=== PATIENT | female | born 1990 | race Caucasian/White ===

== ENCOUNTER → 2016-06-06 | Outpatient (CLI) | payer BC ==
[~2016-06-06] MED LIST: ACET-1256 PO; ACET-1311 PO; ALUM-30 PO; ATR25 PO; CEPH500C PO; CLON0.5T3 PO; DIPH1TAB PO; DOXY25TA7; ENT3 PO; FLM4 PO; FLUO10CA24 PO; FLUO40CA8 PO; GABA1CAP5 PO; GABA800T PO; HYDR-5688 PO; IMD/2 PO; KLN5 PO; LITH1TAB10 PO; LTHCR300 PO; MAGN400C2 PO; MEDR150I INJ; MOML PO; NICO14DI5 TD; NRN800 PO; PHEN-939 PO; POTA10CA28 PO; PRED20TA PO; PRENTAB26 PO; PRZ/40 PO; QUET1TAB34 PO; SULF500T8 PO; SULF800T23 PO; SUMA50TA15 PO; VENL1CAP92 PO; VENL75CA PO
[2016-06-06 11:09] LABS: HEMATOCRIT 35.4 % (37-47)
[2016-06-06 11:39] LABS: MANUAL MICROSCOPIC REQUIRED? NO; REVIEW REQ? NO; URINE APPEARANCE CLEAR (CLEAR); URINE BILIRUBIN NEG (NEG); URINE COLOR YELLOW; URINE EPITHELIAL CELL AUTO >30 /lpf (0-5); URINE NITRITE NEG (NEG); URINE PH 5.5 (4.5-7.5); UROBILINOGEN NEG (NEG)
[2016-06-06 12:16] LABS: GTGD 50 Grams
== END | disposition home or self-care (01) ==
LOC: C.LAB1850 09:19
PROVIDERS: ATTEND Obstetrics & Gynecology
DX: Z34.83 Encounter for supervision of other normal pregnancy, third trimester (principal)

== ENCOUNTER → 2016-06-09 | Outpatient (CLI) | payer BC | END | disposition home or self-care (01) | LOC: C.LAB1850 07:25 | PROVIDERS: ATTEND Obstetrics & Gynecology | DX: O28.1 Abnormal biochemical finding on antenatal screening of mother (principal) ==

== ENCOUNTER 2016-06-26 21:32 | Emergency (ER) | payer BC ==
[~2016-06-26] VITALS: Ht 154.9 cm; Wt 74.7 kg
[~2016-06-26 21:32] MED LIST changes: -ACET-1311 PO; -ALUM-30 PO; -ATR25 PO; -CEPH500C PO; -CLON0.5T3 PO; -DOXY25TA7; -ENT3 PO; -FLM4 PO; -FLUO10CA24 PO; -HYDR-5688 PO; -IMD/2 PO; -KLN5 PO; -LITH1TAB10 PO; -LTHCR300 PO; -MAGN400C2 PO; -MEDR150I INJ; -MOML PO; -NICO14DI5 TD; -NRN800 PO; -PHEN-939 PO; -POTA10CA28 PO; -PRED20TA PO; -PRZ/40 PO; -QUET1TAB34 PO; -SULF500T8 PO; -SULF800T23 PO; -SUMA50TA15 PO; -VENL1CAP92 PO; -VENL75CA PO
[2016-06-26 21:35] VITALS: TEMP 36.9; Ht 154.9 cm; Wt 74.7 kg
[2016-06-26] MEDS ORDERED: IMD/2 PO (22:04)
[2016-06-26] MEDS ORDERED: ONDANSETRON INJ 2 MG/ML 2 ML VIAL IV STA (22:20)
[2016-06-26] MEDS ORDERED: MoRPHine SULFATE 4 MG/ML 1 ML CARP\\VIAL IV ONE (22:30)
[2016-06-26] MEDS ORDERED: SODIUM CHLORIDE 0.9% 1000ML 1,000 ML IV ONE (22:30)
[2016-06-26 23:57] LABS: BASO % 0.1 %; BASO ABS # 0.01 K/uL (0-0.2); COMPLETE YES; EOS % 0.6 %; HEMATOCRIT 36.6 % (37-47); IG% 0.6 %; LYMPH % 16.5 %; LYMPH ABS # 2.64 K/uL (1.2-3.4); MEAN CELL VOLUME 88.6 fL (80-100); MEAN CORPUSCULAR HEMOGLOBIN 30.8 pg (25-34); MEAN CORPUSCULAR HGB CONC 34.7 g/dl (32-36); MEAN PLATELET VOLUME 9.8 fL (7.4-10.4); MONO % 9.8 %; NEUT % 72.4 %; PLATELET COUNT 268 K/uL (130-400); RED BLOOD COUNT 4.13 M/uL (4.2-5.4); WHITE BLOOD COUNT 16.04 K/uL (4.8-10.8)
[2016-06-27 00:14] LABS: ALT/SGPT 23 U/L (12-78); BLOOD UREA NITROGEN 10 mg/dl (7-18); CALCIUM 8.3 mg/dl (8.5-10.1); CARBON DIOXIDE 23 mmol/L (21-32); CHLORIDE 104 mmol/L (98-107); CREATININE 0.51 mg/dl (0.60-1.20); GLUCOSE 87 mg/dl (70-99); POTASSIUM 3.5 mmol/L (3.5-5.1); SODIUM 139 mmol/L (136-145)
[2016-06-27 00:17] LABS: ALB/GLOB RATIO 0.6 (0.9-2); ALKALINE PHOSPHATASE 98 U/L (45-117); AST/SGOT 13 U/L (15-37)
[2016-06-27 00:21] LABS: URINE APPEARANCE CLEAR (CLEAR); URINE BILIRUBIN NEG (NEG); URINE COLOR YELLOW; URINE EPITHELIAL CELL AUTO >30 /lpf (0-5); URINE NITRITE NEG (NEG); URINE SPECIFIC GRAVITY 1.009 (1.000-1.030); UROBILINOGEN NEG (NEG); ZZUR CULT IF INDIC CLEAN CATCH YES
[2016-06-27 00:29] LABS: MANUAL MICROSCOPIC REQUIRED? NO; REVIEW REQ? NO
[2016-06-27] MEDS ORDERED: ONDANSETRON INJ 2 MG/ML 2 ML VIAL IV STA (00:56)
[2016-06-27] MEDS ORDERED: ONDANSETRON HOME PACK 4MG OD TAB PO ONE (01:00)
[2016-06-27] MEDS ORDERED: MoRPHine SULFATE 4 MG/ML 1 ML CARP\\VIAL IV ONE (01:00)
[2016-06-27] MEDS ORDERED: OXYCODONE IR HOME PACK PO ONE (01:00)
[2016-06-27 02:08] VITALS: BP 101/56; PULSE 85; O2SAT 97
--- NOTE | 2016-06-27 03:15 | EMERGENCY ROOM VISIT NOTE ---
History First contact with patient: 22:08 Chief Complaint: DIARRHEA Stated Complaint: LOOSE STOOLS,FEELS LIKE DIGESTING GLASS,COLITIS Nursing Triage Summary: Patient states "I have colitis. Today, I been having diarrhea and abdominal pain." History of Present Illness The patient is a 25 year old female who presents to the Emergency Room with complaints of right-sided abdominal cramping and diarrhea. The patient states that she has a history of colitis, and this feels like a normal exacerbation for her. The patient is 31 weeks , and although she has had round ligament pain, this does not feel similar to that. The patient took Tylenol today without relief of her discomfort. She had diarrhea that was nonbloody, and decided to take Imodium. The patient contacted her CERTIFIED OPHTHALMIC TECHNOLOGIST, who will see her this week. They recommended that she be seen in the ER if her pain worsens. The patient states that she was not able to sleep well tonight, prompting her to come to the ER. She rates her discomfort a 5/10. Review of Systems More than 10 systems were reviewed and otherwise negative with the exception of history of present illness. Past Medical/Surgical History Medical Problems: (1) Abdominal pain (2) Abdominal pain in (3) Abdominal/ pelvic pain (4) Asthma (5) Back pain (6) Bronchitis (7) Bronchitis (8) Dehydration (9) Flank pain (10) Hemorrhagic ovarian cyst (11) Intermittent abdominal pain (12) ovarian cyst (13) Pelvic pain (14) with 20 completed weeks gestation (15) Ruptured ovarian cyst (16) Supervision of other normal (17) Syncope (18) Threatened miscarriage (19) Threatened miscarriage (20) Urinary retention (21) Urinary tract infection (22) Urinary tract infection (23) Vaginal bleeding before 22 weeks gestation (24) Vasovagal syncope (25) Vomiting Surgical Problems: (1) [place] Teeth Removal Family History Diabetes mellitus FH: cancer Social History Smoking Status: Current Every Day Smoker Alcohol Use: none Drug Use: none Marital Status: single, in relationship Housing Status: lives with family Occupation Status: employed Current/Historical Medications Scheduled Diphenhydramine Hcl (Benadryl Allergy), 50 MG PO HS Fluoxetine (Prozac), 40 MG PO DAILY Gabapentin (Neurontin), 800 MG PO TID Loperamide Hcl (Imodium), 2 MG PO DIRECTED Multivit/Min/Iron/Fol Ac/Pren ( Vitamin), 1 TAB PO DAILY Scheduled PRN Acetaminophen (Tylenol), 1,000 MG PO Q6H PRN for Pain Allergies Coded Allergies: Penicillins (Verified Allergy, Mild, RASH, 06/26/16) Amoxicillin (Verified Allergy, Unknown, rash, 06/26/16) Physical Exam Vital Signs Date Time Temp Pulse Resp B/P Pulse Ox O2 Delivery O2 Flow Rate FiO2 06/27/16 02:08 85 18 101/56 97 Room Air 06/26/16 23:41 88 18 98/66 98 Room Air 06/26/16 21:35 36.9 111 18 109/66 96 Room Air Pain Rating (0-10): 0 Physical Exam VITALS: Vitals are noted on the nurse's note and reviewed by myself. Vital signs stable. GENERAL: Well-developed, well-nourished, white female, who is in no acute distress and resting comfortably. Patient is cooperative with the examination. HEAD: Normocephalic atraumatic. HEART: Regular rate and rhythm without murmurs gallops or rubs. LUNGS: Clear to auscultation bilaterally without wheezes, rales or rhonchi. No retractions or accessory muscle use. ABDOMEN: Positive normal bowel sounds x 4. Soft with mild right upper quadrant tenderness on palpation. Abdomen is consistent with a 31 week . MUSCULOSKELETAL: No muscle atrophy, erythema, or edema noted. Full range of motion without joint tenderness in all extremities. Medical Decision & Procedures ER Provider Diagnostic Interpretation: Preliminary Findings Only See Final Report For Complete Findings US GALLBLADDER: No gallstones. No evidence of GB wall thickening or pericholecystic fluid. No biliary dilatation. Liver, right kidney unremarkable. No free fluid. Laboratory Results 06/26/16 23:18 Red Blood Count 4.13, Mean Corpuscular Volume 88.6, Mean Corpuscular Hemoglobin 30.8, Mean Corpuscular Hemoglobin Concent 34.7, Mean Platelet Volume 9.8, Neutrophils (%) (Auto) 72.4, Lymphocytes (%) (Auto) 16.5, Monocytes (%) (Auto) 9.8, Eosinophils (%) (Auto) 0.6, Basophils (%) (Auto) 0.1, Neutrophils # (Auto) 11.64, Lymphocytes # (Auto) 2.64, Monocytes # (Auto) 1.57, Eosinophils # (Auto) 0.09, Basophils # (Auto) 0.01 06/26/16 23:18 Test 06/26/16 23:18 White Blood Count 16.04 K/uL (4.8-10.8) Red Blood Count 4.13 M/uL (4.2-5.4) Hemoglobin 12.7 g/dL (12.0-16.0) Hematocrit 36.6 % (37-47) Mean Corpuscular Volume 88.6 fL (80-100) Mean Corpuscular Hemoglobin 30.8 pg (25-34) Mean Corpuscular Hemoglobin Concent 34.7 g/dl (32-36) Platelet Count 268 K/uL (130-400) Mean Platelet Volume 9.8 fL (7.4-10.4) Neutrophils (%) (Auto) 72.4 % Lymphocytes (%) (Auto) 16.5 % Monocytes (%) (Auto) 9.8 % Eosinophils (%) (Auto) 0.6 % Basophils (%) (Auto) 0.1 % Neutrophils # (Auto) 11.64 K/uL (1.4-6.5) Lymphocytes # (Auto) 2.64 K/uL (1.2-3.4) Monocytes # (Auto) 1.57 K/uL (0.11-0.59) Eosinophils # (Auto) 0.09 K/uL (0-0.5) Basophils # (Auto) 0.01 K/uL (0-0.2) RDW Standard Deviation 43.7 fL (36.4-46.3) RDW Coefficient of Variation 13.5 % (11.5-14.5) Immature Granulocyte % (Auto) 0.6 % Immature Granulocyte # (Auto) 0.09 K/uL (0.00-0.02) Urine Color YELLOW Urine Appearance CLEAR (CLEAR) Urine pH 7.0 (4.5-7.5) Urine Specific [place] 1.009 (1.000-1.030) Urine Protein NEG (NEG) Urine Glucose (UA) NEG (NEG) Urine Ketones NEG (NEG) Urine Occult Blood NEG (NEG) Urine Nitrite NEG (NEG) Urine Bilirubin NEG (NEG) Urine Urobilinogen NEG (NEG) Urine Leukocyte Esterase SMALL (NEG) Urine WBC (Auto) 1-5 /hpf (0-5) Urine RBC (Auto) 0-4 /hpf (0-4) Urine Hyaline Casts (Auto) 0 /lpf (0-5) Urine Epithelial Cells (Auto) >30 /lpf (0-5) Urine Bacteria (Auto) 1+ (NEG) Anion Gap 12.0 mmol/L (3-11) Est Creatinine Clear Calc Drug Dose 158.5 ml/min Estimated GFR () > 150.0 Estimated GFR (Non- 135.5 BUN/Creatinine Ratio 20.0 (10-20) Calcium Level 8.3 mg/dl (8.5-10.1) Total Bilirubin 0.3 mg/dl (0.2-1) Aspartate Amino Transf (AST/SGOT) 13 U/L (15-37) Alanine Aminotransferase (ALT/SGPT) 23 U/L (12-78) Alkaline Phosphatase 98 U/L (45-117) Total Protein 7.4 gm/dl (6.4-8.2) Albumin 2.9 gm/dl (3.4-5.0) Globulin 4.5 gm/dl (2.5-4.0) Albumin/Globulin Ratio 0.6 (0.9-2) Lipase 223 U/L (73-393) Date/Time Source Procedure Growth Status 06/26/16 23:21 Stool C.difficile Toxin B Gene (PCR) - Final No C. difficile toxin B gene detected Complete Medications Administered Medications (Trade) Dose Ordered Sig/Pro Route Start Time Stop Time Status Last Admin Dose Admin Sodium Chloride (Nss 1000ml) 1,000 ml @ 999 mls/hr Q1H1M ONCE IV 06/26/16 22:30 06/26/16 23:30 DC 06/26/16 23:39 999 MLS/HR Morphine Sulfate (MoRPHine SULFATE INJ) 4 mg NOW ONCE IV 06/26/16 22:30 06/26/16 22:31 DC 06/26/16 23:40 4 MG Ondansetron HCl (Zofran Inj) 4 mg NOW STAT IV 06/26/16 22:20 06/26/16 22:22 DC 06/26/16 23:38 4 MG Morphine Sulfate (MoRPHine SULFATE INJ) 4 mg NOW ONCE IV 06/27/16 01:00 06/27/16 01:01 DC 06/27/16 02:00 4 MG Ondansetron HCl (Zofran Inj) 4 mg NOW STAT IV 06/27/16 00:56 06/27/16 00:58 DC 06/27/16 02:00 4 MG Oxycodone HCl (Roxicodone Immediate Rel 5MG Home Pack) 1 homepack UD ONCE PO 06/27/16 01:00 06/27/16 01:01 DC 06/27/16 02:01 1 HOMEPACK Ondansetron HCl (ZOFRAN ODT 4MG Home Pack) 1 homepack UD ONCE PO 06/27/16 01:00 06/27/16 01:01 DC 06/27/16 02:01 1 HOMEPACK ED Course Physical exam and history were performed. Nursing notes and EMR were reviewed. Patient appears to have right-sided abdominal pain in . The patient does have a history of colitis, and she states this feels like similar events in the past. IV access established and labs were obtained. The patient was hydrated normal saline. I discussed options of pain control, and together we elected to provide a small amount of IV morphine and IV Zofran. She does have reproducible right upper quadrant tenderness, and I did elect to perform an ultrasound. heart tones were normal. Stool culture was obtained and results are pending. The patient was reevaluated multiple times with a course of her stay. She does have a very slightly elevated white blood cell count of 16,000. She does not have a gross anemia or significant electrolyte imbalance. Lipase and transaminases are nondiagnostic. Urinalysis is without evidence of infection. Ultrasound was read by stat rad without evidence of acute cholecystitis or other appreciable findings. After hydration, pain medication, anti-medics the patient felt significantly improved. Repeat abdominal exam showed resolution of her discomfort. I discussed further options of care with the patient. I did offer CT imaging and pelvic exam. Using shared decision making we elected to defer these. Overall the patient does appear stable for discharge home. I suspect that her symptoms likely are the result of a colitis, and should improve with supportive measures. I also discussed the possibility that her symptoms may represent a very early appendicitis or other etiology. The patient has an appointment in a few days with CERTIFIED OPHTHALMIC TECHNOLOGIST, and was asked to keep that appointment. She was thoroughly invited back to the ER with any new, worsening, or concerning symptoms. The patient was pleased with this plan and voiced understanding. She will be given home packs of [place] and Zofran. She was discharged home under the care of a male friend who is acting as the security patrol driver today. The chart was completed utilizing [employer] Speech Voice Recognition Software. Grammatical errors, random word insertions, pronoun errors, and incomplete sentences are an occasional consequence of this system due to software limitations, ambient noise, and hardware issues. Any formal questions or concerns about the content, text, or information contained within the body of this dictation should be directly addressed to the provider for clarification. . Medical Decision Differential diagnosis: Etiologies such as appendicitis, diverticulitis, PUD, biliary pathology, UTI, pancreatitis, obstruction, mesenteric ischemia, aortic pathology, infections, inflammatory bowel disease, renal colic, as well as others were entertained. Impression Primary Impression: Right sided abdominal pain Departure Information Dispostion Home / Self-Care Condition GOOD Forms HOME CARE DOCUMENTATION FORM, IMPORTANT VISIT INFORMATION Patient Instructions My [facility] Additional Instructions You were seen and evaluated today on an emergency basis only. This is not a substitute for, or an effort to provide, complete comprehensive medical care. It is not possible to recognize and treat all injuries or illnesses in a single emergency department visit. For this reason it is recommended that you followup with your CERTIFIED OPHTHALMIC TECHNOLOGIST this week as scheduled for ongoing care and evaluation. Oxycodone (OxyIR) 5mg (homepack): Take ONE pill every SIX hours for breakthrough pain. Avoid alcohol, operating machinery or dangerous equipment, working on ladders or roofs, DRIVING, or situations where being under the influence may be dangerous. It is recommended to use an [id number] stool softener such as Colace, 100mg twice daily while taking this medication to avoid constipation. Zofran 1 tablet every 6 hrs as needed for nausea. You are welcome to return to the emergency department anytime with new, worsening, or concerning symptoms.
--- NOTE | 2016-06-27 06:58 | DIAGNOSTIC IMAGING REPORT ---
[place] ultrasound GALLBLADDER-ABD LIMITED CLINICAL HISTORY: RUQ abd in pain. Nausea. TECHNIQUE: Ultrasound COMPARISON STUDY: None FINDINGS: Normal gallbladder. Color wall to millimeters. Common bile duct 2 mm. Liver is uniform. Right kidney is negative for hydronephrosis. Pancreas is nonvisualized due to overlying bowel content. IMPRESSION: No acute process. Electronically signed by: Gregorio Garcia M.D. 06/27/2016 6:56 AM Dictated Date/Time: 06/27/2016 6:50 AM
[2016-10-22] MEDS ORDERED: ENT3 PO (13:23)
[2016-10-22] MEDS ORDERED: POTA10CA28 PO (13:29)
[2016-10-22] MEDS ORDERED: MAGN400C2 PO (13:29)
[2016-11-25] MEDS ORDERED: FLM4 PO (10:41)
[2016-11-25] MEDS ORDERED: KLN5 PO (10:41)
[2016-11-25] MEDS ORDERED: VENL75CA PO (10:41)
[2016-11-25] MEDS ORDERED: NICO14DI5 TD (10:41)
[2016-11-25] MEDS ORDERED: LTHCR300 PO (10:41)
[2016-11-25] MEDS ORDERED: ATR25 PO (10:41)
[2016-11-25] MEDS ORDERED: PHEN-939 PO (10:41)
[2016-11-25] MEDS ORDERED: SUMA50TA15 PO (11:03)
== END 2016-06-27 02:10 | disposition home or self-care (01) ==
LOC: C.EDB 21:33
DX: R10.9 Unspecified abdominal pain (principal); F17.200 Nicotine dependence, unspecified, uncomplicated

== ENCOUNTER 2016-07-08 16:36 | Outpatient (CLI) | payer BC ==
[~2016-07-08] VITALS: Ht 154.9 cm; Wt 76.5 kg
[~2016-07-08 16:36] MED LIST changes: -GABA1CAP5 PO; +IMD/2 PO
[2016-07-08 16:56] VITALS: Ht 154.9 cm; Wt 76.5 kg
[2016-10-22] MEDS ORDERED: ENT3 PO (13:23)
[2016-10-22] MEDS ORDERED: POTA10CA28 PO (13:29)
[2016-10-22] MEDS ORDERED: MAGN400C2 PO (13:29)
[2016-11-25] MEDS ORDERED: ATR25 PO (10:41)
[2016-11-25] MEDS ORDERED: LTHCR300 PO (10:41)
[2016-11-25] MEDS ORDERED: VENL75CA PO (10:41)
[2016-11-25] MEDS ORDERED: FLM4 PO (10:41)
[2016-11-25] MEDS ORDERED: NICO14DI5 TD (10:41)
[2016-11-25] MEDS ORDERED: PHEN-939 PO (10:41)
[2016-11-25] MEDS ORDERED: KLN5 PO (10:41)
[2016-11-25] MEDS ORDERED: SUMA50TA15 PO (11:03)
== END 2016-07-08 19:15 | disposition home or self-care (01) ==
LOC: C.OPB 16:36 → C.LD 16:36 → C.OPB 19:15
PROVIDERS: ATTEND Obstetrics & Gynecology
DX: O62.9 Abnormality of forces of labor, unspecified (principal); Z3A.32 32 weeks gestation of pregnancy

== ENCOUNTER → 2016-07-10 | Outpatient (CLI) | payer BC ==
[~2016-07-10] MED LIST changes: +ACET-1311 PO; +ALUM-30 PO; +ATR25 PO; +CEPH500C PO; +CLON0.5T3 PO; +DOXY25TA7; +ENT3 PO; +FLM4 PO; +FLUO10CA24 PO; +GABA1CAP5 PO; +HYDR-5688 PO; +KLN5 PO; +LITH1TAB10 PO; +LTHCR300 PO; +MAGN400C2 PO; +MEDR150I INJ; +MOML PO; +NICO14DI5 TD; +NRN800 PO; +PHEN-939 PO; +POTA10CA28 PO; +PRED20TA PO; +PRZ/40 PO; +QUET1TAB34 PO; +SULF500T8 PO; +SULF800T23 PO; +SUMA50TA15 PO; +VENL1CAP92 PO; +VENL75CA PO
== END | disposition home or self-care (01) ==
LOC: C.LAB1850 15:13
PROVIDERS: ATTEND Obstetrics & Gynecology
DX: O09.899 Supervision of other high risk pregnancies, unspecified trimester (principal)

== ENCOUNTER → 2016-07-31 | Outpatient (CLI) | payer BC ==
[~2016-07-31] MED LIST changes: -DIPH1TAB PO; -IMD/2 PO
== END | disposition home or self-care (01) ==
LOC: C.LABSPEC 17:49
PROVIDERS: ATTEND Obstetrics & Gynecology
DX: Z34.83 Encounter for supervision of other normal pregnancy, third trimester (principal)

== ENCOUNTER 2016-08-10 06:29 | Outpatient (CLI) | payer BC ==
[~2016-08-10] VITALS: Ht 154.9 cm; Wt 75.0 kg
[~2016-08-10 06:29] MED LIST changes: -ACET-1311 PO; -ALUM-30 PO; -ATR25 PO; -CEPH500C PO; -CLON0.5T3 PO; -DOXY25TA7; -ENT3 PO; -FLM4 PO; -FLUO10CA24 PO; -GABA1CAP5 PO; -HYDR-5688 PO; -KLN5 PO; -LITH1TAB10 PO; -LTHCR300 PO; -MAGN400C2 PO; -MEDR150I INJ; -MOML PO; -NICO14DI5 TD; -NRN800 PO; -PHEN-939 PO; -POTA10CA28 PO; -PRED20TA PO; -PRZ/40 PO; -QUET1TAB34 PO; -SULF500T8 PO; -SULF800T23 PO; -SUMA50TA15 PO; -VENL1CAP92 PO; -VENL75CA PO
[2016-08-10] MEDS ORDERED: DOXY25TA7 (07:06)
[2016-08-10 07:07] VITALS: Ht 154.9 cm; Wt 75.0 kg
[2016-08-10] MEDS ORDERED: INFLUENZA VIRUS QUAD VACCINE 0.5 ML SYR IM. ONE (07:30)
[2016-08-10] MEDS ORDERED: INFLUENZA ADMINISTRATION CHARGE ONE (07:30)
[2016-08-10 08:08] VITALS: BP 106/67; PULSE 88; TEMP 36.4
[2016-10-22] MEDS ORDERED: ENT3 PO (13:23)
[2016-10-22] MEDS ORDERED: POTA10CA28 PO (13:29)
[2016-10-22] MEDS ORDERED: MAGN400C2 PO (13:29)
[2016-11-25] MEDS ORDERED: NICO14DI5 TD (10:41)
[2016-11-25] MEDS ORDERED: ATR25 PO (10:41)
[2016-11-25] MEDS ORDERED: VENL75CA PO (10:41)
[2016-11-25] MEDS ORDERED: LTHCR300 PO (10:41)
[2016-11-25] MEDS ORDERED: KLN5 PO (10:41)
[2016-11-25] MEDS ORDERED: PHEN-939 PO (10:41)
[2016-11-25] MEDS ORDERED: FLM4 PO (10:41)
[2016-11-25] MEDS ORDERED: SUMA50TA15 PO (11:03)
[2017-03-18] MEDS ORDERED: ASPI-391 PO (20:02)
[2017-03-18] MEDS ORDERED: LITH1TAB10 PO (20:05)
[2017-03-18] MEDS ORDERED: EFF75 PO (20:05)
[2017-03-18] MEDS ORDERED: CYCL10TA6 PO (20:12)
== END 2016-08-10 09:35 | disposition home health service (06) ==
LOC: C.LD 06:29 → C.OPB 06:29
PROVIDERS: ATTEND Obstetrics & Gynecology
DX: O62.9 Abnormality of forces of labor, unspecified (principal); W19.XXXA Unspecified fall, initial encounter; Z3A.37 37 weeks gestation of pregnancy; Y99.0 Civilian activity done for income or pay

== ENCOUNTER 2016-08-11 18:25 | Inpatient (IN) | payer BC ==
[~2016-08-11] VITALS: Ht 154.9 cm; Wt 75.0 kg
[~2016-08-11 18:25] MED LIST changes: +DOXY25TA7
[2016-08-11] MEDS ORDERED: LACTATED RINGER'S 1000ML 1,000 ML IV PRN (18:47)
[2016-08-11] MEDS ORDERED: BUPIVACAINE 0.25% 30 ML VIAL ONE (19:10)
[2016-08-11] MEDS ORDERED: EpHEDrine SULFATE INJ 50 MG/ML AMP ONE (19:10)
[2016-08-11] MEDS ORDERED: FENTANYL 2MCG/ML ROPIV 1.25MG/ML 100ML BAG EPI ONE (19:10)
[2016-08-11] MEDS ORDERED: FENTANYL CITRATE INJ 50 MCG/1 ML 2 ML VIAL ONE (19:10)
[2016-08-11 19:13] VITALS: Ht 154.9 cm; Wt 75.0 kg
[2016-08-11 19:14] LABS: HEMATOCRIT 37.7 % (37-47); MEAN CELL VOLUME 88.5 fL (80-100); MEAN CORPUSCULAR HEMOGLOBIN 31.5 pg (25-34); MEAN CORPUSCULAR HGB CONC 35.5 g/dl (32-36); MEAN PLATELET VOLUME 10.2 fL (7.4-10.4); PLATELET COUNT 287 K/uL (130-400); RED BLOOD COUNT 4.26 M/uL (4.2-5.4); WHITE BLOOD COUNT 16.43 K/uL (4.8-10.8)
[2016-08-11] MEDS: LACTATED RINGER'S 1000ML 1,000 ML IV SCH ×2 (19:33→19:57)
[2016-08-11] MEDS ORDERED: NALOXONE HCL INJ 1 MG in SODIUM CHLORIDE 0.9% 1000ML 1,000 ML IV PRN (19:43)
[2016-08-11] MEDS ORDERED: LACTATED RINGER'S 1000ML 500 ML IV PRN (19:43)
[2016-08-11] MEDS ORDERED: NALBUPHINE HCL INJ 10 MG/ML AMP IV PRN (19:45)
[2016-08-11] MEDS ORDERED: ONDANSETRON INJ 2 MG/ML 2 ML VIAL IV PRN (19:45)
[2016-08-11] MEDS ORDERED: NALOXONE HCL INJ 0.4 MG/1 ML VIAL/CARP IV PRN (19:45)
[2016-08-11] MEDS ORDERED: FENTANYL 2MCG/ML ROPIV 1.25MG/ML 100ML BAG EPI PRN (19:45)
[2016-08-11] MEDS ORDERED: DiphenhydrAMINE HCL 50 MG/ML VIAL IV PRN (19:45)
[2016-08-11] MEDS ORDERED: EpHEDrine SULFATE INJ 50 MG/ML AMP IV PRN (19:45)
[2016-08-11] MEDS ORDERED: OXYTOCIN 30 UNITS/500ML NSS IV ONE (21:12)
[2016-08-11] MEDS ORDERED: BENZOCAINE 20% AER SPR 82.5 GM CAN EXT PRN (21:30)
[2016-08-11] MEDS ORDERED: OXYTOCIN 30 UNITS/500ML NSS IV PRN (21:30)
[2016-08-11] MEDS ORDERED: OXYCODONE/ACETAMINOPHEN 5-325 TAB PO PRN (21:30)
[2016-08-11] MEDS ORDERED: LANOLIN OINT EXT PRN ×2 (21:30)
[2016-08-11] MEDS ORDERED: SUPERCREAM 0.870 % 15GM JAR EXT PRN (21:30)
[2016-08-11] MEDS ORDERED: HYDROCORTISONE ACETATE 25 MG SUPP PR PRN (21:30)
[2016-08-11] MEDS ORDERED: ACETAMINOPHEN 325 MG TAB PO PRN (21:30)
--- NOTE | 2016-08-11 21:59 | DELIVERY SUMMARY ---
DATE OF OPERATION: 08/11/2016 Tatiana presented in labor on the night of 08/11/2016. She is 37 weeks and 5 days, group B strep negative, presented initially at 6 cm and then progressed to 9. After receiving an epidural, AROM was performed for clear fluid. Baby was soon delivered afterwards in occiput anterior position. Mouth and the nares were suctioned after delivery of the head. Loose nuchal cord passed over the head. Baby was delivered by gentle traction. No excess force was used. Live vigorous female . Cord clamped and cut. Cord gases obtained. Cord blood obtained. Placenta removed with gentle traction. Small left labial tear repaired with 3-0 Vicryl. Sponge and instrument counts correct. Estimated blood loss 115 mL. I attest to the content of the Intraoperative Record and any orders documented therein. Any exceptio ns are noted below.
[2016-08-11] MEDS: IBUPROFEN 600 MG TAB PO PRN (22:51)
--- NOTE | 2016-08-11 22:51 | Anesthesia Procedure Note ---
Anesthesia Epidural Removal Nt Date & Time Aug 11, 2016 at 22:51 Vital Signs Pain Intensity: 5.0 Notes Mental Status: alert / awake / arousable, participated in evaluation Nausea / Vomiting: adequately controlled Pain: adequately controlled Airway Patency, RR, SpO2: stable & adequate BP & HR: stable & adequate Hydration State: stable & adequate Neuraxial Anesthesia: was administered Anesthetic Complications: no major complications apparent, pt satisfied with anesthetic care Epidural: removed without complications, with tip intact
[2016-08-12 00:40] VITALS: BP 106/68; PULSE 60; TEMP 36.8
[2016-08-12] MEDS: ACETAMINOPHEN/CODEINE 300/30MG TAB PO PRN ×5 (03:31→19:56)
[2016-08-12 03:35] VITALS: BP 103/66; PULSE 71; TEMP 36.7
[2016-08-12] MEDS: IBUPROFEN 600 MG TAB PO PRN (07:00)
--- NOTE | 2016-08-12 07:17 | Progress Note ---
Subjective Aug 12, 2016. Subjective conversation w/ patient, physical exam, chart review Ambulation: ambulating normally Voiding: no voiding problems Diet Tolerance: Regular Diet Lochia: Moderate Objective Vital Signs Date Time Temp Pulse Resp B/P Pulse Ox O2 Delivery O2 Flow Rate FiO2 08/12/16 03:35 36.7 71 18 103/66 Room Air 08/12/16 00:40 Room Air 08/12/16 00:40 36.8 60 18 106/68 Room Air Physical Exam General Appearance: WELL-APPEARING Abdomen: non tender Fundus: Firm Extremities: no calf tenderness Laboratory Results Last 24 Hours Test 08/11/16 19:00 08/12/16 04:44 White Blood Count 16.43 K/uL Red Blood Count 4.26 M/uL Hemoglobin 13.4 g/dL Hematocrit 37.7 % Mean Corpuscular Volume 88.5 fL Mean Corpuscular Hemoglobin 31.5 pg Mean Corpuscular Hemoglobin Concent 35.5 g/dl RDW Standard Deviation 43.8 fL RDW Coefficient of Variation 13.6 % Platelet Count 287 K/uL Mean Platelet Volume 10.2 fL Assessment and Plan Problem List Medical Problems: (1) Abdominal pain Status: Acute (2) Acute bronchitis Status: Acute (3) Anemia Status: Acute (4) Asthma Status: Chronic (5) Back strain Status: Acute (6) Chronic abdominal pain Status: Acute (7) Constipation Status: Acute (8) Contusion of foot Status: Acute (9) Dentalgia Status: Acute (10) Elevated serum human chorionic gonadotropin (hCG) level Status: Acute (11) Encounter for [place] catheter removal Status: Acute (12) Failure of outpatient treatment Status: Acute (13) Fecal retention Status: Acute (14) Headache Status: Acute (15) Hemoptysis Status: Acute (16) Left flank pain Status: Acute (17) Low back strain Status: Acute (18) Mood disorder Status: Acute (19) Ovarian cyst rupture Status: Acute (20) Precordial chest pain Status: Acute (21) Pyelonephritis Status: Acute (22) Right lower quadrant abdominal pain Status: Acute (23) Right sided abdominal pain Status: Acute (24) Right wrist sprain Status: Acute (25) Vaginal discharge Status: Acute (26) Work related injury Status: Acute Post- Day#: 0 Continue Routine Care: ccc
[2016-08-12 07:45] VITALS: BP 118/79; PULSE 60; TEMP 36.7
[2016-08-12] MEDS: FLUOXETINE HCL 20 MG CAP PO SCH (07:52)
[2016-08-12] MEDS: GABAPENTIN 800 MG TAB PO SCH ×3 (07:52→19:54)
[2016-08-12] MEDS: PRENATAL VITAMIN TAB PO SCH (07:52)
[2016-08-12] MEDS: DOCUSATE SODIUM 100 MG CAP PO SCH ×2 (07:52→19:54)
[2016-08-12 07:55] LABS: HEMATOCRIT 37.4 % (37-47)
[2016-08-12 12:05] VITALS: BP 120/78; PULSE 81; TEMP 36.6
[2016-08-12 15:50] VITALS: BP 114/72; PULSE 67; TEMP 36.7
[2016-08-12] MEDS ORDERED: BISACODYL 5 MG TABEC PO SCH (20:00)
[2016-08-12 20:05] VITALS: BP 108/71; PULSE 61; TEMP 36.5; O2SAT 99
[2016-08-13 00:30] VITALS: BP 121/81; PULSE 61; TEMP 36.4; O2SAT 98
[2016-08-13] MEDS: ACETAMINOPHEN/CODEINE 300/30MG TAB PO PRN ×2 (00:30→04:17)
--- NOTE | 2016-08-13 05:13 | Discharge Instructions ---
Discharge Instructions Date of Service Aug 13, 2016. Admission Reason for Admission: Check Labor Discharge Discharge Diagnosis / Problem: after delivery Discharge Goals Goal(s): Routine recovery after delivery Medications Continue Dispensed Medications: supercream, dermaplast, tucks, lansinoh Activity Recommendations Activity Limitations: as noted below . Instructions / Follow-Up Instructions / Follow-Up ACTIVITY RECOMMENDATIONS: * Gradual return to full activity over the next 2-3 weeks. * No lifting - nothing heavier than baby over the next 2-3 weeks. * Do not engage in vigorous exercise, sexual activity or sports until cleared by your physician. * Do not drive or operate any motorized equipment until cleared by your physician. * You may shower/bathe daily. MEDICATIONS: For discomfort or pain, you may use Acetaminophen (Tylenol), Ibuprofen (Advil), or Naproxen (Aleve) following the package directions. For constipation you may use Colace following the package directions. BREAST CARE: If you are not breast feeding: * Wear a supportive bra 24 hours a day for one to two weeks. * Avoid stimulating your breasts and nipples as much as possible during the first few weeks after delivery. * When taking a shower, have the warm water hit your back, not breasts. * When your breasts feel full, apply ice packs. Usually three to four times a day helps ease the discomfort. * Take a mild pain medication (Tylenol / Motrin) when you are uncomfortable. If breast feeding: * Use breast milk to lubricate nipples. Lansinoh cream may be used for sore nipples. You do not need to remove cream prior to breast feeding. If using a different brand of cream, check the label for directions regarding removal of cream prior to nursing. * Wear a supportive bra. * If having problems with breasts or breast feeding, call a fashion consultant selling or your health care provider. EPISIOTOMY CARE: After delivery, if you have an episiotomy (stitches), the following steps will ease discomfort and aid healing. * For the first 24 hours after delivery, place ice packs next to your episiotomy to help reduce swelling. * After the first 24 hour-period, sitz baths, either portable or in the tub, are suggested. A shower with a shower arm sprayed over the episiotomy may be comforting. * Yu care should be done after each voiding and bowel movement. Squirt warm water from a plastic bottle over the perineum (region of the body between the anus and urinary opening) and pat dry. * Use Dermoplast to ease discomfort. Shake container. [place] directly over the episiotomy. Place a Tucks on a clean sanitary pad next to your episiotomy. SPECIAL CARE INSTRUCTIONS: When you are discharged from the hospital, it is important for you to follow the instructions listed below: * During the first week at home, you should be able to care for yourself and your baby. In addition, the usual light household activities are encouraged. * Limit your activities to the way you feel. Do not try to clean the house or move furniture. Be sensible. * If you actively engage in sports and have done so up until the time of your delivery, you may resume these activities as soon as you feel able. This may take up to one month or even longer. Use good judgment. * Continue to take your vitamins for at least six weeks after the of your baby. * Your diet need not be limited unless you were on a special diet before your delivery. Breast-feeding mothers need around 2500 calories per day and at least 64-80 ounces of fluid per day (8 to 10 glasses). * You should eat foods from the four major food groups. Crash diets or fad diets are to be avoided. Eating lean meats, fresh fruits and vegetables, low-fat dairy products, high fiber foods and a regular exercise program, will help you get back to your pre- weight without putting your health at risk. * Constipation is sometimes a problem after delivery. Take a mild laxative as needed. If breast feeding, Milk of Magnesia is acceptable to use. You may use a suppository or Fleets enema if no episiotomy. * A daily shower or tub bath is suggested. Be sure to thoroughly and gently dry the perineum. * A bloody vaginal discharge will usually continue until around four weeks post . A small amount of bleeding may continue for as long as six weeks. Vaginal discharge changes from the bright red bleeding after delivery to pink then brownish and finally yellowish-pink before becoming white and disappearing. * Bleeding may increase with activity. Your first period may come in 4-8 weeks. If you are breast feeding, your period may be delayed even longer. * [place] (sex) can begin whenever both you and your partner feel comfortable and do not have any form of genital infection. It is recommended that you wait at least six weeks for internal and external healing to occur. If you have questions, please talk to your health care practitioner. A condom should be used to prevent infection and . * Foreplay, gentle intercourse and lubrication is very important the first several times to prevent pain. A water-based lubricant such as K-Y jelly or Astroglide may be used. * If you have RH negative blood and your baby is RH positive, you will receive RHOGAM by injection prior to discharge. The nurse will give you a card to keep with you that has the date and place that you received RHOGAM after delivery. * During your care, you had a Rubella screen done to check for the presence of rubella antibodies in your blood. If your test was negative, you will receive a Rubella vaccine prior to discharge. This vaccine may cause a fever, soreness at the injection site and flu-like symptoms. If these symptoms persist, notify your health care practitioner. is not advised for one month after a Rubella vaccine. * Verbalizes understanding of car seat law as reviewed with patient nursing. * Car Seat hand-out given and reviewed with patient by nursing. * Shaken baby information reviewed with patient by nursing. Call you doctor if: * Heavy bleeding (saturating several pads an hour) or passing clots the size of your fist. * A fever >101 degrees F (38.3 degrees C) on two occasions four hours apart and /or chills. * Unusual pain in the pelvic or vaginal areas. * "Baby Blues" lasting longer than two weeks. If you have any questions or concerns, call your health care practitioner at . FOLLOW UP VISIT: * Please call the office at to schedule a 6 week examination. It is important you keep this appointment. It is important for you to make arrangements for either yearly or twice yearly check-ups thereafter. Current Hospital Diet Patient's current hospital diet: Regular OB Diet Discharge Diet Recommended Diet: Regular Diet Pending Studies Studies pending at discharge: no Medical Emergencies . Who to Call and When: Medical Emergencies: If at any time you feel your situation is an emergency, please call 911 immediately. . Non-Emergent Contact Non-Emergency issues call your: Forming Machine Upkeep Mechanic . . "Provider Documentation" section prepared by Cherelle Bradshaw. VTE Core Measure Inpt VTE Proph given/why not?: Treatment not indicated
[2016-08-13] MEDS ORDERED: BISACODYL 10 MG SUPP PR PRN (07:00)
--- NOTE | 2016-08-13 07:14 | Progress Note ---
Subjective Aug 13, 2016. Subjective conversation w/ patient, physical exam Ambulation: ambulating normally Voiding: no voiding problems Diet Tolerance: Regular Diet Lochia: Small Feeding Type: Bottle Feeding Comment: having back pain. using warm heat and tylenol #3, had epidural. Objective Vital Signs Date Time Temp Pulse Resp B/P Pulse Ox O2 Delivery O2 Flow Rate FiO2 08/13/16 00:30 36.4 61 18 121/81 98 Room Air 08/13/16 00:30 98 Room Air 08/12/16 20:05 36.5 61 20 108/71 99 Room Air 08/12/16 15:50 36.7 67 18 114/72 Room Air 08/12/16 15:50 Room Air 08/12/16 12:05 36.6 81 18 120/78 Room Air 08/12/16 07:45 Room Air 08/12/16 07:45 36.7 60 18 118/79 Room Air Physical Exam General Appearance: WELL-APPEARING, WD/WN, NO APPARENT DISTRESS Respiratory/Chest: lungs clear Cardiovascular: regular rate, rhythm Abdomen: non tender, soft Fundus: Firm, Relation to Umbilicus (2 down) Extremities: non-tender Laboratory Results Last 24 Hours Test 08/12/16 07:45 Hemoglobin 13.1 g/dL Hematocrit 37.4 % Assessment and Plan Problem List Post- Day#: 1 Continue Routine Care: stable, routine care. ready for discharge. instructions reviewed. f/u 6 wks pp check.
[2016-08-13 07:30] VITALS: BP 102/66; PULSE 64; TEMP 36.7
[2016-08-13] MEDS: FLUOXETINE HCL 20 MG CAP PO SCH (08:09)
[2016-08-13] MEDS: DOCUSATE SODIUM 100 MG CAP PO SCH (08:09)
[2016-08-13] MEDS: PRENATAL VITAMIN TAB PO SCH (08:09)
[2016-08-13] MEDS: GABAPENTIN 800 MG TAB PO SCH (08:09)
[2016-08-13] MEDS: IBUPROFEN 600 MG TAB PO PRN (08:11)
[2016-08-13 11:45] VITALS: BP_DIAS 66; PULSE 64; TEMP 36.7
[2016-10-22] MEDS ORDERED: ENT3 PO (13:23)
[2016-10-22] MEDS ORDERED: POTA10CA28 PO (13:29)
[2016-10-22] MEDS ORDERED: MAGN400C2 PO (13:29)
[2016-11-25] MEDS ORDERED: KLN5 PO (10:41)
[2016-11-25] MEDS ORDERED: FLM4 PO (10:41)
[2016-11-25] MEDS ORDERED: NICO14DI5 TD (10:41)
[2016-11-25] MEDS ORDERED: ATR25 PO (10:41)
[2016-11-25] MEDS ORDERED: PHEN-939 PO (10:41)
[2016-11-25] MEDS ORDERED: VENL75CA PO (10:41)
[2016-11-25] MEDS ORDERED: LTHCR300 PO (10:41)
[2016-11-25] MEDS ORDERED: SUMA50TA15 PO (11:03)
[2017-03-18] MEDS ORDERED: ASPI-391 PO (20:02)
[2017-03-18] MEDS ORDERED: EFF75 PO (20:05)
[2017-03-18] MEDS ORDERED: LITH1TAB10 PO (20:05)
[2017-03-18] MEDS ORDERED: CYCL10TA6 PO (20:12)
== END 2016-08-13 11:45 | disposition home or self-care (01) | DRG 775 ==
LOC: C.LD 18:25 → C.OPB 18:25 → C.LD 18:50 → C.OPB 18:50 → C.OBG 08-12 00:43
PROVIDERS: ADMIT Obstetrics & Gynecology; ATTEND Obstetrics & Gynecology
PROC: 10E0XZZ Delivery of Products of Conception, External Approach (ICD-10-PCS; principal; 2016-08-11)
PROC: 0UQMXZZ Repair Vulva, External Approach (ICD-10-PCS; principal; 2016-08-11)
DX: O99.344 Other mental disorders complicating childbirth (principal); Z37.0 Single live birth; O69.81X0 Labor and delivery complicated by cord around neck, without compression, not applicable or unspecified; O70.0 First degree perineal laceration during delivery; Z3A.37 37 weeks gestation of pregnancy; Z79.899 Other long term (current) drug therapy

== ENCOUNTER 2016-10-15 17:07 | Emergency (ER) | payer BC ==
[~2016-10-15] VITALS: Ht 157.5 cm; Wt 66.7 kg
[~2016-10-15 17:07] MED LIST changes: -ACET-1256 PO; -DOXY25TA7
[2016-10-15 17:16] VITALS: Ht 157.5 cm; Wt 66.7 kg
[2016-10-15] MEDS ORDERED: SODIUM CHLORIDE 0.9% 1000ML 1,000 ML IV STA ×2 (17:22)
[2016-10-15] MEDS ORDERED: ONDANSETRON INJ 2 MG/ML 2 ML VIAL IV STA (17:29)
[2016-10-15] MEDS ORDERED: FLUO10CA24 PO (17:33)
[2016-10-15] MEDS ORDERED: PRZ/40 PO (17:33)
[2016-10-15] MEDS ORDERED: SULF500T8 PO (17:33)
[2016-10-15] MEDS ORDERED: NRN800 PO (17:33)
[2016-10-15] MEDS ORDERED: CLON0.5T3 PO (17:33)
[2016-10-15 17:51] LABS: BASO % 0.4 %; BASO ABS # 0.03 K/uL (0-0.2); COMPLETE YES; EOS % 1.4 %; IG% 0.1 %; LYMPH % 38.1 %; LYMPH ABS # 2.68 K/uL (1.2-3.4); MEAN CELL VOLUME 89.9 fL (80-100); MEAN CORPUSCULAR HEMOGLOBIN 30.9 pg (25-34); MEAN CORPUSCULAR HGB CONC 34.4 g/dl (32-36); MEAN PLATELET VOLUME 8.5 fL (7.4-10.4); MONO % 11.2 %; NEUT % 48.8 %; PLATELET COUNT 334 K/uL (130-400); RED BLOOD COUNT 4.34 M/uL (4.2-5.4); WHITE BLOOD COUNT 7.04 K/uL (4.8-10.8)
[2016-10-15 17:54] LABS: URINE APPEARANCE CLEAR (CLEAR); URINE BILIRUBIN NEG (NEG); URINE COLOR YELLOW; URINE NITRITE NEG (NEG); URINE SPECIFIC GRAVITY 1.028 (1.000-1.030); UROBILINOGEN NEG (NEG); ZZUR CULT IF INDIC CLEAN CATCH NO
[2016-10-15 17:55] LABS: MANUAL MICROSCOPIC REQUIRED? NO; PREG INTERNAL NEGATIVE QC NEG CLEAR BACKGROUND; PREG INTERNAL POSITIVE QC POS CONTROL LINE; REVIEW REQ? NO
[2016-10-15] MEDS: HYDROmorphone INJ 0.5 MG/0.5 ML SYR IV PRN ×2 (17:56→19:08)
[2016-10-15 18:09] LABS: ALT/SGPT 20 U/L (12-78); AST/SGOT 9 U/L (15-37); BLOOD UREA NITROGEN 16 mg/dl (7-18); BUN/CREATININE RATIO 18.7 (10-20); CALCIUM 8.3 mg/dl (8.5-10.1); CARBON DIOXIDE 26 mmol/L (21-32); CHLORIDE 110 mmol/L (98-107); CREATININE 0.83 mg/dl (0.60-1.20); GLUCOSE 86 mg/dl (70-99); POTASSIUM 4.1 mmol/L (3.5-5.1); SODIUM 144 mmol/L (136-145)
[2016-10-15 18:12] LABS: ALKALINE PHOSPHATASE 70 U/L (45-117)
--- NOTE | 2016-10-15 18:54 | DIAGNOSTIC IMAGING REPORT ---
CHEST AND ABDOMEN 2 VIEWS HISTORY: bloody diarrhea COMPARISON: Chest 04/01/2016. FINDINGS: The lungs are clear. The cardiomediastinal silhouette is within normal limits. There is no pneumoperitoneum or pneumatosis. The bowel gas pattern is unremarkable. No evidence for bowel obstruction. No pathologic calcifications. Small fluid level seen throughout the colon. IMPRESSION: No acute cardiopulmonary process. No evidence for bowel obstruction. Small fluid levels seen throughout the colon. This is consistent with the patient's history of a diarrheal illness. Electronically signed by: Travis Ferrara M.D. 10/15/2016 6:52 PM Dictated Date/Time: 10/15/2016 6:51 PM
[2016-10-15] MEDS ORDERED: MoRPHine SULFATE 4 MG/ML 1 ML CARP\\VIAL IV STA (19:20)
[2016-10-15] MEDS ORDERED: OXYCODONE IR HOME PACK PO ONE (20:00)
[2016-10-15] MEDS ORDERED: PRED20TA PO (20:11)
[2016-10-15 20:30] VITALS: BP 98/67; PULSE 74; TEMP 36.6; O2SAT 98
--- NOTE | 2016-10-15 21:56 | EMERGENCY ROOM VISIT NOTE ---
History Report prepared by Juliana: Nancy Holt Under the Supervision of: Dr. Thierry Carmichael M.D. First contact with patient: 17:22 Chief Complaint: GI ASSESSMENT Stated Complaint: BELLY PAIN, BLOOD IN STOOL,PASSING CLOTS History of Present Illness The patient is a 25 year old female who presents to the Emergency Room with complaints of constant abdominal cramping beginning today. The patient states that she has a history of Crohn's disease and takes Gabapentin and Sulfamide. She reports that today she has been having blood in her stool. She notes that the stool first had some blood in it and now there are clots passing. She complains of diarrhea and describes her bowels as being a mixture of liquid and solid. The patient rates her pain as a 7/10 in severity and an 8/10 when she is moving her bowels. She describes her abdominal pain as "hot lava" moving through her bowels when she is having a movement. The patient reports that she works in a [employer] and is concerned that her bowels smell like c-diff though no one at work has had it recently. Pt denies headache, fevers, chills, diaphoresis, visual changes, neck pain, chest pain, breathing difficulties, nausea, vomiting, back pain, urinary symptoms, numbness, weakness, lymphadenopathy, rash, or other complaints. She notes that she was on Levofloxacin for pneumonia 3 weeks ago. Source of History: patient Onset: today Position: abdomen Symptom Intensity: 7/10 Quality: cramping, other (hot lava moving) Timing: constant Modifying Factors (Worsening): other (bowel movement) Review of Systems See HPI for pertinent positives and negatives. A total of ten systems were reviewed and were otherwise negative. Past Medical & Surgical Medical Problems: (1) Abdominal pain (2) Abdominal pain in (3) Abdominal/ pelvic pain (4) Asthma (5) Back pain (6) Bronchitis (7) Bronchitis (8) Dehydration (9) Flank pain (10) Hemorrhagic ovarian cyst (11) Intermittent abdominal pain (12) labor (13) ovarian cyst (14) Pelvic pain (15) with 20 completed weeks gestation (16) Ruptured ovarian cyst (17) Supervision of other normal (18) Syncope (19) Threatened miscarriage (20) Threatened miscarriage (21) Urinary retention (22) Urinary tract infection (23) Urinary tract infection (24) Uterine contractions at greater than 20 weeks of gestation (25) Vaginal bleeding before 22 weeks gestation (26) Vasovagal syncope (27) Vomiting Surgical Problems: (1) [place] Teeth Removal Family History Diabetes mellitus FH: cancer Social History Smoking Status: Current Every Day Smoker Alcohol Use: none Drug Use: none Marital Status: single, in relationship Housing Status: lives with family Occupation Status: employed Current/Historical Medications Scheduled Fluoxetine HCl (Fluoxetine HCl), 10 MG PO DAILY Fluoxetine Hcl (Prozac), 40 MG PO DAILY Gabapentin (Gabapentin), 800 MG PO TID Prednisone (Prednisone), 40 MG PO DAILY Sulfasalazine (Azulfidine), 1,000 MG PO TID Scheduled PRN Clonazepam (Klonopin), 0.5 MG PO TID PRN for Anxiety Allergies Coded Allergies: Penicillins (Verified Allergy, Mild, RASH, 08/10/16) Amoxicillin (Verified Allergy, Unknown, rash, 08/10/16) Physical Exam Vital Signs Date Time Temp Pulse Resp B/P (MAP) Pulse Ox O2 Delivery O2 Flow Rate FiO2 10/15/16 20:30 36.6 74 18 98/67 98 10/15/16 20:29 74 18 98/67 98 Room Air 10/15/16 19:10 72 18 96/65 97 Room Air 10/15/16 17:16 36.6 93 18 111/69 97 Room Air Physical Exam GENERAL: Awake, alert, well-appearing, in no distress HENT: Normocephalic, atraumatic. Oropharynx unremarkable. EYES: Normal conjunctiva. Sclera non-icteric. NECK: Supple. No nuchal rigidity. FROM. No JVD. RESPIRATORY: Clear to auscultation. CARDIAC: Regular rate, normal rhythm. Extremities warm and well perfused. Pulses equal. ABDOMEN: Soft, non-distended. Diffuse abdominal tenderness. No rebound or guarding. No masses. RECTAL: Deferred. MUSCULOSKELETAL: Chest examination reveals no tenderness. The back is symmetrical on inspection without obvious abnormality. There is no CVA tenderness to palpation. No joint edema. LOWER EXTREMITIES: Calves are equal size bilaterally and non-tender. No edema. No discoloration. NEURO: Normal sensorium. No sensory or motor deficits noted. SKIN: No rash or jaundice noted. Medical Decision & Procedures ER Provider Diagnostic Interpretation: X-ray: Per my interpretation, radiologist review. CHEST AND ABDOMEN 2 VIEWS FINDINGS: The lungs are clear. The cardiomediastinal silhouette is within normal limits. There is no pneumoperitoneum or pneumatosis. The bowel gas pattern is unremarkable. No evidence for bowel obstruction. No pathologic calcifications. Small fluid level seen throughout the colon. IMPRESSION: No acute cardiopulmonary process. No evidence for bowel obstruction. Small fluid levels seen throughout the colon. This is consistent with the patient's history of a diarrheal illness. Electronically signed by: Travis Ferrara M.D. 10/15/2016 6:52 PM Dictated Date/Time: 10/15/2016 6:51 PM Laboratory Results 10/15/16 17:30 Red Blood Count 4.34, Mean Corpuscular Volume 89.9, Mean Corpuscular Hemoglobin 30.9, Mean Corpuscular Hemoglobin Concent 34.4, Mean Platelet Volume 8.5, Neutrophils (%) (Auto) 48.8, Lymphocytes (%) (Auto) 38.1, Monocytes (%) (Auto) 11.2, Eosinophils (%) (Auto) 1.4, Basophils (%) (Auto) 0.4, Neutrophils # (Auto ) 3.43, Lymphocytes # (Auto) 2.68, Monocytes # (Auto) 0.79, Eosinophils # (Auto ) 0.10, Basophils # (Auto) 0.03 10/15/16 17:30 Test 10/15/16 17:25 10/15/16 17:30 Urine Color YELLOW Urine Appearance CLEAR (CLEAR) Urine pH 5.0 (4.5-7.5) Urine Specific [place] 1.028 (1.000-1.030) Urine Protein NEG (NEG) Urine Glucose (UA) NEG (NEG) Urine Ketones TRACE (NEG) Urine Occult Blood NEG (NEG) Urine Nitrite NEG (NEG) Urine Bilirubin NEG (NEG) Urine Urobilinogen NEG (NEG) Urine Leukocyte Esterase NEG (NEG) Urine Test NEG (NEG) White Blood Count 7.04 K/uL (4.8-10.8) Red Blood Count 4.34 M/uL (4.2-5.4) Hemoglobin 13.4 g/dL (12.0-16.0) Hematocrit 39.0 % (37-47) Mean Corpuscular Volume 89.9 fL (80-100) Mean Corpuscular Hemoglobin 30.9 pg (25-34) Mean Corpuscular Hemoglobin Concent 34.4 g/dl (32-36) Platelet Count 334 K/uL (130-400) Mean Platelet Volume 8.5 fL (7.4-10.4) Neutrophils (%) (Auto) 48.8 % Lymphocytes (%) (Auto) 38.1 % Monocytes (%) (Auto) 11.2 % Eosinophils (%) (Auto) 1.4 % Basophils (%) (Auto) 0.4 % Neutrophils # (Auto) 3.43 K/uL (1.4-6.5) Lymphocytes # (Auto) 2.68 K/uL (1.2-3.4) Monocytes # (Auto) 0.79 K/uL (0.11-0.59) Eosinophils # (Auto) 0.10 K/uL (0-0.5) Basophils # (Auto) 0.03 K/uL (0-0.2) RDW Standard Deviation 44.9 fL (36.4-46.3) RDW Coefficient of Variation 13.5 % (11.5-14.5) Immature Granulocyte % (Auto) 0.1 % Immature Granulocyte # (Auto) 0.01 K/uL (0.00-0.02) Anion Gap 8.0 mmol/L (3-11) Est Creatinine Clear Calc Drug Dose 94.4 ml/min Estimated GFR () 115.2 Estimated GFR (Non- 99.4 BUN/Creatinine Ratio 18.7 (10-20) Calcium Level 8.3 mg/dl (8.5-10.1) Total Bilirubin 0.2 mg/dl (0.2-1) Direct Bilirubin < 0.1 mg/dl (0-0.2) Aspartate Amino Transf (AST/SGOT) 9 U/L (15-37) Alanine Aminotransferase (ALT/SGPT) 20 U/L (12-78) Alkaline Phosphatase 70 U/L (45-117) Total Protein 7.1 gm/dl (6.4-8.2) Albumin 3.6 gm/dl (3.4-5.0) Lipase 250 U/L (73-393) Date/Time Source Procedure Growth Status 10/15/16 17:25 Stool C.difficile Toxin B Gene (PCR) - Final No C. difficile toxin B gene detected Complete Laboratory results reviewed by me Medications Administered Medications (Trade) Dose Ordered Sig/Pro Route Start Time Stop Time Status Last Admin Dose Admin Sodium Chloride 1,000 ml @ 125 mls/hr Q8H STAT IV 10/15/16 17:22 10/15/16 20:51 DC 10/15/16 17:55 125 MLS/HR Sodium Chloride 1,000 ml @ 999 mls/hr Q1H1M STAT IV 10/15/16 17:22 10/15/16 18:22 DC 10/15/16 17:55 999 MLS/HR Ondansetron HCl (Zofran Inj) 4 mg NOW STAT IV 10/15/16 17:29 10/15/16 17:30 DC 10/15/16 17:56 4 MG Hydromorphone HCl (Dilaudid Inj) 0.5 mg Q20M PRN IV 10/15/16 17:30 10/15/16 20:51 DC 10/15/16 19:08 0.5 MG Morphine Sulfate (MoRPHine SULFATE INJ) 4 mg NOW STAT IV 10/15/16 19:20 10/15/16 19:21 DC 10/15/16 19:28 4 MG Oxycodone HCl (Roxicodone Immediate Rel 5MG Home Pack) 1 homepack UD ONCE PO 10/15/16 20:00 10/15/16 20:01 DC 10/15/16 20:18 1 HOMEPACK Prednisone (PredniSONE TAB) 40 mg NOW STAT PO 10/15/16 19:57 10/15/16 19:58 DC 10/15/16 20:18 40 MG ED Course 172: The patient was evaluated in room A10. A complete history and physical exam was performed. 172: Sodium Chloride 1000 ml @ 999 mls/hr IV, Sodium Chloride 1000 ml @ 125 mls /hr IV. 1728: Zofran Inj 4mg IV, Dilaudid Inj 0.5mg PRN IV pain. 1915: I reevaluated the patient and she is still having some pain. 0: Morphine Sulfate 4mg IV. 1953: I spoke to Dr. Jules. He recommends putting the patient on 40 of prednisone a day for 1 week and to follow up with Dr. Horn to continue treatment. 1919: Morphine Sulfate 4mg IV. 1956: Prednisone 40mg PO. 2000: Oxycodone HCl 1 homepack PO. 2006: I reevaluated and updated the patient. She is okay with the plan. 2011: I reevaluated the patient. Discussed results and discharge instructions: She verbalized understanding and agreement. The patient is ready for discharge. Medical Decision Medication Reconciliation: I attest that I have personally reviewed the patient' s current medication list Blood pressure screening: Patient was found to have normal blood pressure on screening and does not require follow-up. Triage Nursing notes reviewed. The patient's presentation and history were concerning for abdominal pain and Crohn's disease. Etiologies such as C. difficile colitis, inflammatory bowel disease, renal colic , PUD, biliary pathology, pancreatitis, mesenteric ischemia, aortic pathology, infections, genitourinary, UTI, perforated viscus, appendicitis, diverticulitis , obstruction, as well as others were entertained. The patient was evaluated. She was hydrated. She was given Zofran and Dilaudid. She noted that she tied pain and stated morphine worked better for her. She was given 4 mg of morphine. She was doing better with this. The patient had an unremarkable obstruction series. Given her exam and history I do not want to expose her to additional radiation from CT imaging. The patient had an unremarkable CBC, chemistry panel, LFTs and lipase. Urinalysis negative. The patient had Hemoccult negative stool as well as negative C. difficile testing. I did discuss the case with Dr. Jules of gastroenterology. He did recommend starting the patient on prednisone and have her follow-up with Dr. horn tomorrow. I did discuss this with the patient. She will call the office tomorrow for follow-up. If She worsens in any way she will come back. By the evaluation outlined above other emergent etiologies such as those listed in the differential, as well as others, were deemed relatively unlikely. The patient was educated about the findings as listed above. All questions were answered and the patient was pleased with the treatment. Return instructions were outlined and the patient was discharged in stable condition. The patient was referred to gastroenterology for follow-up for a recheck of the current condition. [place] Drug Monitoring Program Search Results: patient reviewed within database Drug Monitoring Findings: Prescriptions noted from primary office. Consults Time Called: 1949 Consulting Physician: Dr. Jules Returned Call: [address] Jules. He recommends putting the patient on 40 of prednisone a day for 1 week and to follow up with Dr. Horn to continue treatment. Impression Primary Impression: Generalized abdominal pain Additional Impressions: Diarrhea Crohns disease Scribe Attestation The scribe's documentation has been prepared under my direction and personally reviewed by me in its entirety. I confirm that the note above accurately reflects all work, treatment, procedures, and medical decision making performed by me. Departure Information Dispostion Home / Self-Care Prescriptions Prednisone (Prednisone) 20 Mg Tab 40 MG PO DAILY for 7 Days, #14 TAB Prov: Thierry Carmichael MD 10/15/16 Referrals Navdeep Olson M.D. (PCP) Forms HOME CARE DOCUMENTATION FORM, IMPORTANT VISIT INFORMATION Patient Instructions My [facility] Additional Instructions DO NOT drive, drink alcohol, operate machinery, or perform dangerous activities today. You were given medications in the ER that can affect your ability to safely function or operate a vehicle. Oxycodone (OxyIR) 5mg: Take 1-2 pills every four hours for breakthrough pain. Avoid alcohol, operating machinery or dangerous equipment, working on ladders or roofs, DRIVING, or situations where being under the influence may be dangerous. It is recommended to use an [id number] stool softener such as Colace, 100mg twice daily while taking this medication to avoid constipation. Ibuprofen(Motrin, Advil) may be used for fever or pain. Use 600mg every six hours as needed. Take with food. Avoid using more than 2400mg in a 24 hour period. Do not use 2400mg per day for more than three consecutive days without physician direction. Prolonged inappropriate use can lead to stomach upset or ulcers. (AND/OR) Acetaminophen(Tylenol) may be used for fever or pain. Use 1000mg every six hours as needed. Avoid using more than 4000mg in a 24 hour period. Prednisone 40 mg: Once daily, additional prednisone will need to be dictated by Dr. Horn Rest and drink plenty of fluids as tolerated. Slow sips of water or sports drinks are recommended instead of large amounts all at once. Continue current medications. Once your stomach is settled start with a clear liquid diet (jello, soup broth, etc.) and then advance as tolerated. You should avoid full, heavy meals for about 24 hrs from the time your symptoms resolved. Return to the ER immediately for worsening or persistent abdominal pain, vomiting, fevers, chest pains, difficulty breathing, worsening of your condition , or as needed. Follow up with Dr. horn's office tomorrow for a recheck of your current condition. Problem Qualifiers
[2016-10-22] MEDS ORDERED: ENT3 PO (13:23)
[2016-10-22] MEDS ORDERED: POTA10CA28 PO (13:29)
[2016-10-22] MEDS ORDERED: MAGN400C2 PO (13:29)
[2016-11-25] MEDS ORDERED: VENL75CA PO (10:41)
[2016-11-25] MEDS ORDERED: KLN5 PO (10:41)
[2016-11-25] MEDS ORDERED: PHEN-939 PO (10:41)
[2016-11-25] MEDS ORDERED: LTHCR300 PO (10:41)
[2016-11-25] MEDS ORDERED: ATR25 PO (10:41)
[2016-11-25] MEDS ORDERED: NICO14DI5 TD (10:41)
[2016-11-25] MEDS ORDERED: FLM4 PO (10:41)
[2016-11-25] MEDS ORDERED: SUMA50TA15 PO (11:03)
[2017-03-18] MEDS ORDERED: ASPI-391 PO (20:02)
[2017-03-18] MEDS ORDERED: LITH1TAB10 PO (20:05)
[2017-03-18] MEDS ORDERED: EFF75 PO (20:05)
[2017-03-18] MEDS ORDERED: CYCL10TA6 PO (20:12)
== END 2016-10-15 20:31 | disposition home or self-care (01) ==
LOC: C.EDB 17:09 → C.EDA 20:31
DX: R10.84 Generalized abdominal pain (principal); R19.7 Diarrhea, unspecified; K50.90 Crohn's disease, unspecified, without complications; J45.909 Unspecified asthma, uncomplicated; Z83.3 Family history of diabetes mellitus; F17.200 Nicotine dependence, unspecified, uncomplicated

== ENCOUNTER 2016-10-17 19:59 | Inpatient (IN) | payer BC ==
[~2016-10-17] VITALS: Ht 157.5 cm; Wt 69.7 kg
[~2016-10-17 19:59] MED LIST changes: +CLON0.5T3 PO; +FLUO10CA24 PO; -FLUO40CA8 PO; -GABA800T PO; +NRN800 PO; +PRED20TA PO; -PRENTAB26 PO; +PRZ/40 PO; +SULF500T8 PO
[2016-10-17] MEDS ORDERED: HYDROmorphone INJ 1 MG/ML SYR IV STA (20:41)
[2016-10-17] MEDS ORDERED: ONDANSETRON INJ 2 MG/ML 2 ML VIAL IV STA (20:41)
[2016-10-17] MEDS ORDERED: SODIUM CHLORIDE 0.9% 1000ML 1,000 ML IV STA (20:41)
[2016-10-17] MEDS ORDERED: ACET-1256 PO (20:49)
[2016-10-17 20:52] LABS: BASO % 0.1 %; BASO ABS # 0.01 K/uL (0-0.2); COMPLETE YES; EOS % 1.7 %; HEMATOCRIT 38.8 % (37-47); IG% 0.1 %; LYMPH % 35.3 %; LYMPH ABS # 2.88 K/uL (1.2-3.4); MEAN CELL VOLUME 90.4 fL (80-100); MEAN CORPUSCULAR HEMOGLOBIN 30.3 pg (25-34); MEAN CORPUSCULAR HGB CONC 33.5 g/dl (32-36); MONO % 9.9 %; NEUT % 52.9 %; PLATELET COUNT 349 K/uL (130-400); RED BLOOD COUNT 4.29 M/uL (4.2-5.4); WHITE BLOOD COUNT 8.16 K/uL (4.8-10.8)
[2016-10-17] MEDS ORDERED: MoRPHine SULFATE 10 MG/ML CARP/VIAL IV STA ×3 (20:54→23:38)
[2016-10-17 21:06] LABS: URINE APPEARANCE CLEAR (CLEAR); URINE BILIRUBIN NEG (NEG); URINE COLOR YELLOW; URINE EPITHELIAL CELL AUTO >30 /lpf (0-5); URINE NITRITE NEG (NEG); URINE SPECIFIC GRAVITY 1.012 (1.000-1.030); UROBILINOGEN NEG (NEG); ZZUR CULT IF INDIC CLEAN CATCH YES
[2016-10-17 21:07] LABS: MANUAL MICROSCOPIC REQUIRED? NO; REVIEW REQ? NO
[2016-10-17 21:14] LABS: ALKALINE PHOSPHATASE 65 U/L (45-117); ALT/SGPT 24 U/L (12-78); AST/SGOT 12 U/L (15-37); BLOOD UREA NITROGEN 7 mg/dl (7-18); BUN/CREATININE RATIO 9.2 (10-20); C-REACTIVE PROTEIN < 0.29 mg/dl (0-0.29); CARBON DIOXIDE 27 mmol/L (21-32); CHLORIDE 109 mmol/L (98-107); CREATININE 0.77 mg/dl (0.60-1.20); GLUCOSE 79 mg/dl (70-99); POTASSIUM 4.1 mmol/L (3.5-5.1); SODIUM 143 mmol/L (136-145)
--- NOTE | 2016-10-17 21:50 | EMERGENCY ROOM VISIT NOTE ---
History Report prepared by Juliana: Zarina Richards Under the Supervision of: Dr. Eduardo Erwin M.D. First contact with patient: 20:31 Chief Complaint: ABDOMINAL PAIN Stated Complaint: SEVERE AB PAIN,CHRONS DISEASE History of Present Illness The patient is a 25 year old female who presents to the Emergency Room with complaints of constant abdominal pain due to Crohn's disease beginning 3 days ago. The patient was seen in the Emergency Department 2 days ago for the abdominal pain and was put on Prednisone. The pain continued to worsen and she became bloated. Three days ago she was having bloody diarrhea, which is now relieved. The patient also complains of back pain. She denies vomiting and having a fever. Source of History: patient Onset: 3 days ago Position: abdomen Timing: constant Associated Symptoms: + back pain, No fevers, No vomiting Review of Systems See HPI for pertinent positives & negatives. A total of 10 systems reviewed and were otherwise negative. Past Medical & Surgical Medical Problems: (1) Abdominal pain (2) Abdominal pain in (3) Abdominal/ pelvic pain (4) Asthma (5) Back pain (6) Bronchitis (7) Bronchitis (8) Dehydration (9) Flank pain (10) Hemorrhagic ovarian cyst (11) Intermittent abdominal pain (12) labor (13) ovarian cyst (14) Pelvic pain (15) with 20 completed weeks gestation (16) Ruptured ovarian cyst (17) Supervision of other normal (18) Syncope (19) Threatened miscarriage (20) Threatened miscarriage (21) Ulcerative colitis (22) Urinary retention (23) Urinary tract infection (24) Urinary tract infection (25) Uterine contractions at greater than 20 weeks of gestation (26) Vaginal bleeding before 22 weeks gestation (27) Vasovagal syncope (28) Vomiting Surgical Problems: (1) [place] Teeth Removal Family History Diabetes mellitus FH: cancer Social History Smoking Status: Current Every Day Smoker Alcohol Use: none Drug Use: none Marital Status: single, in relationship Housing Status: lives with family Occupation Status: employed Current/Historical Medications Scheduled Fluoxetine HCl (Fluoxetine HCl), 10 MG PO DAILY Fluoxetine Hcl (Prozac), 40 MG PO DAILY Gabapentin (Gabapentin), 800 MG PO TID Prednisone (Prednisone), 40 MG PO DAILY Sulfasalazine (Azulfidine), 1,000 MG PO TID Scheduled PRN Acetaminophen (Tylenol), 1 TAB PO Q8 PRN for Pain Clonazepam (Klonopin), 0.5 MG PO TID PRN for Anxiety Allergies Coded Allergies: Penicillins (Verified Allergy, Mild, RASH, 10/17/16) Amoxicillin (Verified Allergy, Unknown, rash, 10/17/16) Physical Exam Vital Signs Date Time Temp Pulse Resp B/P (MAP) Pulse Ox O2 Delivery O2 Flow Rate FiO2 10/17/16 23:39 38.0 10/17/16 23:19 84 16 109/68 96 Room Air 10/17/16 22:07 82 20 103/57 97 Room Air 10/17/16 21:13 84 10/17/16 20:16 36.6 102 16 111/69 98 Room Air Physical Exam GENERAL: Patient is in moderate distress, uncomfortable in appearance, and mildly dehydrated appearing. HEENT: No acute trauma, normocephalic atraumatic, dry mucous membranes, no nasal congestion, no scleral icterus. NECK: No stridor, no adenopathy, no meningismus, trachea is midline. LUNGS: No dyspnea. Clear to auscultation and equal bilaterally. No wheeze, no rhonchi. HEART: Regular rate and rhythm. No murmurs, rubs, gallops appreciated. ABDOMEN: Vain diffuse tenderness to palpation. BACK: No midline tenderness, no CVA tenderness EXTREMITIES: Normal motion all extremities, no cyanosis, no edema. NEUROLOGIC: Alert and oriented, no acute motor or sensory deficits, no focal weakness, cranial nerves grossly intact. SKIN: No rash, no jaundice, no diaphoresis. Medical Decision & Procedures ER Provider Diagnostic Interpretation: CT results as stated below per [facility]. CT ABDOMEN AND PELVIS Air-fluid levels are seen within the small and large bowel with superimposed mild bowel wall thickening; no obstruction. Contributing gastroenteritis is of consideration. Normal appearing appendix. Contracted gallbladder. Possible dominant follicle left ovary. Comparison study dated 12/18/2015. Laboratory Results 10/17/16 20:30 Red Blood Count 4.29, Mean Corpuscular Volume 90.4, Mean Corpuscular Hemoglobin 30.3, Mean Corpuscular Hemoglobin Concent 33.5, Mean Platelet Volume 9.0, Neutrophils (%) (Auto) 52.9, Lymphocytes (%) (Auto) 35.3, Monocytes (%) (Auto) 9.9, Eosinophils (%) (Auto) 1.7, Basophils (%) (Auto) 0.1, Neutrophils # (Auto) 4.31, Lymphocytes # (Auto) 2.88, Monocytes # (Auto) 0.81, Eosinophils # (Auto) 0.14, Basophils # (Auto) 0.01 10/17/16 20:30 Test 10/17/16 20:30 White Blood Count 8.16 K/uL (4.8-10.8) Red Blood Count 4.29 M/uL (4.2-5.4) Hemoglobin 13.0 g/dL (12.0-16.0) Hematocrit 38.8 % (37-47) Mean Corpuscular Volume 90.4 fL (80-100) Mean Corpuscular Hemoglobin 30.3 pg (25-34) Mean Corpuscular Hemoglobin Concent 33.5 g/dl (32-36) Platelet Count 349 K/uL (130-400) Mean Platelet Volume 9.0 fL (7.4-10.4) Neutrophils (%) (Auto) 52.9 % Lymphocytes (%) (Auto) 35.3 % Monocytes (%) (Auto) 9.9 % Eosinophils (%) (Auto) 1.7 % Basophils (%) (Auto) 0.1 % Neutrophils # (Auto) 4.31 K/uL (1.4-6.5) Lymphocytes # (Auto) 2.88 K/uL (1.2-3.4) Monocytes # (Auto) 0.81 K/uL (0.11-0.59) Eosinophils # (Auto) 0.14 K/uL (0-0.5) Basophils # (Auto) 0.01 K/uL (0-0.2) RDW Standard Deviation 45.2 fL (36.4-46.3) RDW Coefficient of Variation 13.7 % (11.5-14.5) Immature Granulocyte % (Auto) 0.1 % Immature Granulocyte # (Auto) 0.01 K/uL (0.00-0.02) Erythrocyte Sedimentation Rate 6 mm/hr (0-21) Urine Color YELLOW Urine Appearance CLEAR (CLEAR) Urine pH 8.0 (4.5-7.5) Urine Specific [place] 1.012 (1.000-1.030) Urine Protein NEG (NEG) Urine Glucose (UA) NEG (NEG) Urine Ketones NEG (NEG) Urine Occult Blood NEG (NEG) Urine Nitrite NEG (NEG) Urine Bilirubin NEG (NEG) Urine Urobilinogen NEG (NEG) Urine Leukocyte Esterase MODERATE (NEG) Urine WBC (Auto) 1-5 /hpf (0-5) Urine RBC (Auto) 0-4 /hpf (0-4) Urine Hyaline Casts (Auto) 0 /lpf (0-5) Urine Epithelial Cells (Auto) >30 /lpf (0-5) Urine Bacteria (Auto) 1+ (NEG) Urine Test NEG (NEG) Anion Gap 7.0 mmol/L (3-11) Est Creatinine Clear Calc Drug Dose 104.0 ml/min Estimated GFR () 126.1 Estimated GFR (Non- 108.8 BUN/Creatinine Ratio 9.2 (10-20) Calcium Level 8.8 mg/dl (8.5-10.1) Total Bilirubin 0.2 mg/dl (0.2-1) Direct Bilirubin < 0.1 mg/dl (0-0.2) Aspartate Amino Transf (AST/SGOT) 12 U/L (15-37) Alanine Aminotransferase (ALT/SGPT) 24 U/L (12-78) Alkaline Phosphatase 65 U/L (45-117) C-Reactive Protein < 0.29 mg/dl (0-0.29) Total Protein 7.5 gm/dl (6.4-8.2) Albumin 3.8 gm/dl (3.4-5.0) Lipase 263 U/L (73-393) Laboratory results as reviewed by me. Medications Administered Medications (Trade) Dose Ordered Sig/Pro Route Start Time Stop Time Status Last Admin Dose Admin Sodium Chloride 1,000 ml @ 999 mls/hr Q1H1M STAT IV 10/17/16 20:41 10/17/16 21:41 DC 10/17/16 20:41 999 MLS/HR Ondansetron HCl (Zofran Inj) 4 mg NOW STAT IV 10/17/16 20:41 10/17/16 20:42 DC 10/17/16 20:49 4 MG Morphine Sulfate (MoRPHine SULFATE INJ) 6 mg NOW STAT IV 10/17/16 20:54 10/17/16 20:55 DC 10/17/16 21:05 6 MG Morphine Sulfate (MoRPHine SULFATE INJ) 6 mg NOW STAT IV 10/17/16 22:12 10/17/16 22:13 DC 10/17/16 22:35 6 MG Morphine Sulfate (MoRPHine SULFATE INJ) 6 mg NOW STAT IV 10/17/16 23:38 10/17/16 23:39 DC 10/17/16 23:52 6 MG Hydromorphone HCl (Dilaudid Inj) 1 mg NOW STAT IV 10/18/16 00:53 10/18/16 00:54 DC 10/18/16 00:59 1 MG ED Course 2036: The patient was evaluated in room B10. A complete history and physical exam was performed. 2040: Ordered Zofran Inj 4 mg IV, Sodium Chloride 1,000 ml @ 999 mls/hr IV, Dilaudid Inj 1 mg IV. 2053: Ordered Morphine Sulfate Inj 6 mg IV. 0: I checked on the patient and she is having increasing pain. 2212: Ordered Morphine Sulfate 6 mg IV. 2227: The patient reports that her pain has increased. I discussed the pros and cons of a CT scan. She agrees to having a CT of her pelvis done. 2330: Upon reevaluation, the patient is still in distress. Discussed results and treatment plan with the patient. She verbalized understanding and agreement with the treatment plan. The patient will be evaluated for further management. 2338: Ordered Morphine Sulfate 6 mg IV. 0053: Ordered Dilaudid Inj 1 mg IV. Medical Decision Differential: Appendicitis, Diverticulitis, PUD/Gastritis, Biliary Pathology, UTI, Pyelonephritis, Renal Colic, Bowel Obstruction, Aortic Pathology, Acute Coronary Syndrome, amongst other pathologies entertained. 25 yr old female with long history of crohn's usually managed well as outpatient. 3 days ago with bloody diarrhea and abdominal discomfort for which she was seen in ED, started on prednisone and discharged feeling well with planned outpatient management scheduled. Patient with resolution of blood in stool, though increasing abdominal pains, bloating and discomfort. Exam without peritonitis. Pain persistent despite IV narcotics thus felt CT abdo pel necessary to rule out surgical emergency. Diffuse fluid noted in bowel without obstruction nor need for acute surgical intervention. Still requiring IV narcotics. With findings will need to come in for further evaluation and treatment. Consults Time Called: 2209 Consulting Physician: Dr. Johnson - [facility] Returned Call: Discussed the patient's case. The patient will be evaluated for further treatment and disposition. Impression Primary Impression: Exacerbation of Crohn's disease Additional Impressions: Enteritis Intractable abdominal pain Scribe Attestation The scribe's documentation has been prepared under my direction and personally reviewed by me in its entirety. I confirm that the note above accurately reflects all work, treatment, procedures, and medical decision making performed by me. Departure Information Dispostion Being Evaluated By Hospitalist Referrals Navdeep Olson M.D. (PCP) Patient Instructions My [facility] Problem Qualifiers Primary Impression: Exacerbation of Crohn's disease Digestive disease complication type: with rectal bleeding Qualified Codes: K50.911 - Crohn's disease, unspecified, with rectal bleeding
[2016-10-17 22:06] LABS: CALCIUM 8.8 mg/dl (8.5-10.1)
[2016-10-17] MEDS ORDERED: OPTIRAY 320 IV PRN (22:30)
[2016-10-18] MEDS ORDERED: HYDROmorphone INJ 1 MG/ML SYR IV STA (00:53)
[2016-10-18] MEDS ORDERED: MAGNESIUM HYDROXIDE SUSP 30 ML UDC PO PRN (01:00)
[2016-10-18] MEDS ORDERED: OXYMETAZOLINE HCL 0.05% NA SPR 15 ML BTL ONE (01:00)
[2016-10-18] MEDS ORDERED: ALUMINUM/MAGNESIUM/SIMETH (MAALOX MAX) 30 ML UDC PO PRN (01:00)
--- NOTE | 2016-10-18 01:05 | History and Physical ---
History & Physical Date & Time of Service: Oct 18, 2016 at 00:56 Chief Complaint: Severe Ab Pain,Chrons Disease Primary Care Physician: Navdeep Olson M.D. History of Present Illness Source: patient, clinic records, hospital records This is a 25 year old female with a PMH of ulcerative colitis, depression/ anxiety, chronic migraine, presents to the ER due to intractable abdominal pain. She presented to the ER on October 15 with similar symptoms, including bloody diarrhea and abdominal pain; at that time, she was given prednisone, pain medications and was sent home. She states that the bleeding has subsided some, but the pain has persisted. She follows with [facility] - last colonoscopy was over a year ago; she is overdue for her colonoscopy as per patient. She has been taking sulfasalazine TID, as well as gabapentin for pain. She was recently started on Klonopin and her dose of Prozac has increased from 40mg to 50mg daily. She states she had a recent bout of pneumonia and was treated with antibiotics for it. Currently, she her abdominal pain persists, she also feels fevers. Past Medical/Surgical History Medical Problems: (1) Abdominal pain Status: Resolved (2) Abdominal pain in Status: Resolved (3) Abdominal/ pelvic pain Status: Resolved (4) Asthma Status: Chronic (5) Back pain Status: Resolved (6) Bronchitis Status: Resolved (7) Bronchitis Status: Resolved (8) Dehydration Status: Resolved (9) Flank pain Status: Resolved (10) Hemorrhagic ovarian cyst Status: Resolved (11) Intermittent abdominal pain Status: Resolved (12) ovarian cyst Status: Resolved (13) Pelvic pain Status: Resolved (14) Ruptured ovarian cyst Status: Resolved (15) Supervision of other normal Status: Resolved (16) Syncope Status: Resolved (17) Threatened miscarriage Status: Resolved (18) Threatened miscarriage Status: Resolved (19) Urinary retention Status: Resolved (20) Urinary tract infection Status: Resolved (21) Urinary tract infection Status: Resolved (22) Vasovagal syncope Status: Resolved (23) Vomiting Status: Resolved Surgical Problems: (1) [place] Teeth Removal Status: Resolved Family History Diabetes mellitus FH: cancer Social History Smoking Status: Current Every Day Smoker Drug Use: none Marital Status: single, in relationship Housing status: lives with family Occupational Status: employed Multi-Drug Resistant Organisms History of MDRO: No Allergies Coded Allergies: Penicillins (Verified Allergy, Mild, RASH, 10/17/16) Amoxicillin (Verified Allergy, Unknown, rash, 10/17/16) Home Medications Scheduled Fluoxetine HCl (Fluoxetine HCl), 10 MG PO DAILY Fluoxetine Hcl (Prozac), 40 MG PO DAILY Gabapentin (Gabapentin), 800 MG PO TID Prednisone (Prednisone), 40 MG PO DAILY Sulfasalazine (Azulfidine), 1,000 MG PO TID Scheduled PRN Acetaminophen (Tylenol), 1 TAB PO Q8 PRN for Pain Clonazepam (Klonopin), 0.5 MG PO TID PRN for Anxiety Review of Systems Constitutional: + fever, + sweats, + weakness, No chills, No weight loss Respiratory: No cough, No sputum, No shortness of breath, No dyspnea on exertion Cardiovascular: No chest pain, No orthopnea, No edema, No palpitations Abdomen: + pain, + diarrhea, + GI bleeding (subsiding), No nausea, No vomiting , No constipation Genitourinary - Female: No dysuria, No urinary frequency, No urinary urgency, No urinary incontinence, No urinary retention, No hematuria Neurologic: No weakness, No numbness/tingling Psychiatric: + depression symptoms (controlled with medications), + anxiety Endocrine: No fatigue Hematologic / Lymphatic: + abnormal bleeding/bruising Integumentary: No rash, No itch Allergic / Immunologic: No environmental allergies, No seasonal allergies Physical Exam Vital Signs Date Time Temp Pulse Resp B/P (MAP) Pulse Ox O2 Delivery O2 Flow Rate FiO2 10/17/16 23:39 38.0 10/17/16 23:19 84 16 109/68 96 Room Air 10/17/16 22:07 82 20 103/57 97 Room Air 10/17/16 21:13 84 10/17/16 20:16 36.6 102 16 111/69 98 Room Air General Appearance: + mild distress (secondary to pain) Head: normocephalic, atraumatic Respiratory/Chest: lungs clear, normal breath sounds, no respiratory distress, no accessory muscle use Cardiovascular: regular rate, rhythm, no edema, no murmur Abdomen/GI: normal bowel sounds, soft, + tenderness (diffusely) Back: no muscle spasm Extremities/Musculoskelatal: normal capillary refill, no pedal edema Neurologic/Psych: no motor/sensory deficits, alert, normal mood/affect Skin: normal color Lymphatic: no adenopathy Diagnostics Laboratory Results Results Past 24 Hours Test 10/17/16 20:30 Range/Units White Blood Count 8.16 4.8-10.8 K/uL Red Blood Count 4.29 4.2-5.4 M/uL Hemoglobin 13.0 12.0-16.0 g/dL Hematocrit 38.8 37-47 % Mean Corpuscular Volume 90.4 80-100 fL Mean Corpuscular Hemoglobin 30.3 25-34 pg Mean Corpuscular Hemoglobin Concent 33.5 32-36 g/dl Platelet Count 349 130-400 K/uL Mean Platelet Volume 9.0 7.4-10.4 fL Neutrophils (%) (Auto) 52.9 % Lymphocytes (%) (Auto) 35.3 % Monocytes (%) (Auto) 9.9 % Eosinophils (%) (Auto) 1.7 % Basophils (%) (Auto) 0.1 % Neutrophils # (Auto) 4.31 1.4-6.5 K/uL Lymphocytes # (Auto) 2.88 1.2-3.4 K/uL Monocytes # (Auto) 0.81 0.11-0.59 K/uL Eosinophils # (Auto) 0.14 0-0.5 K/uL Basophils # (Auto) 0.01 0-0.2 K/uL RDW Standard Deviation 45.2 36.4-46.3 fL RDW Coefficient of Variation 13.7 11.5-14.5 % Immature Granulocyte % (Auto) 0.1 % Immature Granulocyte # (Auto) 0.01 0.00-0.02 K/uL Erythrocyte Sedimentation Rate 6 0-21 mm/hr Urine Color YELLOW Urine Appearance CLEAR CLEAR Urine pH 8.0 4.5-7.5 Urine Specific [place] 1.012 1.000-1.030 Urine Protein NEG NEG Urine Glucose (UA) NEG NEG Urine Ketones NEG NEG Urine Occult Blood NEG NEG Urine Nitrite NEG NEG Urine Bilirubin NEG NEG Urine Urobilinogen NEG NEG Urine Leukocyte Esterase MODERATE NEG Urine WBC (Auto) 1-5 0-5 /hpf Urine RBC (Auto) 0-4 0-4 /hpf Urine Hyaline Casts (Auto) 0 0-5 /lpf Urine Epithelial Cells (Auto) >30 0-5 /lpf Urine Bacteria (Auto) 1+ NEG Urine Test NEG NEG Sodium Level 143 136-145 mmol/L Potassium Level 4.1 3.5-5.1 mmol/L Chloride Level 109 98-107 mmol/L Carbon Dioxide Level 27 21-32 mmol/L Anion Gap 7.0 3-11 mmol/L Blood Urea Nitrogen 7 7-18 mg/dl Creatinine 0.77 0.60-1.20 mg/dl Est Creatinine Clear Calc Drug Dose 104.0 ml/min Estimated GFR () 126.1 Estimated GFR (Non- 108.8 BUN/Creatinine Ratio 9.2 10-20 Random Glucose 79 70-99 mg/dl Calcium Level 8.8 8.5-10.1 mg/dl Total Bilirubin 0.2 0.2-1 mg/dl Direct Bilirubin < 0.1 0-0.2 mg/dl Aspartate Amino Transf (AST/SGOT) 12 15-37 U/L Alanine Aminotransferase (ALT/SGPT) 24 12-78 U/L Alkaline Phosphatase 65 45-117 U/L C-Reactive Protein < 0.29 0-0.29 mg/dl Total Protein 7.5 6.4-8.2 gm/dl Albumin 3.8 3.4-5.0 gm/dl Lipase 263 73-393 U/L Microbiology Results 10/17/16 Urine Culture, Received Pending Diagnostic Radiology CT ABDOMEN AND PELVIS Air-fluid levels are seen within the small and large bowel with superimposed mild bowel wall thickening; no obstruction. Contributing gastroenteritis is of consideration. Normal appearing appendix. Contracted gallbladder. Possible dominant follicle left ovary. Comparison study dated 12/18/2015. Impression Assessment and Plan This is a 25 year old female with a PMH of ulcerative colitis, depression/ anxiety, chronic migraine, presents to the ER due to intractable abdominal pain Ulcerative Colitis Flare patient seems to be having a UC flare she has had bloody diarrhea, abdominal pain, began on October 15, she was seen in the ER and sent home Comes back on October 17 due to worsening abdominal pain CT performed, possible inflammation noted will increase prednisone to 60mg daily, continue Sulfasalazine TID refusing suppositories Dilaudid PRN for pain NPO + IVFs for now GI consulted for further input Depression/Anxiety continue current medications; Klonopin, Prozac 50mg daily DVT ppx SCDs FULL CODE VTE Prophylaxis VTE Risk Assessment Done? Y/N: Yes Risk Level: Moderate Given or contraindicated: Treatment not indicated
[2016-10-18 01:27] VITALS: BP 104/63; PULSE 68; TEMP 36.8; O2SAT 97; Ht 157.5 cm; Wt 69.7 kg
[2016-10-18] MEDS ORDERED: POLYETHYLENE (MIRALAX) 17 GM PACK PO PRN (02:00)
[2016-10-18] MEDS: SODIUM CHLORIDE 0.9% 1000ML 1,000 ML IV SCH ×3 (02:21→21:31)
[2016-10-18] MEDS: HYDROmorphone INJ 2 MG/ML SYR/VIAL IV PRN ×6 (03:57→22:18)
--- NOTE | 2016-10-18 06:52 | DIAGNOSTIC IMAGING REPORT ---
ABDOMEN AND PELVIS CT WITH IV CONTRAST CT DOSE: 339.23 mGy.cm HISTORY: Pain. Nausea. persistent abdominal pain, bloody stools TECHNIQUE: Multiaxial CT images of the abdomen and pelvis were performed following the use of intravenous contrast. COMPARISON STUDY: 12/18/2015 FINDINGS: Lung bases are clear. Liver spleen and pancreas are unremarkable. Slight wall thickening of multiple loops of small bowel. No evidence for an obstructive pattern. Appendix is normal. The colonic bowel pattern is nonobstructive. Uterus is anteflexed. Several small left and to lesser extent right ovarian cyst measuring up to 1.5 cm. No significant free fluid within the pelvic cul-de-sac. IMPRESSION: 1. Mild nonspecific enteritis.. 2. Several ovarian follicular cysts bilaterally. 3. Otherwise negative study Electronically signed by: Gregorio Garcia M.D. 10/18/2016 6:50 AM Dictated Date/Time: 10/18/2016 6:49 AM
[2016-10-18 07:33] VITALS: BP 108/57; PULSE 75; TEMP 36.6; O2SAT 93
[2016-10-18] MEDS: FLUOXETINE HCL 10 MG CAP PO SCH (08:48)
[2016-10-18] MEDS: GABAPENTIN 800 MG TAB PO SCH ×3 (08:48→20:41)
[2016-10-18] MEDS: SULFASALAZINE 500 MG TAB PO SCH ×2 (08:48→13:15)
[2016-10-18] MEDS: FLUOXETINE HCL 20 MG CAP PO SCH (08:48)
--- NOTE | 2016-10-18 10:20 | Gastrointestinal Consultation ---
Gastrointestinal Consultation Date of Consultation: Oct 18, 2016 Attending Physician: Dr. Johnson Consulting Physician: Dr. Sesay/JAGDEEP Veras Reason for Consultation: Abdominal pain History of Present Illness Patient is a 25 year old female with a history of lymphocytic colitis diagnosed initially in 2012. She has been following our office since that time. The patient states she has recently transferred her PCP from Dr. Clements (last OV in 02/26) to Dr. Olson of [facility]. She states that she informed him of her history of lymphocytic colitis but states "he kept calling it Crohn's disease". Subsequently, she reports that he prescribed her Sulfasalazine and she has been taking this medication for months. Her last visit with our office was in July of 2015 after an ER visit while traveling. She was reporting symptoms of abdominal pain and rectal bleeding with associated fevers, chills, palpitations and dizziness. She was advised to return to the ER at that time. She was found to be constipated at that time, but otherwise no acute findings were noted. Dr. Sesay did attempt a colonoscopy one week after that visit but the procedure was aborted due to large amount of well formed stool within the colon. He did recommend a repeat colonoscopy which was scheduled but she reports cancelling due to inadequate bowel prep once again. "I didn't go because I didn't want to waste his time". Since then, she has continued with intermittent abdominal pain and constipation although she did present the ER recently and was admitted with symptoms of severe abdominal pain and bloody diarrhea. Stool culture and C Diff were negative three days ago. She does have a pending order for repeat C Diff at this time. During this admission, she has undergone a CT abdomen and pelvis with IV enhancement only which demonstrated several thickened small bowel loops concerning for a possible nonspecific enteritis. Laboratory studies on admission were as follows: white blood cell count of 8.13, hemoglobin 13.0, hematocrit 38.8 and ESR 6. In regard to symptoms as present, she reports severe lower abdominal pain rated 8/10 that does not radiate. There is associated bloating. No bowel movements since admission. Denies any nausea or vomiting. No fever or chills. She has just been made NPO and started on Prednisone 60 mg daily. Past Medical/Surgical History Medical Problems: (1) Abdominal pain Status: Acute (2) Acute bronchitis Status: Acute (3) Anemia Status: Acute (4) Asthma Status: Chronic (5) Back strain Status: Acute (6) Chronic abdominal pain Status: Acute (7) Constipation Status: Acute (8) Contusion of foot Status: Acute (9) Crohns disease Status: Acute (10) Dentalgia Status: Acute (11) Elevated serum human chorionic gonadotropin (hCG) level Status: Acute (12) Encounter for Elliott catheter removal Status: Acute (13) Enteritis Status: Acute (14) Exacerbation of Crohn's disease Status: Acute (15) Failure of outpatient treatment Status: Acute (16) Fecal retention Status: Acute (17) Headache Status: Acute (18) Hemoptysis Status: Acute (19) Intractable abdominal pain Status: Acute (20) Left flank pain Status: Acute (21) Low back strain Status: Acute (22) Mood disorder Status: Acute (23) Ovarian cyst rupture Status: Acute (24) Precordial chest pain Status: Acute (25) Pyelonephritis Status: Acute (26) Right lower quadrant abdominal pain Status: Acute (27) Right sided abdominal pain Status: Acute (28) Right wrist sprain Status: Acute (29) Vaginal discharge Status: Acute (30) Work related injury Status: Acute Past Medical History: 1. ADHD 2. Allergic rhinitis 3. Anxiety 4. Constipation 5. Chronic abdominal pain 6. Migraine 7. Sciatica Past Surgical History: 1. Complete colonoscopy 2. Oral tooth extraction Family History Diabetes mellitus FH: cancer Maternal grandmother with Crohn's disease. Negative for GI malignancy Social History Smoking Status: Current Every Day Smoker Alcohol Use: none Drug Use: none Marital Status: single, in relationship Housing Status: lives with family Occupation Status: employed Allergies Coded Allergies: Penicillins (Verified Allergy, Mild, RASH, 10/17/16) Amoxicillin (Verified Allergy, Unknown, rash, 10/17/16) Current Medications Home Meds and Scripts Medications Dose Route/Sig Max Daily Dose Days Date Category Dose Instructions Tylenol (Acetaminophen) 500 Mg Tab 1 Tab PO Q8 PRN 3 10/17/16 Reported Prednisone 20 Mg Tab 40 Mg PO DAILY 7 10/15/16 Rx Azulfidine (Sulfasalazine) 500 Mg Tab 1,000 Mg PO TID 10/15/16 Reported Klonopin (Clonazepam) 0.5 Mg Tab 0.5 Mg PO TID PRN 10/15/16 Reported Prozac (Fluoxetine Hcl) 40 Mg Cap 40 Mg PO DAILY 10/15/16 Reported TAKE ONE 40 MG CAPSULE ALONG WITH ONE 40 MG CAPSULE TO EQUAL 10 MG DAILY DOSE Fluoxetine HCl 10 Mg Cap 10 Mg PO DAILY 10/15/16 Reported TAKE ONE 10 MG CAPSULE ALONG WITH ONE 40 MG CAPSULE TO EQUAL 50 MG DAILY DOSE Gabapentin 800 Mg Tab 800 Mg PO TID 10/15/16 Reported Review of Systems See HPI for pertinent positives & negatives. A total of 10 systems reviewed and were otherwise negative. Physical Exam Date Time Temp Pulse Resp B/P (MAP) Pulse Ox O2 Delivery O2 Flow Rate FiO2 10/18/16 07:45 Room Air 10/18/16 07:33 36.6 75 16 108/57 (74) 93 Room Air 10/18/16 01:27 97 Room Air 10/18/16 01:27 36.8 68 16 104/63 (77) 97 Room Air 10/18/16 01:27 36.8 68 16 104/63 97 Room Air 10/18/16 01:23 63 10/17/16 23:39 38.0 10/17/16 23:19 84 16 109/68 96 Room Air 10/17/16 22:07 82 20 103/57 97 Room Air 10/17/16 21:13 84 10/17/16 20:16 36.6 102 16 111/69 98 Room Air General Appearance: no apparent distress Eyes: EOMI ENT: hearing grossly normal Neck: supple Respiratory/Chest: lungs clear, normal breath sounds, no respiratory distress Cardiovascular: regular rate, rhythm, no gallop, no murmur Abdomen: normal bowel sounds, soft, + distended Extremities: no pedal edema Neurologic/Psych: normal mood/affect, oriented x 3, + pertinent finding (drowsy ) Skin: warm/dry Laboratory Results Last 24 Hours Test 10/17/16 20:30 White Blood Count 8.16 K/uL Red Blood Count 4.29 M/uL Hemoglobin 13.0 g/dL Hematocrit 38.8 % Mean Corpuscular Volume 90.4 fL Mean Corpuscular Hemoglobin 30.3 pg Mean Corpuscular Hemoglobin Concent 33.5 g/dl Platelet Count 349 K/uL Mean Platelet Volume 9.0 fL Neutrophils (%) (Auto) 52.9 % Lymphocytes (%) (Auto) 35.3 % Monocytes (%) (Auto) 9.9 % Eosinophils (%) (Auto) 1.7 % Basophils (%) (Auto) 0.1 % Neutrophils # (Auto) 4.31 K/uL Lymphocytes # (Auto) 2.88 K/uL Monocytes # (Auto) 0.81 K/uL Eosinophils # (Auto) 0.14 K/uL Basophils # (Auto) 0.01 K/uL RDW Standard Deviation 45.2 fL RDW Coefficient of Variation 13.7 % Immature Granulocyte % (Auto) 0.1 % Immature Granulocyte # (Auto) 0.01 K/uL Erythrocyte Sedimentation Rate 6 mm/hr Urine Color YELLOW Urine Appearance CLEAR Urine pH 8.0 Urine Specific [place] 1.012 Urine Protein NEG Urine Glucose (UA) NEG Urine Ketones NEG Urine Occult Blood NEG Urine Nitrite NEG Urine Bilirubin NEG Urine Urobilinogen NEG Urine Leukocyte Esterase MODERATE Urine WBC (Auto) 1-5 /hpf Urine RBC (Auto) 0-4 /hpf Urine Hyaline Casts (Auto) 0 /lpf Urine Epithelial Cells (Auto) >30 /lpf Urine Bacteria (Auto) 1+ Urine Test NEG Sodium Level 143 mmol/L Potassium Level 4.1 mmol/L Chloride Level 109 mmol/L Carbon Dioxide Level 27 mmol/L Anion Gap 7.0 mmol/L Blood Urea Nitrogen 7 mg/dl Creatinine 0.77 mg/dl Est Creatinine Clear Calc Drug Dose 104.0 ml/min Estimated GFR () 126.1 Estimated GFR (Non- 108.8 BUN/Creatinine Ratio 9.2 Random Glucose 79 mg/dl Calcium Level 8.8 mg/dl Total Bilirubin 0.2 mg/dl Direct Bilirubin < 0.1 mg/dl Aspartate Amino Transf (AST/SGOT) 12 U/L Alanine Aminotransferase (ALT/SGPT) 24 U/L Alkaline Phosphatase 65 U/L C-Reactive Protein < 0.29 mg/dl Total Protein 7.5 gm/dl Albumin 3.8 gm/dl Lipase 263 U/L Impression Patient is a 25 year old female with a history of lymphocytic colitis without any established diagnosis of inflammatory bowel disease diagnosed with nonspecific enteritis with abdominal pain and bloating. Plan 1. Recommend clear diet with advancement to low lactose diet as tolerated. 2. Would not recommend the use of Prednisone in this setting. With her history, Entocort 9 mg daily would be an appropriate treatment option for a total of 8 weeks. 3. Agree with repeat C Diff, although low suspicion as negative several days ago. 4. Patient is due for a repeat colonoscopy. This can be performed on a nonurgent basis as an outpatient. 5. Recommend avoidance of NSAIDs. 6. As she does not have an established diagnosis of inflammatory bowel disease, there is no role for continued use of Sulfasalazine therapy. Thank you for allowing us to participate in the care of this pleasant patient. If you have any questions or concerns, please do not hesitate to contact us. Agree with JAGDEEP Veras as above Gen: Sedated Abd: Soft, tender throughout, ND, +BS Recommend obtaining records from PCP as I have performed prior colonoscopy exams , and have not seen any evidence of IBD which would warrant therapy with Sulfasalazine or Prednisone therapy. Outpatient colonoscopy for further evaluation Recommend repeat CT scan of the Abd/pelvis with PO and IV contrast as prior study without contrast is not optimal
[2016-10-18] MEDS: ACETAMINOPHEN 325 MG TAB PO PRN (11:34)
[2016-10-18] MEDS ORDERED: BUDESONIDE EC 3 MG CAP PO ONE (13:30)
[2016-10-18 15:17] VITALS: BP 100/63; PULSE 65; TEMP 36.4; O2SAT 94
[2016-10-18 15:25] VITALS: O2SAT 94
--- NOTE | 2016-10-18 17:05 | Progress Note ---
Internal Med Progress Note Date of Service: Oct 18, 2016. Provider Documentation: SUBJECTIVE: still has significant abdominal pain all over no diarrhea no more blood in stools afebrile likes to eat resting comfortably OBJECTIVE: Vital Signs-as noted below Exam: General-alert and awake. Not in distress ENT-Normal hearing Neck-no neck masses, supple Lungs-cta b/l no wheezing or crackles Heart-s1 and s2 heard regular , no murmurs Abdomen-soft bowel sounds present mild diffuse tender no distension Extremities- no edema present no erythema Neuro-alert and awake moves extremities Lab data as noted below. ASSESSMENT & PLAN: This is a 25 year old female with a PMH of ulcerative colitis, depression/ anxiety, chronic migraine, presents to the ER due to intractable abdominal pain Ulcerative Colitis Flare? No formal diagnosis of UC as per patient she has Lymphocytic colitis CT scan shows non specific enteritis seen by GI and recommends Entocort 9mg daily and colonoscopy as out patient still has abdominal pain started on clears will monitor. Depression/Anxiety continue current medications; Klonopin, Prozac 50mg daily DVT ppx SCDs FULL CODE DISPOSITION to be determined Vital Signs: Date Time Temp Pulse Resp B/P (MAP) Pulse Ox O2 Delivery O2 Flow Rate FiO2 10/18/16 15:25 94 Room Air 10/18/16 15:17 36.4 65 16 100/63 (75) 94 Room Air 10/18/16 07:45 Room Air 10/18/16 07:33 36.6 75 16 108/57 (74) 93 Room Air 10/18/16 01:27 97 Room Air 10/18/16 01:27 36.8 68 16 104/63 (77) 97 Room Air 10/18/16 01:27 36.8 68 16 104/63 97 Room Air 10/18/16 01:23 63 10/17/16 23:39 38.0 10/17/16 23:19 84 16 109/68 96 Room Air 10/17/16 22:07 82 20 103/57 97 Room Air 10/17/16 21:13 84 10/17/16 20:16 36.6 102 16 111/69 98 Room Air Lab Results: Results Past 24 Hours Test 10/17/16 20:30 Range/Units White Blood Count 8.16 4.8-10.8 K/uL Red Blood Count 4.29 4.2-5.4 M/uL Hemoglobin 13.0 12.0-16.0 g/dL Hematocrit 38.8 37-47 % Mean Corpuscular Volume 90.4 80-100 fL Mean Corpuscular Hemoglobin 30.3 25-34 pg Mean Corpuscular Hemoglobin Concent 33.5 32-36 g/dl Platelet Count 349 130-400 K/uL Mean Platelet Volume 9.0 7.4-10.4 fL Neutrophils (%) (Auto) 52.9 % Lymphocytes (%) (Auto) 35.3 % Monocytes (%) (Auto) 9.9 % Eosinophils (%) (Auto) 1.7 % Basophils (%) (Auto) 0.1 % Neutrophils # (Auto) 4.31 1.4-6.5 K/uL Lymphocytes # (Auto) 2.88 1.2-3.4 K/uL Monocytes # (Auto) 0.81 0.11-0.59 K/uL Eosinophils # (Auto) 0.14 0-0.5 K/uL Basophils # (Auto) 0.01 0-0.2 K/uL RDW Standard Deviation 45.2 36.4-46.3 fL RDW Coefficient of Variation 13.7 11.5-14.5 % Immature Granulocyte % (Auto) 0.1 % Immature Granulocyte # (Auto) 0.01 0.00-0.02 K/uL Erythrocyte Sedimentation Rate 6 0-21 mm/hr Urine Color YELLOW Urine Appearance CLEAR CLEAR Urine pH 8.0 4.5-7.5 Urine Specific [place] 1.012 1.000-1.030 Urine Protein NEG NEG Urine Glucose (UA) NEG NEG Urine Ketones NEG NEG Urine Occult Blood NEG NEG Urine Nitrite NEG NEG Urine Bilirubin NEG NEG Urine Urobilinogen NEG NEG Urine Leukocyte Esterase MODERATE NEG Urine WBC (Auto) 1-5 0-5 /hpf Urine RBC (Auto) 0-4 0-4 /hpf Urine Hyaline Casts (Auto) 0 0-5 /lpf Urine Epithelial Cells (Auto) >30 0-5 /lpf Urine Bacteria (Auto) 1+ NEG Urine Test NEG NEG Sodium Level 143 136-145 mmol/L Potassium Level 4.1 3.5-5.1 mmol/L Chloride Level 109 98-107 mmol/L Carbon Dioxide Level 27 21-32 mmol/L Anion Gap 7.0 3-11 mmol/L Blood Urea Nitrogen 7 7-18 mg/dl Creatinine 0.77 0.60-1.20 mg/dl Est Creatinine Clear Calc Drug Dose 104.0 ml/min Estimated GFR () 126.1 Estimated GFR (Non- 108.8 BUN/Creatinine Ratio 9.2 10-20 Random Glucose 79 70-99 mg/dl Calcium Level 8.8 8.5-10.1 mg/dl Total Bilirubin 0.2 0.2-1 mg/dl Direct Bilirubin < 0.1 0-0.2 mg/dl Aspartate Amino Transf (AST/SGOT) 12 15-37 U/L Alanine Aminotransferase (ALT/SGPT) 24 12-78 U/L Alkaline Phosphatase 65 45-117 U/L C-Reactive Protein < 0.29 0-0.29 mg/dl Total Protein 7.5 6.4-8.2 gm/dl Albumin 3.8 3.4-5.0 gm/dl Lipase 263 73-393 U/L Microbiology Results 10/17/16 Urine Culture - Preliminary, Resulted PIN-POINT GROWTH PRESENT, REINCUBATING.
[2016-10-18] MEDS: ONDANSETRON INJ 2 MG/ML 2 ML VIAL IV PRN (21:24)
[2016-10-18 22:42] VITALS: BP 114/75; PULSE 71; TEMP 36.4; O2SAT 93
[2016-10-18] MEDS: CLONAZEPAM 0.5 MG TAB PO PRN (22:58)
[2016-10-19] MEDS: ACETAMINOPHEN 325 MG TAB PO PRN ×3 (00:31→22:43)
[2016-10-19] MEDS: HYDROmorphone INJ 2 MG/ML SYR/VIAL IV PRN ×7 (01:26→23:30)
[2016-10-19 06:09] LABS: HEMATOCRIT 35.6 % (37-47); MEAN CELL VOLUME 93.7 fL (80-100); MEAN CORPUSCULAR HEMOGLOBIN 30.8 pg (25-34); MEAN CORPUSCULAR HGB CONC 32.9 g/dl (32-36); MEAN PLATELET VOLUME 8.8 fL (7.4-10.4); PLATELET COUNT 291 K/uL (130-400)
[2016-10-19 06:49] LABS: BLOOD UREA NITROGEN 7 mg/dl (7-18); BUN/CREATININE RATIO 14.6 (10-20); CALCIUM 7.8 mg/dl (8.5-10.1); CARBON DIOXIDE 25 mmol/L (21-32); CHLORIDE 109 mmol/L (98-107); CREATININE 0.49 mg/dl (0.60-1.20); GLUCOSE 103 mg/dl (70-99); SODIUM 142 mmol/L (136-145)
[2016-10-19] MEDS: SODIUM CHLORIDE 0.9% 1000ML 1,000 ML IV SCH ×2 (07:34→17:22)
[2016-10-19 07:55] VITALS: BP 106/68; PULSE 71; TEMP 36.6; O2SAT 95
[2016-10-19] MEDS: BUDESONIDE EC 3 MG CAP PO SCH (09:02)
[2016-10-19] MEDS: FLUOXETINE HCL 20 MG CAP PO SCH (09:02)
[2016-10-19] MEDS: FLUOXETINE HCL 10 MG CAP PO SCH (09:02)
[2016-10-19] MEDS: GABAPENTIN 800 MG TAB PO SCH ×3 (09:02→21:25)
--- NOTE | 2016-10-19 10:17 | Gastroenterology Progress Note ---
Progress Note Date of Service: Oct 19, 2016 Subjective Pt evaluation today including: conversation w/ patient, physical exam, chart review, lab review, review of inpatient medication list Patient reports no improvement in her symptoms of severe lower abdominal pain. She is currently rating her pain 7/10 in intensity despite recent use of IV Dilaudid. She states she did have a small loose stool this morning and this was sent for C Diff analysis which is pending. Tolerating clear liquid diet without nausea or vomiting but reports persistent and bothersome bloating. She has been transitioned to Entocort and Sulfasalazine discontinued at our suggestion. Review of Systems Constitutional: No problem reported Respiratory: No problem reported Cardiac: No problem reported Abdomen: + see HPI Medications Current Inpatient Medications Medications (Trade) Dose Ordered Sig/Pro Route Start Time Stop Time Status Last Admin Dose Admin Ioversol (Optiray 320) 111 ml UD PRN IV 10/17/16 22:30 10/21/16 22:29 Acetaminophen (Tylenol Tab) 650 mg Q4H PRN PO 10/18/16 01:00 11/17/16 00:59 10/19/16 05:01 650 MG Al Hydrox/Mg Hydrox/Simethicone (Maalox Max Susp) 15 ml Q4H PRN PO 10/18/16 01:00 11/17/16 00:59 Magnesium Hydroxide (Milk Of Magnesia Susp) 30 ml Q6H PRN PO 10/18/16 01:00 11/17/16 00:59 Polyethylene (Miralax Powder Packet) 17 gm DAILY PRN PO 10/18/16 02:00 11/17/16 01:59 Ondansetron HCl (Zofran Inj) 4 mg Q6H PRN IV 10/18/16 01:00 11/17/16 00:59 10/18/16 21:24 4 MG Clonazepam (Klonopin Tab) 0.5 mg TID PRN PO 10/18/16 01:00 11/17/16 00:59 10/18/16 22:58 0.5 MG Fluoxetine HCl (Prozac Cap) 10 mg DAILY PO 10/18/16 09:00 11/17/16 08:59 10/19/16 09:02 10 MG Fluoxetine HCl (Prozac Cap) 40 mg DAILY PO 10/18/16 09:00 11/17/16 08:59 10/19/16 09:02 40 MG Gabapentin (Neurontin Tab) 800 mg TID PO 10/18/16 09:00 11/17/16 08:59 10/19/16 09:02 800 MG Hydromorphone HCl (Dilaudid Inj) 2 mg Q3HWA PRN IV 10/18/16 01:00 11/01/16 00:59 10/19/16 07:40 2 MG Sodium Chloride 1,000 ml @ 100 mls/hr Q10H IV 10/18/16 02:00 11/17/16 01:59 10/19/16 07:34 100 MLS/HR Budesonide (Entocort EC Cap) 9 mg QAM PO 10/19/16 09:00 11/18/16 08:59 10/19/16 09:02 9 MG Objective Vital Signs Date Time Temp Pulse Resp B/P (MAP) Pulse Ox O2 Delivery O2 Flow Rate FiO2 10/19/16 07:55 36.6 71 16 106/68 (81) 95 Room Air 10/19/16 00:00 Room Air 10/18/16 22:42 36.4 71 16 114/75 (88) 93 Room Air 10/18/16 15:25 94 Room Air 10/18/16 15:17 36.4 65 16 100/63 (75) 94 Room Air Physical Exam General Appearance: no apparent distress Eyes: EOMI Respiratory/Chest: lungs clear, normal breath sounds, no respiratory distress Cardiovascular: regular rate, rhythm, no gallop, no murmur Abdomen: normal bowel sounds, soft, + tenderness (diffusely) Neurologic/Psych: normal mood/affect, + pertinent finding (drowsy) Skin: warm/dry Laboratory Results Last 24 Hours Test 10/19/16 05:19 White Blood Count 16.10 K/uL Red Blood Count 3.80 M/uL Hemoglobin 11.7 g/dL Hematocrit 35.6 % Mean Corpuscular Volume 93.7 fL Mean Corpuscular Hemoglobin 30.8 pg Mean Corpuscular Hemoglobin Concent 32.9 g/dl RDW Standard Deviation 48.1 fL RDW Coefficient of Variation 13.9 % Platelet Count 291 K/uL Mean Platelet Volume 8.8 fL Sodium Level 142 mmol/L Potassium Level 4.0 mmol/L Chloride Level 109 mmol/L Carbon Dioxide Level 25 mmol/L Anion Gap 8.0 mmol/L Blood Urea Nitrogen 7 mg/dl Creatinine 0.49 mg/dl Est Creatinine Clear Calc Drug Dose 163.3 ml/min Estimated GFR () > 150.0 Estimated GFR (Non- 137.3 BUN/Creatinine Ratio 14.6 Random Glucose 103 mg/dl Calcium Level 7.8 mg/dl Assessment and Plan Patient is a 25 year old female with a history of lymphocytic colitis without any established diagnosis of inflammatory bowel disease diagnosed with nonspecific enteritis with persistent abdominal pain and bloating. 1. CT a/p with IV and oral enhancement today. 2. Continue clear liquid diet. 3. Continue Entocort 9 mg daily for now. 4. Reinforced the importance of tobacco cessation in regard to ongoing GI complaints. 5. Pending results of imaging, will determine if she will be prepped this evening for a colonoscopy tomorrow. 6. Recommend limiting narcotic analgesic use as she has been noted to have chronic constipation and incomplete colonoscopy in July of 2015 due to poor prep. Agree with JAGDEEP Veras as above Abd: Soft, Tender throughout Reviewed prior colonoscopy and path reports with patient. No evidence of Crohn' s disease on prior testing. Colonoscopy in AM following bowel prep tonight
[2016-10-19] MEDS ORDERED: OPTIRAY 320 IV PRN (10:30)
--- NOTE | 2016-10-19 13:44 | DIAGNOSTIC IMAGING REPORT ---
CT SCAN OF THE ABDOMEN AND PELVIS WITH IV CONTRAST CLINICAL HISTORY: Generalized abdominal pain. COMPARISON STUDY: Abdominal CT dated 10/17/2016. TECHNIQUE: Following the IV administration of 100 cc of Optiray 320, CT scan of the abdomen and pelvis is performed from the lung bases to the proximal femora. Images are reviewed in the axial, sagittal, and coronal planes. IV contrast was administered without complication. Automated dose control exposure was utilized. CT DOSE: 739.20 mGycm FINDINGS: Lung bases: The heart is normal in size and without pericardial effusion. The lung bases are clear. Liver: The contrast-enhanced liver is normal in size, contour, and attenuation. There is no intrahepatic biliary ductal dilatation. The hepatic veins and portal veins are patent. Gallbladder: Contracted. Spleen: Normal in size and attenuation. Pancreas: Unremarkable. Adrenal glands: Unremarkable. Kidneys: The contrast enhanced kidneys are normal in size and without hydronephrosis. The kidneys enhance symmetrically. Abdominal vasculature: The abdominal aorta is normal in course and caliber. Bowel: The small bowel and colon are normal in course and caliber. There is moderate colonic fecal retention. Mild fecalization is seen in the distal ileum. No thick walled or hyperemic bowel loops are identified. The appendix is well-visualized and normal. Peritoneum: There is no intraperitoneal free air or abdominal ascites. There is a fat-containing umbilical hernia. Lymphadenopathy: None. Pelvic viscera: The bladder is decompressed around a Elliott catheter. Small foci of intraluminal gas are likely related to instrumentation. The uterus and adnexa are normal as visualized. There are bilateral ovarian follicles. A small volume of free fluid is present in the cul-de-sac. Skeletal structures: No lytic or blastic lesions are seen. IMPRESSION: 1. There are no acute infectious or inflammatory findings in the abdomen or pelvis. 2. Moderate constipation. No bowel obstruction is identified. 3. There is fecalization of the distal ileum, likely related to constipation/stasis. No abnormally thick walled or hyperemic bowel loops are seen. 4. There is a small volume of free fluid in the cul-de-sac, likely within physiologic limits. 5. The bladder is decompressed around a Elliott catheter and not well evaluated. Electronically signed by: Viral Bee M.D. 10/19/2016 1:43 PM Dictated Date/Time: 10/19/2016 1:37 PM
[2016-10-19] MEDS: ONDANSETRON INJ 2 MG/ML 2 ML VIAL IV PRN ×2 (14:12→22:41)
[2016-10-19 15:32] VITALS: BP 104/58; PULSE 82; TEMP 37; O2SAT 90
--- NOTE | 2016-10-19 19:01 | Progress Note ---
Internal Med Progress Note Date of Service: Oct 19, 2016. Provider Documentation: SUBJECTIVE: still has significant abdominal pain constipated tolerating clears ambulating fine afebrile OBJECTIVE: Vital Signs-as noted below Exam: General-alert and awake. Not in distress ENT-Normal hearing Neck-no neck masses, supple Lungs-cta b/l no wheezing or crackles Heart-s1 and s2 heard regular , no murmurs Abdomen-soft bowel sounds present mild diffuse tender no distension Extremities- no edema present no erythema Neuro-alert and awake moves extremities Lab data as noted below. ASSESSMENT & PLAN: This is a 25 year old female with a PMH of ulcerative colitis, depression/ anxiety, chronic migraine, presents to the ER due to intractable abdominal pain Ulcerative Colitis Flare? No formal diagnosis of UC as per patient she has Lymphocytic colitis CT scan shows non specific enteritis seen by GI and recommends Entocort 9mg daily and colonoscopy as out patient still has abdominal pain started on clears ct scan with oral contrast shows significant constipation started on mirlax GI planning for colonoscopy Depression/Anxiety continue current medications; Klonopin, Prozac 50mg daily DVT ppx SCDs FULL CODE DISPOSITION to be determined Vital Signs: Date Time Temp Pulse Resp B/P (MAP) Pulse Ox O2 Delivery O2 Flow Rate FiO2 10/19/16 15:32 37.0 82 16 104/58 (73) 90 Room Air 10/19/16 15:15 Room Air 10/19/16 07:55 36.6 71 16 106/68 (81) 95 Room Air 10/19/16 07:40 Room Air 10/19/16 00:00 Room Air 10/18/16 22:42 36.4 71 16 114/75 (88) 93 Room Air Lab Results: Results Past 24 Hours Test 10/19/16 05:19 Range/Units White Blood Count 16.10 4.8-10.8 K/uL Red Blood Count 3.80 4.2-5.4 M/uL Hemoglobin 11.7 12.0-16.0 g/dL Hematocrit 35.6 37-47 % Mean Corpuscular Volume 93.7 80-100 fL Mean Corpuscular Hemoglobin 30.8 25-34 pg Mean Corpuscular Hemoglobin Concent 32.9 32-36 g/dl RDW Standard Deviation 48.1 36.4-46.3 fL RDW Coefficient of Variation 13.9 11.5-14.5 % Platelet Count 291 130-400 K/uL Mean Platelet Volume 8.8 7.4-10.4 fL Sodium Level 142 136-145 mmol/L Potassium Level 4.0 3.5-5.1 mmol/L Chloride Level 109 98-107 mmol/L Carbon Dioxide Level 25 21-32 mmol/L Anion Gap 8.0 3-11 mmol/L Blood Urea Nitrogen 7 7-18 mg/dl Creatinine 0.49 0.60-1.20 mg/dl Est Creatinine Clear Calc Drug Dose 163.3 ml/min Estimated GFR () > 150.0 Estimated GFR (Non- 137.3 BUN/Creatinine Ratio 14.6 10-20 Random Glucose 103 70-99 mg/dl Calcium Level 7.8 8.5-10.1 mg/dl Microbiology Results 10/19/16 C.difficile Toxin B Gene (PCR) - Final, Complete No C. difficile toxin B gene detected
[2016-10-19] MEDS: LAVAGE SOLUTION 4000ML PO SCH (19:26)
[2016-10-19] MEDS: POLYETHYLENE (MIRALAX) 17 GM PACK PO SCH (21:00)
[2016-10-19 22:19] VITALS: BP 104/58; PULSE 82; TEMP 37; O2SAT 90
[2016-10-19 22:55] VITALS: BP 119/78; PULSE 80; TEMP 36.5; O2SAT 93
[2016-10-19] MEDS: CLONAZEPAM 0.5 MG TAB PO PRN (23:30)
[2016-10-20] MEDS: SODIUM CHLORIDE 0.9% 1000ML 1,000 ML IV SCH ×3 (03:44→23:50)
[2016-10-20] MEDS: HYDROmorphone INJ 2 MG/ML SYR/VIAL IV PRN ×2 (05:11→08:43)
[2016-10-20 07:46] VITALS: BP 107/70; PULSE 82; TEMP 36.8; O2SAT 95
[2016-10-20] MEDS: POLYETHYLENE (MIRALAX) 17 GM PACK PO SCH ×3 (08:43→20:46)
[2016-10-20] MEDS: FLUOXETINE HCL 10 MG CAP PO SCH ×2 (08:43→13:23)
[2016-10-20] MEDS: GABAPENTIN 800 MG TAB PO SCH ×4 (08:43→20:46)
[2016-10-20] MEDS: FLUOXETINE HCL 20 MG CAP PO SCH ×2 (08:43→13:23)
[2016-10-20] MEDS: BUDESONIDE EC 3 MG CAP PO SCH ×2 (08:43→13:23)
--- NOTE | 2016-10-20 11:33 | Gastroenterology Progress Note ---
Progress Note Date of Service: Oct 20, 2016 Subjective Pt evaluation today including: conversation w/ patient, physical exam Patient presents to endoscopy pre-procedure for colonoscopy today. Complains of headache. No abdominal pain. States she took bowel prep with good results. Medications Current Inpatient Medications Medications (Trade) Dose Ordered Sig/Pro Route Start Time Stop Time Status Last Admin Dose Admin Ioversol (Optiray 320) 111 ml UD PRN IV 10/17/16 22:30 10/21/16 22:29 Acetaminophen (Tylenol Tab) 650 mg Q4H PRN PO 10/18/16 01:00 11/17/16 00:59 10/19/16 22:43 650 MG Al Hydrox/Mg Hydrox/Simethicone (Maalox Max Susp) 15 ml Q4H PRN PO 10/18/16 01:00 11/17/16 00:59 Magnesium Hydroxide (Milk Of Magnesia Susp) 30 ml Q6H PRN PO 10/18/16 01:00 11/17/16 00:59 Polyethylene (Miralax Powder Packet) 17 gm DAILY PRN PO 10/18/16 02:00 11/17/16 01:59 10/19/16 17:19 17 GM Ondansetron HCl (Zofran Inj) 4 mg Q6H PRN IV 10/18/16 01:00 11/17/16 00:59 10/19/16 22:41 4 MG Clonazepam (Klonopin Tab) 0.5 mg TID PRN PO 10/18/16 01:00 11/17/16 00:59 10/19/16 23:30 0.5 MG Fluoxetine HCl (Prozac Cap) 10 mg DAILY PO 10/18/16 09:00 11/17/16 08:59 10/19/16 09:02 10 MG Fluoxetine HCl (Prozac Cap) 40 mg DAILY PO 10/18/16 09:00 11/17/16 08:59 10/19/16 09:02 40 MG Gabapentin (Neurontin Tab) 800 mg TID PO 10/18/16 09:00 11/17/16 08:59 10/19/16 21:25 800 MG Hydromorphone HCl (Dilaudid Inj) 2 mg Q3HWA PRN IV 10/18/16 01:00 11/01/16 00:59 10/20/16 08:43 2 MG Sodium Chloride 1,000 ml @ 100 mls/hr Q10H IV 10/18/16 02:00 11/17/16 01:59 10/20/16 03:44 100 MLS/HR Budesonide (Entocort EC Cap) 9 mg QAM PO 10/19/16 09:00 11/18/16 08:59 10/19/16 09:02 9 MG Ioversol (Optiray 320) 100 ml UD PRN IV 10/19/16 10:30 10/23/16 10:29 Polyethylene (Miralax Powder Packet) 17 gm TID PO 10/19/16 21:00 11/18/16 20:59 Polyethylene Glycol/ Electrolytes (Golytely Soln) 16 dose 1900 PO 10/19/16 19:00 10/20/16 23:59 10/19/16 19:26 16 DOSE Objective Vital Signs Date Time Temp Pulse Resp B/P (MAP) Pulse Ox O2 Delivery O2 Flow Rate FiO2 10/20/16 11:19 37.1 71 18 111/64 (80) 97 Room Air 10/20/16 08:00 Room Air 10/20/16 07:46 36.8 82 16 107/70 (82) 95 Room Air 10/20/16 00:00 Room Air 10/19/16 22:55 36.5 80 14 119/78 (92) 93 Room Air 10/19/16 22:19 37.0 82 16 104/58 90 Room Air 10/19/16 15:32 37.0 82 16 104/58 (73) 90 Room Air 10/19/16 15:15 Room Air Physical Exam General Appearance: no apparent distress Abdomen: non tender, soft Assessment and Plan Patient is a 25 year old female with a history of lymphocytic colitis without any established diagnosis of inflammatory bowel disease diagnosed with nonspecific enteritis with persistent abdominal pain and bloating. Plan: Proceed with colonoscopy
[2016-10-20] MEDS ORDERED: PROPOFOL IV EMULSION 10 MG/ML 20 ML VIAL IV ONE ×2 (11:39→11:48)
[2016-10-20] MEDS ORDERED: LIDOCAINE HCL 2% 2 ML VIAL (20MG/ML) ONE (11:39)
--- NOTE | 2016-10-20 12:01 | GI REPORT ---
Procedure Date: 10/20/2016 11:30 AM Procedure: Colonoscopy Indications: Generalized abdominal pain, Abnormal CT of the GI tract Medicines: Monitored Anesthesia Care Complications: No immediate complications. Estimated Blood Loss: Estimated blood loss: none. Procedure: Pre-Anesthesia Assessment: - Prior to the procedure, a History and Physical was performed, and patient medications and allergies were reviewed. The patient's tolerance of previous anesthesia was also reviewed. The risks and benefits of the procedure and the sedation options and risks were discussed with the patient. All questions were answered, and informed consent was obtained. Prior Anticoagulants: The patient has taken no previous anticoagulant or antiplatelet agents. ASA Grade Assessment: II - A patient with mild systemic disease. After reviewing the risks and benefits, the patient was deemed in satisfactory condition to undergo the procedure. After I obtained informed consent, the scope was passed under direct vision. Throughout the procedure, the patient's blood pressure, pulse, and oxygen saturations were monitored continuously. The scope was introduced through the anus and advanced to the terminal ileum. The colonoscopy was performed without difficulty. The patient tolerated the procedure well. The quality of the bowel preparation was fair. The terminal ileum, ileocecal valve, appendiceal orifice, and rectum were photographed. Findings: Non-bleeding internal hemorrhoids were found during retroflexion. The hemorrhoids were small. Several random biopsies were obtained with cold forceps for histology in the entire colon. Impression: - Non-bleeding internal hemorrhoids. - Several random biopsies were obtained in the entire colon. Recommendation: - Resume previous diet. - Continue present medications. - Repeat colonoscopy for surveillance based on pathology results. - Return to primary care physician as previously scheduled. Jorge Sesay DO 10/20/2016 12:00:30 PM This report has been signed electronically. Note Initiated On: 10/20/2016 11:30 AM I attest to the content of the Intraoperative Record and orders documented therein, exceptions below
--- NOTE | 2016-10-20 13:09 | Anesthesiology Progress Note ---
Anesthesia Post Op Note Date & Time Oct 20, 2016 at 13:08 Vital Signs Pain Intensity: 8.0 Vital Signs Past 12 Hours Date Time Temp Pulse Resp B/P (MAP) Pulse Ox O2 Delivery O2 Flow Rate FiO2 10/20/16 12:23 94 16 135/91 (106) 98 Room Air 10/20/16 12:08 99 16 137/89 (105) 96 Room Air 10/20/16 11:53 91 10 133/87 (102) 98 Room Air 10/20/16 11:19 37.1 71 18 111/64 (80) 97 Room Air 10/20/16 08:00 Room Air 10/20/16 07:46 36.8 82 16 107/70 (82) 95 Room Air Notes Mental Status: alert / awake / arousable, participated in evaluation Pt Amnestic to Procedure: Yes Nausea / Vomiting: adequately controlled Pain: adequately controlled Airway Patency, RR, SpO2: stable & adequate BP & HR: stable & adequate Hydration State: stable & adequate Anesthetic Complications: no major complications apparent I noticed patient seemed very somnolent upon arrival to endo preop holding and this is likely 2/2 a dose of dilaudid she received prior to coming down. I felt it was best after this procedure to have her on continuous pulse oximetry while on the floor. Her nurse was informed and agreed.
[2016-10-20] MEDS: ACETAMINOPHEN 325 MG TAB PO PRN (13:24)
[2016-10-20 15:22] VITALS: BP 95/61; PULSE 83; TEMP 37; O2SAT 94
[2016-10-20 16:00] VITALS: O2SAT 95
--- NOTE | 2016-10-20 18:08 | Progress Note ---
Internal Med Progress Note Date of Service: Oct 20, 2016. Provider Documentation: SUBJECTIVE: s/p colonoscopy today GI recommends no narcotics afebrile says has abdominal pain advancing diet OBJECTIVE: Vital Signs-as noted below Exam: General-alert and awake. Not in distress ENT-Normal hearing Neck-no neck masses, supple Lungs-cta b/l no wheezing or crackles Heart-s1 and s2 heard regular , no murmurs Abdomen-soft bowel sounds present mild diffuse tender no distension Extremities- no edema present no erythema Neuro-alert and awake moves extremities Lab data as noted below. ASSESSMENT & PLAN: This is a 25 year old female with a PMH of ulcerative colitis, depression/ anxiety, chronic migraine, presents to the ER due to intractable abdominal pain Ulcerative Colitis Flare? No formal diagnosis of UC as per patient she has Lymphocytic colitis CT scan shows non specific enteritis seen by GI and recommends Entocort 9mg daily tolerating clears ct scan with oral contrast shows significant constipation started on mirlax s/p colonoscopy and biopsies advancing diet No narcotics Depression/Anxiety continue current medications; Klonopin, Prozac 50mg daily DVT ppx SCDs FULL CODE DISPOSITION possible d/c in am Vital Signs: Date Time Temp Pulse Resp B/P (MAP) Pulse Ox O2 Delivery O2 Flow Rate FiO2 10/20/16 16:00 95 Room Air 10/20/16 15:22 37.0 83 18 95/61 (72) 94 Room Air 10/20/16 12:23 94 16 135/91 (106) 98 Room Air 10/20/16 12:08 99 16 137/89 (105) 96 Room Air 10/20/16 11:53 91 10 133/87 (102) 98 Room Air 10/20/16 11:19 37.1 71 18 111/64 (80) 97 Room Air 10/20/16 08:00 Room Air 10/20/16 07:46 36.8 82 16 107/70 (82) 95 Room Air 10/20/16 00:00 Room Air 10/19/16 22:55 36.5 80 14 119/78 (92) 93 Room Air 10/19/16 22:19 37.0 82 16 104/58 90 Room Air
[2016-10-20] MEDS: LAVAGE SOLUTION 4000ML PO SCH (18:43)
[2016-10-20 23:22] VITALS: BP 100/66; PULSE 66; TEMP 37.1; O2SAT 99
[2016-10-21 03:23] VITALS: BP 107/68; PULSE 59; TEMP 37.1; O2SAT 94
[2016-10-21 07:42] VITALS: BP 122/73; PULSE 59; TEMP 36.7; O2SAT 90
[2016-10-21 08:37] VITALS: BP 124/81; PULSE 53; TEMP 36.7; O2SAT 92
[2016-10-21] MEDS ORDERED: RANITIDINE HCL 50 MG/100 ML D5W IV STA (08:53)
[2016-10-21 08:59] VITALS: PULSE 82; O2SAT 98
[2016-10-21] MEDS ORDERED: DiphenhydrAMINE INJ 25 MG in SYRINGE 0 ML IV ONE (09:00)
[2016-10-21] MEDS ORDERED: METHYLPREDNISOLONE IV 60 MG in SYRINGE 0 ML IV ONE (09:00)
[2016-10-21] MEDS: POLYETHYLENE (MIRALAX) 17 GM PACK PO SCH ×3 (09:00→20:52)
[2016-10-21] MEDS ORDERED: DiphenhydrAMINE HCL 50 MG/ML VIAL IV STA (09:05)
[2016-10-21] MEDS ORDERED: RANITIDINE IV 50 MG in DEXTROSE 5% 100ML 100 ML IV STA (09:06)
[2016-10-21] MEDS ORDERED: OPTIRAY 320 IV PRN (09:15)
[2016-10-21] MEDS ORDERED: NURSING VERBAL MED ORDER ONE (09:30)
[2016-10-21] MEDS: FLUOXETINE HCL 20 MG CAP PO SCH (10:03)
[2016-10-21] MEDS: FLUOXETINE HCL 10 MG CAP PO SCH (10:04)
[2016-10-21] MEDS: BUDESONIDE EC 3 MG CAP PO SCH (10:05)
[2016-10-21] MEDS: GABAPENTIN 800 MG TAB PO SCH ×3 (10:07→20:51)
[2016-10-21] MEDS: CLONAZEPAM 0.5 MG TAB PO PRN ×2 (10:10→21:00)
--- NOTE | 2016-10-21 10:12 | DIAGNOSTIC IMAGING REPORT ---
CT OF THE NECK WITH CONTRAST CT DOSE: 267.74 mGycm CLINICAL HISTORY: Angioedema? Thoat closing. TECHNIQUE: Axial images of the neck were obtained following intravenous injection of 100 cc Optiray 320 IV. Sagittal and coronal reconstructions were viewed. COMPARISON STUDY: CT of the cervical spine and MRI the cervical spine August 02, 2008. FINDINGS: There is no fluid collection within the neck. No soft tissue gas is present. Major vasculature of the neck is patent. Visualized portions of the lung apices demonstrate bilateral pleural effusions and interlobular septal thickening consistent with pulmonary edema. There is diffuse edema which suggests anasarca. There is infiltration of the parapharyngeal soft tissues. The epiglottis is normal. Airway is patent. Tonsils are mildly enlarged. There is no peritonsillar abscess. The parotid, submandibular and thyroid glands are within normal limits by CT. IMPRESSION: 1. Mild parapharyngeal infiltration and tonsillar enlargement. Airway patent. This infiltration is nonspecific but favors anasarca/volume overload. Angioedema could appear. No abscess. 2. Findings suggestive of volume overload/generalized anasarca with partially visualized bilateral pleural effusions and pulmonary edema within visualized portions of the chest. Electronically signed by: Luigi Lopez M.D. 10/21/2016 10:10 AM Dictated Date/Time: 10/21/2016 10:02 AM
[2016-10-21] MEDS ORDERED: FUROSEMIDE INJ 40 MG in SYRINGE 0 ML IV ONE (11:00)
[2016-10-21 11:27] LABS: BASO % 0.1 %; BASO ABS # 0.01 K/uL (0-0.2); COMPLETE YES; EOS % 0.3 %; HEMATOCRIT 36.2 % (37-47); IG% 0.3 %; LYMPH % 11.9 %; LYMPH ABS # 1.35 K/uL (1.2-3.4); MEAN CELL VOLUME 90.5 fL (80-100); MEAN CORPUSCULAR HEMOGLOBIN 30.8 pg (25-34); MEAN PLATELET VOLUME 8.7 fL (7.4-10.4); MONO % 5.1 %; NEUT % 82.3 %; PLATELET COUNT 259 K/uL (130-400); WHITE BLOOD COUNT 11.36 K/uL (4.8-10.8)
--- NOTE | 2016-10-21 11:58 | ENT CONSULTATION ---
DATE OF CONSULTATION: 10/21/2016 DATE OF CONSULTATION: 10/21/2016. DIAGNOSIS: Pharyngitis due to the procedure yesterday, probable airway intervention of some type. HISTORY OF PRESENT ILLNESS: This 25-year-old lady with ulcerative colitis underwent colonoscopy yesterday. She has developed a sore throat since then. PAST MEDICAL HISTORY: Positive for ulcerative colitis. Otherwise, please see her chart. PHYSICAL EXAMINATION: GENERAL: WN, WD female who is in no acute distress. HEAD: Normocephalic. EYES: Normal. EARS: Tympanic membranes intact. NOSE: Nasal passages patent with somewhat swollen turbinates. THROAT: Oropharynx shows 2+ tonsillar hypertrophy which are pink with no evidence of exudate. The uvula is in the midline. It is somewhat elongated but with no evidence of edema. NECK: Supple with no adenopathy. IMPRESSION: Pharyngeal irritation due to procedure yesterday. RECOMMENDATIONS: Start saline gargles.
[2016-10-21 12:01] LABS: CALCIUM 7.6 mg/dl (8.5-10.1); CREATININE 0.67 mg/dl (0.60-1.20); MAGNESIUM 1.7 mg/dl (1.8-2.4); POTASSIUM 3.6 mmol/L (3.5-5.1)
[2016-10-21] MEDS: ACETAMINOPHEN 325 MG TAB PO PRN ×2 (13:57→23:36)
[2016-10-21 15:25] VITALS: BP 124/83; PULSE 62; TEMP 36.9; O2SAT 99
[2016-10-21] MEDS ORDERED: ACETAMINOPHEN IV 650 MG in EMPTY BAG 0 ML IV PRN (16:45)
[2016-10-21] MEDS ORDERED: FUROSEMIDE INJ 20 MG in SYRINGE 0 ML IV ONE (18:45)
--- NOTE | 2016-10-21 18:48 | Progress Note ---
Internal Med Progress Note Date of Service: Oct 21, 2016. Provider Documentation: SUBJECTIVE: complains of throat closing oxygen stats are fine swallowing ok hemodynamics stable no tongue swelling or uvula swelling on inspection OBJECTIVE: Vital Signs-as noted below Exam: General-alert and awake. Not in distress HEENT-Normal hearing no tounge or lips swelling Neck-no neck masses, supple Lungs-cta b/l no wheezing or crackles Heart-s1 and s2 heard regular , no murmurs Abdomen-soft bowel sounds present mild diffuse tender no distension Extremities- extremity edema present no erythema Neuro-alert and awake moves extremities Lab data as noted below. ASSESSMENT & PLAN: This is a 25 year old female with a PMH of ulcerative colitis, depression/ anxiety, chronic migraine, presents to the ER due to intractable abdominal pain Ulcerative Colitis Flare? No formal diagnosis of UC as per patient she has Lymphocytic colitis CT scan shows non specific enteritis seen by GI and recommends Entocort 9mg daily tolerating clears ct scan with oral contrast shows significant constipation started on mirlax s/p colonoscopy and biopsies advanced diet and tolerating fine No narcotics iv tylenol prn Throat closing edema received empiric Benadryl, steroid and zantac ct soft neck-pharyngeal and tonsillar infiltrates-favors anasarca seen by ENT and thinks mostly irritation from LMA. hemodynamics stable will monitor Depression/Anxiety continue current medications; Klonopin, Prozac 50mg daily DVT ppx SCDs FULL CODE DISPOSITION possible d/c in am if stable Vital Signs: Date Time Temp Pulse Resp B/P (MAP) Pulse Ox O2 Delivery O2 Flow Rate FiO2 10/21/16 15:25 36.9 62 18 124/83 (97) 99 Room Air 10/21/16 08:59 82 16 98 Nasal Cannula 2.0 10/21/16 08:37 36.7 53 17 124/81 (95) 92 Room Air 10/21/16 07:45 Room Air 10/21/16 07:42 36.7 59 19 122/73 (89) 90 Room Air 10/21/16 03:23 37.1 59 22 107/68 (81) 94 Room Air 10/20/16 23:55 Room Air 10/20/16 23:22 37.1 66 16 100/66 (77) 99 Room Air Lab Results: Results Past 24 Hours Test 6/10/17 11:15 Range/Units White Blood Count 11.36 4.8-10.8 K/uL Red Blood Count 4.00 4.2-5.4 M/uL Hemoglobin 12.3 12.0-16.0 g/dL Hematocrit 36.2 37-47 % Mean Corpuscular Volume 90.5 80-100 fL Mean Corpuscular Hemoglobin 30.8 25-34 pg Mean Corpuscular Hemoglobin Concent 34.0 32-36 g/dl Platelet Count 259 130-400 K/uL Mean Platelet Volume 8.7 7.4-10.4 fL Neutrophils (%) (Auto) 82.3 % Lymphocytes (%) (Auto) 11.9 % Monocytes (%) (Auto) 5.1 % Eosinophils (%) (Auto) 0.3 % Basophils (%) (Auto) 0.1 % Neutrophils # (Auto) 9.36 1.4-6.5 K/uL Lymphocytes # (Auto) 1.35 1.2-3.4 K/uL Monocytes # (Auto) 0.58 0.11-0.59 K/uL Eosinophils # (Auto) 0.03 0-0.5 K/uL Basophils # (Auto) 0.01 0-0.2 K/uL RDW Standard Deviation 45.1 36.4-46.3 fL RDW Coefficient of Variation 13.7 11.5-14.5 % Immature Granulocyte % (Auto) 0.3 % Immature Granulocyte # (Auto) 0.03 0.00-0.02 K/uL Sodium Level 143 136-145 mmol/L Potassium Level 3.6 3.5-5.1 mmol/L Chloride Level 110 98-107 mmol/L Carbon Dioxide Level 30 21-32 mmol/L Anion Gap 3.0 3-11 mmol/L Blood Urea Nitrogen 9 7-18 mg/dl Creatinine 0.67 0.60-1.20 mg/dl Est Creatinine Clear Calc Drug Dose 119.4 ml/min Estimated GFR () 143.6 Estimated GFR (Non- 123.9 BUN/Creatinine Ratio 14.0 10-20 Random Glucose 92 70-99 mg/dl Calcium Level 7.6 8.5-10.1 mg/dl Magnesium Level 1.7 1.8-2.4 mg/dl Total Bilirubin 0.2 0.2-1 mg/dl Aspartate Amino Transf (AST/SGOT) 6 15-37 U/L Alanine Aminotransferase (ALT/SGPT) 15 12-78 U/L Alkaline Phosphatase 50 45-117 U/L Total Protein 5.3 6.4-8.2 gm/dl Albumin 2.6 3.4-5.0 gm/dl Globulin 2.7 2.5-4.0 gm/dl Albumin/Globulin Ratio 1.0 0.9-2
[2016-10-21 23:01] VITALS: BP 134/78; PULSE 46; TEMP 36.7; O2SAT 94
[2016-10-22 01:50] VITALS: PULSE 56; O2SAT 91
[2016-10-22 05:56] VITALS: PULSE 58; O2SAT 93
[2016-10-22 07:31] VITALS: BP 116/68; PULSE 47; TEMP 37; O2SAT 94
[2016-10-22] MEDS: GABAPENTIN 800 MG TAB PO SCH ×2 (08:48→13:51)
[2016-10-22] MEDS: BUDESONIDE EC 3 MG CAP PO SCH (08:49)
[2016-10-22] MEDS: FLUOXETINE HCL 10 MG CAP PO SCH (08:50)
[2016-10-22] MEDS: POLYETHYLENE (MIRALAX) 17 GM PACK PO SCH ×2 (08:51→13:50)
[2016-10-22] MEDS: FLUOXETINE HCL 20 MG CAP PO SCH (08:51)
[2016-10-22 11:34] LABS: BUN/CREATININE RATIO 14.6 (10-20); CREATININE 0.74 mg/dl (0.60-1.20); MAGNESIUM 1.6 mg/dl (1.8-2.4); POTASSIUM 2.6 mmol/L (3.5-5.1)
[2016-10-22 11:44] LABS: CALCIUM 8.3 mg/dl (8.5-10.1)
[2016-10-22] MEDS ORDERED: MAGNESIUM OXIDE 400 MG TAB PO SCH (12:00)
[2016-10-22] MEDS: POTASSIUM CHLR 10 MEQ / WTR 10 MEQ in PREMIXED WATER 100 ML IV SCH ×4 (12:00→15:46)
[2016-10-22] MEDS ORDERED: POTASSIUM CHLORIDE 20 MEQ TABCR PO ONE (12:15)
[2016-10-22] MEDS: CLONAZEPAM 0.5 MG TAB PO PRN (12:18)
[2016-10-22] MEDS ORDERED: ENT3 PO (13:23)
--- NOTE | 2016-10-22 13:28 | Discharge Instructions ---
Discharge Instructions Date of Service Oct 22, 2016. Admission Reason for Admission: Ulcerative Colitis Discharge Discharge Diagnosis / Problem: colitis Discharge Goals Goal(s): Decrease discomfort, Improve function Activity Recommendations Activity Limitations: resume your previous activity . Instructions / Follow-Up Instructions / Follow-Up FOLLOWUP WITH FAMILY DOCTOR Navdeep Kwok ON October AT 10:40AM. FOLLOWUP WITH GI IN 1-2 WEEKS Current Hospital Diet Patient's current hospital diet: Low Fiber Diet Discharge Diet Recommended Diet: Regular Diet Procedures Procedures Performed: COLONOSCOPY Pending Studies Studies pending at discharge: yes List of pending studies: COLON BIPOSY RESULTS Work Instructions Return To Work: 1 day Additional Instructions: no restrictions Medical Emergencies . Who to Call and When: Medical Emergencies: If at any time you feel your situation is an emergency, please call 911 immediately. . Non-Emergent Contact Non-Emergency issues call your: Primary Care Provider . . "Provider Documentation" section prepared by Young Tan. . VTE Core Measure Inpt VTE Proph given/why not?: Treatment not indicated
[2016-10-22] MEDS ORDERED: POTA10CA28 PO (13:29)
[2016-10-22] MEDS ORDERED: MAGN400C2 PO (13:29)
--- NOTE | 2016-10-22 14:40 | ECHOCARDIOGRAM REPORT ---
*NOTICE TO RECEIVING [employer] This information is strictly Confidential and protected under [place] law. [place] law prohibits you from making any further disclosure of this information unless further disclosure is expressly permitted by the written consent of the person to whom it pertains or is authorized by law. A general authorization for the release of medical or other information is not sufficient for this purpose. Hospital accepts no responsibility if the information is made available to any other person, INCLUDING THE PATIENT. Interpretation Summary * Name: SHERRY SONG Study Date: 10/21/2016 02:47 PM BP: 124/81 mmHg * Patient Location: .[facility]\S\W358\S\1 HR: 82 * : 1990 (M/d/yyyy) Gender: Female Height: 62 in * Age: 25 yrs Ethnicity: [place] Weight: 153 lb * Ordering Physician: Young Tan * Referring Physician: Self, Referred * Performed By: Keli Fowler RDCS * * Reason For Study: Volume overload * BSA: 1.7 m2 * The study was technically adequate. * There is no comparison study available. * -- Conclusions -- * Left ventricular systolic function is normal. * Ejection Fraction = 60-65%. * Pulse wave TDI of the anterior and posterior mitral annulas demonstrates normal LV relaxation * The left ventricular wall motion is normal. * No significant valvular disease. Procedure Details * A complete two-dimensional transthoracic echocardiogram was performed (2D, M-mode, Doppler and color flow Doppler). Left Ventricle * The left ventricle is normal in size. * There is normal left ventricular wall thickness. * Left ventricular systolic function is normal. * Ejection Fraction = 60-65%. * The left ventricular wall motion is normal. Right Ventricle * The right ventricle is normal size. * The right ventricular systolic function is normal as assessed by tricuspid annular plane systolic excursion (TAPSE) (normal >1.5 cm). Atria * The left atrial size is normal. * Right atrial size is normal. * There is no evidence of atrial septal defect, but resolution does not allow assessment for a patent foramen ovale. Mitral Valve * The mitral valve is normal. * There is no mitral valve stenosis. * Significant mitral regurgitation is absent. Tricuspid Valve * The tricuspid valve is normal. * There is no tricuspid stenosis. * There is trace tricuspid regurgitation. * Doppler findings do not suggest pulmonary hypertension. Aortic Valve * The aortic valve is trileaflet. * Aortic stenosis is absent. * There is no significant aortic regurgitation. Pulmonic Valve * The pulmonary valve is not well seen, but the Doppler examination is normal without significant regurgitation or stenosis. * Mild pulmonic valvular regurgitation. Great Vessels * The aortic root and proximal ascending aorta are normal sized. Pericardium/Pleural * There is no pericardial effusion. Great Vessels * Normal inferior vena cava diameter and respiratory variation suggests normal central venous pressure. Left Ventricular Diastolic Function * Pulse wave TDI of the anterior and posterior mitral annulas demonstrates normal LV relaxation MMode 2D Measurements and Calculations IVSd 0.85 cm LVIDd 5.1 cm LVIDs 3.3 cm LVPWd 0.84 cm IVS/LVPW 1.0 FS 35.5 % EDV(Teich) 125.3 ml ESV(Teich) 44.3 ml EF(Teich) 64.7 % EDV(cubed) 134.7 ml ESV(cubed) 36.1 ml EF(cubed) 73.2 % LV mass(C)d 152.8 grams LV mass(C)dI 89.5 grams/m\S\2 CO(Teich) 4.4 l/min CI(Teich) 2.6 l/min/m\S\2 SV(Teich) 81.0 ml SI(Teich) 47.5 ml/m\S\2 CO(cubed) 5.3 l/min CI(cubed) 3.1 l/min/m\S\2 SV(cubed) 98.6 ml SI(cubed) 57.8 ml/m\S\2 Ao root diam 2.9 cm Ao root area 6.4 cm\S\2 ACS 1.9 cm LA dimension 3.1 cm asc Aorta Diam 3.1 cm LA/Ao 1.1 LVOT diam 2.1 cm LVOT area 3.4 cm\S\2 LVAd ap4 30.2 cm\S\2 LVLd ap4 7.2 cm EDV(MOD-sp4) 104.0 ml LVAs ap4 17.2 cm\S\2 LVLs ap4 6.1 cm ESV(MOD-sp4) 41.6 ml EF(MOD-sp4) 60.0 % LVAd ap2 25.8 cm\S\2 LVLd ap2 7.1 cm EDV(MOD-sp2) 80.3 ml LVAs ap2 12.4 cm\S\2 LVLs ap2 5.0 cm ESV(MOD-sp2) 27.4 ml EF(MOD-sp2) 65.9 % CO(MOD-sp4) 3.4 l/min CI(MOD-sp4) 2.0 l/min/m\S\2 SV(MOD-sp4) 62.4 ml SI(MOD-sp4) 36.6 ml/m\S\2 CO(MOD-sp2) 2.9 l/min CI(MOD-sp2) 1.7 l/min/m\S\2 SV(MOD-sp2) 52.9 ml SI(MOD-sp2) 31.0 ml/m\S\2 Doppler Measurements and Calculations MV E max rohini 87.3 cm/sec MV A max rohini 50.9 cm/sec MV E/A 1.7 MV dec time 0.23 sec Ao V2 max 154.2 cm/sec Ao max PG 9.5 mmHg Ao max PG (full) 4.9 mmHg JOAQUIN(V,A) 2.4 cm\S\2 JOAQUIN(V,D) 2.4 cm\S\2 LV V1 max PG 4.6 mmHg LV V1 max 107.7 cm/sec PA V2 max 83.6 cm/sec PA max PG 2.8 mmHg PA acc slope 413.3 cm/sec\S\2 PA acc time 0.15 sec PI max rohini 173.7 cm/sec PI max PG 12.1 mmHg PI dec slope 154.2 cm/sec\S\2 PI P1/2t 330.0 msec TR max rohini 233.7 cm/sec PA pr(Accel) 12.5 mmHg
[2016-10-22 15:03] VITALS: BP 122/79; PULSE 76; TEMP 36.9; O2SAT 98
--- NOTE | 2016-10-22 15:49 | Progress Note ---
Internal Med Progress Note Date of Service: Oct 22, 2016. Provider Documentation: SUBJECTIVE: resting comfortably afebrile eating fine still has abdominal pain says having diarrhea no blood in stools Wants to go home OBJECTIVE: Vital Signs-as noted below Exam: General-alert and awake. Not in distress HEENT-Normal hearing no lips swelling Neck-no neck masses, supple Lungs-cta b/l no wheezing or crackles Heart-s1 and s2 heard regular , no murmurs Abdomen-soft bowel sounds present mild diffuse tender no distension Extremities- no edema present no erythema Neuro-alert and awake moves extremities Lab data as noted below. ASSESSMENT & PLAN: This is a 25 year old female with a PMH of ulcerative colitis, depression/ anxiety, chronic migraine, presents to the ER due to intractable abdominal pain Ulcerative Colitis Flare? No formal diagnosis of UC as per patient she has Lymphocytic colitis CT scan shows non specific enteritis seen by GI and recommends Entocort 9mg daily tolerating clears ct scan with oral contrast shows significant constipation started on mirlax s/p colonoscopy and biopsies advanced diet and tolerating fine No narcotics iv Tylenol prn f/u with GI and pcp Throat closing edema received empiric Benadryl, steroid and zantac ct soft neck-pharyngeal and tonsillar infiltrates-favors anasarca. received iv Lasix seen by ENT and thinks mostly irritation from LMA. hemodynamics stable will monitor stable. Hypokalemia and hypomagnesia mostly form Lasix replaced f/u with pcp. Depression/Anxiety continue current medications; Klonopin, Prozac 50mg daily discharged home Vital Signs: Date Time Temp Pulse Resp B/P (MAP) Pulse Ox O2 Delivery O2 Flow Rate FiO2 10/22/16 15:03 36.9 76 18 122/79 (93) 98 Room Air 10/22/16 07:31 37.0 47 18 116/68 (84) 94 Room Air 10/22/16 07:30 Room Air 10/22/16 05:56 58 93 Room Air 10/22/16 01:50 56 91 Room Air 10/21/16 23:30 Room Air 10/21/16 23:01 36.7 46 18 134/78 (96) 94 Room Air Lab Results: Results Past 24 Hours Test 10/22/16 10:50 Range/Units Sodium Level 144 136-145 mmol/L Potassium Level 2.6 3.5-5.1 mmol/L Chloride Level 104 98-107 mmol/L Carbon Dioxide Level 30 21-32 mmol/L Anion Gap 10.0 3-11 mmol/L Blood Urea Nitrogen 11 7-18 mg/dl Creatinine 0.74 0.60-1.20 mg/dl Est Creatinine Clear Calc Drug Dose 108.1 ml/min Estimated GFR () 132.4 Estimated GFR (Non- 114.2 BUN/Creatinine Ratio 14.6 10-20 Random Glucose 92 70-99 mg/dl Calcium Level 8.3 8.5-10.1 mg/dl Magnesium Level 1.6 1.8-2.4 mg/dl
[2016-10-22 16:51] VITALS: BP 122/79; PULSE 76; TEMP 36.9; O2SAT 98
[2016-10-22] MEDS ORDERED: GABAPENTIN 800 MG TAB PO SCH (17:30)
[2016-10-22] MEDS ORDERED: POTASSIUM CHLORIDE 10 MEQ TABCR PO SCH (17:30)
[2016-10-22] MEDS ORDERED: BUDESONIDE EC 3 MG CAP PO SCH (17:30)
--- NOTE | 2016-10-22 19:10 | Discharge Summary ---
Discharge Summary Date of Service Oct 22, 2016. Discharge Summary Admission Date: Oct 18, 2016 at 00:55 Discharge Date: Oct 22, 2016 Discharge Disposition: Home Principal Diagnosis: ABDOMINAL PAIN COLITIS HYPOKALEMIA Secondary Diagnoses/Problems: (1) Abdominal pain Status: Resolved (2) Abdominal pain in Status: Resolved (3) Abdominal/ pelvic pain Status: Resolved (4) Asthma Status: Chronic (5) Back pain Status: Resolved (6) Bronchitis Status: Resolved (7) Bronchitis Status: Resolved (8) Dehydration Status: Resolved (9) Flank pain Status: Resolved (10) Hemorrhagic ovarian cyst Status: Resolved (11) Intermittent abdominal pain Status: Resolved (12) ovarian cyst Status: Resolved (13) Pelvic pain Status: Resolved (14) Ruptured ovarian cyst Status: Resolved (15) Supervision of other normal Status: Resolved (16) Syncope Status: Resolved (17) Threatened miscarriage Status: Resolved (18) Threatened miscarriage Status: Resolved (19) Urinary retention Status: Resolved (20) Urinary tract infection Status: Resolved (21) Urinary tract infection Status: Resolved (22) Vasovagal syncope Status: Resolved (23) Vomiting Status: Resolved Procedures: CT ABD/PELVIS: 1. Mild nonspecific enteritis.. 2. Several ovarian follicular cysts bilaterally. 3. Otherwise negative study . CT ABD/PELVIS 10/19/16: 1. There are no acute infectious or inflammatory findings in the abdomen or pelvis. 2. Moderate constipation. No bowel obstruction is identified. 3. There is fecalization of the distal ileum, likely related to constipation/stasis. No abnormally thick walled or hyperemic bowel loops are seen. 4. There is a small volume of free fluid in the cul-de-sac, likely within physiologic limits. 5. The bladder is decompressed around a Elliott catheter and not well evaluated. SOFT TISSUE NECK: 1. Mild parapharyngeal infiltration and tonsillar enlargement. Airway patent. This infiltration is nonspecific but favors anasarca/volume overload. Angioedema could appear. No abscess. 2. Findings suggestive of volume overload/generalized anasarca with partially visualized bilateral pleural effusions and pulmonary edema within visualized portions of the chest. ECHO: Left ventricular systolic function is normal. * Ejection Fraction = 60-65%. * Pulse wave TDI of the anterior and posterior mitral annulas demonstrates normal LV relaxation * The left ventricular wall motion is normal. * No significant valvular disease. S/P COLONOSCOPY Consultations: GI ENT Medication Reconciliation New Medications: Magnesium Oxide (Magnesium Oxide) 400 Mg Cap 1 CAP PO DAILY for 7 Days, #7 CAP Potassium Chloride (Micro-K Ext Rel) 10 Meq Capcr 10 MEQ PO DAILY for 3 Days, #3 CAP Budesonide (Budesonide) 3 Mg Cap 9 MG PO QAM for 30 Days, #90 CAP 1 Refill Continued Medications: Acetaminophen (Tylenol) 500 Mg Tab 1 TAB PO Q8 PRN for Pain for 3 Days, #10 TAB Clonazepam (Klonopin) 0.5 Mg Tab 0.5 MG PO TID PRN for Anxiety Fluoxetine HCl (Fluoxetine HCl) 10 Mg Cap 10 MG PO DAILY TAKE ONE 10 MG CAPSULE ALONG WITH ONE 40 MG CAPSULE TO EQUAL 50 MG DAILY DOSE Fluoxetine Hcl (Prozac) 40 Mg Cap 40 MG PO DAILY TAKE ONE 40 MG CAPSULE ALONG WITH ONE 40 MG CAPSULE TO EQUAL 10 MG DAILY DOSE Gabapentin (Gabapentin) 800 Mg Tab 800 MG PO TID Discontinued Medications: Prednisone (Prednisone) 20 Mg Tab 40 MG PO DAILY for 7 Days, #14 TAB Sulfasalazine (Azulfidine) 500 Mg Tab 1000 MG PO TID Admission Information HPI (per Admitting provider): This is a 25 year old female with a PMH of ulcerative colitis, depression/ anxiety, chronic migraine, presents to the ER due to intractable abdominal pain. She presented to the ER on October 15 with similar symptoms, including bloody diarrhea and abdominal pain; at that time, she was given prednisone, pain medications and was sent home. She states that the bleeding has subsided some, but the pain has persisted. She follows with Dr. Sesay, [facility] - last colonoscopy was over a year ago; she is overdue for her colonoscopy as per patient. She has been taking sulfasalazine TID, as well as gabapentin for pain. She was recently started on Klonopin and her dose of Prozac has increased from 40mg to 50mg daily. She states she had a recent bout of pneumonia and was treated with antibiotics for it. Currently, she her abdominal pain persists, she also feels fevers. Physical Exam (per Admitting): General Appearance: + mild distress (secondary to pain) Head: normocephalic, atraumatic Respiratory/Chest: lungs clear, normal breath sounds, no respiratory distress, no accessory muscle use Cardiovascular: regular rate, rhythm, no edema, no murmur Abdomen/GI: normal bowel sounds, soft, + tenderness (diffusely) Back: no muscle spasm Extremities/Musculoskelatal: normal capillary refill, no pedal edema Neurologic/Psych: no motor/sensory deficits, alert, normal mood/affect Skin: normal color Lymphatic: no adenopathy Hospital Course This is a 25 year old female with a PMH of ulcerative colitis, depression/ anxiety, chronic migraine, presents to the ER due to intractable abdominal pain Ulcerative Colitis Flare? No formal diagnosis of UC as per patient she has Lymphocytic colitis CT scan shows non specific enteritis seen by GI and recommends Entocort 9mg daily tolerating clears ct scan with oral contrast shows significant constipation started on mirlax s/p colonoscopy and biopsies advanced diet and tolerating fine No narcotics iv Tylenol prn f/u with GI and pcp Throat closing edema received empiric Benadryl, steroid and zantac ct soft neck-pharyngeal and tonsillar infiltrates-favors anasarca. received iv Lasix seen by ENT and thinks mostly irritation from LMA. hemodynamics stable will monitor stable. Hypokalemia and hypomagnesia mostly form Lasix replaced f/u with pcp. Depression/Anxiety continue current medications; Klonopin, Prozac 50mg daily discharged home Total time spent on discharge = 35MINUTES This includes examination of the patient, discharge planning, medication reconciliation, and communication with other providers. Discharge Instructions Please take this sheet to every appointment for the next month Discharge Instructions Date of Service Oct 22, 2016. Admission Reason for Admission: Ulcerative Colitis Discharge Discharge Diagnosis / Problem: colitis Discharge Goals Goal(s): Decrease discomfort, Improve function Activity Recommendations Activity Limitations: resume your previous activity . Instructions / Follow-Up Instructions / Follow-Up FOLLOWUP WITH FAMILY DOCTOR Navdeep Kowk ON October AT 10:40AM. FOLLOWUP WITH GI IN 1-2 WEEKS Current Hospital Diet Patient's current hospital diet: Low Fiber Diet Discharge Diet Recommended Diet: Regular Diet Procedures Procedures Performed: COLONOSCOPY Pending Studies Studies pending at discharge: yes List of pending studies: COLON BIPOSY RESULTS Work Instructions Return To Work: 1 day Additional Instructions: no restrictions Medical Emergencies . Who to Call and When: Medical Emergencies: If at any time you feel your situation is an emergency, please call 911 immediately. . Non-Emergent Contact Non-Emergency issues call your: Primary Care Provider . . "Provider Documentation" section prepared by Young Tan. . VTE Core Measure Inpt VTE Proph given/why not?: Treatment not indicated
[2016-10-23] MEDS ORDERED: POTASSIUM CHLORIDE 10 MEQ TABCR PO SCH (09:00)
[2016-11-25] MEDS ORDERED: LTHCR300 PO (10:41)
[2016-11-25] MEDS ORDERED: PHEN-939 PO (10:41)
[2016-11-25] MEDS ORDERED: KLN5 PO (10:41)
[2016-11-25] MEDS ORDERED: NICO14DI5 TD (10:41)
[2016-11-25] MEDS ORDERED: VENL75CA PO (10:41)
[2016-11-25] MEDS ORDERED: ATR25 PO (10:41)
[2016-11-25] MEDS ORDERED: FLM4 PO (10:41)
[2016-11-25] MEDS ORDERED: SUMA50TA15 PO (11:03)
[2017-03-18] MEDS ORDERED: ASPI-391 PO (20:02)
[2017-03-18] MEDS ORDERED: LITH1TAB10 PO (20:05)
[2017-03-18] MEDS ORDERED: EFF75 PO (20:05)
[2017-03-18] MEDS ORDERED: CYCL10TA6 PO (20:12)
== END 2016-10-22 18:30 | disposition home or self-care (01) | DRG 392 ==
LOC: C.EDB 20:01 → C.MSW 10-18 00:55 → ENRESERV 10-18 01:03
PROVIDERS: ADMIT Family Medicine; ATTEND Internal Medicine
PROC: 0DBE8ZX Excision of Large Intestine, Via Natural or Artificial Opening Endoscopic, Diagnostic (ICD-10-PCS; principal; 2016-10-20 11:09)
DX: K52.832 Lymphocytic colitis (principal); K64.8 Other hemorrhoids; J39.2 Other diseases of pharynx; E87.6 Hypokalemia; E83.42 Hypomagnesemia; F32.9 Major depressive disorder, single episode, unspecified; F41.9 Anxiety disorder, unspecified; Z79.52 Long term (current) use of systemic steroids; Z79.899 Other long term (current) drug therapy; F17.200 Nicotine dependence, unspecified, uncomplicated

== ENCOUNTER 2016-10-31 23:13 | Emergency (ER) | payer BC, OTHER ==
[~2016-10-31] VITALS: Ht 157.5 cm; Wt 65.7 kg
[~2016-10-31 23:13] MED LIST changes: +ACET-1256 PO; +ENT3 PO; +MAGN400C2 PO; -PRED20TA PO; -SULF500T8 PO
[2016-10-31 23:21] VITALS: TEMP 36.9; Ht 157.5 cm; Wt 65.7 kg
[2016-10-31] MEDS ORDERED: MEDR150I INJ (23:44)
[2016-10-31] MEDS ORDERED: HYDR-5688 PO (23:58)
[2016-11-01] MEDS ORDERED: NORCO 5/325MG HOME PACK PO ONE
--- NOTE | 2016-11-01 | EMERGENCY ROOM VISIT NOTE ---
History First contact with patient: 23:29 Chief Complaint: SHOULDER PAIN Stated Complaint: LEFT SHOULDER PAIN- History of Present Illness The patient is a 25 year old female who presents to the Emergency Room via private vehicle with complaints of "left shoulder pain and asked Workmen's Compensation". The patient states that earlier today around 7:30 PM, while employed at 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 She states that she was pulled by the left arm into a wheelchair. She states that the arm was pulled out a diagonal direction and inferiorly. She notes immediate pain when this happened. She points to her left shoulder is location of pain that she rates as a 6/10. She is taking Toradol which she is prescribed with no relief. She denies any chance of . She denies any new onset numbness or tingling. Review of Systems A complete 6-point Review of Systems was discussed with the patient, with pertinent positives and negatives listed in the History of Present Illness. All remaining Review of Systems questions can be considered negative unless otherwise specified. Past Medical/Surgical History Medical Problems: (1) Abdominal pain (2) Abdominal pain in (3) Abdominal/ pelvic pain (4) Asthma (5) Back pain (6) Bronchitis (7) Bronchitis (8) Dehydration (9) Flank pain (10) Hemorrhagic ovarian cyst (11) Intermittent abdominal pain (12) labor (13) ovarian cyst (14) Pelvic pain (15) with 20 completed weeks gestation (16) Ruptured ovarian cyst (17) Supervision of other normal (18) Syncope (19) Threatened miscarriage (20) Threatened miscarriage (21) Ulcerative colitis (22) Urinary retention (23) Urinary tract infection (24) Urinary tract infection (25) Uterine contractions at greater than 20 weeks of gestation (26) Vaginal bleeding before 22 weeks gestation (27) Vasovagal syncope (28) Vomiting Surgical Problems: (1) [place] Teeth Removal Family History Diabetes mellitus FH: cancer Social History Smoking Status: Current Every Day Smoker Alcohol Use: none Drug Use: none Marital Status: in relationship Housing Status: lives with family Occupation Status: employed Current/Historical Medications Scheduled Budesonide (Budesonide), 9 MG PO QAM Fluoxetine HCl (Fluoxetine HCl), 10 MG PO DAILY Fluoxetine Hcl (Prozac), 40 MG PO DAILY Gabapentin (Gabapentin), 800 MG PO TID Medroxyprogesterone Acetate (C (Depo-Provera Contraceptiv), 1 DOSE INJ EVERY 3 MONTHS Scheduled PRN Clonazepam (Klonopin), 0.5 MG PO TID PRN for Anxiety Hydrocodone/Acetaminophen 5MG/325MG ([place] 5MG/325MG), 1-2 TABLET PO Q6 PRN for Pain Allergies Coded Allergies: Penicillins (Verified Allergy, Mild, RASH, 10/31/16) Amoxicillin (Verified Allergy, Unknown, rash, 10/31/16) Physical Exam Vital Signs Date Time Temp Pulse Resp B/P (MAP) Pulse Ox O2 Delivery O2 Flow Rate FiO2 11/01/16 00:24 73 18 128/89 100 10/31/16 23:21 36.9 73 18 141/96 99 Room Air Physical Exam VITAL SIGNS - Vital signs and nursing notes were reviewed. Patient is afebrile , hypertensive at 141/96, non-tachycardic and saturating well on room air 99%. GENERAL -25-year-old female appearing her stated age who is in no acute distress. Communicates well with provider and answers questions appropriately. SKIN - Without rashes. Skin overlying left shoulder is unremarkable. EXTREMITIES - No clubbing or peripheral cyanosis. No pretibial edema present. Minimal tenderness to palpation overlying the left shoulder. There is no clavicular or posterior scapular tenderness. There is increased tenderness with abduction of the left arm as well as forward flexion. +5/5 strength noted in UE/LE bilaterally. She is neurovascularly intact in left upper extremity. Medical Decision & Procedures ER Provider Diagnostic Interpretation: Left shoulder radiographs: These are read by myself on my attending with no acute fracture or dislocation. Normal radiographs. Medical Decision Patient was seen and evaluated as above. After obtaining a thorough history and physical examination no chance of was confirmed, radiographs were obtained of the left shoulder. Results as read by myself as above. These were also read by my attending. Patient was informed that the radiologist would provide official reads in the morning. I suspect the patient is likely experiencing a rotator cuff injury. She'll be provided with an arm sling, as well as a short-term prescription for pain medication. She is to follow-up with orthopedics of which number was provided as well as her Workmen's Compensation individual. She is to return with worsening. She was educated upon management today's findings, educated upon worrisome symptoms which to return, had questions answered prior to discharge, and was discharged home in good condition. In the evaluation and treatment of this patient, the following differential diagnoses were considered: Shoulder Contusion, Shoulder Fracture, Shoulder Dislocation, Thoracic Outlet Syndrome, Adhesive Capsulitis, Rotator Cuff Tear, Proximal Clavicle Head Fracture, Apical Pneumonia, Pneumothorax, Hemothorax, or TB. [place] Drug Monitoring Program Search Results: patient reviewed within database, no issues identified Impression Primary Impression: Left shoulder pain Departure Information Dispostion Home / Self-Care Condition GOOD Prescriptions Hydrocodone/Acetaminophen 5MG/325MG ([place] 5MG/325MG) Tab 1-2 TABLET PO Q6 Y for Pain, #15 TAB For Initial Treatment Prov: Aj Colmenares PA-C 10/31/16 Referrals No Doctor, Assigned (PCP) Jesse Reaves D.O. Patient Instructions My [facility] Additional Instructions You have been treated in the Emergency Department for Shoulder Pain. . You have been prescribed NORCO to be used for pain control. This is a narcotic medication. You cannot drive or consume alcohol while on this medicine. This medicine should only be used for pain that cannot be controlled with over-the- counter pain medicines. PLEASE DO NOT TAKE WITH TYLENOL!! For pain control, you can use the following [id number] medicines - Regular strength (325mg/tab) Tylenol (acetaminophen) 2 tabs every 4-6 hours as needed. Do not exceed 12 tablets in a 24 hour period. Avoid taking more than 3 grams (3000 mg) of Tylenol per day. This includes any other sources of acetaminophen you may take on a regular basis. PLEASE DO NOT TAKE WITH NORCO!!! - Regular strength (200 mg/tab) Advil (ibuprofen) 1-2 tabs every 4-6 hours as needed. Do not exceed a dose of 3200 mg per day. If this is a recent injury (<24 hrs), ice can be applied to the area of pain for the first 3 days to help decrease pain and inflammation. You have been provided the number for an Orthopaedic Surgeon. You should call this number as soon as possible to establish a follow-up visit from today's Emergency Department visit. Keep the shoulder brace/sling in place until evaluated by Orthopedics. Continue to perform range of motion exercises several times per day to help prevent the development of a "frozen shoulder". Because this is a work-related injury please follow up with your approved Workmen's Compensation individual. Return to the Emergency Department if your current symptoms worsen despite treatment course outlined above, or if you develop any of the following symptoms : intractable pain despite aforementioned treatment course or new onset of numbness or tingling of the arm. Please return to the emergency department with any new/concerning symptoms.
[2016-11-01 00:24] VITALS: BP 128/89; PULSE 73; O2SAT 100
--- NOTE | 2016-11-01 06:47 | DIAGNOSTIC IMAGING REPORT ---
LEFT SHOULDER MIN 2 VIEWS ROUTINE CLINICAL HISTORY: L shoulder pain s/p pulling mechanism COMPARISON: None. DISCUSSION: The bones and joint spaces appear intact. There is no evidence of fracture, dislocation or bony disease. There is no evidence for soft tissue swelling. IMPRESSION: Negative study. Electronically signed by: Gregorio Garcia M.D. 11/01/2016 6:46 AM Dictated Date/Time: 11/01/2016 6:45 AM
[2016-11-25] MEDS ORDERED: KLN5 PO (10:41)
[2016-11-25] MEDS ORDERED: ATR25 PO (10:41)
[2016-11-25] MEDS ORDERED: PHEN-939 PO (10:41)
[2016-11-25] MEDS ORDERED: VENL75CA PO (10:41)
[2016-11-25] MEDS ORDERED: LTHCR300 PO (10:41)
[2016-11-25] MEDS ORDERED: NICO14DI5 TD (10:41)
[2016-11-25] MEDS ORDERED: FLM4 PO (10:41)
[2016-11-25] MEDS ORDERED: SUMA50TA15 PO (11:03)
[2017-03-18] MEDS ORDERED: ASPI-391 PO (20:02)
[2017-03-18] MEDS ORDERED: LITH1TAB10 PO (20:05)
[2017-03-18] MEDS ORDERED: EFF75 PO (20:05)
[2017-03-18] MEDS ORDERED: CYCL10TA6 PO (20:12)
== END 2016-11-01 00:22 | disposition home or self-care (01) ==
LOC: C.EDB 23:14 → C.EDC 11-01 00:22
DX: M25.512 Pain in left shoulder (principal); X50.9XXA Other and unspecified overexertion or strenuous movements or postures, initial encounter; Y99.0 Civilian activity done for income or pay; J45.909 Unspecified asthma, uncomplicated; F17.200 Nicotine dependence, unspecified, uncomplicated; Z83.3 Family history of diabetes mellitus

== ENCOUNTER 2016-11-22 13:52 | Inpatient (IN) | payer BC, OTHER ==
[~2016-11-22] VITALS: Ht 156.2 cm; Wt 64.9 kg
[~2016-11-22 13:52] MED LIST changes: -ACET-1256 PO; +HYDR-5688 PO; -MAGN400C2 PO; +MEDR150I INJ
[2016-11-22 14:47] LABS: PREG INTERNAL NEGATIVE QC NEG CLEAR BACKGROUND; PREG INTERNAL POSITIVE QC POS CONTROL LINE
--- NOTE | 2016-11-22 14:56 | DIAGNOSTIC IMAGING REPORT ---
RIGHT HAND MIN 3 VIEWS ROUTINE CLINICAL HISTORY: RIGHT, EVAL PAIN, PUNCHED SOMETHING Right trauma. Pain. COMPARISON: None. DISCUSSION: The bones and joint spaces appear intact. There is no evidence of fracture, dislocation or bony disease. There is no evidence for soft tissue swelling. IMPRESSION: Negative study. Electronically signed by: Gregorio Garcia M.D. 11/22/2016 2:55 PM Dictated Date/Time: 11/22/2016 2:54 PM
[2016-11-22 15:03] LABS: URINE APPEARANCE CLEAR (CLEAR); URINE BILIRUBIN NEG (NEG); URINE COLOR ORANGE; URINE NITRITE POS (NEG); URINE SPECIFIC GRAVITY 1.023 (1.000-1.030); UROBILINOGEN NEG (NEG)
[2016-11-22 15:07] LABS: MANUAL MICROSCOPIC REQUIRED? NO; REVIEW REQ? NO
[2016-11-22] MEDS ORDERED: PHEN-939 PO (15:45)
[2016-11-22] MEDS ORDERED: SULF800T23 PO (15:45)
[2016-11-22] MEDS ORDERED: MOML PO (15:46)
[2016-11-22] MEDS ORDERED: GABA800T PO (15:46)
[2016-11-22] MEDS ORDERED: ALUM-30 PO (15:46)
[2016-11-22] MEDS ORDERED: GABA1CAP5 PO (15:46)
[2016-11-22] MEDS ORDERED: ACET-1311 PO (15:46)
[2016-11-22] MEDS ORDERED: VENL1CAP92 PO (15:46)
[2016-11-22] MEDS ORDERED: CLON0.5T3 PO ×2 (15:46)
[2016-11-22] MEDS ORDERED: QUET1TAB34 PO (15:46)
--- NOTE | 2016-11-22 15:46 | EMERGENCY ROOM VISIT NOTE ---
ED Visit Note First contact with patient: 14:08 CHIEF COMPLAINT: Unable to urinate over 24 hours HISTORY OF PRESENT ILLNESS: Patient is a 25-year-old white female who is brought to the emergency department from the [facility], and accompanied by mental health lead technician from the [facility] for evaluation of urinary retention. Patient presented to the [facility] around 2:00 in the morning (12 hours ago) from home for voluntary admission for depression and anxiety. At that time she reported that she had not urinated since yesterday morning. The patient complains of lower abdominal pain and pressure. She has a history of urinary retention which occurred several years ago. She reports that she is 3 months presently. She is not breast-feeding. She denied any urinary symptoms prior to the onset of the urinary retention. Per her records from the [facility], she was given Pyridium and Bactrim at 0900 this morning. Patient has a history of Crohn's disease. She does report that there were some medication changes made at the [facility], but this occurred after her symptoms had started. She also complains of right hand pain and bruising after she punched something in anger yesterday. She denies any vaginal discharge or concerns regarding any sexually transmitted infections. She does not menstruate , she had a Depo-Provera injection 2 weeks ago. REVIEW OF SYSTEMS: Review of systems as per HPI. All other systems reviewed were negative. 10 systems reviewed. PMH: Electronic medical records are reviewed and summarized as above/below. See Problem List. SOCIAL HISTORY: Patient lives at home with her fianc and 2 children. Positive tobacco use, social EtOH. PHYSICAL EXAM: Vital Signs: Reviewed Nurse's notes. CONSTITUTIONAL: Patient is an uncomfortable appearing 25-year-old white female who is awake and alert and in no acute distress. HEART: Regular rate and rhythm. LUNGS: Clear to auscultation. ABDOMEN: Bowel sounds are present. Abdomen is soft, mildly tender to palpation and distended in the lower abdomen. SKIN: Normal. MUSCULOSKELETAL: Examination of the right hand show superficial bruising across the MCP and the PIP joints. The hand is tender to palpation, range of motion is full. There are some superficial scratches noted, no open lacerations. No obvious deformity. EMERGENCY DEPARTMENT COURSE: Bladder scan was performed and demonstrated greater than 999 mL of urine in the bladder. Elliott catheter was inserted successfully, with good relief of the patient's symptoms. Urine was sent to the lab for urinalysis. Right hand x-rays were obtained and negative for acute fracture or bony abnormality. Urinalysis was positive for nitrates only, there were no other indicators for infection, and test was negative. Patient was made aware of the results of her workup. She requested something for "stomach pain and hand pain." She reports chronic abdominal pain secondary to her Crohn's disease which is treated with the gabapentin, which was reportedly decreased. As she is presently inpatient at a psychiatric facility, I did not feel comfortable prescribing any narcotics, particularly given the that her abdominal pain is chronic in nature, and hand x-rays did not show any evidence for fracture. She was encouraged to use acetaminophen and ice for her hand. As there is no sign of UTI, it was felt that antibiotics were not indicated. She can continue Pyridium for bladder spasms. Catheter will need to remain in place for several days, she establish with [facility], and was advised that she would need to follow up with urology for the catheter removal. Differential diagnoses entertained included UTI, cystitis, pyelonephritis, neurogenic bladder, medication side effect, urinary retention, among others. Medication reconciliation: I attest that I have personally reviewed the patient' s current medication list. The patient was prepared for discharge and instructions were provided. It was then brought to my attention that the [facility] was unable to take the patient back with the Elliott catheter in place. Emergency Department Psychiatric Dermatology Specialist Janis Ortiz became involved, and spoke with multiple staff members from the [facility]. Please refer to her documentation for further information. In short, the reported that they could not take the patient back with a Elliott catheter in place, and were not comfortable discharging her as she had not been cleared from a psychiatric standpoint. The patient was provided a meal tray pending disposition. She was ordered her evening dose of Klonopin 0.25 mg and gabapentin 400 mg. Transfer to the inpatient mental health unit on , psychiatrist to psychiatrist was arranged. Laboratory studies for medical clearance were drawn here in the emergency department. The patient remained hemodynamically stable while awaiting medical clearance. She was evaluated by staff from [facility], and accepted once medically cleared. Problem List Medical Problems: (1) Abdominal pain Status: Resolved (2) Abdominal pain in Status: Resolved (3) Abdominal/ pelvic pain Status: Resolved (4) Asthma Status: Chronic (5) Back pain Status: Resolved (6) Bronchitis Status: Resolved (7) Bronchitis Status: Resolved (8) Crohns disease Status: Chronic (9) Dehydration Status: Resolved (10) Diarrhea Status: Chronic (11) Flank pain Status: Resolved (12) Generalized abdominal pain Status: Resolved (13) Hemorrhagic ovarian cyst Status: Resolved (14) Intermittent abdominal pain Status: Resolved (15) labor Status: Resolved (16) Left sided abdominal pain Status: Resolved (17) ovarian cyst Status: Resolved (18) Pelvic pain Status: Resolved (19) with 20 completed weeks gestation Status: Resolved (20) Ruptured ovarian cyst Status: Resolved (21) Supervision of other normal Status: Resolved (22) Syncope Status: Resolved (23) Threatened miscarriage Status: Resolved (24) Threatened miscarriage Status: Resolved (25) Ulcerative colitis Status: Resolved (26) Urinary retention Status: Resolved (27) Urinary tract infection Status: Resolved (28) Urinary tract infection Status: Resolved (29) Uterine contractions at greater than 20 weeks of gestation Status: Resolved (30) Vaginal bleeding before 22 weeks gestation Status: Resolved (31) Vasovagal syncope Status: Resolved (32) Vomiting Status: Resolved Surgical Problems: (1) Norman Teeth Removal Status: Resolved Current/Historical Medications Scheduled Clonazepam (Klonopin), 0.25 MG PO BID Clonazepam (Klonopin), 0.25 MG PO HS Gabapentin (Neurontin), 400 MG PO BID AT 0900 & 1400 Gabapentin (Neurontin), 800 MG PO HS Medroxyprogesterone Acetate (C (Depo-Provera Contraceptiv), 1 DOSE INJ EVERY 3 MONTHS Phenazopyridine Hcl (Pyridium), 100 MG PO TID Quetiapine Fumarate (Seroquel), 100 MG PO HS Sulfa/Trimethoprim (Bactrim Ds 800MG/160MG), 1 TAB PO BID Venlafaxine Hcl (Effexor Xr), 37.5 MG PO QAM Scheduled PRN Acetaminophen (Tylenol), 650 MG PO Q4H PRN for Pain or Fever Alum & Mag Hydrox-Simethicone (Mylanta), 30 ML PO QID PRN for Indigestion Magnesium Hydroxide (Milk Of Magnesia), 30 ML PO DAILY PRN for Constipation Allergies Coded Allergies: Penicillins (Verified Allergy, Mild, RASH, 11/22/16) Amoxicillin (Verified Allergy, Unknown, rash, 11/22/16) Vital Signs Date Time Temp Pulse Resp B/P (MAP) Pulse Ox O2 Delivery O2 Flow Rate FiO2 11/22/16 21:47 62 18 105/72 98 11/22/16 17:57 70 16 Room Air 11/22/16 15:55 69 16 104/62 98 Room Air 11/22/16 13:56 36.9 97 16 112/81 96 Room Air Laboratory Results 11/22/16 21:29 11/22/16 21:29 Test 11/22/16 14:25 11/22/16 21:10 11/22/16 21:29 Urine Color ORANGE Urine Appearance CLEAR (CLEAR) Urine pH 5.0 (4.5-7.5) Urine Specific [place] 1.023 (1.000-1.030) Urine Protein NEG (NEG) Urine Glucose (UA) NEG (NEG) Urine Ketones NEG (NEG) Urine Occult Blood NEG (NEG) Urine Nitrite POS (NEG) Urine Bilirubin NEG (NEG) Urine Urobilinogen NEG (NEG) Urine Leukocyte Esterase NEG (NEG) Urine WBC (Auto) 0 /hpf (0-5) Urine RBC (Auto) 0-4 /hpf (0-4) Urine Hyaline Casts (Auto) 1-5 /lpf (0-5) Urine Epithelial Cells (Auto) 5-10 /lpf (0-5) Urine Bacteria (Auto) NEG (NEG) Urine Test NEG (NEG) Urine Opiates Screen POS (NEG) Urine Methadone, Qualitative NEG (NEG) Urine Barbiturates NEG (NEG) Urine Phencyclidine (PCP) Level NEG (NEG) Ur Amphetamine/Methamphetamine NEG (NEG) MDMA (Ecstasy) Screen NEG (NEG) Urine Benzodiazepines Screen POS (NEG) Urine Cocaine Metabolite NEG (NEG) Urine Marijuana (THC) NEG (NEG) Red Blood Count 4.26 M/uL (4.2-5.4) Mean Corpuscular Volume 91.3 fL (80-100) Mean Corpuscular Hemoglobin 31.5 pg (25-34) Mean Corpuscular Hemoglobin Concent 34.4 g/dl (32-36) RDW Standard Deviation 42.3 fL (36.4-46.3) RDW Coefficient of Variation 12.6 % (11.5-14.5) Mean Platelet Volume 8.9 fL (7.4-10.4) Anion Gap 8.0 mmol/L (3-11) Est Creatinine Clear Calc Drug Dose 78.8 ml/min Estimated GFR () 95.4 Estimated GFR (Non- 82.3 BUN/Creatinine Ratio 15.8 (10-20) Calcium Level 8.9 mg/dl (8.5-10.1) Total Bilirubin 0.1 mg/dl (0.2-1) Aspartate Amino Transf (AST/SGOT) 10 U/L (15-37) Alanine Aminotransferase (ALT/SGPT) 21 U/L (12-78) Alkaline Phosphatase 53 U/L (45-117) Total Protein 7.0 gm/dl (6.4-8.2) Albumin 3.6 gm/dl (3.4-5.0) Globulin 3.4 gm/dl (2.5-4.0) Albumin/Globulin Ratio 1.1 (0.9-2) Thyroid Stimulating Hormone (TSH) 0.204 uIu/ml (0.300-4.500) Ethyl Alcohol mg/dL < 3.0 mg/dl (0-3) Medications Administered Medications (Trade) Dose Ordered Sig/Pro Route Start Time Stop Time Status Last Admin Dose Admin Clonazepam (Klonopin Tab) 0.25 mg NOW STAT PO 11/22/16 20:36 11/22/16 20:38 DC 11/22/16 20:46 0.25 MG Gabapentin (Neurontin Cap) 400 mg NOW ONCE PO 11/22/16 20:45 11/22/16 20:46 DC 11/22/16 20:55 400 MG Departure Information Impression Primary Impression: Urinary retention Additional Impression: Contusion of right hand Referrals [facility] (PCP) Patient Instructions [facility] Additional Instructions Call [facility] urology to schedule a follow-up appointment to have the catheter removed per their recommendations. May continue Pyridium. Ice to the hand as needed for pain and swelling. Rest and elevate your injury. Acetaminophen(Tylenol) may be used for pain. Use 1000mg every six hours as needed. Avoid using more than 3000mg in a 24 hour period. Continue current medications. Diet as tolerated. Return to the emergency department for fever, worsening abdominal pain, vomiting , malfunctioning catheter, or worsening symptoms. Follow-up with your primary care provider upon discharge from the [facility] for recheck. Problem Qualifiers Additional Impression: Contusion of right hand Encounter type: initial encounter Qualified Codes: S60.221A - Contusion of right hand, initial encounter
--- NOTE | 2016-11-22 19:56 | Psych Management Progress Note ---
Psychiatry Miscellaneous Date of Service: Nov 22, 2016. case reviewed with Dr. Hale at request of Chante Rnee RN for possible transfer from [facility] to [facility] as patient now has samson which excludes care on their unit. Dr. Hale assessed patient today and she expressed SI with plan ( couldn't relate plan) and reported some auditory schmitt telling her to harm self and go to hell. Acute stressor is apparently patient belief that boyfriend ( father of 3 month old) may be cheating on her. 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 ?increase use of Klonopin 0.25 mg day before hospitalization. She was unsure if labs had been obtained at [facility]. UA and urine preg performed here. Updated liaison that standard admission labs for medical clearance must be reviewed, if not completed must be drawn in ED before patient signs 201 and I accept transfer. [facility] should then be notified of acceptance so transfer is complete. Chante Rene RN updated. JAGDEEP Villatoro (primary road production general manager provider) made aware of pending transfer.
--- NOTE | 2016-11-22 19:58 | EMERGENCY ROOM VISIT NOTE ---
ED Visit Note First contact with patient: 14:08 Patient was seen by our PA/BALLOON PILOT. I was involved in the patient's care and did evaluate the patient myself. I was involved in the care throughout the ER stay. The patient presents with urinary retention. A Elliott catheter was placed and the urine drained. The patient was feeling improved. Urinalysis does not show infection. testing was negative. The patient was a resident at the [facility]. They were not comfortable with her being sent back to their facility with a catheter in the bladder. The patient is apparently to be discharged from their facility and then brought into our hospital's psychiatric floor. The appropriate laboratory tests have been ordered. The patient will be admitted voluntarily.
[2016-11-22] MEDS ORDERED: CLONAZEPAM 0.5 MG TAB PO STA (20:36)
[2016-11-22] MEDS ORDERED: GABAPENTIN 400 MG CAP PO ONE (20:45)
[2016-11-22 21:45] LABS: HEMATOCRIT 38.9 % (37-47); MEAN CELL VOLUME 91.3 fL (80-100); MEAN CORPUSCULAR HEMOGLOBIN 31.5 pg (25-34); MEAN CORPUSCULAR HGB CONC 34.4 g/dl (32-36); MEAN PLATELET VOLUME 8.9 fL (7.4-10.4); PLATELET COUNT 260 K/uL (130-400); RED BLOOD COUNT 4.26 M/uL (4.2-5.4); WHITE BLOOD COUNT 7.26 K/uL (4.8-10.8)
[2016-11-22 21:47] VITALS: O2SAT 98
[2016-11-22] MEDS ORDERED: MAGNESIUM HYDROXIDE SUSP 30 ML UDC PO PRN (22:00)
[2016-11-22 22:02] LABS: BUN/CREATININE RATIO 15.8 (10-20); CALCIUM 8.9 mg/dl (8.5-10.1); CREATININE 0.97 mg/dl (0.60-1.20); POTASSIUM 3.7 mmol/L (3.5-5.1)
[2016-11-22 22:05] LABS: BENZODIAZEPINE, URINE POS (NEG); COCAINE,URINE NEG (NEG); PHENCYCLIDINE, URINE NEG (NEG)
--- NOTE | 2016-11-22 22:11 | Psych Management Progress Note ---
Psychiatry Miscellaneous Date of Service: Nov 22, 2016. reviewing meds as nearing hs dosing. Ran patient through PDMP database. Last rx of Klonopin #30 of [address] Olson ([facility]), patient stated 0.25 mg TID. Will order BID Klonopin 0.25 mg prn until evaluated. Note that patient filled rx for hydrocodone 5/acetaminophen 325 # 15 on 11[facility] [facility] Previous rxs by Dr[facility] Sood and also [facility] over past year. Will hold Seroquel given urinary retention. Low dose Effexor XR ordered for am to avoid discontinuation syndrome. Neurontin continued. Available labs reviewed.
[2016-11-22 22:13] LABS: ALB/GLOB RATIO 1.1 (0.9-2); THYROID STIMULATING HORMONE 0.204 uIu/ml (0.300-4.500)
[2016-11-22] MEDS ORDERED: NURSING VERBAL MED ORDER ONE (22:30)
[2016-11-22] MEDS ORDERED: BISMUTH SUBSALICYLATE PER ML OMNICELL CHARGE PO PRN (23:00)
[2016-11-22] MEDS ORDERED: ALUMINUM/MAGNESIUM SUSP 30 ML UDC PO PRN (23:00)
[2016-11-22] MEDS ORDERED: SODIUM CHLORIDE 0.65% NA SOLN 45 ML (OCEAN) PRN (23:00)
[2016-11-22 23:56] VITALS: BP 105/72; PULSE 86; TEMP 36.9; Ht 156.2 cm; Wt 64.9 kg
[2016-11-23] MEDS: hydrOXYzine HCL 25 MG TAB PO PRN ×3 (00:24→23:58)
[2016-11-23] MEDS: CLONAZEPAM 0.5 MG TAB PO PRN ×3 (00:25→21:15)
[2016-11-23] MEDS: GABAPENTIN 800 MG TAB PO SCH ×2 (00:25→21:14)
[2016-11-23 06:39] VITALS: BP_SYST 103; BP_SYST 96; BP_DIAS 61; BP_DIAS 65; PULSE 84; PULSE 99; TEMP 36.8
[2016-11-23] MEDS ORDERED: NICOTINE 14 MG/24 HR TDSY TD ONE (10:39)
[2016-11-23] MEDS: ACETAMINOPHEN 325 MG TAB PO PRN ×2 (11:22→23:45)
[2016-11-23] MEDS: VENLAFAXINE HCL XR 37.5 MG CAPXR PO SCH (11:23)
[2016-11-23] MEDS: PHENAZOPYRIDINE HCL 100 MG TAB PO SCH ×3 (11:23→21:14)
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
[2016-11-23] MEDS: GABAPENTIN 400 MG CAP PO SCH ×2 (11:27→14:18)
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
[2016-11-23] MEDS ORDERED: TAMSULOSIN HCL 0.4 MG CAP PO ONE (13:15)
[2016-11-23] MEDS ORDERED: LITHIUM CARBONATE SR 300 MG TAB (LITHOBID) PO ONE (16:00)
[2016-11-23] MEDS: LITHIUM CARBONATE SR 300 MG TAB (LITHOBID) PO SCH ×3 (16:06→20:24)
--- NOTE | 2016-11-23 16:46 | Urology Consultation ---
History General Date of Service: Nov 23, 2016. Primary Care Physician: [facility] History of Present Illness 25 y/o female with previous episode of retention on celexa was at the [facility] last pm and was unable to void .She went to the ER and had greater than a liter . She was admitted because the [facility] cannot accept her with an indwelling samson. She wants the catheter out and knows how to do CIC she says . She does have a history of utis but no current symptoms . She was started on serequil . Laboratory Labs were reviewed and are within normal limits unless listed below. Labs are available in the chart and at [facility] Problem List Medical Problems: (1) Abdominal pain Status: Acute (2) Acute bronchitis Status: Acute (3) Anemia Status: Acute (4) Asthma Status: Chronic (5) Back strain Status: Acute (6) Chronic abdominal pain Status: Acute (7) Constipation Status: Acute (8) Contusion of foot Status: Acute (9) Contusion of right hand Status: Acute (10) Crohns disease Status: Chronic (11) Dentalgia Status: Acute (12) Diarrhea Status: Chronic (13) Elevated serum human chorionic gonadotropin (hCG) level Status: Acute (14) Encounter for Samson catheter removal Status: Acute (15) Enteritis Status: Acute (16) Exacerbation of Crohn's disease Status: Acute (17) Failure of outpatient treatment Status: Acute (18) Fecal retention Status: Acute (19) Headache Status: Acute (20) Hemoptysis Status: Acute (21) Intractable abdominal pain Status: Acute (22) Left flank pain Status: Acute (23) Left shoulder pain Status: Acute (24) Low back strain Status: Acute (25) Mood disorder Status: Acute (26) Ovarian cyst rupture Status: Acute (27) Precordial chest pain Status: Acute (28) Pyelonephritis Status: Acute (29) Right lower quadrant abdominal pain Status: Acute (30) Right sided abdominal pain Status: Acute (31) Right wrist sprain Status: Acute (32) Urinary retention Status: Acute (33) Vaginal discharge Status: Acute (34) Work related injury Status: Acute Family History Diabetes mellitus FH: cancer Social History Hx Tobacco Use In Past Year?: Yes Marital status: in relationship Housing status: lives with family Occupation status: employed History of MDRO No Allergies Coded Allergies: Penicillins (Verified Allergy, Mild, RASH, 11/22/16) Amoxicillin (Verified Allergy, Unknown, rash, 11/22/16) Medications Home Medications: Home Meds and Scripts Medications Dose Route/Sig Max Daily Dose Days Date Category Dose Instructions Mylanta (Alum & Mag Hydrox-Simethicone) 1 Alicia Alicia 30 Ml PO QID PRN 11/22/16 Reported Milk Of Magnesia (Magnesium Hydroxide) 30 Ml Susp 30 Ml PO DAILY PRN 11/22/16 Reported Tylenol (Acetaminophen) 325 Mg Tab 650 Mg PO Q4H PRN 11/22/16 Reported Seroquel (Quetiapine Fumarate) 100 Mg Tab 100 Mg PO HS 11/22/16 Reported Effexor Xr (Venlafaxine Hcl) 37.5 Mg Cap 37.5 Mg PO QAM 30 11/22/16 Reported Neurontin (Gabapentin) 800 Mg Tab 800 Mg PO HS 11/22/16 Reported Neurontin (Gabapentin) 400 Mg Cap 400 Mg PO BID AT 0900 & 1400 11/22/16 Reported Klonopin (Clonazepam) 0.5 Mg Tab 0.25 Mg PO HS 11/22/16 Reported START 11/24/16 FOR 2 DAYS. Klonopin (Clonazepam) 0.5 Mg Tab 0.25 Mg PO BID 11/22/16 Reported STARTED 11/22/16 FOR 2 DAYS. Bactrim Ds 800MG/160MG (Trimethoprim/Sulfamethoxazole) Tab 1 Tab PO BID 11/22/16 Reported STARTED 11/22/16 FOR 7 DAYS. Pyridium (Phenazopyridine Hcl) 100 Mg Tab 100 Mg PO TID 11/22/16 Reported STARTED 11/22/16 FOR 2 DAYS. Depo-Provera Contraceptiv (Medroxyprogesterone Acetate (C) 150 Mg/Ml Inj 1 Dose INJ EVERY 3 MONTHS 10/31/16 Reported Inpatient Medications: Current Inpatient Medications Medications (Trade) Dose Ordered Sig/Pro Route Start Time Stop Time Status Last Admin Dose Admin Acetaminophen (Tylenol Tab) 650 mg Q4H PRN PO 11/22/16 22:00 12/22/16 21:59 11/23/16 11:22 650 MG Clonazepam (Klonopin Tab) 0.25 mg BID PRN PO 11/22/16 22:00 12/22/16 21:59 11/23/16 11:21 0.25 MG Gabapentin (Neurontin Cap) 400 mg [id number] PO 11/23/16 07:00 12/23/16 06:59 11/23/16 14:18 400 MG Gabapentin (Neurontin Tab) 800 mg HS PO 11/23/16 21:00 12/23/16 20:59 11/23/16 00:25 800 MG Magnesium Hydroxide (Milk Of Magnesia Susp) 30 ml DAILY PRN PO 11/22/16 22:00 12/22/16 21:59 Phenazopyridine HCl (Pyridium Tab) 100 mg TID PO 11/23/16 09:00 12/23/16 08:59 11/23/16 14:18 100 MG Venlafaxine HCl (effeXOR EXTENDED REL CAP) 37.5 mg QAM PO 11/23/16 09:00 12/23/16 08:59 11/23/16 11:23 37.5 MG Al Hydroxide/Mg Hydroxide (Maalox Susp) 30 ml Q4H PRN PO 11/22/16 23:00 12/22/16 22:59 Bismuth Subsalicylate (Kaopectate Liqd) 15 ml DAILY PRN PO 11/22/16 23:00 12/22/16 22:59 Sodium Chloride ([place] Nasal [place]) PRN PRN NA 11/22/16 23:00 12/22/16 22:59 Hydroxyzine HCl (Vistaril Tab) 50 mg HSZ PRN PO 11/22/16 23:00 12/22/16 22:59 11/23/16 00:24 50 MG Hydroxyzine HCl (Vistaril Tab) 25 mg Q4H PRN PO 11/22/16 23:00 12/22/16 22:59 11/23/16 14:26 25 MG Nicotine (Nicoderm Cq 14MG Patch) 1 patch QAM TD 11/24/16 09:00 12/24/16 08:59 Miscellaneous (Remove Nicoderm Patch) 1 ea HS N/A 11/23/16 22:00 12/23/16 21:59 [place] Carbonate (Lithobid Tab) 600 mg TODAY@1600,1800,2000 PO 11/23/16 16:00 11/23/16 20:01 11/23/16 16:06 600 MG Tamsulosin HCl (Flomax Cap) 0.4 mg QAM PO 11/24/16 09:00 12/24/16 08:59 Review of Systems Review of Systems Constitutional: No fever Eyes: No blurred vision Neurological: + see HPI Gastrointestinal: No abdominal pain Cardiovascular: No chest pain Respiratory: No shortness of breath Skin: No rash Musculoskeletal: No joint pain Blood / Lymphatic: No bleed easily Ears / Nose / Throat: No hearing loss Female : + urinary retention Physical Exam Vital Signs: Vital Signs Past 12 Hours Date Time Temp Pulse Resp B/P (MAP) Pulse Ox O2 Delivery O2 Flow Rate FiO2 11/23/16 06:39 36.8 84 20 103/65 99 96/61 Physical Exam: General Appearance: no apparent distress ENT: normal ENT inspection Neck: supple Respiratory/Chest: no respiratory distress Cardiovascular: no edema Extremities: no pedal edema Neurologic/Psychiatric: oriented x 3 Skin: warm/dry Assessment & Plan Assessment & Plan remove catheter make sure pt able to self cath check pvr after she voids and cath intermitently for residual greater than 300 cc start flomax 0.4 mg po qhs check urine c/s and treat if infected with 7 days of antibiotic follow up with urology if difficulties persist
[2016-11-23] MEDS: OXYCODONE/ACETAMINOPHEN 5-325 TAB PO PRN (18:06)
[2016-11-24] MEDS: GABAPENTIN 400 MG CAP PO SCH ×2 (06:35→14:09)
[2016-11-24] MEDS: ACETAMINOPHEN 325 MG TAB PO PRN ×2 (06:36→16:39)
[2016-11-24 06:47] VITALS: BP_SYST 103; BP_SYST 97; BP_DIAS 64; BP_DIAS 68; PULSE 86; PULSE 88; TEMP 37
[2016-11-24] MEDS: PHENAZOPYRIDINE HCL 100 MG TAB PO SCH ×3 (08:25→21:10)
[2016-11-24] MEDS: TAMSULOSIN HCL 0.4 MG CAP PO SCH (08:25)
[2016-11-24] MEDS: VENLAFAXINE HCL XR 37.5 MG CAPXR PO SCH (08:25)
[2016-11-24] MEDS: NICOTINE 14 MG/24 HR TDSY TD SCH (08:26)
[2016-11-24] MEDS: OXYCODONE/ACETAMINOPHEN 5-325 TAB PO PRN (08:27)
[2016-11-24 08:34] LABS: CHOLESTEROL/HDL RATIO 3.6
--- NOTE | 2016-11-24 09:20 | Gastrointestinal Consultation ---
Gastrointestinal Consultation Date of Consultation: Nov 24, 2016 Attending Physician: Dr. Germain Consulting Physician: Zuly Joyce PA-C Reason for Consultation: Abdominal pain History of Present Illness Patient is a 25 year old female who is presently hospitalized in the behavioral health unit after being transferred to the [facility]. She is struggling with depression. GI has been consulted for abdominal pain with concern for Crohn's Disease. Unfortunately, the label of Crohn's Disease has been attached to this patient's chart, however she does not have Crohn's Disease. The patient has a history of lymphocytic colitis. She also has a history of chronic constipation that has caused proctitis in the past. She reports that this episode of abdominal pain began when her dosage of Gabapentin was decreased from 800 mg to 400 mg daily. She reports that her abdominal pain is generalized pain described as aching. She reports having some loose stools today, but feels bloated and full. She does not completely adhere to a lactose-free diet for her lymphocytic colitis. She denies NSAID use. She has been receiving Percocet for her pain. CBC & BMP are unremarkable from a GI perspective. She offers no further complaints. Reports a family history of unspecified GI issues. A Colonoscopy was performed in October 2016 that was unremarkable with the exception of hemorrhoids. Past Medical/Surgical History Medical Problems: (1) Abdominal pain Status: Acute (2) Acute bronchitis Status: Acute (3) Anemia Status: Acute (4) Asthma Status: Chronic (5) Back strain Status: Acute (6) Chronic abdominal pain Status: Acute (7) Constipation Status: Acute (8) Contusion of foot Status: Acute (9) Contusion of right hand Status: Acute (10) Crohns disease Status: Chronic (11) Dentalgia Status: Acute (12) Diarrhea Status: Chronic (13) Elevated serum human chorionic gonadotropin (hCG) level Status: Acute (14) Encounter for Elliott catheter removal Status: Acute (15) Enteritis Status: Acute (16) Exacerbation of Crohn's disease Status: Acute (17) Failure of outpatient treatment Status: Acute (18) Fecal retention Status: Acute (19) Headache Status: Acute (20) Hemoptysis Status: Acute (21) Intractable abdominal pain Status: Acute (22) Left flank pain Status: Acute (23) Left shoulder pain Status: Acute (24) Low back strain Status: Acute (25) Mood disorder Status: Acute (26) Ovarian cyst rupture Status: Acute (27) Precordial chest pain Status: Acute (28) Pyelonephritis Status: Acute (29) Right lower quadrant abdominal pain Status: Acute (30) Right sided abdominal pain Status: Acute (31) Right wrist sprain Status: Acute (32) Urinary retention Status: Acute (33) Vaginal discharge Status: Acute (34) Work related injury Status: Acute Past Medical History: Bipolar disorder, Lymphocytic colitis Past Surgical History: Colonoscopy Family History Diabetes mellitus FH: cancer Social History Smoking Status: Current Every Day Smoker Alcohol Use: none Drug Use: none Marital Status: in relationship Housing Status: lives with family Occupation Status: employed Allergies Coded Allergies: Penicillins (Verified Allergy, Mild, RASH, 11/22/16) Amoxicillin (Verified Allergy, Unknown, rash, 11/22/16) Current Medications Home Meds and Scripts Medications Dose Route/Sig Max Daily Dose Days Date Category Dose Instructions Mylanta (Alum & Mag Hydrox-Simethicone) 1 Alicia Alicia 30 Ml PO QID PRN 11/22/16 Reported Milk Of Magnesia (Magnesium Hydroxide) 30 Ml Susp 30 Ml PO DAILY PRN 11/22/16 Reported Tylenol (Acetaminophen) 325 Mg Tab 650 Mg PO Q4H PRN 11/22/16 Reported Seroquel (Quetiapine Fumarate) 100 Mg Tab 100 Mg PO HS 11/22/16 Reported Effexor Xr (Venlafaxine Hcl) 37.5 Mg Cap 37.5 Mg PO QAM 30 11/22/16 Reported Neurontin (Gabapentin) 800 Mg Tab 800 Mg PO HS 11/22/16 Reported Neurontin (Gabapentin) 400 Mg Cap 400 Mg PO BID AT 0900 & 1400 11/22/16 Reported Klonopin (Clonazepam) 0.5 Mg Tab 0.25 Mg PO HS 11/22/16 Reported START 11/24/16 FOR 2 DAYS. Klonopin (Clonazepam) 0.5 Mg Tab 0.25 Mg PO BID 11/22/16 Reported STARTED 11/22/16 FOR 2 DAYS. Bactrim Ds 800MG/160MG (Trimethoprim/Sulfamethoxazole) Tab 1 Tab PO BID 11/22/16 Reported STARTED 11/22/16 FOR 7 DAYS. Pyridium (Phenazopyridine Hcl) 100 Mg Tab 100 Mg PO TID 11/22/16 Reported STARTED 7/12/17 FOR 2 DAYS. Depo-Provera Contraceptiv (Medroxyprogesterone Acetate (C) 150 Mg/Ml Inj 1 Dose INJ EVERY 3 MONTHS 10/31/16 Reported Review of Systems Constitutional: No fever, No chills Eyes: No problem reported Respiratory: No cough, No shortness of breath Abdomen: + pain, + diarrhea, + constipation, No nausea, No vomiting, No GI bleeding Musculoskeletal: No problem reported Psych: + depression symptoms Skin: No problem reported Physical Exam Date Time Temp Pulse Resp B/P (MAP) Pulse Ox O2 Delivery O2 Flow Rate FiO2 11/24/16 06:47 37.0 86 20 97/64 88 103/68 General Appearance: WD/WN, no apparent distress Eyes: normal inspection, PERRL Respiratory/Chest: lungs clear, normal breath sounds Cardiovascular: regular rate, rhythm Abdomen: + abnormal bowel sounds (hypoactive bowel sounsd), + tenderness ( generalized) Extremities: non-tender Neurologic/Psych: alert, oriented x 3 Skin: normal color Laboratory Results Last 24 Hours Test 11/24/16 07:55 Fasting Glucose 87 mg/dl Triglycerides Level 72 mg/dl Cholesterol Level 135 mg/dl HDL Cholesterol 38 mg/dl LDL Cholesterol, Calculated 83 mg/dl VLDL Cholesterol, Calculated 14 mg/dl Cholesterol/HDL Ratio 3.6 Free Triiodothyronine 2.57 pg/ml Black Level 1.0 mMOL/L Impression Patient is a 25 year old female with history of chronic abdominal pain, lymphocytic colitis, & chronic constipation. She does NOT have a documented history of Crohn's Disease or any findings of Crohn's on her colonoscopies, most recent of which was performed in October 2016. Plan 1) Abdominal xray to assess abdominal pain & fecal load. Pending results, would make recommendations for a bowel regimen. If constipation continues to be the issue, would recommend consideration of avoiding opioid medications. 2) Suspect a component of abdominal pain may be related to the recent decrease in Gabapentin as patient reports her symptoms began shortly after the dosage was decreased. Would recommend consideration of a pain management consult as patient has had a thorough GI work-up. 3) Recommend lactose-free diet and avoidance of NSAIDs given history of lymphocytic colitis. Would avoid Imodium if imaging reflects persistent chronic constipation. Thank you for allowing us to participate in the care of this patient. If you should have any further questions do not hesitate to contact us. Agree with ARIS Moran as above Abd: Soft, tender, ND, +BS Continue current therapy Asked her to followup in our office as scheduled when she is discharged. Agree to avoid NSAID's and Lactose containing products May use Imodium OTC up to 8 tablets per day as needed.
[2016-11-24] MEDS: CLONAZEPAM 0.5 MG TAB PO PRN ×2 (11:15→21:11)
--- NOTE | 2016-11-24 11:52 | Progress Note ---
Subjective Date of Service: Nov 24, 2016. Subjective Pt evaluation today including: conversation w/ patient, chart review, lab review, conversation w/ knowledge management consultant pt able to void no dysuria no need for self cath Problem List Medical Problems: (1) Abdominal pain Status: Acute (2) Acute bronchitis Status: Acute (3) Anemia Status: Acute (4) Asthma Status: Chronic (5) Back strain Status: Acute (6) Chronic abdominal pain Status: Acute (7) Constipation Status: Acute (8) Contusion of foot Status: Acute (9) Contusion of right hand Status: Acute (10) Crohns disease Status: Chronic (11) Dentalgia Status: Acute (12) Diarrhea Status: Chronic (13) Elevated serum human chorionic gonadotropin (hCG) level Status: Acute (14) Encounter for Elliott catheter removal Status: Acute (15) Enteritis Status: Acute (16) Exacerbation of Crohn's disease Status: Acute (17) Failure of outpatient treatment Status: Acute (18) Fecal retention Status: Acute (19) Headache Status: Acute (20) Hemoptysis Status: Acute (21) Intractable abdominal pain Status: Acute (22) Left flank pain Status: Acute (23) Left shoulder pain Status: Acute (24) Low back strain Status: Acute (25) Mood disorder Status: Acute (26) Ovarian cyst rupture Status: Acute (27) Precordial chest pain Status: Acute (28) Pyelonephritis Status: Acute (29) Right lower quadrant abdominal pain Status: Acute (30) Right sided abdominal pain Status: Acute (31) Right wrist sprain Status: Acute (32) Urinary retention Status: Acute (33) Vaginal discharge Status: Acute (34) Work related injury Status: Acute Objective Vital Signs Date Time Temp Pulse Resp B/P (MAP) Pulse Ox O2 Delivery O2 Flow Rate FiO2 11/24/16 06:47 37.0 86 20 97/64 88 103/68 Laboratory Results Last 24 Hours Test 11/24/16 07:55 Fasting Glucose 87 mg/dl Triglycerides Level 72 mg/dl Cholesterol Level 135 mg/dl HDL Cholesterol 38 mg/dl LDL Cholesterol, Calculated 83 mg/dl VLDL Cholesterol, Calculated 14 mg/dl Cholesterol/HDL Ratio 3.6 Free Triiodothyronine 2.57 pg/ml [place] Level 1.0 mMOL/L Assessment and Plan check urine c/s check bladder span pt knows how to self cath and will call if she needs f/u if this continues
--- NOTE | 2016-11-24 12:12 | DIAGNOSTIC IMAGING REPORT ---
ABDOMEN 2VIEW W/PA CHEST RTN CLINICAL HISTORY: 25 years-old Female presenting with Abdominal pain, constipation. TECHNIQUE: PA view of the chest and supine and upright views of the abdomen were obtained. COMPARISON: CT of the abdomen and pelvis from 10/19/2016. FINDINGS: Cardiomediastinal silhouette normal. Prominence of the main pulmonary artery is suggested. Lungs and pleural spaces clear. Normal bowel gas pattern. No evidence of free intraperitoneal gas, pneumatosis, or portal venous gas. Osseous structures normal. IMPRESSION: 1. No acute cardiopulmonary disease. No radiographic evidence of acute intra-abdominal pathology. Electronically signed by: Navdeep Meza M.D. 11/24/2016 12:11 PM Dictated Date/Time: 11/24/2016 12:09 PM
--- NOTE | 2016-11-24 13:23 | Psychiatric Progress Notes ---
Progress Note Date of Service Nov 24, 2016. Interval History 25-year-old woman who was admitted to our unit from the ER after presenting from the [facility] with urinary retention. She admits that she has been depressed long-term, continued on Prozac during her most recent and her depression has worsened since delivery 3 months ago. She also endorses mood lability including periods of elevated mood, high risk behaviors, little sleep. She is willing for a trial on a mood stabilizer and after reviewing available medications, wishes to try lithium which we will load this evening, 600 mg of Lithobid at 4, 6 and 8 PM tonight. Risks, benefits and alternatives have been reviewed and accepted. We will order urology consult as recommended by the ER provider for urinary retention and instructions how to manage her Elliott moving forward. She has been on Neurontin 800 mg 3 times a day as an outpatient, supposedly for the chronic abdominal pain related to her Crohn's. Certainly there are number of side effects to gabapentin including nausea, vomiting, diarrhea, headache, dyspepsia, and depression that overlap with her current symptom profile. Unfortunately, she is to the idea of staying on her Neurontin. It was reduced by 800 mg daily at the [facility] and we will attempt to keep it at this reduced dosage. She was started on Effexor XR 37.5 mg at the [facility] and taken off of Prozac although with her reports of mood instability we will likely avoid adding an antidepressant at this time in favor of stabilizing on lithium. Once her lithium is therapeutic, consideration could be given to starting an antidepressant if needed for her symptoms of depression and OCD traits. We will recommend a family meeting with her boyfriend and parents if needed. We will order fasting labs lithium level tomorrow a.m. Her TSH was low and at the same time, we will run a free T3. She has never previously had an abnormal thyroid test. She would like to keep her hospitalization a short as possible, wanting to get back to her children. At this time however, she requires inpatient mental health treatment until we have been able to gather enough information to ensure that safety of she and those about her. Chief Complaint "I'm just really tired. ". Subjective Patient was seen & assessed interval progress reviewed with Treatment Team. The patient tolerated loading of lithium last night. Elliott has been removed and she is voiding on her own. She says that her mood is better, and looking forward to going home. She had a meeting with her boyfriend this AM, which she felt went well. They talked about his infidelity, and she has forgiven him and encouraged him to forgive himself. She denies any further SI. She continues to report abd pain. She saw GI this AM who are recommending a pain management consult to eval abd pain. She does not have Crohn's but lymphocytic colitis. She is again requesting to have gabapentin increased, but reviewed side effects to the medication (tired, N/V, irritability, diarrhea/constipation, dyspepsia, depression) that are overlapping with her current presentation, and reason not to return to previous dosing. She is accepting of the explanation. She would like to work toward discharge as early as tomorrow, taking Sunday off, and returning to work on Sunday. Review of Systems Constitutional: + fatigue ENT: No hearing loss, No unusual epistaxis, No nasal symptoms, No sore throat, No tinnitus, No dental problems, No trouble swallowing, No problem reported Respiratory: No cough, No sputum, No wheezing, No shortness of breath, No dyspnea on exertion, No dyspnea at rest, No hemoptysis, No problem reported Cardiovascular: No chest pain, No orthopnea, No PND, No edema, No claudication , No palpitations, No problem reported Abdomen: + problem reported (abd pain) Musculoskeletal: No joint pain, No muscle pain, No swelling, No calf pain, No problem reported Neurologic: No memory loss, No paralysis, No weakness, No numbness/tingling, No vertigo, No balance problems, No problem reported Psychiatric: + depression symptoms (improving) Integumentary: No rash, No itch, No new/changing skin lesions, No color change , No bleeding, No problem reported Sleep Information Total Hours of Sleep: 5.50 Meal Information Percent of Breakfast Consumed: 100 Percent of Lunch Consumed: 100 Percent of Dinner Consumed: 50 Mental Status Exam During interview pt is: alert and oriented, cooperative Appearance: appropriately dressed, appropriately groomed Eye contact is: good Motor behavior is: no abnormal motor movements Speech: normal in rate, rhythm & volume Affect: blunted Mood is: anxious Thought process: goal directed Thought content: reality based without delusions Suicidal thought are: denied Homicidal thoughts are: denied Hallucinations: denies auditory, denies visual, other (hypnagogic experiences of voices) Cognition: memory grossly intact, attention grossly intact, language grossly intact Intelligence estimated to be: average Insight: poor Judgement: poor Impression The patient is tired which may be a function of flomax, low BP and lithium loading. Will start maintenance dose of lithobid 600 mg. HS tonight and will need a level in 5 days. Will continue Flomax and monitor BP another day, and obtain PVR as asked by . Will DC percocet, and make a PCP appt for referral to pain management for abd pain. No constipation noted on plain film. If progress continues, may consider discharge as soon as tomorrow. Reviewed labs with patient as well: FLP, FBS, free T3 WNL. Plan (1) Bipolar disorder current episode depressed 11/23/ -Will load with Lithobid 600 mg tonight at 4, 6 and 8 PM with lithium level in the a.m. - Will need psychiatric aftercare -Every 15 minute checks for safety -Encourage participation in group and individual counseling -Family meeting with cici -Get supplemental information from mother who the patient reports some and can't help -Obtain additional records from [facility], specifically the psychiatric intake -Will continue Neurontin 400 mg twice a day and 800 mg at at bedtime but consider tapering this if indicated due to side effects that coincide with some of her Crohn's symptoms -Will hold on reordering an antidepressant until lithium is therapeutic 11/24 - Start lithobid 600 mg. HS with level in 5 days (2) ocd traits 11/23 -The patient presents with symptoms of need for extreme order, ordering her close, and checking behaviors with respect to cords. -Consider SSRI therapy after mood stabilizer therapeutic (3) Tobacco abuse 11/23 -Recommend patient cut down or quit -Counseled about the detrimental effects of smoking to her health -Will provide nicotine patch 14 mg daily for smoking cessation (4) Migraine (5) Urinary retention 11/23 -Elliott catheter placed in the ER -Will consult [facility] urology for recommendations -Avoid medications with anticholinergic side effects (6) Lymphocytic colitis -Patient may continue to take Klonopin 0.5 mg twice a day when necessary for lymphocytic colitis -Encourage good dietary choices and exercise Discharge / Aftercare Planning Primary Care Physician: Name: madeline Therapist: Name: Megan @ [facility], will have first appt 11/30@8:30 Visit Code E&M Code: 04594 Inventory Assets Strengths: Love of her children, good support from parents, is employed Needs: To abstain from all abusable substances Risk Factors Assessment : Yes /single/: No Higher / Fall in social status: No Health problems: Yes Mental Health Diagnoses: Yes Substance use disorders: No Previous attempt: Yes Previous psychiatric stay: Yes Hopelessness: No Smoker: Yes Protective Factors Assessment Episcopal beliefs: Yes : No Responsible for young children: Yes Employed: Yes Stable relationships: No Supportive family: Yes Data Vital Signs Last 24 Hrs: Date Time Temp Pulse Resp B/P (MAP) Pulse Ox O2 Delivery O2 Flow Rate FiO2 11/24/16 06:47 37.0 86 20 97/64 88 103/68 Meds Administered Last 24 Hrs: Meds Administered (Past 24Hrs) Medications (Trade) Dose Ordered Sig/Pro Route Start Time Stop Time Status Last Admin Dose Admin Clonazepam (Klonopin Tab) 0.25 mg NOW STAT PO 11/22/16 20:36 11/22/16 20:38 DC 11/22/16 20:46 0.25 MG Gabapentin (Neurontin Cap) 400 mg NOW ONCE PO 11/22/16 20:45 11/22/16 20:46 DC 11/22/16 20:55 400 MG Acetaminophen (Tylenol Tab) 650 mg Q4H PRN PO 11/22/16 22:00 12/22/16 21:59 11/24/16 06:36 650 MG Clonazepam (Klonopin Tab) 0.25 mg BID PRN PO 11/22/16 22:00 12/22/16 21:59 11/24/16 11:15 0.25 MG Gabapentin (Neurontin Cap) 400 mg [id number] PO 11/23/16 07:00 12/23/16 06:59 11/24/16 06:35 400 MG Gabapentin (Neurontin Tab) 800 mg HS PO 11/23/16 21:00 12/23/16 20:59 11/23/16 21:14 800 MG Phenazopyridine HCl (Pyridium Tab) 100 mg TID PO 11/23/16 09:00 12/23/16 08:59 11/24/16 08:25 100 MG Venlafaxine HCl (effeXOR EXTENDED REL CAP) 37.5 mg QAM PO 11/23/16 09:00 12/23/16 08:59 11/24/16 08:25 37.5 MG Hydroxyzine HCl (Vistaril Tab) 50 mg HSZ PRN PO 11/22/16 23:00 12/22/16 22:59 11/23/16 23:58 50 MG Hydroxyzine HCl (Vistaril Tab) 25 mg Q4H PRN PO 11/22/16 23:00 12/22/16 22:59 11/23/16 14:26 25 MG Nicotine (Nicoderm Cq 14MG Patch) 1 patch QAM TD 11/24/16 09:00 12/24/16 08:59 11/24/16 08:26 1 PATCH Nicotine (Nicoderm Cq 14MG Patch) 1 patch 1039 ONCE TD 11/23/16 10:39 11/23/16 10:56 DC 11/23/16 10:39 1 PATCH [place] Carbonate (Lithobid Tab) 600 mg TODAY@1600,1800,2000 PO 11/23/16 16:00 11/23/16 20:01 DC 11/23/16 20:24 600 MG Tamsulosin HCl (Flomax Cap) 0.4 mg QAM PO 11/24/16 09:00 12/24/16 08:59 11/24/16 08:25 0.4 MG Tamsulosin HCl (Flomax Cap) 0.4 mg NOW ONCE PO 11/23/16 13:15 11/23/16 13:16 DC 11/23/16 14:18 0.4 MG Oxycodone/ Acetaminophen (Percocet 5-325mg Tab) 1 tab TID PRN PO 11/23/16 18:00 12/07/16 17:59 11/24/16 08:27 1 TAB Lab Results Last 24 Hrs: Last 24 Hours Test 11/24/16 07:55 Fasting Glucose 87 mg/dl Triglycerides Level 72 mg/dl Cholesterol Level 135 mg/dl HDL Cholesterol 38 mg/dl LDL Cholesterol, Calculated 83 mg/dl VLDL Cholesterol, Calculated 14 mg/dl Cholesterol/HDL Ratio 3.6 Free Triiodothyronine 2.57 pg/ml [place] Level 1.0 mMOL/L Problem Qualifiers (1) Bipolar disorder current episode depressed: Current episode severity: moderate Qualified Codes: F31.32 - Bipolar disorder , current episode depressed, moderate
[2016-11-24] MEDS: hydrOXYzine HCL 25 MG TAB PO PRN ×2 (14:09→21:59)
[2016-11-24] MEDS: GABAPENTIN 800 MG TAB PO SCH (21:10)
[2016-11-24] MEDS ORDERED: LITHIUM CARBONATE SR 300 MG TAB (LITHOBID) PO SCH (22:00)
[2016-11-24] MEDS ORDERED: NURSING VERBAL MED ORDER ONE (23:00)
[2016-11-24] MEDS ORDERED: SUMATRIPTAN SUCCINATE 6 MG/0.5 ML VIAL SQ STA (23:07)
[2016-11-25 06:49] VITALS: BP_SYST 90; BP_SYST 93; BP_DIAS 60; BP_DIAS 64; PULSE 82; TEMP 36.9
[2016-11-25] MEDS: GABAPENTIN 400 MG CAP PO SCH ×2 (07:10→13:28)
[2016-11-25] MEDS: VENLAFAXINE HCL XR 37.5 MG CAPXR PO SCH (08:56)
[2016-11-25] MEDS: PHENAZOPYRIDINE HCL 100 MG TAB PO SCH ×2 (08:56→13:29)
[2016-11-25] MEDS: TAMSULOSIN HCL 0.4 MG CAP PO SCH (08:56)
[2016-11-25] MEDS: NICOTINE 14 MG/24 HR TDSY TD SCH (08:56)
[2016-11-25] MEDS: ACETAMINOPHEN 325 MG TAB PO PRN (09:02)
[2016-11-25] MEDS ORDERED: SUMATRIPTAN SUCCINATE 6 MG/0.5 ML VIAL SQ ONE (09:15)
[2016-11-25] MEDS: CLONAZEPAM 0.5 MG TAB PO PRN (10:36)
[2016-11-25] MEDS ORDERED: ATR25 PO (10:41)
[2016-11-25] MEDS ORDERED: LTHCR300 PO (10:41)
[2016-11-25] MEDS ORDERED: FLM4 PO (10:41)
[2016-11-25] MEDS ORDERED: PHEN-939 PO (10:41)
[2016-11-25] MEDS ORDERED: NICO14DI5 TD (10:41)
[2016-11-25] MEDS ORDERED: VENL75CA PO (10:41)
[2016-11-25] MEDS ORDERED: KLN5 PO (10:41)
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
[2016-11-25] MEDS ORDERED: SUMA50TA15 PO (11:03)
[2016-11-25] MEDS: hydrOXYzine HCL 25 MG TAB PO PRN (12:50)
[2016-11-25] MEDS ORDERED: CLON0.5T3 PO (13:53)
--- NOTE | 2016-11-25 13:56 | Psych Management Progress Note ---
Psychiatry Miscellaneous Date of Service: Nov 25, 2016. patient was asking for Klonopin rx as part of the discharge process. Staff were able to confirm with Nimisha that her personal supply had been there. I was willing to prep 10 tabs but staff were able to confirm that she has 5 pills left and can pick them up at [facility] today.
[2016-11-25 20:18] LABS: COD UR NEGATIVE NG/ML (CUTOFF=50); HYDROCOD UR NEGATIVE NG/ML (CUTOFF=50); HYDROMOR UR 64 NG/ML (CUTOFF=50); HYDROXYETHYLFLURAZEPAM CONF NEGATIVE NG/ML (CUTOFF=50); HYDROXYMIDAZOLAM NEGATIVE NG/ML (CUTOFF=50); HYDROXYTRIAZOLAM CONF NEGATIVE NG/ML (CUTOFF=50); MORPHINE UR 8930 NG/ML (CUTOFF=50); NORHYDROCODONE CONF UR NEGATIVE NG/ML (CUTOFF=50); OXYMORPH UR 77 NG/ML (CUTOFF=50); TEMAZEPAM CONF NEGATIVE NG/ML (CUTOFF=50)
== END 2016-11-25 14:00 | disposition home or self-care (01) | DRG 885 ==
LOC: C.EDB 13:54 → C.MHU 22:38
PROVIDERS: ADMIT Psychiatry & Neurology Child & Adolescent Psychiatry; ATTEND Psychiatry & Neurology Child & Adolescent Psychiatry
DX: F31.32 Bipolar disorder, current episode depressed, moderate (principal); G43.909 Migraine, unspecified, not intractable, without status migrainosus; R33.9 Retention of urine, unspecified; K52.832 Lymphocytic colitis; S60.221A Contusion of right hand, initial encounter; W22.09XA Striking against other stationary object, initial encounter; Z79.899 Other long term (current) drug therapy; Z81.8 Family history of other mental and behavioral disorders; F17.210 Nicotine dependence, cigarettes, uncomplicated

== ENCOUNTER 2017-01-12 20:45 | Emergency (ER) | payer BC ==
[~2017-01-12] VITALS: Ht 154.9 cm; Wt 67.9 kg
[~2017-01-12 20:45] MED LIST changes: +ACET-1311 PO; +ATR25 PO; -CLON0.5T3 PO; -ENT3 PO; +FLM4 PO; -FLUO10CA24 PO; +GABA1CAP5 PO; +GABA800T PO; -HYDR-5688 PO; +KLN5 PO; +LTHCR300 PO; +NICO14DI5 TD; -NRN800 PO; +PHEN-939 PO; -PRZ/40 PO; +SUMA50TA15 PO; +VENL75CA PO
[2017-01-12 20:53] VITALS: TEMP 36.8; Ht 154.9 cm; Wt 67.9 kg
--- NOTE | 2017-01-12 21:16 | EMERGENCY ROOM VISIT NOTE ---
History Report prepared by Juliana: Zarina Richards Under the Supervision of: Dr. Bubba Cabello M.D. (Bubba Cabello M.D.) First contact with patient: 20:56 (Bubba Cabello M.D.) Chief Complaint: INFECTION Stated Complaint: PAINFUL SPREADING OF INFECTION L ANKLE FOOT, ABX N History of Present Illness The patient is a 26 year old female who presents to the Emergency Room with complaints of a worsening left ankle infection beginning 1 week ago. The patient states that she was at the beach and had a cut on her ankle before she went to the beach. She reports that she started Bactrim and that the infection has spread and has been painful. She also reports that her ankle is more swollen in the morning and that she is now limping. She states that several days ago her foot was weeping yellow discharge and that she went through 4 pairs of socks. The patient denies fever, nausea, and dizziness. Source of History: patient Onset: 1 week ago Position: ankle (left) Quality: other (infection) Timing: worsening Associated Symptoms: No fevers, No nausea (Bubba Cabello M.D.) Review of Systems All systems have been listed, reviewed, and are negative other than those previously mentioned. Please see Additional Medical History Sheet. 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 (22) ovarian cyst (23) Ovarian cyst (24) Pelvic pain (25) with 20 completed weeks gestation (26) Ruptured ovarian cyst (27) Supervision of other normal (28) Syncope (29) Threatened miscarriage (30) Threatened miscarriage (31) Tobacco abuse (32) Ulcerative colitis (33) Urinary tract infection (34) Urinary tract infection (35) Uterine contractions at greater than 20 weeks of gestation (36) Vaginal bleeding before 22 weeks gestation (37) Vasovagal syncope (38) Vomiting Surgical Problems: (1) [place] Teeth Removal (Sherley Bronson M.D.) Family History Diabetes mellitus FH: cancer (Bubba Cabello M.D.) Diabetes mellitus FH: cancer (Sherley Bronson M.D.) Social History Smoking Status: Current Every Day Smoker Alcohol Use: none Drug Use: none Marital Status: in relationship Housing Status: lives with family Occupation Status: employed (Bubba Cabello M.D.) Current/Historical Medications Scheduled Cephalexin Monohydrate (Keflex), 500 MG PO TID Gabapentin (Neurontin), 800 MG PO TID [place] Carbonate Ext Rel (Lithobid Ext Rel), 300 MG PO HS Medroxyprogesterone Acetate (C (Depo-Provera Contraceptiv), 1 DOSE INJ EVERY 3 MONTHS Sulfa/Trimethoprim (Bactrim Ds 800MG/160MG), 1 TAB PO BID Venlafaxine Hcl (Effexor Xr), 1 CAP PO DAILY Scheduled PRN Acetaminophen (Tylenol), 650 MG PO Q4H PRN for Pain or Fever Clonazepam (Klonopin), 0.5 MG PO TID PRN for Anxiety Hydroxyzine HCl (Hydroxyzine HCl), 25 MG PO Q4H PRN for Anxiety Sumatriptan Succinate (Imitrex), 1 TAB PO UD PRN for Migraine Allergies Coded Allergies: Penicillins (Verified Allergy, Mild, RASH, 01/12/17) Amoxicillin (Verified Allergy, Unknown, rash, 01/12/17) Physical Exam Vital Signs Date Time Temp Pulse Resp B/P (MAP) Pulse Ox O2 Delivery O2 Flow Rate FiO2 01/12/17 20:53 36.8 114 18 114/80 98 Room Air (Sherley Bronson M.D.) Physical Exam GENERAL: Patient awake, alert, oriented x 3. Patient does not appear septic. Patient follows commands. Patient does not appear toxic. Patient is adequately hydrated and well-nourished. SKIN: No erythema, pallor, cyanosis or rash HEENT: Normal head, pupils equal, reactive to light and accommodation. Ears normal. Oral cavity and posterior pharynx appear normal. Neck: Without adenopathy, no neck vein distention. EXTREMITIES: 1 central indurated lesion with linear rash on medial left ankle above malleolus. Minimal surrounding erythema, tender. Motor and sensory function intact. No signs of trauma. No pedal or pretibial edema. No calf or thigh tenderness. NEUROLOGIC: Cranial nerves II-XII within normal limits. No gross motor sensory function deficits. (Bubba Cabello M.D.) Medical Decision & Procedures ED Course 2199: Ordered Keflex Cap 500 mg PO. 2209: Upon reevaluation, the patient appeared to have improvement of her symptoms. I discussed today's findings with her. She verbalized agreement of the treatment plan. She was discharged home. (Bubba Cabello M.D.) Medical Decision Nurses notes reviewed. Medical history sheet reviewed. Differential diagnosis includes but is not limited to: contact dermatitis, cellulitis, spider bite, and foreign body. The patient most likely came in contact with something in the ocean resulting in this unusual rash. The patient may also have a surrounding cellulitis. Therefore she was placed on an additional antibiotic. The patient should follow-up with dermatology if the rash does not resolve in the next 7-10 days. (Bubba Cabello M.D.) Medication Reconcilliation Current Medication List: was personally reviewed by me (Bubba Cabello M.D.) Blood Pressure Screening Patient's blood pressure: Normal blood pressure (Bubba Cabello M.D.) Impression Primary Impression: OTH CONTACT WITH OTH NONVENOMOUS MARINE ANIMALS, INIT ENCNTR Scribe Attestation The scribe's documentation has been prepared under my direction and personally reviewed by me in its entirety. I confirm that the note above accurately reflects all work, treatment, procedures, and medical decision making performed by me. (Bubba Cabello M.D.) Departure Information Dispostion Home / Self-Care Prescriptions Cephalexin Monohydrate (Keflex) 500 Mg Cap 500 MG PO TID, #29 CAP Prov: Sherley Bronson M.D. 01/12/17 [facility] Inst[facility] My [facility] Additional Instructions Continue to take Bactrim as directed; finish the entire course of your Bactrim. During your visit, you were prescribe Keflex; take one pill three times daily for 10 days; you were given one pill while in the ED. Finish the entire course of the keflex. We expect the skin infection will improve in one week. If your symptoms are worse in one week, we recommend contacting a international coordinator for further evaluation. You were also given a pain reliever, tramadol, for the pain. Take one pill every 4 hours as needed for pain. Resident Tracking Resident Involvement: Resident Care Provided Care Provided: Adult ED (Sherley Bronson M.D.)
[2017-01-12] MEDS ORDERED: CLON0.5T3 PO (21:38)
[2017-01-12] MEDS ORDERED: SULF800T23 PO (21:39)
[2017-01-12] MEDS ORDERED: LITH1TAB10 PO (21:39)
[2017-01-12] MEDS ORDERED: CEPH500C PO (21:57)
[2017-01-12] MEDS ORDERED: CEPHALEXIN MONOHYDRATE 250 MG CAP PO ONE (22:00)
[2017-01-12 22:08] VITALS: BP 118/72; PULSE 84; O2SAT 97
== END 2017-01-12 22:10 | disposition home or self-care (01) ==
LOC: C.EDB 20:46 → C.EDC 22:10
DX: L08.9 Local infection of the skin and subcutaneous tissue, unspecified (principal); W56.89XA Other contact with other nonvenomous marine animals, initial encounter; J45.909 Unspecified asthma, uncomplicated; K50.90 Crohn's disease, unspecified, without complications; F31.9 Bipolar disorder, unspecified; F17.200 Nicotine dependence, unspecified, uncomplicated; Z87.440 Personal history of urinary (tract) infections; Z87.59 Personal history of other complications of pregnancy, childbirth and the puerperium; Z98.818 Other dental procedure status; Z83.3 Family history of diabetes mellitus; Z79.899 Other long term (current) drug therapy

== ENCOUNTER 2017-01-27 16:40 | Emergency (ER) | payer BC ==
[~2017-01-27] VITALS: Ht 154.9 cm; Wt 69.9 kg
[~2017-01-27 16:40] MED LIST changes: +CEPH500C PO; +CLON0.5T3 PO; -FLM4 PO; -GABA1CAP5 PO; -KLN5 PO; +LITH1TAB10 PO; -LTHCR300 PO; -NICO14DI5 TD; -PHEN-939 PO; +SULF800T23 PO
[2017-01-27 16:43] VITALS: Ht 154.9 cm; Wt 69.9 kg
[2017-01-27] MEDS ORDERED: SODIUM CHLORIDE 0.9% 1000ML 1,000 ML IV STA ×2 (16:56)
[2017-01-27] MEDS ORDERED: KETOROLAC TROMETHAMINE 30 MG/ML VIAL IV STA (16:56)
[2017-01-27] MEDS ORDERED: DICYCLOMINE HCL 10 MG/ML 2 ML AMP IM ONE (17:00)
[2017-01-27] MEDS ORDERED: LTHCR300 PO (17:13)
[2017-01-27] MEDS ORDERED: PRZ/40 PO (17:13)
[2017-01-27] MEDS ORDERED: OPTIRAY 320 IV PRN (17:15)
[2017-01-27 17:36] LABS: BASO % 0.3 %; BASO ABS # 0.04 K/uL (0-0.2); COMPLETE YES; EOS % 1.4 %; HEMATOCRIT 42.4 % (37-47); IG% 0.5 %; LYMPH % 21.7 %; LYMPH ABS # 2.93 K/uL (1.2-3.4); MEAN CELL VOLUME 93.4 fL (80-100); MEAN CORPUSCULAR HEMOGLOBIN 31.7 pg (25-34); MEAN PLATELET VOLUME 9.1 fL (7.4-10.4); MONO % 6.8 %; NEUT % 69.3 %; PLATELET COUNT 348 K/uL (130-400); RED BLOOD COUNT 4.54 M/uL (4.2-5.4); WHITE BLOOD COUNT 13.48 K/uL (4.8-10.8)
[2017-01-27 17:39] LABS: URINE APPEARANCE CLEAR (CLEAR); URINE BILIRUBIN NEG (NEG); URINE COLOR YELLOW; URINE EPITHELIAL CELL AUTO >30 /lpf (0-5); URINE NITRITE NEG (NEG); URINE PH 7.5 (4.5-7.5); URINE SPECIFIC GRAVITY 1.016 (1.000-1.030); UROBILINOGEN NEG (NEG)
[2017-01-27 17:43] LABS: MANUAL MICROSCOPIC REQUIRED? NO; REVIEW REQ? YES
[2017-01-27 17:51] LABS: ZZUR CULT IF INDIC CLEAN CATCH YES
[2017-01-27 18:01] LABS: ALKALINE PHOSPHATASE 82 U/L (45-117); ALT/SGPT 23 U/L (12-78); AST/SGOT 19 U/L (15-37); BLOOD UREA NITROGEN 14 mg/dl (7-18); BUN/CREATININE RATIO 18.2 (10-20); CALCIUM 9.2 mg/dl (8.5-10.1); CARBON DIOXIDE 26 mmol/L (21-32); CHLORIDE 107 mmol/L (98-107); CREATININE 0.74 mg/dl (0.60-1.20); GLUCOSE 101 mg/dl (70-99); POTASSIUM 3.5 mmol/L (3.5-5.1); SODIUM 140 mmol/L (136-145)
[2017-01-27 18:04] LABS: PREG INTERNAL NEGATIVE QC NEG CLEAR BACKGROUND; PREG INTERNAL POSITIVE QC POS CONTROL LINE
[2017-01-27] MEDS ORDERED: MoRPHine SULFATE 4 MG/ML 1 ML CARP\\VIAL IV STA ×2 (18:05→20:10)
[2017-01-27 18:34] VITALS: TEMP 36.9
--- NOTE | 2017-01-27 19:22 | DIAGNOSTIC IMAGING REPORT ---
CT ABD/PELVIS IV CONTRAST ONLY CLINICAL HISTORY: Left-sided abdominal pain. Bloating. History of colitis. COMPARISON STUDY: October 19, 2016 TECHNIQUE: Following the IV administration of 94 mL of Optiray-320, CT scan of the abdomen and pelvis was performed from the lung bases to the proximal femurs. Images are reviewed in the axial, sagittal, and coronal planes. IV contrast was administered without complication. A dose lowering technique was utilized adhering to the principles of ALARA. CT DOSE: 335.06 mGy.cm FINDINGS: Lower chest: The heart is normal in size and configuration, without pericardial effusion. The lung bases and pleural spaces are clear. Liver: The contrast-enhanced liver is normal in size, contour, and attenuation. There is no intrahepatic biliary ductal dilatation. The hepatic veins and portal veins are patent. Gallbladder: Contracted Spleen: Normal in size and attenuation. Pancreas: Unremarkable. Adrenal glands: Unremarkable. Kidneys: There is symmetric renal cortical enhancement. The kidneys are normal in size without hydronephrosis. Bowel: There are no transition zones indicate bowel obstruction. There is no evidence of acute appendicitis. There is no evidence of acute diverticulitis. Bowel evaluation is somewhat limited given the lack of orally administered contrast. Peritoneum: No free air is visualized. There is trace free pelvic fluid, likely physiologic. Vasculature: The abdominal aorta is normal in course and caliber. Adenopathy: None. Pelvic viscera: There is a droplet of air within the bladder, possibly iatrogenic. Skeletal structures: No destructive osseous lesions are seen. IMPRESSION: 1. No evidence of bowel obstruction. No evidence of free air 2. Normal appendix 3. No evidence of acute diverticulitis 4. Droplet of intravesical air, possibly iatrogenic Electronically signed by: Tunde Smith M.D. 01/27/2017 7:21 PM Dictated Date/Time: 01/27/2017 7:16 PM
[2017-01-27] MEDS ORDERED: MoRPHine SULFATE 2 MG/ML CARP ONE (20:46)
[2017-01-27] MEDS ORDERED: ONDANSETRON HOME PACK 4MG OD TAB PO ONE (21:15)
[2017-01-27] MEDS ORDERED: BENTYL HOME PACK 10 MG VIAL PO ONE (21:15)
[2017-01-27 21:20] VITALS: BP 125/75; PULSE 75; O2SAT 99
--- NOTE | 2017-01-28 00:23 | EMERGENCY ROOM VISIT NOTE ---
History Report prepared by Juliana: Yasmine Cordova Under the Supervision of: Dr. Thierry Carmichael M.D. First contact with patient: 16:47 Chief Complaint: ABDOMINAL PAIN Stated Complaint: SEVERE ABD PAIN,SEVERE BLOATING History of Present Illness The patient is a 26 year old female who presents to the Emergency Room with complaints of worsening abdominal pain starting yesterday. The pain started in her lower abdomen and is now radiating up the left side of her abdomen. She states the pain is severe. She has taken Tylenol and antacids to no significant relief. She also reports bloating of her abdomen. She has never had this bloating before. She has had diarrhea for the past 3 years. She has followed with GI. She denies any history of abdominal surgeries. She had her 2nd Depo Provera shot 2 days ago. Her last menstrual cycle was a few months ago. Pt denies LOC, headache, fevers, chills, diaphoresis, visual changes, neck pain, chest pain, breathing difficulties, nausea, vomiting, back pain, melena, hematochezia, urinary symptoms, numbness, weakness, lymphadenopathy, rash, or other complaints. Source of History: patient Onset: yesterday Position: abdomen (left) Symptom Intensity: severe Quality: other (pain) Timing: worsening Associated Symptoms: + diarrhea Note: Pt reports abdominal bloating. Review of Systems See HPI for pertinent positives and negatives. A total of ten systems were reviewed and were otherwise negative. 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 (22) ovarian cyst (23) Ovarian cyst (24) Pelvic pain (25) with 20 completed weeks gestation (26) Ruptured ovarian cyst (27) Supervision of other normal (28) Syncope (29) Threatened miscarriage (30) Threatened miscarriage (31) Tobacco abuse (32) Ulcerative colitis (33) Urinary tract infection (34) Urinary tract infection (35) Uterine contractions at greater than 20 weeks of gestation (36) Vaginal bleeding before 22 weeks gestation (37) Vasovagal syncope (38) Vomiting Surgical Problems: (1) [place] Teeth Removal Family History Diabetes mellitus FH: cancer Social History Smoking Status: Current Every Day Smoker Alcohol Use: none Drug Use: none Marital Status: in relationship Housing Status: lives with family Occupation Status: employed Current/Historical Medications Scheduled Gabapentin (Neurontin), 800 MG PO TID [place] Carbonate ([place] Carbonate ER), 600 MG PO DAILY Medroxyprogesterone Acetate (C (Depo-Provera Contraceptiv), 1 DOSE INJ EVERY 3 MONTHS Venlafaxine Hcl (Effexor Xr), 1 CAP PO DAILY Scheduled PRN Acetaminophen (Tylenol), 650 MG PO Q4H PRN for Pain or Fever Clonazepam (Klonopin), 0.5 MG PO TID PRN for Anxiety Hydroxyzine HCl (Hydroxyzine HCl), 25 MG PO Q4H PRN for Anxiety Sumatriptan Succinate (Imitrex), 1 TAB PO UD PRN for Migraine Allergies Coded Allergies: Penicillins (Verified Allergy, Mild, RASH, 01/27/17) Amoxicillin (Verified Allergy, Unknown, rash, 01/27/17) Physical Exam Vital Signs Date Time Temp Pulse Resp B/P (MAP) Pulse Ox O2 Delivery O2 Flow Rate FiO2 01/27/17 21:20 75 20 125/75 99 Room Air 01/27/17 21:20 75 20 125/75 99 01/27/17 19:22 88 20 129/68 97 Room Air 01/27/17 18:34 36.9 88 16 127/68 99 Room Air 01/27/17 16:43 36.9 102 16 115/78 99 Room Air Physical Exam GENERAL: Awake, alert, well-appearing, in no distress HENT: Normocephalic, atraumatic. Oropharynx unremarkable. EYES: Normal conjunctiva. Sclera non-icteric. NECK: Supple. No nuchal rigidity. FROM. No JVD. RESPIRATORY: Clear to auscultation. CARDIAC: Regular rate, normal rhythm. Extremities warm and well perfused. Pulses equal. ABDOMEN: Soft, mild abdominal distension. Lower and LUQ tenderness to palpation. No rebound or guarding. No masses. RECTAL: Deferred. MUSCULOSKELETAL: Chest examination reveals no tenderness. The back is symmetrical on inspection without obvious abnormality. There is no CVA tenderness to palpation. No joint edema. LOWER EXTREMITIES: Calves are equal size bilaterally and non-tender. No edema. No discoloration. NEURO: Normal sensorium. No sensory or motor deficits noted. SKIN: No rash or jaundice noted. Medical Decision & Procedures ER Provider Diagnostic Interpretation: Radiology results as stated below per my review and radiologist interpretation: CT ABD/PELVIS IV CONTRAST ONLY CLINICAL HISTORY: Left-sided abdominal pain. Bloating. History of colitis. COMPARISON STUDY: October 19, 2016 TECHNIQUE: Following the IV administration of 94 mL of Optiray-320, CT scan of the abdomen and pelvis was performed from the lung bases to the proximal femurs. Images are reviewed in the axial, sagittal, and coronal planes. IV contrast was administered without complication. A dose lowering technique was utilized adhering to the principles of ALARA. CT DOSE: 335.06 mGy.cm FINDINGS: Lower chest: The heart is normal in size and configuration, without pericardial effusion. The lung bases and pleural spaces are clear. Liver: The contrast-enhanced liver is normal in size, contour, and attenuation. There is no intrahepatic biliary ductal dilatation. The hepatic veins and portal veins are patent. Gallbladder: Contracted Spleen: Normal in size and attenuation. Pancreas: Unremarkable. Adrenal glands: Unremarkable. Kidneys: There is symmetric renal cortical enhancement. The kidneys are normal in size without hydronephrosis. Bowel: There are no transition zones indicate bowel obstruction. There is no evidence of acute appendicitis. There is no evidence of acute diverticulitis. Bowel evaluation is somewhat limited given the lack of orally administered contrast. Peritoneum: No free air is visualized. There is trace free pelvic fluid, likely physiologic. Vasculature: The abdominal aorta is normal in course and caliber. Adenopathy: None. Pelvic viscera: There is a droplet of air within the bladder, possibly iatrogenic. Skeletal structures: No destructive osseous lesions are seen. IMPRESSION: 1. No evidence of bowel obstruction. No evidence of free air 2. Normal appendix 3. No evidence of acute diverticulitis 4. Droplet of intravesical air, possibly iatrogenic Electronically signed by: Tunde Smith M.D. 01/27/2017 7:21 PM Dictated Date/Time: 01/27/2017 7:16 PM Laboratory Results 01/27/17 17:20 Red Blood Count 4.54, Mean Corpuscular Volume 93.4, Mean Corpuscular Hemoglobin 31.7, Mean Corpuscular Hemoglobin Concent 34.0, Mean Platelet Volume 9.1, Neutrophils (%) (Auto) 69.3, Lymphocytes (%) (Auto) 21.7, Monocytes (%) (Auto) 6.8, Eosinophils (%) (Auto) 1.4, Basophils (%) (Auto) 0.3, Neutrophils # (Auto) 9.33, Lymphocytes # (Auto) 2.93, Monocytes # (Auto) 0.92, Eosinophils # (Auto) 0.19, Basophils # (Auto) 0.04 01/27/17 17:20 Test 01/27/17 17:15 01/27/17 17:20 Urine Color YELLOW Urine Appearance CLEAR (CLEAR) Urine pH 7.5 (4.5-7.5) Urine Specific [place] 1.016 (1.000-1.030) Urine Protein NEG (NEG) Urine Glucose (UA) NEG (NEG) Urine Ketones NEG (NEG) Urine Occult Blood NEG (NEG) Urine Nitrite NEG (NEG) Urine Bilirubin NEG (NEG) Urine Urobilinogen NEG (NEG) Urine Leukocyte Esterase MODERATE (NEG) Urine WBC (Auto) 5-10 /hpf (0-5) Urine RBC (Auto) 0-4 /hpf (0-4) Urine Hyaline Casts (Auto) 0 /lpf (0-5) Urine Epithelial Cells (Auto) >30 /lpf (0-5) Urine Bacteria (Auto) 1+ (NEG) White Blood Count 13.48 K/uL (4.8-10.8) Red Blood Count 4.54 M/uL (4.2-5.4) Hemoglobin 14.4 g/dL (12.0-16.0) Hematocrit 42.4 % (37-47) Mean Corpuscular Volume 93.4 fL (80-100) Mean Corpuscular Hemoglobin 31.7 pg (25-34) Mean Corpuscular Hemoglobin Concent 34.0 g/dl (32-36) Platelet Count 348 K/uL (130-400) Mean Platelet Volume 9.1 fL (7.4-10.4) Neutrophils (%) (Auto) 69.3 % Lymphocytes (%) (Auto) 21.7 % Monocytes (%) (Auto) 6.8 % Eosinophils (%) (Auto) 1.4 % Basophils (%) (Auto) 0.3 % Neutrophils # (Auto) 9.33 K/uL (1.4-6.5) Lymphocytes # (Auto) 2.93 K/uL (1.2-3.4) Monocytes # (Auto) 0.92 K/uL (0.11-0.59) Eosinophils # (Auto) 0.19 K/uL (0-0.5) Basophils # (Auto) 0.04 K/uL (0-0.2) RDW Standard Deviation 45.4 fL (36.4-46.3) RDW Coefficient of Variation 13.2 % (11.5-14.5) Immature Granulocyte % (Auto) 0.5 % Immature Granulocyte # (Auto) 0.07 K/uL (0.00-0.02) Anion Gap 7.0 mmol/L (3-11) Est Creatinine Clear Calc Drug Dose 104.8 ml/min Estimated GFR () 131.4 Estimated GFR (Non- 113.4 BUN/Creatinine Ratio 18.2 (10-20) Calcium Level 9.2 mg/dl (8.5-10.1) Total Bilirubin 0.2 mg/dl (0.2-1) Direct Bilirubin < 0.1 mg/dl (0-0.2) Aspartate Amino Transf (AST/SGOT) 19 U/L (15-37) Alanine Aminotransferase (ALT/SGPT) 23 U/L (12-78) Alkaline Phosphatase 82 U/L (45-117) Total Protein 8.0 gm/dl (6.4-8.2) Albumin 4.2 gm/dl (3.4-5.0) Lipase 266 U/L (73-393) Human Chorionic Gonadotropin, Qual NEG (NEG) [place] Level 0.5 mMOL/L (0.6-1.2) Date/Time Source Procedure Growth Status 01/27/17 19:30 Stool C.difficile Toxin B Gene (PCR) - Final No C. difficile toxin B gene detected Complete Laboratory results reviewed by me Medications Administered Medications (Trade) Dose Ordered Sig/Pro Route Start Time Stop Time Status Last Admin Dose Admin Sodium Chloride 1,000 ml @ 125 mls/hr Q8H STAT IV 01/27/17 16:56 01/27/17 21:53 DC 01/27/17 17:43 125 MLS/HR Sodium Chloride 1,000 ml @ 999 mls/hr Q1H1M STAT IV 01/27/17 16:56 01/27/17 17:56 DC 01/27/17 17:43 999 MLS/HR Ketorolac Tromethamine (Toradol Inj) 10 mg NOW STAT IV 01/27/17 16:56 01/27/17 17:01 DC 01/27/17 17:44 10 MG Dicyclomine HCl (Bentyl Inj) 20 mg NOW ONCE IM 01/27/17 17:00 01/27/17 17:01 DC 01/27/17 17:44 20 MG Morphine Sulfate (MoRPHine SULFATE INJ) 4 mg NOW STAT IV 01/27/17 18:05 01/27/17 18:06 DC 01/27/17 18:25 4 MG Morphine Sulfate (MoRPHine SULFATE INJ) 2 mg STK-MED ONCE .ROUTE 01/27/17 20:46 01/27/17 20:47 DC 01/27/17 20:49 2 MG Dicyclomine HCl (Dicyclomine HCl 10MG Home Pack) 1 ea UD ONCE PO 01/27/17 21:15 01/27/17 21:16 DC 01/27/17 21:16 1 EA Ondansetron HCl (ZOFRAN ODT 4MG Home Pack) 1 homepack UD ONCE PO 01/27/17 21:15 01/27/17 21:16 DC 01/27/17 21:15 1 HOMEPACK ED Course 1655: The patient was evaluated in room B3B. A complete history and physical exam was performed. 1656: Toradol Inj 10 mg IV, NSS 1000 ml @ 999 mls/hr IV, NSS 1000 ml @ 125 mls/ hr IV. 0: Bentyl Inj 20 mg IM. 1804: Morphine Sulfate 4 mg IV. 1907: I reevaluated the patient. She is feeling better. 1948: I reevaluated the patient. I updated her on the results. 2045: Morphine Sulfate 2 mg IV. 2106: I reevaluated the patient. I discussed results and discharge instructions : she verbalized understanding and agreement. The patient is ready for discharge. 2114: Ondansetron HCl 1 homepack PO, Dicyclomine HCl 1 homepack PO. Medical Decision Triage Nursing notes reviewed. The patient's presentation and history were concerning for abdominal pain. Etiologies such as appendicitis, diverticulitis, obstruction, inflammatory bowel disease, renal colic, PUD, biliary pathology, pancreatitis, mesenteric ischemia, aortic pathology, infections, genitourinary, UTI, perforated viscus, as well as others were entertained. The patient was evaluated. She noted generalized abdominal pain. She has recently been on antibiotics. She notes chronic diarrhea. Testing was ordered. She was hydrated. She denied any nausea or vomiting. She was given Bentyl and IV Toradol. Blood work revealed a mild leukocytosis. Chemistry panel was unremarkable. The patient still had pain and was given a small dose of IV morphine. CT imaging was performed. No acute process was noted on CAT scan. C. difficile testing was negative. The patient has no urinary symptoms. There was some air in her bladder but she notes no complaints consistent with UTI. A culture was sent. Stool cultures are pending. She has a long history of abdominal issues including diarrhea. the exact etiology of her symptom has not known at this time. The patient is doing very well. I discussed conservative management with her and she was in agreement. A home pack for Zofran and Bentyl was given. By the evaluation outlined above other emergent etiologies such as those listed in the differential, as well as others, were deemed relatively unlikely. The patient was educated about the findings as listed above. All questions were answered and the patient was pleased with the treatment. Return instructions were outlined and the patient was discharged in stable condition. The patient was referred to her PCP For follow-up for a recheck of the current condition. Medication Reconcilliation Current Medication List: was personally reviewed by me Blood Pressure Screening Patient's blood pressure: Elevated blood pressure Blood pressure disposition: Elevated BP felt to be situational Impression Primary Impression: Generalized abdominal pain Additional Impression: Diarrhea Scribe Attestation The scribe's documentation has been prepared under my direction and personally reviewed by me in its entirety. I confirm that the note above accurately reflects all work, treatment, procedures, and medical decision making performed by me. Departure Information Dispostion Home / Self-Care Referrals Navdeep Olson M.D. (PCP) Forms HOME CARE DOCUMENTATION FORM, IMPORTANT VISIT INFORMATION Patient Instructions My [facility] Additional Instructions ABDOMINAL PAIN INSTRUCTIONS: DO NOT drive, drink alcohol, operate machinery, or perform dangerous activities today. You were given medications in the ER that can affect your ability to safely function or operate a vehicle. Bentyl(dicyclomine) 20 mg: Take 20 mg 4 times daily as needed for abdominal pain. Discontinue this medication if you develop any rash, itching, increased abdominal pain, heartburn, increased nausea, constipation, or as needed. Ibuprofen(Motrin, Advil) may be used for fever or pain. Use 600mg every six hours as needed. Take with food. Avoid using more than 2400mg in a 24 hour period. Do not use 2400mg per day for more than three consecutive days without physician direction. Prolonged inappropriate use can lead to stomach upset or ulcers. (AND/OR) Acetaminophen(Tylenol) may be used for fever or pain. Use 1000mg every six hours as needed. Avoid using more than 4000mg in a 24 hour period. Rest and drink plenty of fluids as tolerated. Slow sips of water or sports drinks are recommended instead of large amounts all at once. Continue current medications. Stool culture and urine culture pending. You will be notified if there are any abnormalities. Once your stomach is settled start with a clear liquid diet (jello, soup broth, etc.) and then advance as tolerated. You should avoid full, heavy meals for about 24 hrs from the time your symptoms resolved. Return to the ER immediately for worsening or persistent abdominal pain, vomiting, fevers, chest pains, difficulty breathing, black or bloody stools, worsening of your condition, or as needed. Follow up with your primary physician in 2-3 days for a recheck of your current condition. Problem Qualifiers
== END 2017-01-27 21:23 | disposition home or self-care (01) ==
LOC: C.EDB 16:41
DX: R10.84 Generalized abdominal pain (principal); R19.7 Diarrhea, unspecified; Z79.899 Other long term (current) drug therapy; J45.909 Unspecified asthma, uncomplicated; F31.9 Bipolar disorder, unspecified; K50.90 Crohn's disease, unspecified, without complications; Z87.440 Personal history of urinary (tract) infections; F17.210 Nicotine dependence, cigarettes, uncomplicated; Z83.3 Family history of diabetes mellitus; Z80.9 Family history of malignant neoplasm, unspecified

== ENCOUNTER 2017-02-28 13:50 | Emergency (ER) | payer BC ==
[~2017-02-28] VITALS: Ht 157.5 cm; Wt 67.8 kg
[~2017-02-28 13:50] MED LIST changes: -CEPH500C PO; -LITH1TAB10 PO; +LTHCR300 PO; -SULF800T23 PO
[2017-02-28 13:52] VITALS: Ht 157.5 cm; Wt 67.8 kg
[2017-02-28] MEDS ORDERED: SODIUM CHLORIDE 0.9% 1000ML 1,000 ML IV STA (14:09)
[2017-02-28] MEDS ORDERED: ONDANSETRON INJ 2 MG/ML 2 ML VIAL IV STA ×2 (14:09→15:18)
[2017-02-28] MEDS ORDERED: KETOROLAC TROMETHAMINE 30 MG/ML VIAL IV STA (14:09)
[2017-02-28] MEDS ORDERED: ACETAMINOPHEN 500 MG TAB PO STA (14:09)
[2017-02-28] MEDS ORDERED: COUGH DROP (SUGAR FREE) LOZ 24 LOZ/1 BOX PO STA (14:09)
--- NOTE | 2017-02-28 14:32 | DIAGNOSTIC IMAGING REPORT ---
CHEST ONE VIEW PORTABLE CLINICAL HISTORY: Atypical chest pain COMPARISON STUDY: 11/24/2016 FINDINGS: The cardiac and mediastinal contours are normal. There is no evidence of focal pulmonary consolidation. There is no evidence of failure. No pleural effusions are visualized.[ IMPRESSION: No active disease in the chest. Electronically signed by: Tunde Smith M.D. 02/28/2017 2:31 PM Dictated Date/Time: 02/28/2017 2:30 PM
--- NOTE | 2017-02-28 14:38 | EMERGENCY ROOM VISIT NOTE ---
History Report prepared by Juliana: Tashi Roberson Under the Supervision of: Dr. Abrahan Lorenzo M.D. First contact with patient: 13:56 Chief Complaint: SHORTNESS OF BREATH Stated Complaint: FATIGUE NECK PAIN SOB History of Present Illness The patient is a 26 year old white female who presents to the ED with a cc of intermittent chest pain beginning this week. Positive resolved sore throat, SOB , fever of 99.7 degrees, resolved headache. Negative ear pain, leg swelling. Has taken Tylenol and Robitussin for symptoms, but nothing has improved her symptoms. Pain worsened with coughing and deep breathing. No known sick contacts. No personal history of blood clots. History of chronic abdominal pain and has had multiple colonoscopies. Smokes cigarettes. Source of History: patient Onset: This week Position: chest Timing: intermittent Modifying Factors (Worsening): breathing (deep), other (cough) Modifying Factors (Relieving): other (none) Associated Symptoms: + fevers (99.7 degrees), + headache (resolved), + sorethroat (resolved), + SOB Note: Negative: Ear pain, leg swelling. Review of Systems See HPI for pertinent positives and negatives. A total of ten systems were reviewed and were otherwise negative. 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 (22) ovarian cyst (23) Ovarian cyst (24) Pelvic pain (25) with 20 completed weeks gestation (26) Ruptured ovarian cyst (27) Supervision of other normal (28) Syncope (29) Threatened miscarriage (30) Threatened miscarriage (31) Tobacco abuse (32) Ulcerative colitis (33) Urinary tract infection (34) Urinary tract infection (35) Uterine contractions at greater than 20 weeks of gestation (36) Vaginal bleeding before 22 weeks gestation (37) Vasovagal syncope (38) Vomiting Surgical Problems: (1) [place] Teeth Removal Family History Diabetes mellitus FH: cancer Social History Smoking Status: Current Every Day Smoker Alcohol Use: none Drug Use: none Marital Status: in relationship Housing Status: lives with family Occupation Status: employed Current/Historical Medications Scheduled Benzonatate (Tessalon Perles), 100 MG PO TID Gabapentin (Neurontin), 800 MG PO TID Medroxyprogesterone Acetate (C (Depo-Provera Contraceptiv), 1 DOSE INJ EVERY 3 MONTHS Scheduled PRN Acetaminophen (Tylenol), 650 MG PO Q4H PRN for Pain or Fever Sumatriptan Succinate (Imitrex), 1 TAB PO UD PRN for Migraine Allergies Coded Allergies: Penicillins (Verified Allergy, Mild, RASH, 02/28/17) Amoxicillin (Verified Allergy, Unknown, rash, 02/28/17) Physical Exam Vital Signs Date Time Temp Pulse Resp B/P (MAP) Pulse Ox O2 Delivery O2 Flow Rate FiO2 02/28/17 16:20 36.9 72 14 102/49 98 Room Air 02/28/17 15:07 87 02/28/17 14:51 88 14 123/77 99 Room Air 02/28/17 14:44 100 Room Air 02/28/17 14:06 Room Air 02/28/17 13:52 37.1 109 18 122/81 98 Room Air Physical Exam GENERAL: Awake, alert, well-appearing, NAD HENT: Normocephalic, atraumatic. EYES: Normal conjunctiva. Sclera non-icteric. NECK: Supple. No nuchal rigidity. FROM. RESPIRATORY: CTAB, no rhonchi, wheezing, crackles CARDIAC: RRR, no MRG ABDOMEN: Soft, NTND, BS+ MSK: No chest wall TTP. No LE edema, warmth, or redness. NEURO: CN 2-12 intact, 5/5 upper and lower extremity strength, no dysmetria, no drift, good finger to nose, no sensory deficits. SKIN: No rash or jaundice noted. Medical Decision & Procedures ER Provider Diagnostic Interpretation: X-ray: Per my interpretation, radiologist review. CHEST ONE VIEW PORTABLE FINDINGS: The cardiac and mediastinal contours are normal. There is no evidence of focal pulmonary consolidation. There is no evidence of failure. No pleural effusions are visualized.[ IMPRESSION: No active disease in the chest. Electronically signed by: Tunde mSith M.D. 02/28/2017 2:31 PM Laboratory Results 02/28/17 14:30 Red Blood Count 5.18, Mean Corpuscular Volume 91.1, Mean Corpuscular Hemoglobin 32.2, Mean Corpuscular Hemoglobin Concent 35.4, Neutrophils (%) (Auto) 72.4, Lymphocytes (%) (Auto) 19.3, Monocytes (%) (Auto) 7.3, Eosinophils (%) (Auto) 0.3, Basophils (%) (Auto) 0.3, Neutrophils # (Auto) 8.40, Lymphocytes # (Auto) 2.24, Monocytes # (Auto) 0.85, Eosinophils # (Auto) 0.04, Basophils # (Auto) 0.03 02/28/17 14:30 Test 02/28/17 14:30 White Blood Count 11.61 K/uL (4.8-10.8) Red Blood Count 5.18 M/uL (4.2-5.4) Hemoglobin 16.7 g/dL (12.0-16.0) Hematocrit 47.2 % (37-47) Mean Corpuscular Volume 91.1 fL (80-100) Mean Corpuscular Hemoglobin 32.2 pg (25-34) Mean Corpuscular Hemoglobin Concent 35.4 g/dl (32-36) Platelet Count 340 K/uL (130-400) Neutrophils (%) (Auto) 72.4 % Lymphocytes (%) (Auto) 19.3 % Monocytes (%) (Auto) 7.3 % Eosinophils (%) (Auto) 0.3 % Basophils (%) (Auto) 0.3 % Neutrophils # (Auto) 8.40 K/uL (1.4-6.5) Lymphocytes # (Auto) 2.24 K/uL (1.2-3.4) Monocytes # (Auto) 0.85 K/uL (0.11-0.59) Eosinophils # (Auto) 0.04 K/uL (0-0.5) Basophils # (Auto) 0.03 K/uL (0-0.2) Immature Granulocyte % (Auto) 0.4 % Immature Granulocyte # (Auto) 0.05 K/uL (0.00-0.02) Prothrombin Time 10.7 SECONDS (9.0-12.0) Prothromb Time International Ratio 1.0 (0.9-1.1) Activated Partial Thromboplast Time 27.9 SECONDS (21.0-31.0) Partial Thromboplastin Ratio 1.1 Anion Gap 7.0 mmol/L (3-11) Est Creatinine Clear Calc Drug Dose 101.7 ml/min Estimated GFR () 125.3 Estimated GFR (Non- 108.1 BUN/Creatinine Ratio 15.4 (10-20) Calcium Level 9.1 mg/dl (8.5-10.1) Laboratory results reviewed by me Medications Administered Medications (Trade) Dose Ordered Sig/Pro Route Start Time Stop Time Status Last Admin Dose Admin Ondansetron HCl (Zofran Inj) 4 mg NOW STAT IV 02/28/17 14:09 02/28/17 14:12 DC 02/28/17 14:55 4 MG Sodium Chloride 1,000 ml @ 999 mls/hr Q1H1M STAT IV 02/28/17 14:09 02/28/17 15:09 DC 02/28/17 14:09 999 MLS/HR Acetaminophen (Tylenol Tab) 1,000 mg NOW STAT PO 02/28/17 14:09 02/28/17 14:12 DC 02/28/17 14:56 1,000 MG Ketorolac Tromethamine (Toradol Inj) 30 mg NOW STAT IV 02/28/17 14:09 02/28/17 14:13 DC 02/28/17 14:55 30 MG Menthol (Nice Socrates) 1 socrates NOW STAT PO 02/28/17 14:09 02/28/17 14:13 DC 02/28/17 14:55 1 SOCRATES Tramadol HCl (Ultram Tab) 50 mg NOW STAT PO 02/28/17 15:18 02/28/17 15:20 DC 02/28/17 15:34 50 MG Benzonatate (Tessalon Perles Cap) 100 mg NOW ONCE PO 02/28/17 15:30 02/28/17 15:31 DC 02/28/17 15:34 100 MG ECG Indication: chest pain Rate (beats per minute): 95 Rhythm: normal sinus Findings: T-wave inversion (single in lead 3. ), no ectopy, other (Normal intervals. Normal axis. No other STS changes. ) ED Course 1400: The patient was evaluated in room B10. A complete history and physical exam was performed. 1409: Ordered Nice Socrates 1 socrates PO, Toradol Inj 30 mg IV, Tylenol Tab 1000 mg PO, Sodium Chloride 1000 ml @ 999 mls/hr IV, Zofran Inj 4 mg IV. 1518: Ordered Ultram Tab 50 mg PO, Zofran Inj 4 mg IV. 1530: Ordered Tessalon Perles Cap 100 mg PO. 1710: I reevaluated the patient. Discussed results and discharge instructions: she verbalized understanding and agreement. The patient is ready for discharge. Medical Decision The patient is a 26 year old white female who presents to the ED with a cc of intermittent chest pain beginning this week. Differential diagnosis: Etiologies such as infections, reactive airway disease, pneumonia, pneumothorax , COPD, CHF, cardiac ischemia, pulmonary embolism, musculoskeletal, gastrointestinal, as well as others were entertained. Patient was seen and evaluated the bedside. Patient states that she has had some complain of some chest pain with coughing. Patient states she has had a low-grade temperature less than 100F. Patient states she's had some intermittent headache and neck pain however this has resolved. Patient denies any sinus pressure or congestion or rhinorrhea. On exam patient was initially mildly tachycardic. Patient is not hypoxic or tachypneic. No recent car or plane travel. No lower extremity swelling. No calf pain. Mild tachycardia likely related to infectious type symptoms and dehydration as opposed to PE. Patient also denies any hemoptysis. Patient is a positive smoker although she has not smoked in the last 7 days. Patient was given counseling on smoking cessation. Wells score of 1, low risk, less likely PE. Had blood work, ECG, CXR , and supportive care completed. Patient did complain of MCKEON, none here. No fever , no neck stiffness, no signs of nuchal rigidity and no neuro deficits. WBC 11. CXR clear. Patient EKG non-ischemic. Patient feeling only slightly improved. Given tessalon perrles and tramadol. Upon reassessment, improved. Tachycardia resolved. Patient not hypoxic, tachypnic, nor tachycardic. Patient given f/u, d/ c and return precautions as well as smoking cessation materials and was safely d /c'ed to home. Medication Reconcilliation Current Medication List: was personally reviewed by me Blood Pressure Screening Patient's blood pressure: Normal blood pressure Blood pressure disposition: Did not require urgent referral Impression Primary Impression: Chest pain Additional Impressions: Cough Encounter for smoking cessation counseling Scribe Attestation The scribe's documentation has been prepared under my direction and personally reviewed by me in its entirety. I confirm that the note above accurately reflects all work, treatment, procedures, and medical decision making performed by me. Departure Information Dispostion Home / Self-Care Prescriptions Benzonatate (TESSALON PERLES) 100 Mg Cap 100 MG PO TID for 7 Days, #21 CAP Prov: Abrahan Lorenzo M.D. 02/28/17 Referrals Navdeep Olson M.D. (PCP) Patient Instructions Chest Pain - [facility], Coughing Techniques, [facility], Techniques Cough Airway Clear Additional Instructions Please return to the emergency department if you have worsening or recurrent symptoms not amenable to at-home treatment. Please call for a follow-up appointment with her primary care physician. Please take your medications as prescribed. If you have other concerns and/or complaints please feel free to also call your primary care physician's office or return the ED for further evaluation, management, and treatment. You may take 600 mg Ibuprofen every 6 hours as needed for pain with food for no more than 2 consecutive days. You may take tylenol 1000mg every 6 hours as needed for pain. You may take motrin and tylenol separately or at the same time. Try tessalon perrles and/or cepacol for cough/throat discomfort. You may also try mucinex and deep breathing techniques. You have been examined and treated today on an emergency basis only. This is not a substitute for, or an effort to provide, complete comprehensive medical care. It is impossible to recognize and treat all injuries or illnesses in a single emergency department visit. It is therefore important that you follow up closely with [facility]. Call as soon as possible for an appointment. Thank you for your time and consideration. I look forward to speaking with you again soon. Please don't hesitate to call us if you have any questions. Problem Qualifiers Primary Impression: Chest pain Chest pain type: unspecified Qualified Codes: R07.9 - Chest pain, unspecified
[2017-02-28 14:44] VITALS: O2SAT 100
[2017-02-28 14:55] LABS: PARTIAL THROMBOPLASTIN RATIO 1.1; PROTHROMBIN TIME (PATIENT) 10.7 SECONDS (9.0-12.0)
[2017-02-28 15:01] LABS: BASO % 0.3 %; BASO ABS # 0.03 K/uL (0-0.2); COMPLETE YES; EOS % 0.3 %; HEMATOCRIT 47.2 % (37-47); IG% 0.4 %; LYMPH % 19.3 %; LYMPH ABS # 2.24 K/uL (1.2-3.4); MEAN CELL VOLUME 91.1 fL (80-100); MEAN CORPUSCULAR HEMOGLOBIN 32.2 pg (25-34); MEAN CORPUSCULAR HGB CONC 35.4 g/dl (32-36); MONO % 7.3 %; NEUT % 72.4 %; PLATELET COUNT 340 K/uL (130-400); RED BLOOD COUNT 5.18 M/uL (4.2-5.4); WHITE BLOOD COUNT 11.61 K/uL (4.8-10.8)
[2017-02-28 15:07] LABS: BUN/CREATININE RATIO 15.4 (10-20); CALCIUM 9.1 mg/dl (8.5-10.1); CREATININE 0.77 mg/dl (0.60-1.20); POTASSIUM 3.7 mmol/L (3.5-5.1)
[2017-02-28] MEDS ORDERED: TRAMADOL HCL 50 MG TAB PO STA (15:18)
[2017-02-28] MEDS ORDERED: BENZONATATE 100MG CAP PO ONE (15:30)
[2017-02-28 16:20] VITALS: TEMP 36.9
[2017-02-28] MEDS ORDERED: BENZ100C18 PO (17:12)
[2017-02-28 17:18] VITALS: BP 106/76; PULSE 92; O2SAT 100
== END 2017-02-28 17:20 | disposition home or self-care (01) ==
LOC: C.EDB 13:52
DX: R07.9 Chest pain, unspecified (principal); R05 Cough; Z71.6 Tobacco abuse counseling; J45.909 Unspecified asthma, uncomplicated; F31.9 Bipolar disorder, unspecified; N83.209 Unspecified ovarian cyst, unspecified side; F17.200 Nicotine dependence, unspecified, uncomplicated; Z87.440 Personal history of urinary (tract) infections; Z87.19 Personal history of other diseases of the digestive system; Z79.899 Other long term (current) drug therapy; Z88.0 Allergy status to penicillin; Z88.1 Allergy status to other antibiotic agents; Z83.3 Family history of diabetes mellitus; Z80.9 Family history of malignant neoplasm, unspecified

== ENCOUNTER 2017-04-24 16:37 | Emergency (ER) | payer BC ==
[~2017-04-24] VITALS: Ht 157.5 cm; Wt 68.1 kg
[~2017-04-24 16:37] MED LIST changes: -ATR25 PO; -CLON0.5T3 PO; +EFF75 PO; +LITH1TAB10 PO; -LTHCR300 PO; -VENL75CA PO
[2017-04-24 16:51] VITALS: TEMP 37; Ht 157.5 cm; Wt 68.1 kg
[2017-04-24] MEDS ORDERED: ALBUT/IPRATROP 3MG/0.5MG NEB 3 ML VIAL INH STA (17:21)
[2017-04-24 17:34] LABS: BASO % 0.5 %; BASO ABS # 0.04 K/uL (0-0.2); COMPLETE YES; EOS % 0.5 %; HEMATOCRIT 42.6 % (37-47); IG% 0.3 %; LYMPH ABS # 2.59 K/uL (1.2-3.4); MEAN CELL VOLUME 90.1 fL (80-100); MEAN CORPUSCULAR HEMOGLOBIN 31.9 pg (25-34); MEAN CORPUSCULAR HGB CONC 35.4 g/dl (32-36); MEAN PLATELET VOLUME 9.3 fL (7.4-10.4); MONO % 8.9 %; NEUT % 56.8 %; PLATELET COUNT 299 K/uL (130-400); RED BLOOD COUNT 4.73 M/uL (4.2-5.4); WHITE BLOOD COUNT 7.84 K/uL (4.8-10.8)
[2017-04-24 17:55] LABS: BLOOD UREA NITROGEN 15 mg/dl (7-18); BUN/CREATININE RATIO 16.4 (10-20); CALCIUM 9.3 mg/dl (8.5-10.1); CARBON DIOXIDE 24 mmol/L (21-32); CHLORIDE 106 mmol/L (98-107); CREATININE 0.91 mg/dl (0.60-1.20); GLUCOSE 77 mg/dl (70-99); POTASSIUM 3.6 mmol/L (3.5-5.1); SODIUM 137 mmol/L (136-145)
[2017-04-24] MEDS ORDERED: EFFSR75 PO (17:55)
[2017-04-24] MEDS ORDERED: IMT50 PO (17:55)
[2017-04-24] MEDS ORDERED: ATR25 PO (17:55)
[2017-04-24] MEDS ORDERED: MEDR1INJ5 IM (17:55)
[2017-04-24] MEDS ORDERED: NRN800 PO (17:55)
[2017-04-24] MEDS ORDERED: ACET500T58 PO (17:55)
[2017-04-24 18:14] LABS: PREG INTERNAL NEGATIVE QC NEG CLEAR BACKGROUND; PREG INTERNAL POSITIVE QC POS CONTROL LINE
--- NOTE | 2017-04-24 18:20 | DIAGNOSTIC IMAGING REPORT ---
CHEST 2 VIEWS ROUTINE CLINICAL HISTORY: Cough. Fever. COMPARISON STUDY: Chest radiograph February 28, 2017. FINDINGS: Bilateral nipple piercings are incidentally noted. There is no pneumothorax or pleural effusion. No consolidation is identified. Cardiomediastinal silhouette is normal. Pulmonary vascularity is normal. IMPRESSION: No acute cardiopulmonary findings. Electronically signed by: Luigi Loepz M.D. 04/24/2017 6:19 PM Dictated Date/Time: 04/24/2017 6:18 PM
[2017-04-24] MEDS ORDERED: HYDROCODONE/HOMATROPINE SYRUP 5MG/1.5MG 5ML UDP PO STA (18:37)
[2017-04-24] MEDS ORDERED: SODIUM CHLORIDE 0.9% 1000ML 1,000 ML IV STA (18:37)
[2017-04-24] MEDS ORDERED: AZITHROMYCIN 250 MG TAB PO ONE (19:45)
[2017-04-24] MEDS ORDERED: AZIT250T PO (19:54)
[2017-04-24] MEDS ORDERED: HYDR5SYP11 PO (19:58)
--- NOTE | 2017-04-24 19:59 | EMERGENCY ROOM VISIT NOTE ---
History First contact with patient: 16:53 Chief Complaint: COUGH Stated Complaint: COUGH, FEVER, CHEST PAIN Nursing Triage Summary: pt reports cough and cold sx X 2.5 weeks increased mucus production dark green in color X 3 days History of Present Illness The patient is a 26 year old female who presents to the Emergency Room with complaints of cough and chest tightness. The patient reports she has had cold symptoms for the past 2 weeks. She states that her symptoms have been worsening over the past 2-3 days. She has had a cough which has been productive of dark green mucus. She states that she has some pain in her chest when she coughs and some pain with inspiration. She denies any fevers. She has been taking several xkqd-gka-iakqnfo medications without relief. She is a smoker. She does not take control pills. She denies recent travel. She denies leg pain or swelling. Review of Systems A complete 10 point review of systems was reviewed with the patient with pertinent positives and negatives as per history of present illness. All else were negative. Past Medical/Surgical History Medical Problems: (1) Abdominal pain (2) Abdominal pain in (3) Abdominal/ pelvic pain (4) Asthma (5) Back pain (6) Bipolar disorder current episode depressed (7) Bronchitis (8) Bronchitis (9) Crohns disease (10) Crohns disease (11) Dehydration (12) Diarrhea (13) Flank pain (14) Generalized abdominal pain (15) Hemorrhagic ovarian cyst (16) Intermittent abdominal pain (17) labor (18) Left sided abdominal pain (19) Lymphocytic colitis (20) Migraine (21) ocd traits (22) ovarian cyst (23) Ovarian cyst (24) Pelvic pain (25) with 20 completed weeks gestation (26) Ruptured ovarian cyst (27) Supervision of other normal (28) Syncope (29) Threatened miscarriage (30) Threatened miscarriage (31) Tobacco abuse (32) Ulcerative colitis (33) Urinary tract infection (34) Urinary tract infection (35) Uterine contractions at greater than 20 weeks of gestation (36) Vaginal bleeding before 22 weeks gestation (37) Vasovagal syncope (38) Vomiting Surgical Problems: (1) [place] Teeth Removal Family History Diabetes mellitus FH: cancer Social History Smoking Status: Current Every Day Smoker Alcohol Use: none Drug Use: none Marital Status: in relationship Housing Status: lives with family Occupation Status: employed Current/Historical Medications Scheduled Azithromycin (Zithromax), 250 MG PO DAILY Gabapentin (Gabapentin), 800 MG PO TID Hydroxyzine HCl (Hydroxyzine HCl), 25 MG PO HS Medroxyprogesterone Acetate (C (Medroxyprogesterone Aceta), 150 MG IM [id number] Venlafaxine Hcl (Effexor Extended Rel), 75 MG PO DAILY Scheduled PRN Acetaminophen (Acetaminophen), 1,000 MG PO Q6H PRN for Pain Ltxtksy-Jmhlwrzrgavti-Ymkizfdv (Excedrin Extra Strength), 2 TABS PO UD PRN for Pain Hydrocodone W/ Homatropine (Hycodan 5/1.5MG 5 Ml), 5-10 ML PO Q4H PRN for Cough Sumatriptan Succinate (Sumatriptan Succinate), 50 MG PO Q2H PRN for Migraine Physical Exam Vital Signs Date Time Temp Pulse Resp B/P (MAP) Pulse Ox O2 Delivery O2 Flow Rate FiO2 04/24/17 20:25 108 18 107/62 100 Room Air 04/24/17 19:35 92 18 100 Room Air 04/24/17 18:53 133 18 114/63 100 04/24/17 18:00 125 20 96 04/24/17 16:51 37.0 120 20 138/71 100 Room Air Physical Exam VITALS: Vitals are noted on the nurse's note and reviewed by myself. Vital signs stable. GENERAL: This is a 26-year-old female, in no acute distress, nondiaphoretic, well-developed well-nourished. SKIN: The skin was without rashes. EARS: External auditory canals clear, tympanic membranes pearly neri without erythema or effusion bilaterally. EYES: Pupils equal round and reactive to light and accommodation. NOSE: Patent, turbinates without inflammation or discharge. MOUTH: Mucous membranes moist. Tonsils are not enlarged. Pharynx without erythema or exudate. NECK: Supple without nuchal rigidity. No lymphadenopathy. HEART: Regular rate and rhythm without murmurs gallops or rubs. LUNGS: Clear to auscultation bilaterally without wheezes, rales or rhonchi. NEURO: Patient was alert and oriented to person place and time. Medical Decision & Procedures ER Provider Diagnostic Interpretation: CHEST 2 VIEWS ROUTINE CLINICAL HISTORY: Cough. Fever. COMPARISON STUDY: Chest radiograph February 28, 2017. FINDINGS: Bilateral nipple piercings are incidentally noted. There is no pneumothorax or pleural effusion. No consolidation is identified. Cardiomediastinal silhouette is normal. Pulmonary vascularity is normal. IMPRESSION: No acute cardiopulmonary findings. Laboratory Results 04/24/17 17:14 Red Blood Count 4.73, Mean Corpuscular Volume 90.1, Mean Corpuscular Hemoglobin 31.9, Mean Corpuscular Hemoglobin Concent 35.4, Mean Platelet Volume 9.3, Neutrophils (%) (Auto) 56.8, Lymphocytes (%) (Auto) 33.0, Monocytes (%) (Auto) 8.9, Eosinophils (%) (Auto) 0.5, Basophils (%) (Auto) 0.5, Neutrophils # (Auto) 4.45, Lymphocytes # (Auto) 2.59, Monocytes # (Auto) 0.70, Eosinophils # (Auto) 0.04, Basophils # (Auto) 0.04 04/24/17 17:14 Test 04/24/17 17:14 White Blood Count 7.84 K/uL (4.8-10.8) Red Blood Count 4.73 M/uL (4.2-5.4) Hemoglobin 15.1 g/dL (12.0-16.0) Hematocrit 42.6 % (37-47) Mean Corpuscular Volume 90.1 fL (80-100) Mean Corpuscular Hemoglobin 31.9 pg (25-34) Mean Corpuscular Hemoglobin Concent 35.4 g/dl (32-36) Platelet Count 299 K/uL (130-400) Mean Platelet Volume 9.3 fL (7.4-10.4) Neutrophils (%) (Auto) 56.8 % Lymphocytes (%) (Auto) 33.0 % Monocytes (%) (Auto) 8.9 % Eosinophils (%) (Auto) 0.5 % Basophils (%) (Auto) 0.5 % Neutrophils # (Auto) 4.45 K/uL (1.4-6.5) Lymphocytes # (Auto) 2.59 K/uL (1.2-3.4) Monocytes # (Auto) 0.70 K/uL (0.11-0.59) Eosinophils # (Auto) 0.04 K/uL (0-0.5) Basophils # (Auto) 0.04 K/uL (0-0.2) RDW Standard Deviation 39.8 fL (36.4-46.3) RDW Coefficient of Variation 12.2 % (11.5-14.5) Immature Granulocyte % (Auto) 0.3 % Immature Granulocyte # (Auto) 0.02 K/uL (0.00-0.02) Anion Gap 8.0 mmol/L (3-11) Est Creatinine Clear Calc Drug Dose 86.2 ml/min Estimated GFR () 102.3 Estimated GFR (Non- 88.3 BUN/Creatinine Ratio 16.4 (10-20) Calcium Level 9.3 mg/dl (8.5-10.1) Troponin I < 0.015 ng/ml (0-0.045) Thyroid Stimulating Hormone (TSH) 1.370 uIu/ml (0.300-4.500) Human Chorionic Gonadotropin, Qual NEG (NEG) Medications Administered Medications (Trade) Dose Ordered Sig/Pro Route Start Time Stop Time Status Last Admin Dose Admin Albuterol/ Ipratropium (Duoneb) 3 ml NOW STAT INH 04/24/17 17:21 04/24/17 17:22 DC 04/24/17 17:38 3 ML Hydrocodone Bit/ Homatropine Methylb (Hycodan Syrup) 10 ml NOW STAT PO 04/24/17 18:37 04/24/17 18:38 DC 04/24/17 19:02 10 ML Sodium Chloride 1,000 ml @ 999 mls/hr Q1H1M STAT IV 04/24/17 18:37 04/24/17 19:37 DC 04/24/17 18:49 999 MLS/HR Azithromycin (Zithromax Tab) 500 mg NOW ONCE PO 04/24/17 19:45 04/24/17 19:46 DC 04/24/17 19:59 500 MG ECG Rate (beats per minute): 116 Rhythm: sinus tachycardia Findings: no acute ischemic change, no ectopy Change: no significant change ED Course The patient was evaluated as above. Labs were drawn and IV access was obtained. Patient was medicated with a DuoNeb treatment. Patient was reevaluated and is complaining of cough. She requested something for the cough. She was given Hycodan cough syrup. Discharge instructions were reviewed with the patient. The patient verbalized understanding of my assessment and treatment plan and was discharged home in good condition. Medical Decision Differential diagnosis includes pneumonia, upper respiratory infection, pulmonary embolism, among others. The patient is a 26-year-old female who presents today complaining of cough, shortness of breath and chest tightness. Labs revealed no leukocytosis, anemia , or concerning electrolyte abnormalities. EKG was interpreted by myself and shows a sinus tachycardia. D-dimer was not found to be elevated. Patient is relatively low risk and I do not feel further workup for PE is warranted. Chest x-ray negative. Patient was given a DuoNeb treatment and Hycodan cough syrup. Patient has had worsening symptoms and I do feel she may have some component of a bacterial sinusitis at this point. She will be placed on Zithromax. Conservative measures were discussed. She was instructed to follow up with her PCP. Based on the patient's presentation and work up, I feel the patient is stable for outpatient treatment. The patient was educated to return to the emergency department for any worsening of their current condition or new/concerning symptoms. She will follow up with PCP. [place] [facility] Monitoring Program Search Results: patient reviewed within database, no issues identified Medication Reconcilliation Current Medication List: was personally reviewed by me Blood Pressure Screening Patient's blood pressure: Normal blood pressure Impression Primary Impression: Upper respiratory infection Departure Information Dispostion Home / Self-Care Condition GOOD Prescriptions Hydrocodone W/ Homatropine (HYCODAN 5/1.5MG 5 ML) 1 Syp Syp 5-10 ML PO Q4H Y for Cough, #60 ML Prov: Nika Alamo .YANA 04/24/17 Azithromycin (Zithromax) 250 Mg Tab 250 MG PO DAILY for 4 Days, #4 TAB Prov: Nika Alamo PA-C 04/24/17 Referrals Navdeep Olson M.D. (PCP) Patient Instructions [facility] Additional Instructions Antibiotics as prescribed. For pain control, you can use the following xiue-bfb-yhfplle medicines (if >12 yo): - Regular strength (325mg/tab) Tylenol (acetaminophen) 2 tabs every 4-6 hours as needed. Do not exceed 12 tablets in a 24 hour period. Avoid taking more than 4 grams (4000 mg) of Tylenol per day. This includes any other sources of acetaminophen you may take on a regular basis. - Regular strength (200 mg/tab) Advil (ibuprofen) 1-2 tabs every 4-6 hours as needed. Do not exceed a dose of 3200 mg per day. Use the cough syrup as needed for severe cough. Keep in mind that this is a narcotic medication and will make you drowsy. It is illegal to drive while taking this medication. You should not drink alcohol or operate heavy machinery while taking this medication. Follow-up with your primary care provider this week for a recheck. Return to the emergency Department for worsening or new/concerning symptoms. Problem Qualifiers Primary Impression: Upper respiratory infection URI type: unspecified URI Qualified Codes: J06.9 - Acute upper respiratory infection, unspecified
[2017-04-24] MEDS ORDERED: ASPI-391 PO (20:02)
[2017-04-24 20:25] VITALS: BP 107/62; PULSE 108; O2SAT 100
== END 2017-04-24 20:27 | disposition home or self-care (01) ==
LOC: C.EDB 16:38 → C.EDD 20:27
DX: J06.9 Acute upper respiratory infection, unspecified (principal); J45.909 Unspecified asthma, uncomplicated; K50.90 Crohn's disease, unspecified, without complications; F17.200 Nicotine dependence, unspecified, uncomplicated; Z87.440 Personal history of urinary (tract) infections; Z87.59 Personal history of other complications of pregnancy, childbirth and the puerperium; Z98.818 Other dental procedure status; Z83.3 Family history of diabetes mellitus; Z79.899 Other long term (current) drug therapy

== ENCOUNTER 2017-05-04 16:54 | Emergency (ER) | payer BC ==
[~2017-05-04] VITALS: Ht 157.5 cm; Wt 71.6 kg
[~2017-05-04 16:54] MED LIST changes: -ACET-1311 PO; -EFF75 PO; -GABA800T PO; +HYDR5SYP11 PO; -LITH1TAB10 PO; -MEDR150I INJ; +MEDR1INJ5 IM; -SUMA50TA15 PO
[2017-05-04 17:04] VITALS: Ht 157.5 cm; Wt 71.6 kg
[2017-05-04] MEDS ORDERED: ONDANSETRON INJ 2 MG/ML 2 ML VIAL IV STA ×2 (17:22→19:12)
[2017-05-04] MEDS ORDERED: SODIUM CHLORIDE 0.9% 1000ML 1,000 ML IV STA (17:22)
[2017-05-04] MEDS ORDERED: LTHCR300 PO (17:23)
--- NOTE | 2017-05-04 17:37 | EMERGENCY ROOM VISIT NOTE ---
History Report prepared by Juliana: Keyshawn Kauffman Under the Supervision of: Dr. Norman Franco D.O. First contact with patient: 17:11 Chief Complaint: ABDOMINAL PAIN Stated Complaint: LOWER ABD PAIN, GOING UP SIDE History of Present Illness The patient is a 26 year old female who presents to the Emergency Room with complaints of worsening right sided abdominal pain starting around 0800. She currently rates her discomfort as a 7/10 in severity. The patient states that the pain is similar to the last time that she had an ovarian cyst. She states that she is nauseous, though she denies any vomiting. She additionally denies any back pain or urinary symptoms. The patient also has a history of lymphocytic colitis and chronic migraines. She has had a colonoscopy and wisdom teeth extraction. The patient states that she smokes cigarettes, and she just got off of Depo-Provera. Source of History: patient Onset: this morning arond 0800 Position: abdomen Symptom Intensity: 7/10 Timing: worsening Associated Symptoms: + nausea, No vomiting, No back pain, No urinary symptoms Review of Systems See HPI for pertinent positives & negatives. A total of 10 systems reviewed and were otherwise negative. 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 (22) ovarian cyst (23) Ovarian cyst (24) Pelvic pain (25) with 20 completed weeks gestation (26) Ruptured ovarian cyst (27) Supervision of other normal (28) Syncope (29) Threatened miscarriage (30) Threatened miscarriage (31) Tobacco abuse (32) Ulcerative colitis (33) Urinary tract infection (34) Urinary tract infection (35) Uterine contractions at greater than 20 weeks of gestation (36) Vaginal bleeding before 22 weeks gestation (37) Vasovagal syncope (38) Vomiting Surgical Problems: (1) [place] Teeth Removal Family History Diabetes mellitus FH: cancer Social History Smoking Status: Current Every Day Smoker Alcohol Use: none Drug Use: none Marital Status: in relationship Housing Status: lives with family Occupation Status: employed Current/Historical Medications Scheduled Ripcafr-Xiirhzwoagmvx-Ydhtbvsx (Excedrin Extra Strength), 2 TABS PO UD Gabapentin (Gabapentin), 800 MG PO TID Hydroxyzine HCl (Hydroxyzine HCl), 25 MG PO HS [place] Carbonate ([place] Carbonate ER), 300 MG PO HS Venlafaxine Hcl (Effexor Extended Rel), 75 MG PO DAILY Scheduled PRN Acetaminophen (Acetaminophen), 1,000 MG PO Q6H PRN for Pain Sumatriptan Succinate (Sumatriptan Succinate), 50 MG PO UD PRN for Migraine Allergies Coded Allergies: Penicillins (Verified Allergy, Mild, RASH, 03/18/17) Amoxicillin (Verified Allergy, Unknown, rash, 03/18/17) Physical Exam Vital Signs Date Time Temp Pulse Resp B/P (MAP) Pulse Ox O2 Delivery O2 Flow Rate FiO2 05/04/17 20:26 81 16 109/71 100 05/04/17 18:37 36.7 93 18 113/67 100 Room Air 05/04/17 18:16 87 05/04/17 17:04 37.1 96 20 132/83 100 Room Air Physical Exam GENERAL: Patient is awake, alert, mildly anxious, and uncomfortable appearing EYES: The conjunctivae are clear. The pupils are round and reactive. EARS, NOSE, MOUTH AND THROAT: The nose is without any evidence of any deformity. Mucous membranes are moist tongue is midline NECK: The neck is nontender and supple. RESPIRATORY: Normal respiratory effort is noted there is no evidence of wheezing rhonchi or rales CARDIOVASCULAR: Regular rate and rhythm noted there no murmurs rubs or gallops normal S1 normal S2 GASTROINTESTINAL: The abdomen is soft with significant right lower quadrant tenderness to palpation. No guarding or rigidity appreciated. BACK: No midline tenderness or or step-off noted range of motion in flexion extension as well as rotation no signs of muscle spasm noted MUSCULOSKELETAL/EXTREMITIES: There is no evidence of gross deformity full range of motion is noted in the hips and shoulders SKIN: There is no obvious evidence of any rash. There are no petechiae, pallor or cyanosis noted. NEUROLOGIC: Patient is awake alert and oriented x3 Medical Decision & Procedures ER Provider Diagnostic Interpretation: Radiology results as stated below per my review and radiologist interpretation: CT ABD/PELVIS IV AND ORAL CONT CLINICAL HISTORY: Right lower quadrant abdominal pain COMPARISON STUDY: 01/27/2017 TECHNIQUE: Following the IV administration of 115 mL of Optiray-320, CT scan of the abdomen and pelvis was performed from the lung bases to the proximal femurs. Images are reviewed in the axial, sagittal, and coronal planes. IV contrast was administered without complication. A dose lowering technique was utilized adhering to the principles of ALARA. CT DOSE: 362.43 mGy.cm FINDINGS: Lower chest: There are minimal dependent atelectatic changes Liver: The contrast-enhanced liver is normal in size, contour, and attenuation. There is no intrahepatic biliary ductal dilatation. The hepatic veins and portal veins are patent. Gallbladder: Unremarkable. Spleen: Normal in size and attenuation. Pancreas: Unremarkable. Adrenal glands: Unremarkable. Kidneys: There is symmetric renal cortical enhancement. The kidneys are normal in size without hydronephrosis. Bowel: There are no transition zones indicate bowel obstruction. The appendix appears normal. There is no acute diverticulitis. Peritoneum: There is no intraperitoneal free air or abdominal ascites. Vasculature: The abdominal aorta is normal in course and caliber. Adenopathy: None. Pelvic viscera: The bladder, and pelvic viscera are unremarkable. Skeletal structures: No destructive osseous lesions are seen. IMPRESSION: 1. No acute intra-abdominal or pelvic findings 2. No evidence of bowel obstruction. No evidence of free air 3. Normal appendix 4. No evidence of acute diverticulitis Electronically signed by: Tunde Smith M.D. 05/04/2017 8:12 PM Dictated Date/Time: 05/04/2017 8:09 PM Laboratory Results 05/04/17 17:45 Red Blood Count 4.81, Mean Corpuscular Volume 91.3, Mean Corpuscular Hemoglobin 31.6, Mean Corpuscular Hemoglobin Concent 34.6, Mean Platelet Volume 9.5, Neutrophils (%) (Auto) 58.0, Lymphocytes (%) (Auto) 29.8, Monocytes (%) (Auto) 9.3, Eosinophils (%) (Auto) 2.5, Basophils (%) (Auto) 0.2, Neutrophils # (Auto) 4.66, Lymphocytes # (Auto) 2.40, Monocytes # (Auto) 0.75, Eosinophils # (Auto) 0.20, Basophils # (Auto) 0.02 05/04/17 17:45 Test 12/22/17 17:30 05/04/17 17:45 Urine Color YELLOW Urine Appearance TURBID (CLEAR) Urine pH 7.5 (4.5-7.5) Urine Specific [place] 1.019 (1.000-1.030) Urine Protein NEG (NEG) Urine Glucose (UA) NEG (NEG) Urine Ketones NEG (NEG) Urine Occult Blood NEG (NEG) Urine Nitrite NEG (NEG) Urine Bilirubin NEG (NEG) Urine Urobilinogen NEG (NEG) Urine Leukocyte Esterase LARGE (NEG) Urine WBC (Auto) 5-10 /hpf (0-5) Urine RBC (Auto) 0-4 /hpf (0-4) Urine Hyaline Casts (Auto) 0 /lpf (0-5) Urine Epithelial Cells (Auto) >30 /lpf (0-5) Urine Bacteria (Auto) 1+ (NEG) White Blood Count 8.05 K/uL (4.8-10.8) Red Blood Count 4.81 M/uL (4.2-5.4) Hemoglobin 15.2 g/dL (12.0-16.0) Hematocrit 43.9 % (37-47) Mean Corpuscular Volume 91.3 fL (80-100) Mean Corpuscular Hemoglobin 31.6 pg (25-34) Mean Corpuscular Hemoglobin Concent 34.6 g/dl (32-36) Platelet Count 303 K/uL (130-400) Mean Platelet Volume 9.5 fL (7.4-10.4) Neutrophils (%) (Auto) 58.0 % Lymphocytes (%) (Auto) 29.8 % Monocytes (%) (Auto) 9.3 % Eosinophils (%) (Auto) 2.5 % Basophils (%) (Auto) 0.2 % Neutrophils # (Auto) 4.66 K/uL (1.4-6.5) Lymphocytes # (Auto) 2.40 K/uL (1.2-3.4) Monocytes # (Auto) 0.75 K/uL (0.11-0.59) Eosinophils # (Auto) 0.20 K/uL (0-0.5) Basophils # (Auto) 0.02 K/uL (0-0.2) RDW Standard Deviation 41.1 fL (36.4-46.3) RDW Coefficient of Variation 12.2 % (11.5-14.5) Immature Granulocyte % (Auto) 0.2 % Immature Granulocyte # (Auto) 0.02 K/uL (0.00-0.02) Anion Gap 3.0 mmol/L (3-11) Est Creatinine Clear Calc Drug Dose 94.6 ml/min Estimated GFR () 111.2 Estimated GFR (Non- 95.9 BUN/Creatinine Ratio 19.2 (10-20) Calcium Level 8.8 mg/dl (8.5-10.1) Total Bilirubin 0.2 mg/dl (0.2-1) Direct Bilirubin < 0.1 mg/dl (0-0.2) Aspartate Amino Transf (AST/SGOT) 15 U/L (15-37) Alanine Aminotransferase (ALT/SGPT) 36 U/L (12-78) Alkaline Phosphatase 77 U/L (45-117) Total Protein 8.5 gm/dl (6.4-8.2) Albumin 4.1 gm/dl (3.4-5.0) Lipase 345 U/L (73-393) Human Chorionic Gonadotropin, Qual NEG (NEG) Laboratory results per my review. Medications Administered Medications (Trade) Dose Ordered Sig/Pro Route Start Time Stop Time Status Last Admin Dose Admin Sodium Chloride 1,000 ml @ 999 mls/hr Q1H1M STAT IV 05/04/17 17:22 05/04/17 18:22 DC 05/04/17 17:57 999 MLS/HR Ondansetron HCl (Zofran Inj) 4 mg NOW STAT IV 05/04/17 17:22 05/04/17 17:24 DC 05/04/17 17:57 4 MG Morphine Sulfate (MoRPHine SULFATE INJ) 4 mg Q15M PRN IV 05/04/17 17:30 05/04/17 20:56 DC 05/04/17 19:20 4 MG Ondansetron HCl (Zofran Inj) 4 mg NOW STAT IV 05/04/17 19:12 05/04/17 19:13 DC 05/04/17 19:19 4 MG Oxycodone HCl (Roxicodone Immediate Rel 5MG Home Pack) 1 homepack UD ONCE PO 05/04/17 20:30 05/04/17 20:31 DC 05/04/17 20:33 1 HOMEPACK Ondansetron HCl (ZOFRAN ODT 4MG Home Pack) 1 homepack UD ONCE PO 05/04/17 20:30 05/04/17 20:31 DC 05/04/17 20:33 1 HOMEMICK ED Course 1711: The patient was evaluated in room C1. A complete history and physical examination were performed. 172: Zofran 4mg IV, NSS 1,000 ml @ 999 mls/hr IV 1730: Morphine Sulfate 4mg IV 191: Zofran 4mg IV 2020: Upon reevaluation, the patient is doing well. I discussed the results and treatment plan with her. She verbalized agreement of the treatment plan. She was discharged home. 2030: Zofran ODT 4mg Home Pack PO, Roxicodone Immediate Relief 5mg Home Pack PO Medical Decision Differential diagnosis: Etiologies such as appendicitis, diverticulitis, PUD, biliary pathology, UTI, pancreatitis, obstruction, mesenteric ischemia, aortic pathology, infections, inflammatory bowel disease, renal colic, as well as others were entertained. Nursing notes reviewed. The patient is a 26-year-old female who presented to the emergency department for an evaluation of right lower quadrant abdominal pain. The patient has a history of ovarian cyst. The patient felt that this was consistent with ovarian cyst better pain appeared to be higher and I thought it could be consistent with appendicitis. The patient was treated with IV fluids IV pain medicine and IV antiemetics. On subsequent reevaluation she was feeling much better. I discussed the patient's laboratory and radiographic studies with her. She was encouraged to rest and avoid any strenuous activity. She was also encouraged to call her family doctor in the morning to schedule a follow-up appointment. She was also encouraged to return to the emergency department immediately if symptoms change worsen or the need arises. Medication Reconcilliation Current Medication List: was personally reviewed by me Blood Pressure Screening Patient's blood pressure: Normal blood pressure Impression Primary Impression: Right lower quadrant abdominal pain Scribe Attestation The scribe's documentation has been prepared under my direction and personally reviewed by me in its entirety. I confirm that the note above accurately reflects all work, treatment, procedures, and medical decision making performed by me. Departure Information Dispostion Home / Self-Care Forms HOME CARE DOCUMENTATION FORM, IMPORTANT VISIT INFORMATION, Work Instructions Patient Instructions Abdominal Pain, My [facility] Additional Instructions Call your primary care physician to schedule a follow-up appointment. Continue all medications as prescribed. Continue using Motrin and Tylenol as directed for pain.
[2017-05-04 17:39] LABS: MANUAL MICROSCOPIC REQUIRED? NO; REVIEW REQ? NO; URINE APPEARANCE TURBID (CLEAR); URINE BILIRUBIN NEG (NEG); URINE COLOR YELLOW; URINE EPITHELIAL CELL AUTO >30 /lpf (0-5); URINE NITRITE NEG (NEG); URINE PH 7.5 (4.5-7.5); URINE SPECIFIC GRAVITY 1.019 (1.000-1.030); UROBILINOGEN NEG (NEG)
[2017-05-04] MEDS ORDERED: OPTIRAY 320 IV PRN (17:45)
[2017-05-04] MEDS ORDERED: NRN800 PO (17:55)
[2017-05-04] MEDS ORDERED: IMT50 PO (17:55)
[2017-05-04] MEDS ORDERED: EFFSR75 PO (17:55)
[2017-05-04] MEDS ORDERED: ATR25 PO (17:55)
[2017-05-04] MEDS ORDERED: ACET500T58 PO (17:55)
[2017-05-04] MEDS: MoRPHine SULFATE 4 MG/ML 1 ML CARP\\VIAL IV PRN ×2 (17:58→19:20)
[2017-05-04 18:03] LABS: BASO % 0.2 %; BASO ABS # 0.02 K/uL (0-0.2); COMPLETE YES; EOS % 2.5 %; HEMATOCRIT 43.9 % (37-47); IG% 0.2 %; LYMPH % 29.8 %; MEAN CELL VOLUME 91.3 fL (80-100); MEAN CORPUSCULAR HEMOGLOBIN 31.6 pg (25-34); MEAN CORPUSCULAR HGB CONC 34.6 g/dl (32-36); MEAN PLATELET VOLUME 9.5 fL (7.4-10.4); MONO % 9.3 %; PLATELET COUNT 303 K/uL (130-400); RED BLOOD COUNT 4.81 M/uL (4.2-5.4); WHITE BLOOD COUNT 8.05 K/uL (4.8-10.8)
[2017-05-04 18:29] LABS: ALKALINE PHOSPHATASE 77 U/L (45-117); ALT/SGPT 36 U/L (12-78); AST/SGOT 15 U/L (15-37); BLOOD UREA NITROGEN 16 mg/dl (7-18); BUN/CREATININE RATIO 19.2 (10-20); CALCIUM 8.8 mg/dl (8.5-10.1); CARBON DIOXIDE 27 mmol/L (21-32); CHLORIDE 107 mmol/L (98-107); GLUCOSE 80 mg/dl (70-99); POTASSIUM 3.8 mmol/L (3.5-5.1); PREG INTERNAL NEGATIVE QC NEG CLEAR BACKGROUND; PREG INTERNAL POSITIVE QC POS CONTROL LINE; SODIUM 137 mmol/L (136-145)
[2017-05-04 18:31] LABS: CREATININE 0.85 mg/dl (0.60-1.20)
[2017-05-04 18:37] VITALS: TEMP 36.7
[2017-05-04] MEDS ORDERED: ASPI-391 PO (20:02)
--- NOTE | 2017-05-04 20:13 | DIAGNOSTIC IMAGING REPORT ---
CT ABD/PELVIS IV AND ORAL CONT CLINICAL HISTORY: Right lower quadrant abdominal pain COMPARISON STUDY: 01/27/2017 TECHNIQUE: Following the IV administration of 115 mL of Optiray-320, CT scan of the abdomen and pelvis was performed from the lung bases to the proximal femurs. Images are reviewed in the axial, sagittal, and coronal planes. IV contrast was administered without complication. A dose lowering technique was utilized adhering to the principles of ALARA. CT DOSE: 362.43 mGy.cm FINDINGS: Lower chest: There are minimal dependent atelectatic changes Liver: The contrast-enhanced liver is normal in size, contour, and attenuation. There is no intrahepatic biliary ductal dilatation. The hepatic veins and portal veins are patent. Gallbladder: Unremarkable. Spleen: Normal in size and attenuation. Pancreas: Unremarkable. Adrenal glands: Unremarkable. Kidneys: There is symmetric renal cortical enhancement. The kidneys are normal in size without hydronephrosis. Bowel: There are no transition zones indicate bowel obstruction. The appendix appears normal. There is no acute diverticulitis. Peritoneum: There is no intraperitoneal free air or abdominal ascites. Vasculature: The abdominal aorta is normal in course and caliber. Adenopathy: None. Pelvic viscera: The bladder, and pelvic viscera are unremarkable. Skeletal structures: No destructive osseous lesions are seen. IMPRESSION: 1. No acute intra-abdominal or pelvic findings 2. No evidence of bowel obstruction. No evidence of free air 3. Normal appendix 4. No evidence of acute diverticulitis Electronically signed by: Tunde Smith M.D. 05/04/2017 8:12 PM Dictated Date/Time: 05/04/2017 8:09 PM
[2017-05-04 20:26] VITALS: BP 109/71; PULSE 81; O2SAT 100
[2017-05-04] MEDS ORDERED: OXYCODONE IR HOME PACK PO ONE (20:30)
[2017-05-04] MEDS ORDERED: ONDANSETRON HOME PACK 4MG OD TAB PO ONE (20:30)
== END 2017-05-04 20:35 | disposition home or self-care (01) ==
LOC: C.EDB 16:55 → C.EDC 20:35
DX: R10.31 Right lower quadrant pain (principal); F41.9 Anxiety disorder, unspecified; J45.909 Unspecified asthma, uncomplicated; F31.9 Bipolar disorder, unspecified; N83.209 Unspecified ovarian cyst, unspecified side; F17.200 Nicotine dependence, unspecified, uncomplicated; Z87.440 Personal history of urinary (tract) infections; Z79.82 Long term (current) use of aspirin; Z79.899 Other long term (current) drug therapy; Z88.0 Allergy status to penicillin; Z88.1 Allergy status to other antibiotic agents; Z83.3 Family history of diabetes mellitus; Z80.9 Family history of malignant neoplasm, unspecified

== ENCOUNTER 2017-05-13 09:03 | Emergency (ER) | payer BC ==
[~2017-05-13] VITALS: Ht 157.5 cm; Wt 58.0 kg
[~2017-05-13 09:03] MED LIST changes: +ACET500T58 PO; +ASPI-391 PO; +ATR25 PO; +EFFSR75 PO; -HYDR5SYP11 PO; +IMT50 PO; +LTHCR300 PO; -MEDR1INJ5 IM; +NRN800 PO
[2017-05-13 09:08] VITALS: Ht 157.5 cm; Wt 58.0 kg
[2017-05-13 09:15] VITALS: O2SAT 99
[2017-05-13] MEDS ORDERED: ALBUT/IPRATROP 3MG/0.5MG NEB 3 ML VIAL INH STA (09:26)
--- NOTE | 2017-05-13 09:32 | EMERGENCY ROOM VISIT NOTE ---
History Report prepared by Juliana: Andrés Lyons Under the Supervision of: Dr. Norman Franco D.O. First contact with patient: 09:22 Chief Complaint: RESPIRATORY PROBLEMS Stated Complaint: DIFFICULTY GETTING AIR, CHEST PAIN, BETH GASPING Nursing Triage Summary: I was on a z pack for bronchitis recently finished. I dont feel like I am getting enough oxygen. my chest is hurting when I try to take a breath. I am coughing up stuff History of Present Illness The patient is a 26 year old female who presents to the Emergency Room with complaints of worsening respiratory problems over the past few days. The patient just recently finished a Z-pack for a bout of bronchitis that started a couple weeks ago, and she says that her symptoms are coming back again. She notes that she feels like she can't breathe, and her chest feels really heavy. The patient states that she started having the chest pain yesterday morning. She notes that she has had a persistent cough as well. She says that she had fevers all night. The patient denies a runny nose. She says that she was not started on an inhaler when she was seen here for her previous bronchitis bout. 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 She notes no history of blood clots in her legs or lungs. Source of History: patient Onset: Over past few days Position: other (global - respiratory problems) Quality: other (just got over bronchitis) Timing: worsening Associated Symptoms: + fevers, + cough, + chest pain (heaviness) Note: Denies runny nose. Review of Systems See HPI for pertinent positives & negatives. A total of 10 systems reviewed and were otherwise negative. 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 (22) ovarian cyst (23) Ovarian cyst (24) Pelvic pain (25) with 20 completed weeks gestation (26) Ruptured ovarian cyst (27) Supervision of other normal (28) Syncope (29) Threatened miscarriage (30) Threatened miscarriage (31) Tobacco abuse (32) Ulcerative colitis (33) Urinary tract infection (34) Urinary tract infection (35) Uterine contractions at greater than 20 weeks of gestation (36) Vaginal bleeding before 22 weeks gestation (37) Vasovagal syncope (38) Vomiting Surgical Problems: (1) [place] Teeth Removal Family History Diabetes mellitus FH: cancer Social History Smoking Status: Current Every Day Smoker Alcohol Use: none Drug Use: none Marital Status: in relationship Housing Status: lives with family Occupation Status: employed Current/Historical Medications Scheduled Albuterol Hfa (Ventolin Hfa), 1 PUFF INH Q4 [place]-Efmsbbbrhenyl-Seapbtxe (Excedrin Extra Strength), 2 TABS PO UD Gabapentin (Gabapentin), 800 MG PO TID Hydroxyzine HCl (Hydroxyzine HCl), 25 MG PO HS [place] Carbonate ([place] Carbonate ER), 300 MG PO HS Venlafaxine Hcl (Effexor Extended Rel), 75 MG PO DAILY Scheduled PRN Acetaminophen (Acetaminophen), 1,000 MG PO Q6H PRN for Pain Clonazepam (Klonopin), 0.5 MG PO TID PRN for Anxiety Sumatriptan Succinate (Sumatriptan Succinate), 50 MG PO UD PRN for Migraine Allergies Coded Allergies: Penicillins (Verified Allergy, Mild, RASH, 05/13/17) Amoxicillin (Verified Allergy, Unknown, rash, 05/13/17) Physical Exam Vital Signs Date Time Temp Pulse Resp B/P (MAP) Pulse Ox O2 Delivery O2 Flow Rate FiO2 05/13/17 13:16 36.7 98 22 124/85 98 05/13/17 11:52 109 22 138/88 98 Room Air 05/13/17 10:45 92 26 120/81 100 Room Air 05/13/17 09:54 36.7 97 18 145/100 100 Room Air 05/13/17 09:20 97 05/13/17 09:15 99 Room Air 05/13/17 09:08 99 Room Air 05/13/17 09:08 36.7 97 18 141/100 99 Room Air Physical Exam GENERAL: Patient is awake, alert, mildly anxious appearing and uncomfortable. EYES: The conjunctivae are clear. The pupils are round and reactive. EARS, NOSE, MOUTH AND THROAT: The nose is without any evidence of any deformity. Mucous membranes are moist tongue is midline NECK: The neck is nontender and supple. RESPIRATORY: Splinting respirations noted. Diminished breath sounds throughout. Rhonchi noted in upper lung matthews. CARDIOVASCULAR: Heart sounds are tachycardic but regular. No definite murmurs noted to auscultation. GASTROINTESTINAL: The abdomen is soft. Bowel sounds are present in all quadrants. Abdomen is nontender PELVIS: The Pelvis is stable. No tenderness to palpation is noted. BACK: No midline tenderness or or step-off noted range of motion in flexion extension as well as rotation no signs of muscle spasm noted MUSCULOSKELETAL/EXTREMITIES: There is no evidence of gross deformity full range of motion is noted in the hips and shoulders SKIN: There is no obvious evidence of any rash. There are no petechiae, pallor or cyanosis noted. NEUROLOGIC: Patient is awake alert and oriented x3 strength is symmetric patellar reflexes are 2+ bilaterally Medical Decision & Procedures ER Provider Diagnostic Interpretation: X-ray results as stated below per interpretation by me and the radiologist. CHEST ONE VIEW PORTABLE CLINICAL HISTORY: EVALUATE RESPIRATORY DISTRESS.DYSPNEA chest pain COMPARISON STUDY: 04/24/2017 FINDINGS: The bones soft tissues and hemidiaphragms are normal. The cardiomediastinal silhouette is normal. The lungs are clear. The pulmonary vasculature is normal. IMPRESSION: Negative chest. No change from the prior exam The above report was generated using voice recognition software. It may contain grammatical, syntax or spelling errors. Electronically signed by: Gregorio Garcia M.D. 05/13/2017 10:02 AM Dictated Date/Time: 05/13/2017 10:01 AM Laboratory Results 05/13/17 09:10 Red Blood Count 4.69, Mean Corpuscular Volume 87.6, Mean Corpuscular Hemoglobin 31.6, Mean Corpuscular Hemoglobin Concent 36.0, Mean Platelet Volume 9.4, Neutrophils (%) (Auto) 75.9, Lymphocytes (%) (Auto) 14.3, Monocytes (%) (Auto) 8.9, Eosinophils (%) (Auto) 0.3, Basophils (%) (Auto) 0.3, Neutrophils # (Auto) 11.00, Lymphocytes # (Auto) 2.08, Monocytes # (Auto) 1.29, Eosinophils # (Auto) 0.05, Basophils # (Auto) 0.04 05/13/17 09:10 Test 05/13/17 09:10 05/13/17 09:39 05/13/17 09:52 White Blood Count 14.51 K/uL (4.8-10.8) Red Blood Count 4.69 M/uL (4.2-5.4) Hemoglobin 14.8 g/dL (12.0-16.0) Hematocrit 41.1 % (37-47) Mean Corpuscular Volume 87.6 fL (80-100) Mean Corpuscular Hemoglobin 31.6 pg (25-34) Mean Corpuscular Hemoglobin Concent 36.0 g/dl (32-36) Platelet Count 340 K/uL (130-400) Mean Platelet Volume 9.4 fL (7.4-10.4) Neutrophils (%) (Auto) 75.9 % Lymphocytes (%) (Auto) 14.3 % Monocytes (%) (Auto) 8.9 % Eosinophils (%) (Auto) 0.3 % Basophils (%) (Auto) 0.3 % Neutrophils # (Auto) 11.00 K/uL (1.4-6.5) Lymphocytes # (Auto) 2.08 K/uL (1.2-3.4) Monocytes # (Auto) 1.29 K/uL (0.11-0.59) Eosinophils # (Auto) 0.05 K/uL (0-0.5) Basophils # (Auto) 0.04 K/uL (0-0.2) RDW Standard Deviation 40.4 fL (36.4-46.3) RDW Coefficient of Variation 12.6 % (11.5-14.5) Immature Granulocyte % (Auto) 0.3 % Immature Granulocyte # (Auto) 0.05 K/uL (0.00-0.02) Prothrombin Time 10.5 SECONDS (9.0-12.0) Prothromb Time International Ratio 1.0 (0.9-1.1) Activated Partial Thromboplast Time 26.5 SECONDS (21.0-31.0) Partial Thromboplastin Ratio 1.0 Anion Gap 11.0 mmol/L (3-11) Est Creatinine Clear Calc Drug Dose 66.0 ml/min Estimated GFR () 87.1 Estimated GFR (Non- 75.1 BUN/Creatinine Ratio 6.1 (10-20) Calcium Level 9.5 mg/dl (8.5-10.1) Total Bilirubin 0.9 mg/dl (0.2-1) Aspartate Amino Transf (AST/SGOT) 16 U/L (15-37) Alanine Aminotransferase (ALT/SGPT) 27 U/L (12-78) Alkaline Phosphatase 81 U/L (45-117) Troponin I < 0.015 ng/ml (0-0.045) Total Protein 8.4 gm/dl (6.4-8.2) Albumin 4.5 gm/dl (3.4-5.0) Globulin 3.9 gm/dl (2.5-4.0) Albumin/Globulin Ratio 1.2 (0.9-2) Human Chorionic Gonadotropin, Qual NEG (NEG) Bedside D-Dimer 189 ng/mlFEU (0-450) Influenza Type A (RT-PCR) Neg for Influ A (NEG) Influenza Type A Antigen Neg for Influ A (NEG) Influenza Type B Antigen Neg for Influ B (NEG) Influenza Type B (RT-PCR) Neg for Influ B (NEG) Laboratory results per my review. Medications Administered Medications (Trade) Dose Ordered Sig/Pro Route Start Time Stop Time Status Last Admin Dose Admin Albuterol/ Ipratropium (Duoneb) 3 ml NOW STAT INH 05/13/17 09:26 05/13/17 09:29 DC 05/13/17 09:48 3 ML ECG Indication: SOB/dyspnea Rate (beats per minute): 87 Rhythm: normal sinus Findings: no ectopy, other (no acute ST segment abnormalities) Comparison ECG Date: slower rate compared to 04/24/17 otherwise no significant change ED Course 0924: The patient was evaluated in room A12B. A complete history and physical examination were performed. 09: Ordered Duoneb 3 ml INH. 1251: Upon reevaluation, the patient is resting comfortably. I discussed the results and treatment plan with her. She verbalized agreement of the treatment plan. She was discharged home. Medical Decision Differential diagnosis: Etiologies such as infections, reactive airway disease, pneumonia, pneumothorax , COPD, CHF, cardiac ischemia, pulmonary embolism, musculoskeletal, gastrointestinal, as well as others were entertained. Nursing notes reviewed. Patient's previous electronic medical records reviewed. The patient is a 26-year-old female who presented to emergency department for an evaluation of cough and chest pain. The patient was treated for similar symptoms recently. Her lung sounds did not appear to be abnormal but she had splinting respirations. She also appeared to be hyperventilating. She had a low bicarbonate on her laboratory studies and I feel this is consistent with hyperventilation as well as. The patient was treated with DuoNeb therapy in the emergency department. She was reevaluated multiple times. I discussed the patient's laboratory and radiographic studies with her. She was encouraged to rest and avoid any strenuous activity. She was also encouraged to call her family doctor to schedule a follow-up appointment. She was also encouraged to return the emergency Department immediately if symptoms change worsen or the need arises. Medication Reconcilliation Current Medication List: was personally reviewed by me Blood Pressure Screening Patient's blood pressure: Normal blood pressure Impression Primary Impression: Chest pain Additional Impression: Bronchitis Scribe Attestation The scribe's documentation has been prepared under my direction and personally reviewed by me in its entirety. I confirm that the note above accurately reflects all work, treatment, procedures, and medical decision making performed by me. Departure Information Dispostion Home / Self-Care Prescriptions Albuterol Hfa (VENTOLIN HFA) 200 Puffs/46712 [place] Aers 1 PUFF INH Q4, #1 INHALER Prov: Norman Franco, DO 05/13/17 Referrals No Doctor, Assigned (PCP) Navdeep Olson M.D. Forms HOME CARE DOCUMENTATION FORM, IMPORTANT VISIT INFORMATION, WORK / SCHOOL INSTRUCTIONS, Work Instructions Patient Instructions Bronchitis Acute, My [facility] Additional Instructions Rest and avoid any strenuous activity. Continue all medications as prescribed. Continue using Motrin and Tylenol as directed for pain. Follow-up with your family doctor soon as possible. Problem Qualifiers Primary Impression: Chest pain Chest pain type: unspecified Qualified Codes: R07.9 - Chest pain, unspecified
[2017-05-13] MEDS ORDERED: KLN/5 PO (09:37)
[2017-05-13 09:42] LABS: BASO % 0.3 %; BASO ABS # 0.04 K/uL (0-0.2); EOS % 0.3 %; EOS ABS # 0.05 K/uL (0-0.5); HEMATOCRIT 41.1 % (37-47); HEMOGLOBIN 14.8 g/dL (12.0-16.0); IG# 0.05 K/uL (0.00-0.02); LYMPH % 14.3 %; LYMPH ABS # 2.08 K/uL (1.2-3.4); MEAN CELL VOLUME 87.6 fL (80-100); MEAN CORPUSCULAR HEMOGLOBIN 31.6 pg (25-34); MEAN PLATELET VOLUME 9.4 fL (7.4-10.4); MONO % 8.9 %; MONO ABS # 1.29 K/uL (0.11-0.59); NEUT % 75.9 %; PLATELET COUNT 340 K/uL (130-400); RED CELL DISTRIBUTION WIDTH CV 12.6 % (11.5-14.5); RED CELL DISTRIBUTION WIDTH SD 40.4 fL (36.4-46.3); WHITE BLOOD COUNT 14.51 K/uL (4.8-10.8)
[2017-05-13 09:48] LABS: PTT PATIENT 26.5 SECONDS (21.0-31.0)
[2017-05-13 09:49] LABS: ALBUMIN 4.5 gm/dl (3.4-5.0); ALT/SGPT 27 U/L (12-78); BLOOD UREA NITROGEN 6 mg/dl (7-18); CALCIUM 9.5 mg/dl (8.5-10.1); CARBON DIOXIDE 19 mmol/L (21-32); CREATININE 1.04 mg/dl (0.60-1.20); GLUCOSE 101 mg/dl (70-99); POTASSIUM 3.4 mmol/L (3.5-5.1); SODIUM 138 mmol/L (136-145)
[2017-05-13 09:54] LABS: ALKALINE PHOSPHATASE 81 U/L (45-117); AST/SGOT 16 U/L (15-37); TOTAL PROTEIN 8.4 gm/dl (6.4-8.2)
--- NOTE | 2017-05-13 10:03 | DIAGNOSTIC IMAGING REPORT ---
CHEST ONE VIEW PORTABLE CLINICAL HISTORY: EVALUATE RESPIRATORY DISTRESS.DYSPNEA chest pain COMPARISON STUDY: 04/24/2017 FINDINGS: The bones soft tissues and hemidiaphragms are normal. The cardiomediastinal silhouette is normal. The lungs are clear. The pulmonary vasculature is normal. IMPRESSION: Negative chest. No change from the prior exam The above report was generated using voice recognition software. It may contain grammatical, syntax or spelling errors. Electronically signed by: Gregorio Garcia M.D. 05/13/2017 10:02 AM Dictated Date/Time: 05/13/2017 10:01 AM
[2017-05-13 10:38] LABS: INFLUENZA B ANTIGEN Neg for Influ B (NEG)
[2017-05-13 11:13] LABS: INFLUENZA A PCR Neg for Influ A (NEG); INFLUENZA B PCR Neg for Influ B (NEG)
[2017-05-13] MEDS ORDERED: VNTHFA/IN INH (12:51)
[2017-05-13 13:16] VITALS: BP 124/85; PULSE 98; TEMP 36.7; O2SAT 98
[2017-07-28] MEDS ORDERED: CLON1TAB4 PO (22:58)
== END 2017-05-13 13:17 | disposition home or self-care (01) ==
LOC: C.EDB 09:04 → C.EDA 13:17
DX: R07.9 Chest pain, unspecified (principal); J40 Bronchitis, not specified as acute or chronic; K50.90 Crohn's disease, unspecified, without complications; G43.909 Migraine, unspecified, not intractable, without status migrainosus; F31.9 Bipolar disorder, unspecified; Z83.3 Family history of diabetes mellitus; Z80.9 Family history of malignant neoplasm, unspecified; F17.210 Nicotine dependence, cigarettes, uncomplicated; Z79.899 Other long term (current) drug therapy

== ENCOUNTER → 2017-06-13 | Outpatient (CLI) | payer BC ==
[~2017-06-13] MED LIST changes: +CLON0.5T3 PO; +VNTHFA/IN INH
[2017-06-19 12:31] LABS: HERPES SIMPLEX VIRUS CULT NOT ISOLATED (NOT ISOLATED)
== END | disposition home or self-care (01) ==
LOC: C.LABSPEC 13:40
PROVIDERS: ATTEND Physician Assistant
DX: N89.8 Other specified noninflammatory disorders of vagina (principal); N94.89 Other specified conditions associated with female genital organs and menstrual cycle; Z11.3 Encounter for screening for infections with a predominantly sexual mode of transmission; Z11.8 Encounter for screening for other infectious and parasitic diseases

== ENCOUNTER 2017-07-13 23:11 | Emergency (ER) | payer BC ==
[~2017-07-13] VITALS: Ht 154.9 cm; Wt 70.2 kg
[2017-07-13 23:35] VITALS: TEMP 36.9; Ht 154.9 cm; Wt 70.2 kg
[2017-07-13] MEDS ORDERED: DiphenhydrAMINE HCL 50 MG/ML VIAL IV STA (23:47)
[2017-07-13] MEDS ORDERED: METOCLOPRAMIDE HCL INJ 5 MG/ML 2 ML VIAL IV STA (23:47)
[2017-07-13] MEDS ORDERED: KETOROLAC TROMETHAMINE 30 MG/ML VIAL IV STA (23:47)
[2017-07-13] MEDS ORDERED: SODIUM CHLORIDE 0.9% 1000ML 1,000 ML IV STA (23:47)
[2017-07-14 00:50] VITALS: BP 118/78; PULSE 63; O2SAT 97
--- NOTE | 2017-07-14 02:39 | EMERGENCY ROOM VISIT NOTE ---
History First contact with patient: 23:39 Chief Complaint: HEADACHE Stated Complaint: MIGRAINE ON L SIDE, VOMITING, WEAKNESS, History of Present Illness The patient is a 26 year old female who presents to the Emergency Room with complaints of migraine for the past few hours who tried her Imitrex with no relief of symptoms. Patient has a history of migraines. Headache was slow in onset. She describes the headache as throbbing, ranging in severity 7 out of 10 throughout the temporal region on the left side similar to prior. It does not radiate. Nothing makes it better or worse. Patient with some nausea and vomiting. Patient denies sudden onset of headache, fevers, cold symptoms, localized weakness, loss of vision, neck stiffness, chest pain, dyspnea, abdominal pain, dizziness. Review of Systems An 10 system review of systems was completed with positives and pertinent negatives listed in the HPI. Past Medical/Surgical History Medical Problems: (1) Abdominal pain (2) Abdominal pain in (3) Abdominal/ pelvic pain (4) Asthma (5) Back pain (6) Bipolar disorder current episode depressed (7) Bronchitis (8) Bronchitis (9) Crohns disease (10) Crohns disease (11) Dehydration (12) Diarrhea (13) Flank pain (14) Generalized abdominal pain (15) Hemorrhagic ovarian cyst (16) Intermittent abdominal pain (17) labor (18) Left sided abdominal pain (19) Lymphocytic colitis (20) Migraine (21) ocd traits (22) ovarian cyst (23) Ovarian cyst (24) Pelvic pain (25) with 20 completed weeks gestation (26) Ruptured ovarian cyst (27) Supervision of other normal (28) Syncope (29) Threatened miscarriage (30) Threatened miscarriage (31) Tobacco abuse (32) Ulcerative colitis (33) Urinary tract infection (34) Urinary tract infection (35) Uterine contractions at greater than 20 weeks of gestation (36) Vaginal bleeding before 22 weeks gestation (37) Vasovagal syncope (38) Vomiting Surgical Problems: (1) [place] Teeth Removal Family History Diabetes mellitus FH: cancer Social History Smoking Status: Current Every Day Smoker Alcohol Use: none Drug Use: none Marital Status: in relationship Housing Status: lives with family Occupation Status: employed Current/Historical Medications Scheduled Albuterol Hfa (Ventolin Hfa), 1 PUFF INH Q4 Xkcgjce-Vwdkgambniesu-Qeckzjon (Excedrin Extra Strength), 2 TABS PO UD Gabapentin (Gabapentin), 800 MG PO TID Hydroxyzine HCl (Hydroxyzine HCl), 25 MG PO HS [employer] Carbonate ([employer] Carbonate ER), 300 MG PO HS Venlafaxine Hcl (Effexor Extended Rel), 75 MG PO DAILY Scheduled PRN Acetaminophen (Acetaminophen), 1,000 MG PO Q6H PRN for Pain Clonazepam (Klonopin), 0.5 MG PO TID PRN for Anxiety Sumatriptan Succinate (Sumatriptan Succinate), 50 MG PO UD PRN for Migraine Physical Exam Vital Signs Date Time Temp Pulse Resp B/P (MAP) Pulse Ox O2 Delivery O2 Flow Rate FiO2 07/14/17 00:50 63 16 118/78 97 07/14/17 00:22 78 16 145/96 97 Room Air 07/13/17 23:35 36.9 81 16 121/85 97 Room Air Physical Exam VITALS: Vitals are noted on the nurse's note and reviewed by myself. Vital signs reviewed. GENERAL: Pleasant female, in no acute distress, nondiaphoretic, well-developed well-nourished. SKIN: The skin was without rashes, erythema, edema, or bruising. There is no tenting of the skin. Capillary reflex less than 2 seconds. HEAD: Normocephalic atraumatic. EARS: External auditory canals clear, tympanic membranes pearly neri without erythema or effusion bilaterally. EYES: Pupils equal round and reactive to light and accommodation. Conjunctivae without injection, sclerae without icterus. Extraocular movements intact. NOSE: Patent, turbinates without inflammation or discharge. No sinus tenderness. MOUTH: Mucous membranes moist. Pharynx without erythema or exudate. Uvula midline. Airway patent. Tongue does not deviate. NECK: Supple without nuchal rigidity. No lymphadenopathy. No thyromegaly. Cervical spine is nontender. No JVD. HEART: Regular rate and rhythm without murmurs gallops or rubs. LUNGS: Clear to auscultation bilaterally without wheezes, rales or rhonchi. No retractions or accessory muscle use. ABDOMEN: Positive bowel sounds x 4. Normal tympanic percussion. Soft, nontender, without masses or organomegaly. Boyle sign negative. No guarding or rebound tenderness. MUSCULOSKELETAL: No muscle atrophy, erythema, or edema noted. NEURO: Patient was alert and oriented to person place and time. Normal sensation to light and sharp touch. No focal neurological deficits. Cranial nerves II through XII grossly intact. No Pronator drift. cerebellar exam intact. Medical Decision & Procedures Medications Administered Medications (Trade) Dose Ordered Sig/Pro Route Start Time Stop Time Status Last Admin Dose Admin Metoclopramide HCl (Reglan Inj) 10 mg NOW STAT IV 07/13/17 23:47 07/13/17 23:48 DC 07/14/17 00:20 10 MG Diphenhydramine HCl (Benadryl Inj) 12.5 mg NOW STAT IV 07/13/17 23:47 07/13/17 23:48 DC 07/14/17 00:18 12.5 MG Ketorolac Tromethamine (Toradol Inj) 15 mg NOW STAT IV 07/13/17 23:47 07/13/17 23:48 DC 07/14/17 00:19 15 MG Sodium Chloride 1,000 ml @ 999 mls/hr Q1H1M STAT IV 07/13/17 23:47 07/14/17 00:47 DC 07/14/17 00:18 999 MLS/HR ED Course Prior records/ancillary studies reviewed. Additional history obtained from family. Triage Nursing notes reviewed. The patient's history was concerning for headache. Differential diagnosis: Etiologies such as migraine headache, meningitis, sinusitis, CO exposure, ICH, SAH, infection, tumor, headache, sinus thrombosis, arterial dissection, as well as others were entertained. Physical examination findings: As above. Non-focal. ER treatment provided: Toradol, Reglan, Benadryl, IV fluids On reassessment the patient felt better. Diagnostics interpreted by me: Deferred This appears to be consistent with migraine. Patient has a history of migraines and symptoms are similar. Patient was neurovascularly and neurologically intact. Headache was slow in onset. Patient felt much better after being medicated as above. She was well-appearing. No signs of meningitis. She is advised to rest, stay well-hydrated and follow-up family care in a few days here in the ER sooner for headache, fevers, weakness, worsening signs or symptoms or as needed. By the evaluation outlined above emergent etiologies such as meningitis, sinusitis, CO exposure, ICH, SAH, infection, temporal arteritis, tumor, sinus thrombosis, arterial dissection, as well as others were deemed relatively unlikely. The pt informed about the findings as listed above. All questions were answered and pleased with the treatment. Return instructions were outlined and the patient was discharged in stable condition. The chart was completed utilizing [employer] Speech voice recognition software. Grammatical errors, random word insertions, pronoun errors, and incomplete sentences are an occassional consequence of this system due to software limitations, ambient noise, and hardware issues. Any formal questions or concerns about the content, text, or information contained within the body of this dictation should be directly addressed to the physician registrar assistant for clarification. Referral: The patient was referred back to their primary care physician for follow-up in 2 to 3 days for a recheck of the current condition. Medical Decision As above Medication Reconcilliation Current Medication List: was personally reviewed by me Blood Pressure Screening Patient's blood pressure: Normal blood pressure Impression Primary Impression: Migraine Departure Information Dispostion Home / Self-Care Condition GOOD Forms HOME CARE DOCUMENTATION FORM, Work Instructions, Return To Work: 1 day IMPORTANT VISIT INFORMATION Patient Instructions Headaches Migraine and Tension, My [facility] [employer] Additional Instructions DO NOT drive, drink alcohol, operate machinery, or perform dangerous activities today. You were given medications in the ER that can affect your ability to safely function or operate a vehicle. Rest today in a quiet, peaceful, dark environment and get a full 8-10 hrs of sleep tonight. Avoid loud noises, smoke/smoking, alcohol, bright lights, stress, or physical exertion today to minimize the chance the headache may return. Continue current medications. Ibuprofen(Motrin, Advil) may be used for fever or pain. Use 600mg every six hours as needed. Take with food. Avoid using more than 2400mg in a 24 hour period. Do not use 2400mg per day for more than three consecutive days without physician direction. Prolonged inappropriate use can lead to stomach upset or ulcers. (AND/OR) Acetaminophen(Tylenol) may be used for fever or pain. Use 1000mg every six hours as needed. Avoid using more than 3000mg in a 24 hour period. Return to the ER for passing out, worsening headache, vision problems, neck stiffness/pain, fevers, vomiting, worsening of your condition, or as needed. Follow up with your primary physician and/or a neurologist in 2-3 days for a recheck of your current condition. Work Instructions Return To Work: 1 day Problem Qualifiers Primary Impression: Migraine Migraine type: without aura Status migrainosus presence: without status migrainosus Intractability: not intractable Qualified Codes: G43.009 - Migraine without aura, not intractable, without status migrainosus
== END 2017-07-14 00:55 | disposition home or self-care (01) ==
LOC: C.EDB 23:13
DX: G43.009 Migraine without aura, not intractable, without status migrainosus (principal); J45.909 Unspecified asthma, uncomplicated; F31.9 Bipolar disorder, unspecified; F17.200 Nicotine dependence, unspecified, uncomplicated; Z83.3 Family history of diabetes mellitus

== ENCOUNTER 2017-07-28 22:30 | Emergency (ER) | payer BC ==
[~2017-07-28] VITALS: Ht 157.5 cm; Wt 65.0 kg
[2017-07-28 22:33] VITALS: TEMP 36.8; Ht 157.5 cm; Wt 65.0 kg
[2017-07-28] MEDS ORDERED: ONDANSETRON INJ 2 MG/ML 2 ML VIAL IV STA (22:44)
[2017-07-28] MEDS ORDERED: KETOROLAC TROMETHAMINE 30 MG/ML VIAL IV STA (22:44)
[2017-07-28] MEDS ORDERED: MoRPHine SULFATE 4 MG/ML 1 ML CARP\\VIAL IV PRN (22:45)
--- NOTE | 2017-07-28 22:54 | EMERGENCY ROOM VISIT NOTE ---
History Report prepared by Juliana: Zarina Richards Under the Supervision of: Dr. Viral Fenton M.D. First contact with patient: 22:36 Chief Complaint: ABDOMINAL PAIN Stated Complaint: SEVERE PAIN IN R UPPER ABDOMEN History of Present Illness The patient is a 26 year old female who presents to the Emergency Room with complaints of sudden right upper abdominal pain beginning 10 minutes prior to arrival. She rates her pain at an 8/10 and states that crunching up alleviates her pain. The patient denies a history of abdominal surgeries but states that she has had colonoscopies for Crohn's disease. She states that she takes Gabapentin daily for the Crohn's disease. States also states that her [place] was recently changed to 900 mg instead of 600 mg. She denies any falls or recent trauma. The patient denies urinary symptoms and nausea. She denies a chance of . The patient also denies a history of kidney stones. The patient states that she last ate at 1500 and states that she had wine at 1700. Source of History: patient Onset: 10 minutes prior to arrival Position: abdomen (RUQ) Symptom Intensity: rated at an 8/10 Timing: other (sudden ) Modifying Factors (Relieving): movement (crunching up ) Associated Symptoms: No nausea, No urinary symptoms Review of Systems See HPI for pertinent positives & negatives. A total of 10 systems reviewed and were otherwise negative. 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 (22) ovarian cyst (23) Ovarian cyst (24) Pelvic pain (25) with 20 completed weeks gestation (26) Ruptured ovarian cyst (27) Supervision of other normal (28) Syncope (29) Threatened miscarriage (30) Threatened miscarriage (31) Tobacco abuse (32) Ulcerative colitis (33) Urinary tract infection (34) Urinary tract infection (35) Uterine contractions at greater than 20 weeks of gestation (36) Vaginal bleeding before 22 weeks gestation (37) Vasovagal syncope (38) Vomiting Surgical Problems: (1) [place] Teeth Removal Family History Diabetes mellitus FH: cancer Social History Smoking Status: Current Every Day Smoker Alcohol Use: none Drug Use: none Marital Status: in relationship Housing Status: lives with family Occupation Status: employed Current/Historical Medications Scheduled Gabapentin (Gabapentin), 800 MG PO TID [place] Carbonate ([place] Carbonate ER), 300 MG PO QAM [place] Carbonate Ext Rel (Lithobid Ext Rel), 600 MG PO QPM Quetiapine Fumarate (Seroquel), 50 MG PO HS Scheduled PRN Acetaminophen (Acetaminophen), 1,000 MG PO Q6H PRN for Pain Clonazepam (Klonopin), 1 MG PO BID PRN for Anxiety/Agitation Hydroxyzine Pamoate (Vistaril), 25 MG PO BID PRN for PRN Sumatriptan Succinate (Sumatriptan Succinate), 50 MG PO UD PRN for Migraine Allergies Coded Allergies: Albuterol (Verified Allergy, Severe, THROAT SWELLS, 07/28/17) Ipratropium (Verified Allergy, Severe, THROAT SWELLS, 07/28/17) Penicillins (Verified Allergy, Mild, RASH, 07/28/17) Amoxicillin (Verified Allergy, Unknown, rash, 07/28/17) Physical Exam Vital Signs Date Time Temp Pulse Resp B/P (MAP) Pulse Ox O2 Delivery O2 Flow Rate FiO2 07/29/17 00:17 99 16 101/69 96 Room Air 07/28/17 22:33 36.8 113 22 126/77 97 Room Air Physical Exam GENERAL: Patient is anxious, in moderate distress secondary to pain, and hyperventilating. HEENT: No acute trauma, normocephalic atraumatic, mucous membranes moist, no nasal congestion, no scleral icterus. NECK: No stridor, no adenopathy, no meningismus, trachea is midline. LUNGS: Clear to auscultation bilaterally, no wheeze, no rhonchi, hyperventilating. HEART: Without murmurs gallops or rubs, regular rate and rhythm. ABDOMEN: Soft, tender in right upper quadrant, bowel sounds positive, no hernias , no peritonitis. EXTREMITIES: No cyanosis or edema, full range of motion of all the joints without pain or difficulty, no signs for acute trauma. NEUROLOGIC: Oriented x 3, no acute motor or sensory deficits, no focal weakness. SKIN: No rash, no jaundice, no diaphoresis. Medical Decision & Procedures Laboratory Results 07/28/17 22:55 Red Blood Count 4.73, Mean Corpuscular Volume 88.8, Mean Corpuscular Hemoglobin 31.5, Mean Corpuscular Hemoglobin Concent 35.5, Mean Platelet Volume 9.0, Neutrophils (%) (Auto) 54.9, Lymphocytes (%) (Auto) 34.9, Monocytes (%) (Auto) 8.1, Eosinophils (%) (Auto) 1.4, Basophils (%) (Auto) 0.5, Neutrophils # (Auto) 5.70, Lymphocytes # (Auto) 3.62, Monocytes # (Auto) 0.84, Eosinophils # (Auto) 0.14, Basophils # (Auto) 0.05 07/28/17 22:55 Test 07/28/17 22:55 07/28/17 23:10 White Blood Count 10.37 K/uL (4.8-10.8) Red Blood Count 4.73 M/uL (4.2-5.4) Hemoglobin 14.9 g/dL (12.0-16.0) Hematocrit 42.0 % (37-47) Mean Corpuscular Volume 88.8 fL (80-100) Mean Corpuscular Hemoglobin 31.5 pg (25-34) Mean Corpuscular Hemoglobin Concent 35.5 g/dl (32-36) Platelet Count 331 K/uL (130-400) Mean Platelet Volume 9.0 fL (7.4-10.4) Neutrophils (%) (Auto) 54.9 % Lymphocytes (%) (Auto) 34.9 % Monocytes (%) (Auto) 8.1 % Eosinophils (%) (Auto) 1.4 % Basophils (%) (Auto) 0.5 % Neutrophils # (Auto) 5.70 K/uL (1.4-6.5) Lymphocytes # (Auto) 3.62 K/uL (1.2-3.4) Monocytes # (Auto) 0.84 K/uL (0.11-0.59) Eosinophils # (Auto) 0.14 K/uL (0-0.5) Basophils # (Auto) 0.05 K/uL (0-0.2) RDW Standard Deviation 41.4 fL (36.4-46.3) RDW Coefficient of Variation 12.7 % (11.5-14.5) Immature Granulocyte % (Auto) 0.2 % Immature Granulocyte # (Auto) 0.02 K/uL (0.00-0.02) Anion Gap 8.0 mmol/L (3-11) Est Creatinine Clear Calc Drug Dose 79.2 ml/min Estimated GFR () 94.7 Estimated GFR (Non- 81.7 BUN/Creatinine Ratio 13.3 (10-20) Calcium Level 8.5 mg/dl (8.5-10.1) Total Bilirubin 0.2 mg/dl (0.2-1) Aspartate Amino Transf (AST/SGOT) 18 U/L (15-37) Alanine Aminotransferase (ALT/SGPT) 32 U/L (12-78) Alkaline Phosphatase 77 U/L (45-117) Total Protein 7.8 gm/dl (6.4-8.2) Albumin 3.9 gm/dl (3.4-5.0) Globulin 3.9 gm/dl (2.5-4.0) Albumin/Globulin Ratio 1.0 (0.9-2) Lipase 273 U/L (73-393) Human Chorionic Gonadotropin, Qual NEG (NEG) [place] Level 0.4 mMOL/L (0.6-1.2) Urine Color YELLOW Urine Appearance CLOUDY (CLEAR) Urine pH 5.0 (4.5-7.5) Urine Specific [place] 1.018 (1.000-1.030) Urine Protein NEG (NEG) Urine Glucose (UA) NEG (NEG) Urine Ketones NEG (NEG) Urine Occult Blood NEG (NEG) Urine Nitrite NEG (NEG) Urine Bilirubin NEG (NEG) Urine Urobilinogen NEG (NEG) Urine Leukocyte Esterase MODERATE (NEG) Urine WBC (Auto) 10-30 /hpf (0-5) Urine RBC (Auto) 0-4 /hpf (0-4) Urine Hyaline Casts (Auto) 1-5 /lpf (0-5) Urine Epithelial Cells (Auto) >30 /lpf (0-5) Urine Bacteria (Auto) NEG (NEG) Laboratory results reviewed by me. Medications Administered Medications (Trade) Dose Ordered Sig/Pro Route Start Time Stop Time Status Last Admin Dose Admin Ondansetron HCl (Zofran Inj) 4 mg NOW STAT IV 07/28/17 22:44 07/28/17 22:47 DC 07/28/17 22:57 4 MG Morphine Sulfate (MoRPHine SULFATE INJ) 4 mg Q30M PRN IV 07/28/17 22:45 08/11/17 22:44 07/29/17 00:16 4 MG Ketorolac Tromethamine (Toradol Inj) 30 mg NOW STAT IV 07/28/17 22:44 07/28/17 22:47 DC 07/28/17 22:57 30 MG ED Course 2240: The patient was evaluated in room B6. A complete history and physical exam was performed. 2243: Ordered Toradol Inj 30 mg IV, Zofran Inj 4 mg IV. 2244: Ordered Morphine Sulfate 4 mg IV. Medical Decision The patient is a 26 year old female who presents to the ED with complaints of abdominal pain. Differential diagnoses considered include biliary colic, acute renal colic, UTI, obstruction, pneumonia, free air, bowel rupture, , ovarian cyst, and appendicitis. There is no leukocytosis or concerning anemia. No significant electrolyte abnormality, kidney failure, hepatitis or pancreatitis. Patient is not by our testing. Urinalysis shows some contamination, no significant hematuria, no infection. [place] level was not elevated. On exam, the patient was tender in the right upper quadrant. She was not febrile, she was not toxic. She was quite anxious and was hyperventilating. Patient received IV morphine, IV Toradol and IV Zofran. The patient has been ordered for abdominal x-rays and a right upper quadrant ultrasound, these results are pending. The patient is feeling improved, her case is being assumed by Dr. Richards, please see her notes for the final disposition and plan and the results of the remaining tests. At this point, the cause for the pain is unclear. Medication Reconcilliation Current Medication List: was personally reviewed by me Blood Pressure Screening Patient's blood pressure: Normal blood pressure Impression Primary Impression: Right upper quadrant abdominal pain Scribe Attestation The scribe's documentation has been prepared under my direction and personally reviewed by me in its entirety. I confirm that the note above accurately reflects all work, treatment, procedures, and medical decision making performed by me. Departure Information Dispostion Still a Patient Referrals Navdeep Olson M.D. (PCP) Patient Instructions My [facility]
[2017-07-28] MEDS ORDERED: HYDR25CA PO (22:58)
[2017-07-28] MEDS ORDERED: QUET1TAB32 PO (22:58)
[2017-07-28] MEDS ORDERED: CLON1TAB3 PO (22:58)
[2017-07-28] MEDS ORDERED: LITH1TAB10 PO (22:58)
[2017-07-28 23:03] LABS: BASO % 0.5 %; BASO ABS # 0.05 K/uL (0-0.2); EOS % 1.4 %; EOS ABS # 0.14 K/uL (0-0.5); HEMOGLOBIN 14.9 g/dL (12.0-16.0); IG# 0.02 K/uL (0.00-0.02); LYMPH % 34.9 %; LYMPH ABS # 3.62 K/uL (1.2-3.4); MEAN CELL VOLUME 88.8 fL (80-100); MEAN CORPUSCULAR HEMOGLOBIN 31.5 pg (25-34); MEAN CORPUSCULAR HGB CONC 35.5 g/dl (32-36); MONO % 8.1 %; MONO ABS # 0.84 K/uL (0.11-0.59); NEUT % 54.9 %; PLATELET COUNT 331 K/uL (130-400); RED CELL DISTRIBUTION WIDTH CV 12.7 % (11.5-14.5); RED CELL DISTRIBUTION WIDTH SD 41.4 fL (36.4-46.3); WHITE BLOOD COUNT 10.37 K/uL (4.8-10.8)
[2017-07-28 23:21] LABS: ALBUMIN 3.9 gm/dl (3.4-5.0); CALCIUM 8.5 mg/dl (8.5-10.1); CREATININE 0.97 mg/dl (0.60-1.20); POTASSIUM 3.9 mmol/L (3.5-5.1)
[2017-07-28 23:24] LABS: TOTAL PROTEIN 7.8 gm/dl (6.4-8.2)
[2017-07-29 01:33] VITALS: BP 122/69; PULSE 105; O2SAT 98
--- NOTE | 2017-07-29 06:17 | EMERGENCY ROOM VISIT NOTE ---
ED Visit Note First contact with patient: 00:44 This patient was signed out to me at change of shift awaiting results of ultrasound of the right upper quadrant. US RUQ: Visualized portions of the pancreas are unremarkable. Visualized portions of the aorta and IVC are unremarkable. Liver measures 15.3 cm. Normal echogenicity and contour. No focal lesion. Slightly contracted gallbladder which accounts for the mild prominence of the gallbladder wall. No gallbladder wall thickening or pericholecystic fluid. Negative sonographic [place] sign. Normal common bile duct measuring 3.0 mm. No hydronephrosis or stone in the right kidney. No ascites. Radiologist: Wilma Lyn MD Study ready at 00:24 and initial results transmitted at 00:27. The patient had also had an obstruction series which showed a moderate amount of colonic fecal retention. This was interpreted by me. I reviewed the results of the ultrasound and x-ray with the patient. She explains that she has multiple episodes of diarrhea day and does not know how she could have significant stool within her colon. I have encouraged the patient to follow-up with her PCP for recheck. She can come back to the emergency department for worsening symptoms.
--- NOTE | 2017-07-29 06:22 | DIAGNOSTIC IMAGING REPORT ---
GALLBLADDER-ABD LIMITED HISTORY: 26 years-old Female ABDOMINAL PAIN/GI acute generalized abdominal pain COMPARISON: Acute abdominal series radiographs of same day, CT 05/04/2017 TECHNIQUE: Multiple real-time sonographic images of the abdominal right upper quadrant were obtained assessing grayscale appearance and color flow FINDINGS: The visualized pancreas is unremarkable the majority of the pancreas obscured by bowel gas. Liver appears to be within normal limits without focal mass lesion or intrahepatic biliary ductal dilation. Gallbladder is mildly contracted with wall measuring in the upper limits of normal. No shadowing cholelithiasis, gallbladder wall thickening or pericholecystic fluid collections. Common bile duct is normal, 3 mm. Imaged right kidney is within normal limits without hydronephrosis. IMPRESSION: 1. Mildly contracted gallbladder without cholelithiasis or sonographic evidence of acute cholecystitis. 2. No biliary ductal dilation. The above report was generated using voice recognition software. It may contain grammatical, syntax or spelling errors. Electronically signed by: Luiz Allen M.D. 07/29/2017 6:20 AM Dictated Date/Time: 07/29/2017 6:18 AM
--- NOTE | 2017-07-29 08:37 | DIAGNOSTIC IMAGING REPORT ---
ABDOMEN 2VIEW W/PA CHEST RTN HISTORY: 26 years-old Female ruq pain acute right upper quadrant abdominal pain COMPARISON: Chest radiograph 05/13/2017 TECHNIQUE: PA view of the chest with erect and supine views of the abdomen FINDINGS: Cardiomediastinal and hilar silhouettes are within normal limits. There is no pneumothorax, pleural effusion, focal airspace consolidation or overt pulmonary edema. The bones of the chest appear grossly intact. No pneumoperitoneum on the upright projection. No pneumatosis. Air-fluid level of the central upper abdomen may reflect air within the distal stomach or duodenum. The bowel gas pattern is nonobstructive. Renal shadows are partially obscured by bowel gas. No urolith identified. There is a moderate volume of formed stool noted throughout the colon. No fracture identified. IMPRESSION: 1. No acute process of the chest. 2. Nonobstructive bowel gas pattern without pneumoperitoneum. 3. Suggested constipation. The above report was generated using voice recognition software. It may contain grammatical, syntax or spelling errors. Electronically signed by: Luiz Allen M.D. 07/29/2017 8:36 AM Dictated Date/Time: 07/29/2017 8:33 AM
--- NOTE | 2017-07-31 16:41 | Pharmacy Progress Note ---
ED Pharmacist Culture FollowUp Date of Service: Jul 31, 2017. Gardnerella-like bacilli isolated in urine culture. Patient denied urinary symptoms. Urinalysis with a significant amount of epithelial cells. Isolation does not necessarily mean infection. This is likely a vaginal contaminant. No intervention required. Case discussed w Dr. Lyons.
== END 2017-07-29 02:03 | disposition home or self-care (01) ==
LOC: C.EDB 22:31
DX: R10.11 Right upper quadrant pain (principal); K50.90 Crohn's disease, unspecified, without complications; J45.909 Unspecified asthma, uncomplicated; Z83.3 Family history of diabetes mellitus; F17.200 Nicotine dependence, unspecified, uncomplicated; F31.9 Bipolar disorder, unspecified; Z88.0 Allergy status to penicillin; Z88.8 Allergy status to other drugs, medicaments and biological substances

== ENCOUNTER 2017-08-01 22:13 | Emergency (ER) | payer BC ==
[~2017-08-01] VITALS: Ht 157.5 cm; Wt 72.2 kg
[~2017-08-01 22:13] MED LIST changes: -ASPI-391 PO; -ATR25 PO; -CLON0.5T3 PO; +CLON1TAB3 PO; -EFFSR75 PO; +HYDR25CA PO; +LITH1TAB10 PO; +QUET1TAB32 PO; -VNTHFA/IN INH
[2017-08-01 22:21] VITALS: TEMP 37.1; Ht 157.5 cm; Wt 72.2 kg
[2017-08-01] MEDS ORDERED: METOCLOPRAMIDE HCL INJ 5 MG/ML 2 ML VIAL IV STA (23:08)
[2017-08-01] MEDS ORDERED: SODIUM CHLORIDE 0.9% 1000ML 1,000 ML IV STA (23:08)
--- NOTE | 2017-08-01 23:13 | EMERGENCY ROOM VISIT NOTE ---
History Report prepared by Juliana: Freda De Leon Under the Supervision of: Dr. Anam Ramesh M.D. First contact with patient: 23:04 Chief Complaint: CONSTIPATION Stated Complaint: CONSTIPATED, SEVERE PAIN, DISTENDED ABDOMEN Nursing Triage Summary: Pt. reports she was seen here on Sunday for constipation and she still has not been able to have a bowel movement. She reports that she has been taking stool softeners, laxatives, tried enemas x2 and suppository x2. She states that after giving self suppository last night, she had strong urge to move bowels and reports that she passed a large amount of blood clots but no stool came out. History of Present Illness The patient is a 26 year old female who presents to the Emergency Room with complaints of persistent constipation that began 4 days ago. She states that she was seen in the Emergency Department recently for constipation, noting she has been following the treatment plan but has been unable to have any bowel movements. The patient has been experiencing abdominal pain. She states that she has been taking stool softeners, laxatives, and has tried suppositories. The patient notes that she had Zofran left over from her and took some at home prior to arrival. Source of History: patient Onset: 4 days ago Position: other (GI) Quality: other (constipation) Timing: other (persistent) Associated Symptoms: + abdominal pain Review of Systems See HPI for pertinent positives & negatives. A total of 10 systems reviewed and were otherwise negative. Past Medical & Surgical Medical Problems: (1) Abdominal pain (2) Abdominal pain in (3) Abdominal/ pelvic pain (4) Asthma (5) Back pain (6) Bipolar disorder current episode depressed (7) Bronchitis (8) Bronchitis (9) Crohns disease (10) Crohns disease (11) Dehydration (12) Diarrhea (13) Flank pain (14) Generalized abdominal pain (15) Hemorrhagic ovarian cyst (16) History of bleeding disorder (17) Intermittent abdominal pain (18) labor (19) Left sided abdominal pain (20) Lymphocytic colitis (21) Migraine (22) ocd traits (23) Ovarian cyst (24) ovarian cyst (25) Pelvic pain (26) PNA (pneumonia) (27) with 20 completed weeks gestation (28) Ruptured ovarian cyst (29) Stomach problems (30) Supervision of other normal (31) Syncope (32) Threatened miscarriage (33) Threatened miscarriage (34) Tobacco abuse (35) Ulcerative colitis (36) Urinary problem (37) Urinary tract infection (38) Urinary tract infection (39) Uterine contractions at greater than 20 weeks of gestation (40) Vaginal bleeding before 22 weeks gestation (41) Vasovagal syncope (42) Vomiting Surgical Problems: (1) [place] Teeth Removal Family History Cancer Diabetes mellitus FH: cancer Gallbladder disease Heart disease Kidney disease Kidney stones Seizures Social History Smoking Status: Never Smoker Alcohol Use: none Drug Use: none Marital Status: in relationship Housing Status: lives with family Occupation Status: employed Current/Historical Medications Scheduled Gabapentin (Gabapentin), 800 MG PO TID [place] Carbonate ([place] Carbonate ER), 300 MG PO QAM [place] Carbonate Ext Rel (Lithobid Ext Rel), 600 MG PO QPM Quetiapine Fumarate (Seroquel), 50 MG PO HS Scheduled PRN Acetaminophen (Acetaminophen), 1,000 MG PO Q6H PRN for Pain Clonazepam (Klonopin), 1 MG PO BID PRN for Anxiety/Agitation Hydroxyzine Pamoate (Vistaril), 25 MG PO BID PRN for PRN Sumatriptan Succinate (Sumatriptan Succinate), 50 MG PO UD PRN for Migraine Allergies Coded Allergies: Albuterol (Verified Allergy, Severe, THROAT SWELLS, 07/28/17) Ipratropium (Verified Allergy, Severe, THROAT SWELLS, 07/28/17) Penicillins (Verified Allergy, Mild, RASH, 07/28/17) Amoxicillin (Verified Allergy, Unknown, rash, 07/28/17) Physical Exam Vital Signs Date Time Temp Pulse Resp B/P (MAP) Pulse Ox O2 Delivery O2 Flow Rate FiO2 08/02/17 00:26 125/68 08/02/17 00:00 81 26 98 08/01/17 23:31 118/76 08/01/17 23:30 82 21 100 08/01/17 23:16 127/78 08/01/17 22:21 37.1 107 20 141/76 99 Room Air Physical Exam GENERAL: Awake, alert, well-appearing, in no acute distress HENT: Normocephalic, atraumatic. Oropharynx unremarkable. EYES: Normal conjunctiva. Sclera non-icteric. NECK: Supple. No nuchal rigidity. FROM. No JVD. RESPIRATORY: Clear to auscultation. CARDIAC: Regular rate, normal rhythm. Extremities warm and well perfused. Pulses equal. ABDOMEN: Soft, non-distended. No tenderness to palpation. No rebound or guarding. No masses. RECTAL: Deferred. MUSCULOSKELETAL: Chest examination reveals no tenderness. The back is symmetrical on inspection without obvious abnormality. There is no CVA tenderness to palpation. No joint edema. LOWER EXTREMITIES: Calves are equal size bilaterally and non-tender. No edema. No discoloration. NEURO: Normal sensorium. No sensory or motor deficits noted. SKIN: No rash or jaundice noted. Medical Decision & Procedures Laboratory Results 08/01/17 23:25 Red Blood Count 4.67, Mean Corpuscular Volume 90.6, Mean Corpuscular Hemoglobin 31.7, Mean Corpuscular Hemoglobin Concent 35.0, Mean Platelet Volume 9.0, Neutrophils (%) (Auto) 56.4, Lymphocytes (%) (Auto) 34.8, Monocytes (%) (Auto) 6.0, Eosinophils (%) (Auto) 2.3, Basophils (%) (Auto) 0.4, Neutrophils # (Auto) 5.44, Lymphocytes # (Auto) 3.35, Monocytes # (Auto) 0.58, Eosinophils # (Auto) 0.22, Basophils # (Auto) 0.04 08/01/17 23:25 Test 08/01/17 23:25 White Blood Count 9.64 K/uL (4.8-10.8) Red Blood Count 4.67 M/uL (4.2-5.4) Hemoglobin 14.8 g/dL (12.0-16.0) Hematocrit 42.3 % (37-47) Mean Corpuscular Volume 90.6 fL (80-100) Mean Corpuscular Hemoglobin 31.7 pg (25-34) Mean Corpuscular Hemoglobin Concent 35.0 g/dl (32-36) Platelet Count 285 K/uL (130-400) Mean Platelet Volume 9.0 fL (7.4-10.4) Neutrophils (%) (Auto) 56.4 % Lymphocytes (%) (Auto) 34.8 % Monocytes (%) (Auto) 6.0 % Eosinophils (%) (Auto) 2.3 % Basophils (%) (Auto) 0.4 % Neutrophils # (Auto) 5.44 K/uL (1.4-6.5) Lymphocytes # (Auto) 3.35 K/uL (1.2-3.4) Monocytes # (Auto) 0.58 K/uL (0.11-0.59) Eosinophils # (Auto) 0.22 K/uL (0-0.5) Basophils # (Auto) 0.04 K/uL (0-0.2) RDW Standard Deviation 41.8 fL (36.4-46.3) RDW Coefficient of Variation 12.8 % (11.5-14.5) Immature Granulocyte % (Auto) 0.1 % Immature Granulocyte # (Auto) 0.01 K/uL (0.00-0.02) Urine Color YELLOW Urine Appearance CLOUDY (CLEAR) Urine pH 6.5 (4.5-7.5) Urine Specific [place] 1.013 (1.000-1.030) Urine Protein NEG (NEG) Urine Glucose (UA) NEG (NEG) Urine Ketones NEG (NEG) Urine Occult Blood NEG (NEG) Urine Nitrite NEG (NEG) Urine Bilirubin NEG (NEG) Urine Urobilinogen NEG (NEG) Urine Leukocyte Esterase LARGE (NEG) Urine WBC (Auto) >30 /hpf (0-5) Urine RBC (Auto) 0-4 /hpf (0-4) Urine Hyaline Casts (Auto) 1-5 /lpf (0-5) Urine Epithelial Cells (Auto) >30 /lpf (0-5) Urine Bacteria (Auto) 2+ (NEG) Anion Gap 5.0 mmol/L (3-11) Est Creatinine Clear Calc Drug Dose 93.9 ml/min Estimated GFR () 109.6 Estimated GFR (Non- 94.6 BUN/Creatinine Ratio 13.1 (10-20) Calcium Level 8.8 mg/dl (8.5-10.1) Total Bilirubin 0.2 mg/dl (0.2-1) Direct Bilirubin < 0.1 mg/dl (0-0.2) Aspartate Amino Transf (AST/SGOT) 17 U/L (15-37) Alanine Aminotransferase (ALT/SGPT) 25 U/L (12-78) Alkaline Phosphatase 80 U/L (45-117) Total Protein 7.9 gm/dl (6.4-8.2) Albumin 4.2 gm/dl (3.4-5.0) Lipase 184 U/L (73-393) Labs reviewed by ED physician. Medications Administered Medications (Trade) Dose Ordered Sig/Pro Route Start Time Stop Time Status Last Admin Dose Admin Sodium Chloride 1,000 ml @ 999 mls/hr Q1H1M STAT IV 08/01/17 23:08 08/02/17 00:08 DC 08/01/17 23:28 999 MLS/HR Metoclopramide HCl (Reglan Inj) 10 mg NOW STAT IV 08/01/17 23:08 08/01/17 23:09 DC 08/01/17 23:28 10 MG ED Course 2304: Past medical records reviewed. The patient was evaluated in room B5. A complete history and physical examination was performed. 2308: Ordered Reglan Inj 10mg IV and Sodium Chloride 1000ml @ 999 mls/hr IV. 2341: Ordered Bentyl Inj 20mg IM. 2356: The patient states that she just had a bowel movement and feels much better. She says that she would like to go home. 0009: I reevaluated the patient, who says she is feeling significantly better. I discussed the test findings and the treatment plan. The patient verbalized complete understanding and agreement. She is ready for discharge. Medical Decision Differential diagnosis: Etiologies such as appendicitis, diverticulitis, PUD, biliary pathology, UTI, pancreatitis, obstruction, mesenteric ischemia, aortic pathology, infections, inflammatory bowel disease, renal colic, as well as others were entertained. This is a 26-year-old female who presents the emergency department complaining of constipation. The patient was given 10 mg of Reglan and after that the patient had a very large bowel movement. At this time she wishes to go home and is feeling better. Serial abdominal examinations were performed and the patient in the emergency department in the time the patient exhibits surgical abdomen. I will also note that the patient has a normal CBC and I feel is safe enough to be discharged home. I recommended a clear liquid diet and to add MiraLAX to her diet. Medication Reconcilliation Current Medication List: was personally reviewed by me Blood Pressure Screening Patient's blood pressure: Normal blood pressure Blood pressure disposition: Did not require urgent referral Impression Primary Impression: Constipation Scribe Attestation The scribe's documentation has been prepared under my direction and personally reviewed by me in its entirety. I confirm that the note above accurately reflects all work, treatment, procedures, and medical decision making performed by me. Departure Information Dispostion Home / Self-Care Referrals Navdeep Olson M.D. (PCP) Forms HOME CARE DOCUMENTATION FORM, IMPORTANT VISIT INFORMATION Patient Instructions My [facility] Additional Instructions CLear liquid diet next 48 hours You have been examined and treated today on an emergency basis only. This is not a substitute for, or an effort to provide, complete comprehensive medical care. It is impossible to recognize and treat all injuries or illnesses in a single emergency department visit. It is therefore important that you follow up closely with Dr Olson. Call as soon as possible for an appointment. Thank you for your time and consideration. I look forward to speaking with you again soon. Please don't hesitate to call us if you have any questions. Problem Qualifiers Primary Impression: Constipation Constipation type: unspecified constipation type Qualified Codes: K59.00 - Constipation, unspecified
[2017-08-01] MEDS ORDERED: DICYCLOMINE HCL 10 MG/ML 2 ML AMP IM STA (23:41)
[2017-08-01 23:50] LABS: BASO % 0.4 %; BASO ABS # 0.04 K/uL (0-0.2); EOS % 2.3 %; EOS ABS # 0.22 K/uL (0-0.5); HEMATOCRIT 42.3 % (37-47); HEMOGLOBIN 14.8 g/dL (12.0-16.0); IG# 0.01 K/uL (0.00-0.02); LYMPH % 34.8 %; LYMPH ABS # 3.35 K/uL (1.2-3.4); MEAN CELL VOLUME 90.6 fL (80-100); MEAN CORPUSCULAR HEMOGLOBIN 31.7 pg (25-34); MONO ABS # 0.58 K/uL (0.11-0.59); NEUT % 56.4 %; NEUT ABS # 5.44 K/uL (1.4-6.5); PLATELET COUNT 285 K/uL (130-400); RED CELL DISTRIBUTION WIDTH CV 12.8 % (11.5-14.5); RED CELL DISTRIBUTION WIDTH SD 41.8 fL (36.4-46.3); WHITE BLOOD COUNT 9.64 K/uL (4.8-10.8)
[2017-08-02] VITALS: PULSE 81; O2SAT 98
[2017-08-02 00:13] LABS: ALBUMIN 4.2 gm/dl (3.4-5.0); ALT/SGPT 25 U/L (12-78); BLOOD UREA NITROGEN 11 mg/dl (7-18); CALCIUM 8.8 mg/dl (8.5-10.1); CARBON DIOXIDE 27 mmol/L (21-32); CREATININE 0.86 mg/dl (0.60-1.20); GLUCOSE 64 mg/dl (70-99); LIPASE 184 U/L (73-393); POTASSIUM 3.4 mmol/L (3.5-5.1); SODIUM 139 mmol/L (136-145)
[2017-08-02 00:16] LABS: ALKALINE PHOSPHATASE 80 U/L (45-117); AST/SGOT 17 U/L (15-37); TOTAL PROTEIN 7.9 gm/dl (6.4-8.2)
[2017-08-02 00:26] VITALS: BP 125/68
== END 2017-08-02 00:30 | disposition home or self-care (01) ==
LOC: C.EDB 22:15
DX: K59.00 Constipation, unspecified (principal); J45.909 Unspecified asthma, uncomplicated; F32.9 Major depressive disorder, single episode, unspecified; K50.90 Crohn's disease, unspecified, without complications; Z83.3 Family history of diabetes mellitus; Z82.49 Family history of ischemic heart disease and other diseases of the circulatory system; Z82.0 Family history of epilepsy and other diseases of the nervous system; Z88.0 Allergy status to penicillin; Z88.8 Allergy status to other drugs, medicaments and biological substances

== ENCOUNTER 2017-08-25 04:37 | Emergency (ER) | payer BC ==
[~2017-08-25] VITALS: Ht 154.9 cm; Wt 68.0 kg
[2017-08-25 04:40] VITALS: TEMP 37.3; Ht 154.9 cm; Wt 68.0 kg
[2017-08-25] MEDS ORDERED: XYLOCAINE 1%/SOD BICARB 20 ML VIAL INFIL ONE (04:45)
--- NOTE | 2017-08-25 07:06 | EMERGENCY ROOM VISIT NOTE ---
ED Visit Note First contact with patient: 07:00 I received sign out from Diana Saeed PA-C at change of shift. Pt presented with laceration on her left forearm. Patient was also found to be intoxicated with an alcohol level of 215.0 mg/dL. I evaluated the patient at 10:30am, patient was fully alert and oriented, noted to ambulate without any difficulty. Patient explicitly denies any suicidal ideation or homicidal ideation. She attributes her arm laceration to sleepwalking as a side effect of one of her medications. She was given education regarding wound care, follow-up, and return precautions, she verbalized understanding. Patient was deemed stable for discharge, and left the department with family members in stable condition and ambulatory. Problem List Medical Problems: (1) Abdominal pain Status: Resolved (2) Abdominal pain in Status: Resolved (3) Abdominal/ pelvic pain Status: Resolved (4) Asthma Status: Chronic (5) Back pain Status: Resolved (6) Bronchitis Status: Resolved (7) Bronchitis Status: Resolved (8) Crohns disease Status: Chronic (9) Dehydration Status: Resolved (10) Diarrhea Status: Chronic (11) Flank pain Status: Resolved (12) Generalized abdominal pain Status: Resolved (13) Hemorrhagic ovarian cyst Status: Resolved (14) History of bleeding disorder Status: Chronic (15) Intermittent abdominal pain Status: Resolved (16) labor Status: Resolved (17) Left sided abdominal pain Status: Resolved (18) ovarian cyst Status: Resolved (19) Pelvic pain Status: Resolved (20) PNA (pneumonia) Status: Resolved (21) with 20 completed weeks gestation Status: Resolved (22) Ruptured ovarian cyst Status: Resolved (23) Stomach problems Status: Chronic (24) Supervision of other normal Status: Resolved (25) Syncope Status: Resolved (26) Threatened miscarriage Status: Resolved (27) Threatened miscarriage Status: Resolved (28) Ulcerative colitis Status: Resolved (29) Urinary problem Status: Resolved (30) Urinary tract infection Status: Resolved (31) Urinary tract infection Status: Resolved (32) Uterine contractions at greater than 20 weeks of gestation Status: Resolved (33) Vaginal bleeding before 22 weeks gestation Status: Resolved (34) Vasovagal syncope Status: Resolved (35) Vomiting Status: Resolved Surgical Problems: (1) [place] Teeth Removal Status: Resolved Current/Historical Medications Scheduled Gabapentin (Gabapentin), 800 MG PO TID [place] Carbonate ([place] Carbonate ER), 300 MG PO QAM [place] Carbonate Ext Rel (Lithobid Ext Rel), 600 MG PO QPM Quetiapine Fumarate (Seroquel), 50 MG PO HS Scheduled PRN Acetaminophen (Acetaminophen), 1,000 MG PO Q6H PRN for Pain Clonazepam (Klonopin), 1 MG PO BID PRN for Anxiety/Agitation Hydroxyzine Pamoate (Vistaril), 25 MG PO BID PRN for PRN Sumatriptan Succinate (Sumatriptan Succinate), 50 MG PO UD PRN for Migraine Allergies Coded Allergies: Albuterol (Verified Allergy, Severe, THROAT SWELLS, 08/25/17) Ipratropium (Verified Allergy, Severe, THROAT SWELLS, 08/25/17) Penicillins (Verified Allergy, Mild, RASH, 08/25/17) Amoxicillin (Verified Allergy, Unknown, rash, 08/25/17) Vital Signs Date Time Temp Pulse Resp B/P (MAP) Pulse Ox O2 Delivery O2 Flow Rate FiO2 08/25/17 11:35 92 18 109/71 98 08/25/17 08:12 88 16 97/48 98 Room Air 08/25/17 04:40 37.3 112 18 145/91 100 Room Air Laboratory Results Test 08/25/17 04:54 Ethyl Alcohol mg/dL 215.0 mg/dl (0-3) Departure Information Impression Primary Impression: Laceration of left forearm Additional Impression: Alcohol intoxication Dispostion Home / Self-Care Condition GOOD Referrals Navdeep Olson M.D. (PCP) Forms HOME CARE DOCUMENTATION FORM, IMPORTANT VISIT INFORMATION Patient Instructions Alcohol Intoxication - [facility], [facility], ED Laceration All Additional Instructions Keep wound clean and dry. Do not allow any crusting or dried blood to accumulate on sutures. If this occurs, use a 1:1 solution of hydrogen peroxide/ water on a Q-tip to clean the wound. Use an antibiotic ointment for 3-4 days, then let wound dry. Suture removal in 10-12 days. Return sooner for any signs of infection (increasing redness, swelling, drainage). Ice and elevate for swelling and pain. Ibuprofen 600 mg and Tylenol 500 mg every 6 hrs for pain. Keep covered when in sun until sutures removed then SPF 50 or higher for one year. Vitamin E oil if desired two weeks after suture removal for reduction of scar. Problem Qualifiers Primary Impression: Laceration of left forearm Encounter type: initial encounter Qualified Codes: S51.812A - Laceration without foreign body of left forearm, initial encounter Additional Impression: Alcohol intoxication Complication of substance-induced condition: uncomplicated Qualified Codes: F10.920 - Alcohol use, unspecified with intoxication, uncomplicated
[2017-08-25 11:35] VITALS: BP 109/71; PULSE 92; O2SAT 98
--- NOTE | 2017-08-25 21:41 | EMERGENCY ROOM VISIT NOTE ---
ED Visit Note First contact with patient: 04:43 CHIEF COMPLAINT: left forearm laceration HISTORY OF PRESENT ILLNESS: This 26 yo patient presents to the emergency department via EMS after sustaining a laceration to the left forearm. Patient is unsure how this happened. She states she takes Seroquel at night and sometimes she sleepwalks. Patient denies suicidal / homicidal ideations. Patient denies delusions and/or hallucinations. she states she had a few beers last night. She does not feel intoxicated. Patient sees psychiatrist, Dr Hilton. The bleeding has not stopped. Denies weakness or numbness of the extremity. The patient has full range of motion of the extremity. The patient rates the pain as mild and 2/10. The patient denies any other injuries. The patient's tetanus shot is up to date. REVIEW OF SYSTEMS: A 6 system review of systems was completed with positives and pertinent negatives listed in the HPI. ALLERGIES: Albuterol, reviewed MEDICATIONS: Seroquel, reviewed PMH: Medical Problems: (1) Abdominal pain Status: Resolved (2) Abdominal pain in Status: Resolved (3) Abdominal/ pelvic pain Status: Resolved (4) Asthma Status: Chronic (5) Back pain Status: Resolved (6) Bronchitis Status: Resolved (7) Bronchitis Status: Resolved (8) Crohns disease Status: Chronic (9) Dehydration Status: Resolved (10) Diarrhea Status: Chronic (11) Flank pain Status: Resolved (12) Generalized abdominal pain Status: Resolved (13) Hemorrhagic ovarian cyst Status: Resolved (14) History of bleeding disorder Status: Chronic (15) Intermittent abdominal pain Status: Resolved (16) labor Status: Resolved (17) Left sided abdominal pain Status: Resolved (18) ovarian cyst Status: Resolved (19) Pelvic pain Status: Resolved (20) PNA (pneumonia) Status: Resolved (21) with 20 completed weeks gestation Status: Resolved (22) Ruptured ovarian cyst Status: Resolved (23) Stomach problems Status: Chronic (24) Supervision of other normal Status: Resolved (25) Syncope Status: Resolved (26) Threatened miscarriage Status: Resolved (27) Threatened miscarriage Status: Resolved (28) Ulcerative colitis Status: Resolved (29) Urinary problem Status: Resolved (30) Urinary tract infection Status: Resolved (31) Urinary tract infection Status: Resolved (32) Uterine contractions at greater than 20 weeks of gestation Status: Resolved (33) Vaginal bleeding before 22 weeks gestation Status: Resolved (34) Vasovagal syncope Status: Resolved (35) Vomiting Status: Resolved Surgical Problems: (1) [place] Teeth Removal Status: Resolved SOCIAL HISTORY: No drug use PHYSICAL EXAM: Vital Signs: Reviewed Nurse's notes, vital signs stable. GENERAL : Pleasant female, in no acute distress, well developed, well nourished. SKIN: There is a 4 cm long laceration on the anterior aspect of the left forearm. The edges gape apart with traction. There is no foreign material in the wound and it looks clean. There is bleeding. No deep structures such as tendons, bones, or significant blood vessels are seen in the base of the wound. Extension and flexion of the extremity is full and strong. Full range of motion of the extremity. Capillary refill less than 2 seconds. Normal sensation to light and sharp touch. HEENT: Normocephalic. PERRLA. EOMI. Nares patent. Mucous membranes moist. Neck is supple without nuchal rigidity. HEART: Regular rate and rhythm without murmurs gallops or rubs. LUNGS: Clear to auscultation bilaterally without wheezes, rales or rhonchi. No retractions or accessory muscle use. ABDOMEN: Positive bowel sounds x 4. Normal tympanic percussion. Soft, nontender, without masses or organomegaly. Boyle sign negative. No guarding or rebound tenderness. MUSCULOSKELETAL: No gross musculoskeletal defects. NEURO: Patient was alert and oriented to person place and time. Normal sensation to light and sharp touch. No focal neurological deficits. Psych: Pleasant and cooperative female EMERGENCY DEPARTMENT COURSE: I examined the patient. Alcohol level was 215 mg/dL Using sterile technique the wound was cleansed with Betadine. 3 ml of 1% buffered lidocaine was used to anesthetize the patient. The area was sterilely draped. Once the patient was anesthetized, the wound was copiously irrigated under pressure with sterile saline. The wound was explored and there were no deep structures injured. The laceration was repaired using 7 simple interrupted 4-0 nylon sutures. The patient tolerated the procedure well. Hemostasis was achieved. The area was cleaned with sterile saline and dressed with bacitracin ointment and bandage. The patient was intoxicated. She was unaware of how she cut her forearm. She will be reevaluated when she is sober. She currently denies any suicidal or homicidal ideations. Case was signed out to LEAD PRODUCER Joy Fischer, pending patient sobering up and reevaluation in stable condition as patient had an unknown laceration to her arm concerning for self reflection. DIAGNOSIS: #1 left forearm laceration #2 alcohol intoxication Case reviewed with my attending The chart was completed utilizing [employer] Speech voice recognition software. Grammatical errors, random word insertions, pronoun errors, and incomplete sentences are an occassional consequence of this system due to software limitations, ambient noise, and hardware issues. Any formal questions or concerns about the content, text, or information contained within the body of this dictation should be directly addressed to the physician multimedia assistant for clarification. DISCHARGE INSTRUCTIONS & TREATMENT: Keep wound clean and dry. Do not allow any crusting or dried blood to accumulate on sutures. If this occurs, use a 1:1 solution of hydrogen peroxide/water on a Q-tip to clean the wound. Use an antibiotic ointment for 3-4 days, then let wound dry. Suture removal in 10-12 days. Return sooner for any signs of infection (increasing redness, swelling, drainage). Ice and elevate for swelling and pain. Ibuprofen 600 mg and Tylenol 500 mg every 6 hrs for pain. Keep covered when in sun until sutures removed then SPF 50 or higher for one year. Vitamin E oil if desired two weeks after suture removal for reduction of scar. Problem List Medical Problems: (1) Abdominal pain Status: Resolved (2) Abdominal pain in Status: Resolved (3) Abdominal/ pelvic pain Status: Resolved (4) Asthma Status: Chronic (5) Back pain Status: Resolved (6) Bronchitis Status: Resolved (7) Bronchitis Status: Resolved (8) Crohns disease Status: Chronic (9) Dehydration Status: Resolved (10) Diarrhea Status: Chronic (11) Flank pain Status: Resolved (12) Generalized abdominal pain Status: Resolved (13) Hemorrhagic ovarian cyst Status: Resolved (14) History of bleeding disorder Status: Chronic (15) Intermittent abdominal pain Status: Resolved (16) labor Status: Resolved (17) Left sided abdominal pain Status: Resolved (18) ovarian cyst Status: Resolved (19) Pelvic pain Status: Resolved (20) PNA (pneumonia) Status: Resolved (21) with 20 completed weeks gestation Status: Resolved (22) Ruptured ovarian cyst Status: Resolved (23) Stomach problems Status: Chronic (24) Supervision of other normal Status: Resolved (25) Syncope Status: Resolved (26) Threatened miscarriage Status: Resolved (27) Threatened miscarriage Status: Resolved (28) Ulcerative colitis Status: Resolved (29) Urinary problem Status: Resolved (30) Urinary tract infection Status: Resolved (31) Urinary tract infection Status: Resolved (32) Uterine contractions at greater than 20 weeks of gestation Status: Resolved (33) Vaginal bleeding before 22 weeks gestation Status: Resolved (34) Vasovagal syncope Status: Resolved (35) Vomiting Status: Resolved Surgical Problems: (1) [place] Teeth Removal Status: Resolved Current/Historical Medications Scheduled Gabapentin (Gabapentin), 800 MG PO TID [place] Carbonate ([place] Carbonate ER), 300 MG PO QAM [place] Carbonate Ext Rel (Lithobid Ext Rel), 600 MG PO QPM Quetiapine Fumarate (Seroquel), 50 MG PO HS Scheduled PRN Acetaminophen (Acetaminophen), 1,000 MG PO Q6H PRN for Pain Clonazepam (Klonopin), 1 MG PO BID PRN for Anxiety/Agitation Hydroxyzine Pamoate (Vistaril), 25 MG PO BID PRN for PRN Sumatriptan Succinate (Sumatriptan Succinate), 50 MG PO UD PRN for Migraine Allergies Coded Allergies: Albuterol (Verified Allergy, Severe, THROAT SWELLS, 08/25/17) Ipratropium (Verified Allergy, Severe, THROAT SWELLS, 08/25/17) Penicillins (Verified Allergy, Mild, RASH, 08/25/17) Amoxicillin (Verified Allergy, Unknown, rash, 08/25/17) Vital Signs Date Time Temp Pulse Resp B/P (MAP) Pulse Ox O2 Delivery O2 Flow Rate FiO2 08/25/17 11:35 92 18 109/71 98 08/25/17 08:12 88 16 97/48 98 Room Air 08/25/17 04:40 37.3 112 18 145/91 100 Room Air Laboratory Results Test 08/25/17 04:54 Ethyl Alcohol mg/dL 215.0 mg/dl (0-3) Departure Information Referrals Navdeep Olson M.D. (PCP) Patient Instructions My [facility]
== END 2017-08-25 11:32 | disposition home or self-care (01) ==
LOC: EDBD 04:37 → C.EDA 04:38
DX: S51.812A Laceration without foreign body of left forearm, initial encounter (principal); X58.XXXA Exposure to other specified factors, initial encounter; F10.929 Alcohol use, unspecified with intoxication, unspecified; J45.909 Unspecified asthma, uncomplicated; Z79.899 Other long term (current) drug therapy; Z88.8 Allergy status to other drugs, medicaments and biological substances; Z88.0 Allergy status to penicillin; Z88.1 Allergy status to other antibiotic agents

== ENCOUNTER 2017-08-28 21:57 | Emergency (ER) | payer OTHER, BC ==
[~2017-08-28] VITALS: Ht 154.9 cm; Wt 74.2 kg
[2017-08-28 22:00] VITALS: BP 130/86; PULSE 123; TEMP 36.8; O2SAT 98; Ht 154.9 cm; Wt 74.2 kg
--- NOTE | 2017-08-28 22:21 | EMERGENCY ROOM VISIT NOTE ---
History First contact with patient: 22:04 Chief Complaint: WOUND DEHISCENCE Stated Complaint: LACERATION OPENED, SWELLING-WC Nursing Triage Summary: pt states she has stitches in her left arm and a resident ripped them out at work. unable to visualize in triage. History of Present Illness The patient is a 26 year old female who presents to the Emergency Room with complaints of wound dehiscence. The patient reports that she received sutures in her arm 3 days ago here. 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 She states that tonight at work, one of her residents folded her arm. When she removed the gauze, all of the stitches came undone and fell out. She reports aching pain in the area and some swelling. She rates her discomfort a 4/10. She is concerned there could be an infection. She denies fevers or drainage from the site. Review of Systems A complete 10 point review of systems was reviewed with the patient with pertinent positives and negatives as per history of present illness. All else were negative. 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 (23) Ovarian cyst (24) ovarian cyst (25) Pelvic pain (26) PNA (pneumonia) (27) with 20 completed weeks gestation (28) Ruptured ovarian cyst (29) Stomach problems (30) Supervision of other normal (31) Syncope (32) Threatened miscarriage (33) Threatened miscarriage (34) Tobacco abuse (35) Ulcerative colitis (36) Urinary problem (37) Urinary tract infection (38) Urinary tract infection (39) Uterine contractions at greater than 20 weeks of gestation (40) Vaginal bleeding before 22 weeks gestation (41) Vasovagal syncope (42) Vomiting Surgical Problems: (1) [place] Teeth Removal Family History Cancer Diabetes mellitus FH: cancer Gallbladder disease Heart disease Kidney disease Kidney stones Seizures Social History Smoking Status: Current Every Day Smoker Alcohol Use: none Drug Use: none Marital Status: in relationship Housing Status: lives with family Occupation Status: employed Current/Historical Medications Scheduled Gabapentin (Gabapentin), 800 MG PO TID [place] Carbonate ([place] Carbonate ER), 300 MG PO QAM [place] Carbonate Ext Rel (Lithobid Ext Rel), 600 MG PO QPM Quetiapine Fumarate (Seroquel), 50 MG PO HS Scheduled PRN Acetaminophen (Acetaminophen), 1,000 MG PO Q6H PRN for Pain Clonazepam (Klonopin), 1 MG PO BID PRN for Anxiety/Agitation Hydroxyzine Pamoate (Vistaril), 25 MG PO BID PRN for PRN Sumatriptan Succinate (Sumatriptan Succinate), 50 MG PO UD PRN for Migraine Physical Exam Vital Signs Date Time Temp Pulse Resp B/P (MAP) Pulse Ox O2 Delivery O2 Flow Rate FiO2 08/28/17 22:00 36.8 123 18 130/86 98 Room Air Physical Exam VITALS: Vitals are noted on the nurse's note and reviewed by myself. Vital signs stable. GENERAL: This is a 26-year-old female, in no acute distress, nondiaphoretic, well-developed well-nourished. SKIN: There is a healing laceration to the left forearm with no significant dehiscence. There is mild irritation but no significant erythema, edema or drainage. MUSCULOSKELETAL: Full range of motion of the left upper extremity. NEURO: Patient was alert and oriented to person place and time. Medical Decision & Procedures Medical Decision Differential diagnosis includes wound dehiscence, wound infection, among others. The patient was evaluated as above. Her sutures have fallen out. The wound does appear to be healing well and is not significantly dehisced. There is no evidence of infection. Steri-Strips were placed across the wound and edges were aligned well. The patient was advised to keep a close eye on the wound for any signs of infection and return here if those occur. Conservative measures were discussed with the patient. She verbalized understanding of my assessment and treatment plan and was discharged home in good condition. Medication Reconcilliation Current Medication List: was personally reviewed by me Blood Pressure Screening Patient's blood pressure: Normal blood pressure Impression Primary Impression: Wound dehiscence Departure Information Dispostion Home / Self-Care Condition GOOD Referrals Damaske, Navdeep M.D. (PCP) Patient Instructions My [facility] Additional Instructions Leave the Steri-Strips in place for the next 2-3 days on until they fall off on their own. For pain control, you can use the following [id number] medicines (if >12 yo): - Regular strength (325mg/tab) Tylenol (acetaminophen) 2 tabs every 4-6 hours as needed. Do not exceed 12 tablets in a 24 hour period. Avoid taking more than 4 grams (4000 mg) of Tylenol per day. This includes any other sources of acetaminophen you may take on a regular basis. - Regular strength (200 mg/tab) Advil (ibuprofen) 1-2 tabs every 4-6 hours as needed. Do not exceed a dose of 3200 mg per day. Return for any signs of infection such as increasing redness, swelling, drainage or other new/concerning symptoms.
== END 2017-08-28 22:25 | disposition home or self-care (01) ==
LOC: C.EDB 21:58 → C.EDA 22:25
DX: T81.30XA Disruption of wound, unspecified, initial encounter (principal); S51.812A Laceration without foreign body of left forearm, initial encounter; X58.XXXA Exposure to other specified factors, initial encounter; J45.909 Unspecified asthma, uncomplicated; F31.9 Bipolar disorder, unspecified; F17.200 Nicotine dependence, unspecified, uncomplicated; Z79.899 Other long term (current) drug therapy; Z83.3 Family history of diabetes mellitus; Z83.79 Family history of other diseases of the digestive system; Z84.1 Family history of disorders of kidney and ureter; Z82.0 Family history of epilepsy and other diseases of the nervous system

== ENCOUNTER 2017-09-25 00:09 | Emergency (ER) | payer BC, OTHER ==
[~2017-09-25] VITALS: Ht 157.5 cm; Wt 75.8 kg
[2017-09-25 00:16] VITALS: TEMP 37.3; Ht 157.5 cm; Wt 75.8 kg
[2017-09-25] MEDS ORDERED: ALBUTEROL HFA 8 GM INHALER INH ONE (00:30)
[2017-09-25] MEDS ORDERED: HYDROCODONE/HOMATROPINE SYRUP 5MG/1.5MG 5ML UDP PO STA (00:30)
--- NOTE | 2017-09-25 00:35 | EMERGENCY ROOM VISIT NOTE ---
History Report prepared by Juliana: Nguyễn Rosas Under the Supervision of: Dr. Eduardo Erwin M.D. First contact with patient: 00:25 Chief Complaint: COUGH Stated Complaint: BURNING CHEST PAIN,COUGHING BLOOD,SOB,FEVER History of Present Illness The patient is a 26 year old female who presents to the Emergency Room with complaints of worsening cough that began 3 days ago. She rates her discomfort as a 7/10 in severity. The patient states that her cough is productive with yellow and bloody sputum. She reports that her abdominal muscles have been sore because she has been coughing frequently. She states that her ear lobes also burn. The patient reports that she noticed a rash on her chest today. The patient states she has taken Sudafed, Tylenol, and Aleve for her symptoms. The patient denies rhinorrhea, ear pain, and fevers. The patient reports a history of smoking, bronchitis, pneumonia, and allergies. She denies a history of asthma and diabetes. The patient states she is allergic to Duoneb. Source of History: patient Onset: three days ago Position: other (global) Symptom Intensity: 7/10 Quality: other (productive with yellow and bloody sputum) Timing: worsening Modifying Factors (Relieving): tylenol, other (Sudafed, Aleve) Associated Symptoms: + rash, No fevers Note: Denies ear pain, rhinorrhea Associated symptoms: burning ear lobes, sore abdominal muscles Review of Systems See HPI for pertinent positives & negatives. A total of 10 systems reviewed and were otherwise negative. Past Medical & Surgical Medical Problems: (1) Abdominal pain (2) Abdominal pain in (3) Abdominal/ pelvic pain (4) Asthma (5) Back pain (6) Bipolar disorder current episode depressed (7) Bronchitis (8) Bronchitis (9) Crohns disease (10) Crohns disease (11) Dehydration (12) Diarrhea (13) Flank pain (14) Generalized abdominal pain (15) Hemorrhagic ovarian cyst (16) History of bleeding disorder (17) Intermittent abdominal pain (18) labor (19) Left sided abdominal pain (20) Lymphocytic colitis (21) Migraine (22) ocd traits (23) Ovarian cyst (24) ovarian cyst (25) Pelvic pain (26) PNA (pneumonia) (27) with 20 completed weeks gestation (28) Ruptured ovarian cyst (29) Stomach problems (30) Supervision of other normal (31) Syncope (32) Threatened miscarriage (33) Threatened miscarriage (34) Tobacco abuse (35) Ulcerative colitis (36) Urinary problem (37) Urinary tract infection (38) Urinary tract infection (39) Uterine contractions at greater than 20 weeks of gestation (40) Vaginal bleeding before 22 weeks gestation (41) Vasovagal syncope (42) Vomiting Surgical Problems: (1) [place] Teeth Removal Family History Cancer Diabetes mellitus FH: cancer Gallbladder disease Heart disease Kidney disease Kidney stones Seizures Social History Smoking Status: Current Every Day Smoker Alcohol Use: none Drug Use: none Marital Status: in relationship Housing Status: lives with family Occupation Status: employed Current/Historical Medications Scheduled Azithromycin (Zithromax Z-Tripp), 1 PKT PO UD Fluticasone Propionate (Flovent Hfa), 2 PUFFS INH BID Gabapentin (Gabapentin), 800 MG PO TID Medroxyprogesterone Acetate (C (Medroxyprogesterone Aceta), 150 MG IM Q3MO Methylprednisolone (Medrol Dosepak), 1 PKT PO UD Scheduled PRN Hydroxyzine Pamoate (Vistaril), 50 MG PO HS PRN for PRN Sumatriptan Succinate (Sumatriptan Succinate), 50 MG PO UD PRN for Migraine Allergies Coded Allergies: Albuterol (Verified Allergy, Severe, THROAT SWELLS, 09/25/17) Ipratropium (Verified Allergy, Severe, THROAT SWELLS, 09/25/17) Penicillins (Verified Allergy, Mild, RASH, 09/25/17) Amoxicillin (Verified Allergy, Unknown, rash, 09/25/17) Physical Exam Vital Signs Date Time Temp Pulse Resp B/P (MAP) Pulse Ox O2 Delivery O2 Flow Rate FiO2 09/25/17 01:51 94 20 131/76 99 09/25/17 00:16 37.3 103 20 137/83 98 Room Air Physical Exam GENERAL: Patient is well appearing and in mild distress. EYES: No scleral icterus, unremarkable pupils. ENT: Mucous membranes moist, no nasal congestion. NECK: No masses appreciated, no meningismus, trachea is midline. RESPIRATORY: Faint diffuse wheezing. Has a harsh junky cough. CARDIOVASCULAR: Regular rate and rhythm. No murmurs, rubs, gallops appreciated. GASTROINTESTINAL: Abdomen soft, nontender, no peritonitis. Bowel sounds positive. No masses appreciated. BACK: No midline tenderness, no CVA tenderness EXTREMITIES: Normal motion all extremities, no cyanosis, no edema. NEUROLOGIC: Alert and oriented, no acute motor or sensory deficits, no focal weakness, cranial nerves grossly intact. SKIN: No rash, no jaundice, no diaphoresis. Medical Decision & Procedures ER Provider Diagnostic Interpretation: X ray results are stated below per my interpretation: Chest: 1 view: No infiltrate, no effusion, normal cardiac border. Medications Administered Medications (Trade) Dose Ordered Sig/Pro Route Start Time Stop Time Status Last Admin Dose Admin Albuterol (Ventolin Hfa Inhaler) 2 puffs NOW ONCE INH 09/25/17 00:30 09/25/17 00:32 DC 09/25/17 00:38 2 PUFFS Hydrocodone Bit/ Homatropine Methylb (Hycodan Syrup) 10 ml NOW STAT PO 09/25/17 00:30 09/25/17 00:32 DC 09/25/17 00:39 10 ML Prednisone (PredniSONE TAB) 40 mg NOW STAT PO 09/25/17 00:30 09/25/17 00:32 DC 09/25/17 00:40 40 MG Hydrocodone Bit/ Homatropine Methylb (Hycodan Elix Homepack 5/1.5MG/ 5ML) 1 homepack UD ONCE PO 09/25/17 01:30 09/25/17 01:31 DC 09/25/17 01:46 1 HOMEPACK Azithromycin (Zithromax Tab) 500 mg NOW ONCE PO 09/25/17 01:30 09/25/17 01:31 DC 09/25/17 01:46 500 MG ED Course 0024: The patient was evaluated in room B12B. A complete history and physical exam was performed. 0121: I reevaluated the patient and she feels better. She notes she has previously tolerated Z-Pack well. I discussed the results and treatment plan with the patient, which she understands and agrees to. The patient is ready for discharge. Medical Decision Differential: Infectious, Reactive Airway Disease, Pneumonia, Pneumothorax, Pulmonary Embolism, MSK, amongst other etiologies entertained. 26 yr old smoker arrives for evaluation of cough and congestion with wheezing on exam. Improved with hycodan and albuterol. No evidence of pneumonia. Given history and exam seems reasonable treating with abx, steroids and inhaler. She is comfortable with this plan. She is low risk PE and given improvement with above I feel bronchitis higher likelihood and that CT PE is not indicated. She feels comfortable with going home. At discharge stating "I came here for an antibiotic." Reviewed symptoms RTED. Medication Reconcilliation Current Medication List: was personally reviewed by me Blood Pressure Screening Patient's blood pressure: Elevated blood pressure Blood pressure disposition: Elevated BP felt to be situational Impression Primary Impression: Acute bronchitis Scribe Attestation The scribe's documentation has been prepared under my direction and personally reviewed by me in its entirety. I confirm that the note above accurately reflects all work, treatment, procedures, and medical decision making performed by me. Departure Information Dispostion Home / Self-Care Prescriptions Methylprednisolone (MEDROL DOSEPAK) 4 Mg Tripp 1 PKT PO UD for 6 Days, #1 PKT Prov: Eduardo Erwin M.D. 09/25/17 Azithromycin (ZITHROMAX Z-TRIPP) 250 Mg Tab 1 PKT PO UD, #1 PKT Prov: Eduardo Erwin M.D. 09/25/17 Referrals Navdeep Olson M.D. (PCP) Patient Instructions Bronchitis Acute, My [facility] Additional Instructions You have received a narcotic cough medication. These medications may cause drowsiness and should not be used with other sedative medications. Do not drive , drink alcohol, perform dangerous activities, nor make important decisions after taking these medications. terminal system operator use or inappropriate use may lead to addiction.
[2017-09-25] MEDS ORDERED: MEDR150I19 IM (00:57)
[2017-09-25] MEDS ORDERED: FLVHFA44 INH (00:57)
[2017-09-25] MEDS ORDERED: AZITTAB PO (01:26)
[2017-09-25] MEDS ORDERED: METH4PAK PO (01:26)
[2017-09-25] MEDS ORDERED: HYCODAN 60ML BOTTLE HOMEPACK PO ONE (01:30)
[2017-09-25] MEDS ORDERED: AZITHROMYCIN 250 MG TAB PO ONE (01:30)
[2017-09-25 01:51] VITALS: BP 131/76; PULSE 94; O2SAT 99
--- NOTE | 2017-09-25 07:02 | DIAGNOSTIC IMAGING REPORT ---
TWO VIEW CHEST CLINICAL HISTORY: Cough and fatigue. FINDINGS: PA and lateral chest radiographs are compared to study dated 07/29/2017. The cardiomediastinal silhouette is unremarkable. The lungs and pleural spaces are clear. There is no pneumothorax. The bony thorax appears intact. IMPRESSION: No active disease in the chest. Electronically signed by: Viral Bee M.D. 09/25/2017 7:01 AM Dictated Date/Time: 09/25/2017 7:01 AM
== END 2017-09-25 01:52 | disposition home or self-care (01) ==
LOC: C.EDB 00:11
DX: J20.9 Acute bronchitis, unspecified (principal); F17.210 Nicotine dependence, cigarettes, uncomplicated; Z79.899 Other long term (current) drug therapy; Z88.0 Allergy status to penicillin; Z88.1 Allergy status to other antibiotic agents; Z88.8 Allergy status to other drugs, medicaments and biological substances

== ENCOUNTER 2018-01-07 23:53 | Emergency (ER) | payer BC ==
[~2018-01-07] VITALS: Ht 154.9 cm; Wt 84.2 kg
[~2018-01-07 23:53] MED LIST changes: -ACET500T58 PO; -CLON1TAB3 PO; +FLVHFA44 INH; -LITH1TAB10 PO; -LTHCR300 PO; +MEDR150I19 IM; -QUET1TAB32 PO
[2018-01-07 23:57] VITALS: TEMP 36.9; Ht 154.9 cm; Wt 84.2 kg
[2018-01-08] MEDS ORDERED: HYDROmorphone INJ 1 MG/ML SYR IV STA ×2 (00:35→03:14)
--- NOTE | 2018-01-08 00:47 | EMERGENCY ROOM VISIT NOTE ---
History Report prepared by Juliana: Kristal Monet Under the Supervision of: Dr. Teetee Richards D.O. First contact with patient: 00:14 Chief Complaint: ABDOMINAL PAIN Stated Complaint: ABDOMINAL BLOATING/PAIN,CONSTANT DIARRHEA,BLOOD IN History of Present Illness The patient is a 27 year old female who presents to the Emergency Room with complaints of persistent abdominal pain that started this morning. The patient rates her pain a 6/10 in severity. She reports she felt bloated this morning and was unable to fit into her clothes. She states she had a bowel movement this morning which had blood clots. She notes her abdominal pain got worse after the bowel movement. She denies any blood in her stool since this morning. The patient has a history of Crohn's but is not on medications. She states she has not seen Dr. Juarez in a while. She reports she takes Gabapentin for pain which is prescribed by her PCP. She notes she has not been on steroids for her Crohn's before. She states she had a sandwich and spaghetti today. She notes she has chills. She denies nausea, vomiting, or fever. The patient states she has not had an issue with her Crohn's in about a year. Source of History: patient Onset: this morning Position: abdomen Symptom Intensity: 6/10 Timing: other (persistent) Associated Symptoms: + chills, No fevers, No nausea, No vomiting Review of Systems See HPI for pertinent positives & negatives. A total of 10 systems reviewed and were otherwise negative. Past Medical & Surgical Medical Problems: (1) Abdominal pain (2) Abdominal pain in (3) Abdominal/ pelvic pain (4) Asthma (5) Back pain (6) Bipolar disorder current episode depressed (7) Bronchitis (8) Bronchitis (9) Crohns disease (10) Crohns disease (11) Dehydration (12) Diarrhea (13) Flank pain (14) Generalized abdominal pain (15) Hemorrhagic ovarian cyst (16) History of bleeding disorder (17) Intermittent abdominal pain (18) labor (19) Left sided abdominal pain (20) Lymphocytic colitis (21) Migraine (22) ocd traits (23) Ovarian cyst (24) ovarian cyst (25) Pelvic pain (26) PNA (pneumonia) (27) with 20 completed weeks gestation (28) Ruptured ovarian cyst (29) Stomach problems (30) Supervision of other normal (31) Syncope (32) Threatened miscarriage (33) Threatened miscarriage (34) Tobacco abuse (35) Ulcerative colitis (36) Urinary problem (37) Urinary tract infection (38) Urinary tract infection (39) Uterine contractions at greater than 20 weeks of gestation (40) Vaginal bleeding before 22 weeks gestation (41) Vasovagal syncope (42) Vomiting Surgical Problems: (1) [place] Teeth Removal Family History Cancer Diabetes mellitus FH: cancer Gallbladder disease Heart disease Kidney disease Kidney stones Seizures Social History Smoking Status: Current Every Day Smoker Alcohol Use: none Drug Use: none Marital Status: in relationship Housing Status: lives with family Occupation Status: employed Current/Historical Medications Scheduled Gabapentin (Gabapentin), 800 MG PO TID Scheduled PRN Hydroxyzine Pamoate (Vistaril), 50 MG PO HS PRN for PRN Sumatriptan Succinate (Sumatriptan Succinate), 50 MG PO UD PRN for Migraine Allergies Coded Allergies: Albuterol (Verified Allergy, Severe, THROAT SWELLS, 01/08/18) Ipratropium (Verified Allergy, Severe, THROAT SWELLS, 01/08/18) Penicillins (Verified Allergy, Mild, RASH, 01/08/18) Amoxicillin (Verified Allergy, Unknown, rash, 01/08/18) Physical Exam Vital Signs Date Time Temp Pulse Resp B/P (MAP) Pulse Ox O2 Delivery O2 Flow Rate FiO2 01/08/18 04:50 72 15 117/70 99 Room Air 01/08/18 03:40 78 16 117/70 98 Room Air 01/08/18 01:26 70 16 112/64 99 Room Air 01/08/18 00:55 98 20 129/84 97 Room Air 01/07/18 23:57 36.9 97 18 133/81 99 Room Air Physical Exam HEENT: Head - normocephalic and atraumatic Pupils are equal, round, and reactive to light. Extraocular eye muscles are intact, and sclera are anicteric. Nose - moist nasal mucosa without discharge. Mouth - moist buccal mucosa. Oropharynx is nonerythematous and there is no tonsillar exudate or edema noted. Neck: Supple; no JVD, nuchal rigidity, cervical lymphadenopathy. Heart: Regular rate and rhythm. There is a normal S1 and S2 with no murmurs, clicks, or gallops appreciated. Lungs: Clear to auscultation bilaterally with no wheezes, rales, or rhonchi. Abdomen: Soft, suprapubic pain with palpation, nondistended, with good bowel sounds. There are no palpable pulsatile masses or hepatosplenomegaly. There is no guarding, rigidity, or rebound noted. Extremities: No evidence of cyanosis, clubbing, or edema. There are easily palpable peripheral pulses. Skin: warm and dry with good turgor and no rashes. Medical Decision & Procedures ER Provider Diagnostic Interpretation: Radiology results as stated below per my review and the radiologist's interpretation: CT ABDOMEN & PELVIS With Contrast: Comparison: 05/04/17 FINDINGS: The lung bases are clear. The liver and spleen are normal in size and free of mass lesions. The gallbladder, bile ducts and pancreas are normal. The adrenal gland are unremarkable. The kidneys are normal in size and contour. No lesion or hydronephrosis. The appendix is unremarkable., as is the rest of the GI tract. Aorta is normal caliber. No adenopathy or extraluminal air. The osseous structures are normal. IMPRESSION: Normal enhanced CT of the abdomen and pelvis. No change from prior study. Radiologist: Boni Orellana MD Laboratory Results 01/08/18 00:22 Red Blood Count 4.38, Mean Corpuscular Volume 93.6, Mean Corpuscular Hemoglobin 32.0, Mean Corpuscular Hemoglobin Concent 34.1, Mean Platelet Volume 10.0, Neutrophils (%) (Auto) 55.1, Lymphocytes (%) (Auto) 33.4, Monocytes (%) (Auto) 9.2, Eosinophils (%) (Auto) 1.6, Basophils (%) (Auto) 0.4, Neutrophils # (Auto) 5.65, Lymphocytes # (Auto) 3.42, Monocytes # (Auto) 0.94, Eosinophils # (Auto) 0.16, Basophils # (Auto) 0.04 01/08/18 00:22 Test 01/08/18 00:22 01/08/18 00:35 White Blood Count 10.24 K/uL (4.8-10.8) Red Blood Count 4.38 M/uL (4.2-5.4) Hemoglobin 14.0 g/dL (12.0-16.0) Hematocrit 41.0 % (37-47) Mean Corpuscular Volume 93.6 fL (80-100) Mean Corpuscular Hemoglobin 32.0 pg (25-34) Mean Corpuscular Hemoglobin Concent 34.1 g/dl (32-36) Platelet Count 285 K/uL (130-400) Mean Platelet Volume 10.0 fL (7.4-10.4) Neutrophils (%) (Auto) 55.1 % Lymphocytes (%) (Auto) 33.4 % Monocytes (%) (Auto) 9.2 % Eosinophils (%) (Auto) 1.6 % Basophils (%) (Auto) 0.4 % Neutrophils # (Auto) 5.65 K/uL (1.4-6.5) Lymphocytes # (Auto) 3.42 K/uL (1.2-3.4) Monocytes # (Auto) 0.94 K/uL (0.11-0.59) Eosinophils # (Auto) 0.16 K/uL (0-0.5) Basophils # (Auto) 0.04 K/uL (0-0.2) RDW Standard Deviation 41.9 fL (36.4-46.3) RDW Coefficient of Variation 12.3 % (11.5-14.5) Immature Granulocyte % (Auto) 0.3 % Immature Granulocyte # (Auto) 0.03 K/uL (0.00-0.02) Anion Gap 9.0 mmol/L (3-11) Est Creatinine Clear Calc Drug Dose 105.8 ml/min Estimated GFR () 118.8 Estimated GFR (Non- 102.5 BUN/Creatinine Ratio 14.6 (10-20) Calcium Level 8.2 mg/dl (8.5-10.1) Total Bilirubin 0.2 mg/dl (0.2-1) Direct Bilirubin < 0.1 mg/dl (0-0.2) Aspartate Amino Transf (AST/SGOT) 22 U/L (15-37) Alanine Aminotransferase (ALT/SGPT) 52 U/L (12-78) Alkaline Phosphatase 91 U/L (45-117) Total Protein 7.3 gm/dl (6.4-8.2) Albumin 3.6 gm/dl (3.4-5.0) Chemistry Specimen Hemolysis Urine Color YELLOW Urine Appearance CLEAR (CLEAR) Urine pH 6.5 (4.5-7.5) Urine Specific [place] 1.022 (1.000-1.030) Urine Protein NEG (NEG) Urine Glucose (UA) NEG (NEG) Urine Ketones NEG (NEG) Urine Occult Blood NEG (NEG) Urine Nitrite NEG (NEG) Urine Bilirubin NEG (NEG) Urine Urobilinogen NEG (NEG) Urine Leukocyte Esterase SMALL (NEG) Urine WBC (Auto) 1-5 /hpf (0-5) Urine RBC (Auto) 0-4 /hpf (0-4) Urine Hyaline Casts (Auto) 0 /lpf (0-5) Urine Epithelial Cells (Auto) >30 /lpf (0-5) Urine Bacteria (Auto) NEG (NEG) Urine Test NEG (NEG) Laboratory results per my review. Medications Administered Medications (Trade) Dose Ordered Sig/Pro Route Start Time Stop Time Status Last Admin Dose Admin Hydromorphone HCl (Dilaudid Inj) 1 mg NOW STAT IV 01/08/18 00:35 01/08/18 00:37 DC 01/08/18 00:50 1 MG Hydromorphone HCl (Dilaudid Inj) 1 mg NOW STAT IV 01/08/18 03:14 01/08/18 03:15 DC 01/08/18 03:19 1 MG Procedure IV lock initiation IV Dilaudid 2 ED Course 0020: Past medical records reviewed. The patient was evaluated in room A2. A complete history and physical exam was performed. IV lock initiated and labs were drawn as above. 0035: Ordered Dilaudid Inj 1 mg IV. The patient began to prep for CT scan of the abdomen/pelvis. 0232: I reevaluated the patient. She feels much better after medications. 0310: The patient is complaining of increased pain and rates it a 7/10. I will order another dose of Dilaudid before she goes to CT. 0314: Ordered Dilaudid Inj 1 mg IV. She went for CT scan of the abdomen/pelvis. 0442: I spoke with the patient about her CT findings. I told her there were no findings for Crohn's. She stated a doctor told her once that a report said she had Crohn's. 0445: Upon reevaluation, the patient is resting comfortably. I discussed findings and results with her. She verbalized agreement of the treatment plan. She was discharged home. Medical Decision The patient is a 27 year old female who presents to the Emergency Department with abdominal pain. Differential diagnosis includes Crohn's exacerbation, colitis, gastritis, cystitis. Lab results show: Urine negative Urinalysis shows small leukocyte esterase with greater than 30 epithelial cells Normal renal function Normal glucose Normal LFTs No leukocytosis Stable H&H This is a 27-year-old female patient presents to the emergency department with increased suprapubic abdominal pain. The patient explains that she has a history of Crohn's disease and had a large bloody bowel movement with blood clots. She had laboratory studies done here which were unremarkable. She had a CT scan of the abdomen/pelvis which was also unremarkable. I spent a great deal time talking to the patient about the risks of radiation. In reviewing her medical records, it seems that she has had [address] scans of the abdomen/ pelvis in the past 2.5 years. She is at significant increased risk of radiation -induced carcinoma. In reviewing her records, it seems that she has no history of Crohn's disease by CT scan or other evaluation. However, I did suggest that she follow-up with Dr. Sesay who is her certified indoor environmentalist. Medication Reconcilliation Current Medication List: was personally reviewed by me Blood Pressure Screening Patient's blood pressure: Normal blood pressure Impression Primary Impression: Suprapubic abdominal pain Scribe Attestation The scribe's documentation has been prepared under my direction and personally reviewed by me in its entirety. I confirm that the note above accurately reflects all work, treatment, procedures, and medical decision making performed by me. Departure Information Dispostion Home / Self-Care Referrals Navdeep Olson M.D. (PCP) Patient Instructions [facility] Additional Instructions You should not have any more CT scans of the abdomen and pelvis - you are at significant risk of developing cancer from radiation Follow up with DR. SESAY to discuss Chron's Disease and the need for another colonoscopy
[2018-01-08 01:03] LABS: ALBUMIN 3.6 gm/dl (3.4-5.0); ALT/SGPT 52 U/L (12-78); AST/SGOT 22 U/L (15-37); BASO % 0.4 %; BASO ABS # 0.04 K/uL (0-0.2); BLOOD UREA NITROGEN 12 mg/dl (7-18); CALCIUM 8.2 mg/dl (8.5-10.1); CARBON DIOXIDE 26 mmol/L (21-32); EOS % 1.6 %; EOS ABS # 0.16 K/uL (0-0.5); GLUCOSE 89 mg/dl (70-99); IG# 0.03 K/uL (0.00-0.02); LYMPH % 33.4 %; LYMPH ABS # 3.42 K/uL (1.2-3.4); MEAN CELL VOLUME 93.6 fL (80-100); MEAN CORPUSCULAR HGB CONC 34.1 g/dl (32-36); MONO % 9.2 %; MONO ABS # 0.94 K/uL (0.11-0.59); NEUT % 55.1 %; NEUT ABS # 5.65 K/uL (1.4-6.5); PLATELET COUNT 285 K/uL (130-400); POTASSIUM 3.7 mmol/L (3.5-5.1); RED CELL DISTRIBUTION WIDTH CV 12.3 % (11.5-14.5); RED CELL DISTRIBUTION WIDTH SD 41.9 fL (36.4-46.3); SODIUM 140 mmol/L (136-145); WHITE BLOOD COUNT 10.24 K/uL (4.8-10.8)
[2018-01-08 01:11] LABS: ALKALINE PHOSPHATASE 91 U/L (45-117); TOTAL PROTEIN 7.3 gm/dl (6.4-8.2)
[2018-01-08] MEDS ORDERED: OPTIRAY 320 IV PRN (03:15)
[2018-01-08 04:50] VITALS: BP 117/70; PULSE 72; O2SAT 99
--- NOTE | 2018-01-08 07:08 | DIAGNOSTIC IMAGING REPORT ---
ABD/PELVIS IV AND ORAL CONT CT DOSE: 732.89 mGy.cm HISTORY: Pain eval chron's TECHNIQUE: Multiaxial CT images of the abdomen and pelvis were performed following the use of intravenous and oral contrast. A dose lowering technique was utilized adhering to the principles of ALARA. COMPARISON STUDY: 05/04/2017 FINDINGS: The lung bases are clear. The liver, spleen, gallbladder, pancreas, kidneys, and adrenal glands are within normal limits. No bowel wall thickening or obstruction. The pelvic organs are unremarkable. No suspicious lytic or blastic osseous lesions. IMPRESSION: No significant abnormality identified within the abdomen or pelvis. The above report was generated using voice recognition software. It may contain grammatical, syntax or spelling errors. Electronically signed by: Gregorio Garcia M.D. 01/08/2018 7:06 AM Dictated Date/Time: 01/08/2018 7:04 AM
== END 2018-01-08 05:00 | disposition home or self-care (01) ==
LOC: C.EDB 23:55 → C.EDA 01-08 05:00
DX: R10.84 Generalized abdominal pain (principal); J45.909 Unspecified asthma, uncomplicated; K50.90 Crohn's disease, unspecified, without complications; F17.200 Nicotine dependence, unspecified, uncomplicated; Z88.8 Allergy status to other drugs, medicaments and biological substances; Z88.0 Allergy status to penicillin; Z88.1 Allergy status to other antibiotic agents

== ENCOUNTER 2019-05-09 16:38 | Inpatient (IN) ==
[2019-05-09] MEDS ORDERED: LACTATED RINGER'S 1,000 ML IV PRN (17:10)
[2019-05-09] MEDS ORDERED: OXYTOCIN 30 UNITS/500 ML BAG IV PRN ×3 (17:10→21:37)
[2019-05-09] MEDS ORDERED: fentaNYL 2MCG/ML ROPIV 1.25MG/ML 100 ML BAG EPI ONE (17:15)
[2019-05-09] MEDS ORDERED: BUPIVACAINE 0.25% 30 ML VIAL ONE (17:15)
[2019-05-09] MEDS ORDERED: fentaNYL citrate 100 MCG/2 ML VIAL ONE (17:15)
[2019-05-09] MEDS ORDERED: ePHEDrine sulfate 50 MG/ML AMP ONE (17:15)
[2019-05-09 17:36] LABS: Hematocrit (blood only) 35.2 % (37-47); Hemoglobin 11.9 g/dL (12.0-16.0); Mean Corpuscular Hemoglobin 31.4 pg (25-34); Mean Corpuscular Volume 92.9 fL (80-100); Mean Platelet Volume 9.2 fL (7.4-10.4); Platelet Count 267 K/uL (130-400); RDW Standard Deviation 43.9 fL (36.4-46.3); Red Blood Count 3.79 M/uL (4.2-5.4); White Blood Count 14.59 K/uL (4.8-10.8)
[2019-05-09] MEDS ORDERED: DiphenhydrAMINE HCL 50 MG/ML VIAL IV PRN (17:50)
[2019-05-09] MEDS ORDERED: fentaNYL 2MCG/ML ROPIV 1.25MG/ML 100 ML BAG EPI PRN (17:50)
[2019-05-09] MEDS ORDERED: NALOXONE HCL 0.4 MG/1 ML VIAL/CARP IV PRN (17:50)
[2019-05-09] MEDS ORDERED: NALBUPHINE HCL INJ 10 MG/ML AMP IV PRN (17:50)
[2019-05-09] MEDS ORDERED: ONDANSETRON INJ 2 MG/ML 2 ML VIAL IV PRN (17:50)
[2019-05-09] MEDS ORDERED: NALOXONE HCL 1 MG in SODIUM CHLORIDE 0.9% 1000ML 1,000 ML IV PRN (17:50)
--- NOTE | 2019-05-09 17:54 | Anesthesiology Consultation ---
Date of Service May 09, 2019 Assessment & Plan (1) Encounter for pre-operative examination: Chart Review Chart Review: Patient NOT seen in Pre Admission Testing and Acceptable Risk for Labor Epidural Consults Requested none History Height/Weight Height: 5 ft 2 in Weight: 78.925 kg Allergies Allergy/AdvReac Type Severity Reaction Status Date / Time albuterol Allergy Severe THROAT Verified 05/09/19 14:59 SWELLS ipratropium Allergy Severe THROAT Verified 05/09/19 14:59 SWELLS Penicillins Allergy Mild RASH Verified 05/09/19 14:59 amoxicillin Allergy Unknown rash Verified 05/09/19 14:59 quetiapine [From Seroquel] AdvReac Severe Unknown Verified 05/09/19 14:59 Medications Home Medications Medication Instructions Recorded Confirmed Last Taken vit no.[id number] 1 tab PO DAILY 04/29/19 05/09/19 04/29/19 08:00 [ Vitamin] Active Medications Generic Name Dose Route Start Last Admin Trade Name Freq PRN Reason Stop Dose Admin Lactated Ringer's 1,000 mls @ 125 mls/hr 05/09/19 17:10 05/09/19 17:21 Lr IV 05/11/19 17:09 999 mls/hr .Q8H PRN Administration L&D Protocol Protocol Past Medical History Medical History Abdominal pain (Resolved) Alcohol intoxication (Resolved) Bipolar disorder current episode depressed Bronchitis (Resolved) Crohns disease Diarrhea (Resolved) Flank pain (Resolved) Generalized abdominal pain (Resolved) Hemorrhagic ovarian cyst (Resolved) History of bleeding disorder (Chronic) History of pelvic inflammatory disease Laceration of left forearm (Resolved) Lymphocytic colitis Migraine Ovarian cyst (Resolved) Pelvic pain (Resolved) PNA (pneumonia) (Resolved) with 20 completed weeks gestation (Resolved) PTSD (post-traumatic stress disorder) Ruptured ovarian cyst (Resolved) Stomach problems (Resolved) Supervision of other normal (Resolved) Threatened miscarriage (Resolved) Tobacco abuse Ulcerative colitis (Resolved) Urinary problem (Resolved) Urinary tract infection (Resolved) Vaginal bleeding before 22 weeks gestation (Resolved) Vasovagal syncope (Resolved) Vomiting (Resolved) Wound dehiscence (Resolved) Exercise / Class Metabolic Activity II 4-5 Yardwork/Stairs/Walk up hill Past Family History Family History Father Attention deficit hyperactivity disorder Family/Other Attention deficit hyperactivity disorder paternal cousin Breast cancer Grandfather (Paternal) Attention deficit hyperactivity disorder Aunt Breast cancer paternal Brother Trisomy 21, Down syndrome Other COPD (chronic obstructive pulmonary disease) Crohn's disease Diabetes Emphysema of lung Past Surgical History Surgical History Hx of colonoscopy S/P wisdom tooth extraction Past Anesthesia History No Hx of Anesthesia Complications and No Family Hx of Anesthesia Complications History of PONV No Hx of PONV and No Hx of Motion Sickness Social History Smoking Status: Current every day smoker tobacco type: cigarettes Smoking cigarettes per day: 10 Do You Dip or Chew Tobacco: No Hx Alcohol Use: Yes alcohol intake frequency: holidays/special occasions only Hx Substance Use: No substance use type: does not use Physical Exam Vital Signs Last Vital Signs Temp 36.9 C 05/09/19 16:46 Pulse 102 H 05/09/19 16:46 Resp 20 05/09/19 16:46 BP 119/71 05/09/19 16:46 Testing Laboratory Results 05/09/19 17:22
[2019-05-09 17:57] LABS: Mean Corpuscular Hgb Conc 33.8 g/dL (32-36)
[2019-05-09 18:19] LABS: Amphetamines+Metham, Urine Neg (Neg); Barbiturates, Urine Neg (Neg); Benzodiazepine, Urine Neg (Neg); Cocaine, Urine Neg (Neg); MDMA (Ecstacy), Urine Neg (Neg); Methadone, Urine Neg (Neg); Opiate, Urine Neg (Neg); Phencyclidine, Urine Neg (Neg)
--- NOTE | 2019-05-09 18:19 | History & Physical Report ---
Date of Service May 09, 2019 Assessment & Plan (1) Supervision of normal intrauterine in multigravida: -Tracing category 2 with good variability -Patient requesting epidural -After epidural placed will have artificial rupture of membranes -Anticipate vaginal delivery (2) Chlamydial infection: -Suspect chlamydia culture will still be positive, repeat culture sent -Peds aware of the positive chlamydia status -Zithromax 500 mg IV now and repeat in 24 hours (3) Bipolar disorder: -Social service consult (4) History of drug abuse: -Urine drug screen ordered History of Present Illness Chief Complaint: Labor check Primary Care Provider: Navdeep Olson MD The patient is a 28-year-old 3 para 2, EDC of 14 May by dates and first trimester ultrasound, who presents at 39+ weeks gestational age for labor check. The patient had been seen earlier in the office for a visit. At that time she was noted to be 4 cm. Her contractions increased after the examination and she presents to labor and delivery for evaluation. The patient has had a complicated course. The patient has a diagnosis of bipolar disease and at her initial OB visit was not seeing psychiatry. She was not on any medication. The first 20 weeks of her was remarkable for minimal weight gain. Attempts at trying to get the patient with psychiatry were unsuccessful. Urine drug screen done at 20 weeks was positive for methamphetamine with positive confirmatory test. Her screening test was also positive for ecstasy, but the confirmatory test were negative. The patient then disappeared from care for 10 weeks. During that time she was apparently hospitalized at the [facility]. When she returned at 30 weeks gestational age a drug screen was ordered but was not done until 36 weeks. That urine drug screen was negative. The patient is currently living at home with her father. She has custody of her other 2 children. The father of the baby for this is also the father of the baby for her second . The patient was diagnosed with chlamydia at her first visit and was given a prescription for oral Zithromax. Her partner never took the medication. She did not tell us this till this admission. She had a repeat culture done at 36 weeks which again was positive. She was again treated with oral Zithromax, but her partner never took any medication. Laboratory values for this show a blood type of AB-, antibody negative, she received RhoGam at 30 weeks gestational age, she had an elevated 1 hour Glucola with a normal 2-hour glucose tolerance test, she had a negative hepatitis B screen, and she had a negative third trimester beta strep culture. Allergies Allergy/AdvReac Type Severity Reaction Status Date / Time albuterol Allergy Severe THROAT Verified 05/09/19 14:59 SWELLS ipratropium Allergy Severe THROAT Verified 05/09/19 14:59 SWELLS Penicillins Allergy Mild RASH Verified 05/09/19 14:59 amoxicillin Allergy Unknown rash Verified 05/09/19 14:59 quetiapine [From Seroquel] AdvReac Severe Unknown Verified 05/09/19 14:59 Home Medications Home Medications Medication Instructions Recorded Confirmed Type vit no.[id number] 1 tab PO DAILY 04/29/19 05/09/19 History [ Vitamin] Patient History Medical History Abdominal pain (Resolved) Alcohol intoxication (Resolved) Bipolar disorder current episode depressed Bronchitis (Resolved) Crohns disease Diarrhea (Resolved) Flank pain (Resolved) Generalized abdominal pain (Resolved) Hemorrhagic ovarian cyst (Resolved) History of bleeding disorder (Chronic) History of pelvic inflammatory disease Laceration of left forearm (Resolved) Lymphocytic colitis Migraine Ovarian cyst (Resolved) Pelvic pain (Resolved) PNA (pneumonia) (Resolved) with 20 completed weeks gestation (Resolved) PTSD (post-traumatic stress disorder) Ruptured ovarian cyst (Resolved) Stomach problems (Resolved) Supervision of other normal (Resolved) Threatened miscarriage (Resolved) Tobacco abuse Ulcerative colitis (Resolved) Urinary problem (Resolved) Urinary tract infection (Resolved) Vaginal bleeding before 22 weeks gestation (Resolved) Vasovagal syncope (Resolved) Vomiting (Resolved) Wound dehiscence (Resolved) Surgical History Hx of colonoscopy S/P wisdom tooth extraction Family History Father Attention deficit hyperactivity disorder Family/Other Attention deficit hyperactivity disorder paternal cousin Breast cancer Grandfather (Paternal) Attention deficit hyperactivity disorder Aunt Breast cancer paternal Brother Trisomy 21, Down syndrome Other COPD (chronic obstructive pulmonary disease) Crohn's disease Diabetes Emphysema of lung Social History Preferred Language: [place] Communication Ability: Effective Beliefs That Will Affect Care: None marital status: Single Current Living Situation: Family Other Information That Helps Us Care for You: No Feels Safe at Home: Yes Safety Concerns: Feels Safe At This Time Smoking Status: Current every day smoker Tobacco Type: cigarettes ; Cigarettes Per Day: 10 ; Do You Dip or Chew Tobacco: No ; Second Hand Exposure: Yes ; Hx Alcohol Use: Yes Hx Substance Use: No Physical Exam Constitutional: WD/WN, vitals as above Respiratory: Auscultation: lungs clear to auscultation bilaterally Cardiovascular: RRR, no murmur, no edema Extremities: no calf tenderness Gastrointestinal (Abdomen): Gravid, vertex, positive heart tones, positive palpable contractions every 5 minutes, estimated weight of 6-1/2 pounds. Genitourinary: Cervix: 5 to 6 cm / 80%/-2 station Results & Data Vital Signs (Past 12 Hours) Vital Signs Temp Pulse Resp BP Pulse Ox 05/09/19 18:15 106 H 110/76 98 05/09/19 18:13 116 H 122/89 05/09/19 18:12 99 H 89 L 05/09/19 18:11 94 H 121/81 05/09/19 18:10 95 H 98 05/09/19 18:09 90 128/89 05/09/19 18:05 101 H 97 05/09/19 18:04 94 H 92 05/09/19 18:00 107 H 100 05/09/19 17:55 103 H 97 05/09/19 16:46 98.4 F 102 H 20 119/71 05/09/19 16:44 102 H 119/71
[2019-05-09] MEDS: AZITHROMYCIN 500 MG in DEXTROSE 5% 250 ML IV SCH (18:41)
--- NOTE | 2019-05-09 19:10 | Labor Progress Brief Note ---
Date of Service May 09, 2019 Subjective Reason For Note: Routine Evaluation comfortable with epidural Assessment & Plan (1) Supervision of normal intrauterine in multigravida: - tracing Cat II - AROM, clear - no cervical change, will start pitocin (2) History of drug abuse: - UDS negative Physical Exam Genitourinary: OB Exam Monitor Tracing: + category II and + normal FHT variability Cervix : no change,AROM, clear Results & Data Vital Signs (Past 12 Hours) Vital Signs Temp Pulse Resp BP Pulse Ox 05/09/19 19:05 96 H 97 05/09/19 19:00 97 H 20 97 05/09/19 18:58 86 126/64 05/09/19 18:55 90 98 05/09/19 18:50 84 98 05/09/19 18:45 85 97 05/09/19 18:44 98.4 F 92 H 112/72 05/09/19 18:40 101 H 99 05/09/19 18:35 86 98 05/09/19 18:30 96 H 20 96 05/09/19 18:27 98 H 116/66 05/09/19 18:25 98 H 20 96 05/09/19 18:22 96 H 119/71 05/09/19 18:21 94 H 126/75 05/09/19 18:20 99 H 20 97 05/09/19 18:19 101 H 120/74 05/09/19 18:17 103 H 118/83 05/09/19 18:15 106 H 20 110/76 98 05/09/19 18:13 116 H 122/89 05/09/19 18:12 99 H 89 L 05/09/19 18:11 94 H 121/81 05/09/19 18:10 95 H 20 98 05/09/19 18:09 90 128/89 05/09/19 18:05 101 H 97 05/09/19 18:04 94 H 92 05/09/19 18:00 107 H 100 05/09/19 17:55 103 H 97 05/09/19 16:46 98.4 F 102 H 20 119/71 05/09/19 16:44 102 H 119/71
--- NOTE | 2019-05-09 20:53 | Labor Progress Brief Note ---
Date of Service May 09, 2019 Subjective Reason For Note: Routine Evaluation Assessment & Plan (1) Supervision of normal intrauterine in multigravida: - tracing Cat II - complete - will begin 2nd stage Physical Exam Genitourinary: OB Exam Monitor Tracing: + category II and + normal FHT variability Cervix: Complete (+)1 Results & Data Vital Signs (Past 12 Hours) Vital Signs Temp Pulse Resp BP Pulse Ox 05/09/19 20:45 86 98 05/09/19 20:43 84 101/55 L 05/09/19 20:40 88 97 05/09/19 20:35 95 H 97 05/09/19 20:30 92 H 20 97 05/09/19 20:28 83 116/55 L 05/09/19 20:25 96 H 98 05/09/19 20:20 97 H 98 05/09/19 20:15 93 H 96 05/09/19 20:10 83 97 05/09/19 20:05 90 96 05/09/19 20:00 95 H 20 99 05/09/19 19:59 76 99/60 L 05/09/19 19:55 90 96 05/09/19 19:50 87 97 05/09/19 19:45 91 H 97 05/09/19 19:44 84 93/54 L 05/09/19 19:40 80 98 05/09/19 19:35 105 H 98 05/09/19 19:33 98.4 F 05/09/19 19:30 95 H 97 05/09/19 19:29 87 107/57 L 05/09/19 19:25 87 98 05/09/19 19:20 87 97 05/09/19 19:15 92 H 97 05/09/19 19:13 86 111/67 05/09/19 19:10 84 97 05/09/19 19:05 96 H 97 05/09/19 19:00 97 H 20 97 05/09/19 18:58 86 126/64 05/09/19 18:55 90 98 05/09/19 18:50 84 98 05/09/19 18:45 85 97 05/09/19 18:44 98.4 F 92 H 112/72 05/09/19 18:40 101 H 99 05/09/19 18:35 86 98 05/09/19 18:30 96 H 20 96 05/09/19 18:27 98 H 116/66 05/09/19 18:25 98 H 20 96 05/09/19 18:22 96 H 119/71 05/09/19 18:21 94 H 126/75 05/09/19 18:20 99 H 20 97 05/09/19 18:19 101 H 120/74 05/09/19 18:17 103 H 118/83 05/09/19 18:15 106 H 20 110/76 98 05/09/19 18:13 116 H 122/89 05/09/19 18:12 99 H 89 L 05/09/19 18:11 94 H 121/81 05/09/19 18:10 95 H 20 98 05/09/19 18:09 90 128/89 05/09/19 18:05 101 H 97 05/09/19 18:04 94 H 92 05/09/19 18:00 107 H 100 05/09/19 17:55 103 H 97 05/09/19 16:46 98.4 F 102 H 20 119/71 05/09/19 16:44 102 H 119/71
--- NOTE | 2019-05-09 21:27 | Delivery Summary ---
Vaginal Delivery Summary Date of Service May 09, 2019 Findings: Viable male with Apgars of 8 and 9. Baby delivered over a intact perineum with a second-degree right periurethral tear. Cord gases and cord blood samples obtained. Placenta delivered spontaneously. Laceration repaired with 4-0 Vicryl in routine fashion. Estimated blood loss 300 cc. Labor Note: The patient is a 28-year-old 3 para 2, EDC of 14 May by dates and first trimester ultrasound, who presents at 39+ weeks gestational age for labor check. The patient had been seen earlier in the office for a visit. At that time she was noted to be 4 cm. Her contractions increased after the examination and she presents to labor and delivery for evaluation. The patient has had a complicated course. The patient has a diagnosis of bipolar disease and at her initial OB visit was not seeing psychiatry. She was not on any medication. The first 20 weeks of her was remarkable for minimal weight gain. Attempts at trying to get the patient with psychiatry were unsuccessful. Urine drug screen done at 20 weeks was positive for methamphetamine with positive confirmatory test. Her screening test was also positive for ecstasy, but the confirmatory test were negative. The patient then disappeared from care for 10 weeks. During that time she was apparently hospitalized at the [facility]. When she returned at 30 weeks gestational age a drug screen was ordered but was not done until 36 weeks. That urine drug screen was negative. The patient is currently living at home with her father. She has custody of her other 2 children. The father of the baby for this is also the father of the baby for her second . The patient was diagnosed with chlamydia at her first visit and was given a prescription for oral Zithromax. Her partner never took the medication. She did not tell us this till this admission. She had a repeat culture done at 36 weeks which again was positive. She was again treated with oral Zithromax, but her partner never took any medication. Laboratory values for this show a blood type of AB-, antibody negative, she received RhoGam at 30 weeks gestational age, she had an elevated 1 hour Glucola with a normal 2-hour glucose tolerance test, she had a negative hepatitis B screen, and she had a negative third trimester beta strep culture. Upon admission the patient was 5 cm dilated. The patient was uncomfortable, anesthesia was consulted and an epidural was placed. Following placement of the epidural the patient's contractions had spaced out. Artificial rupture of membranes for clear fluid. Pitocin augmentation was initiated. Over the next 2 hours the patient progressed to full dilatation and began her second stage. Patient pushed for 5 minutes delivering the viable male . Cord was clamped and cut. Cord blood samples and cord gas samples were obtained. Placenta was delivered spontaneously. Inspection of the perineum showed a right periurethral second-degree laceration. This was repaired with running 4-0 Vicryl suture. Estimated blood loss 300 cc. Sponge needle count was correct.
[2019-05-09] MEDS ORDERED: SUPERCREAM 0.870% 15 GM JAR EXT PRN (21:37)
[2019-05-09] MEDS ORDERED: HYDROCORTISONE ACETATE 25 MG SUPP PR PRN (21:37)
[2019-05-09] MEDS ORDERED: BENZOCAINE 20% AER SPR 82.5 GM CAN EXT PRN (21:37)
[2019-05-09] MEDS ORDERED: DIPHTHERIA/TETANUS/PERTUSSIS 0.5 ML SYR/VIAL IM ONE (21:37)
--- NOTE | 2019-05-09 21:41 | Anesthesia Procedure Note ---
Date of Service May 09, 2019 Anesthesia Post Epidural Note Vital Signs Vital Signs: Temp Pulse Resp BP Pulse Ox 36.9 C 85 20 113/61 97 05/09/19 21:15 05/09/19 21:32 05/09/19 21:15 05/09/19 21:32 05/09/19 21:10 Pain Intensity Left Abdomen: Pain Intensity: 0 Notes Mental Status: alert / awake / arousable and participated in evaluation Patient Amnestic to Procedure: No Nausea / Vomiting: adequately controlled Pain: adequately controlled Airway Patency, RR, SpO2: stable & adequate BP & HR: stable & adequate Hydration State: stable & adequate Neuraxial Anesthesia: was administered and sensory block is resolving Anesthetic Complications: no major complications apparent and Pt Satisfied with anesthetic care Epidural: Removed without complications and With tip intact
[2019-05-09 21:51] LABS: Base Excess Cord Arterial Bld -7.1 mEq/L (-9-1.8); CO2 Cord Arterial Blood 66 mmHg (39.1-73.5); HCO3 Cord Arterial Blood 23 mmol/L (19.7-28.5); pH Cord Arterial Blood 7.16 (7.1-7.38)
[2019-05-09 22:00] LABS: Base Excess Cord Venous Blood -4.1 mEq/L (-7.7-1.9); Cord Venous Blood HCO3 22 mmol/L (18.4-26.8); Cord Venous Blood PCO2 46 mmHg (30.4-57.2); Cord Venous Blood PO2 30 mmHg (14.1-43.3)
[2019-05-09 22:02] LABS: Oxygen Sat Cord Arterial Blood < 60.0 % (<60)
[2019-05-10] MEDS: IBUPROFEN 600 MG TAB PO PRN ×4 (04:24→18:41)
--- NOTE | 2019-05-10 08:17 | Obstetrical Progress Note ---
Date of Service May 10, 2019 Assessment & Plan (1) Encounter for care and examination after delivery: PPD2 s/p . 1) post care - encourage ambulation today - continue supportive care - monitor vitals - clinical social worker consult 2) Chlamydial infection - received zithromax 500 on admission - hx of previous infection (2) History of drug abuse: (3) Limited care, antepartum: (4) Chlamydial infection: (5) ADHD, predominantly inattentive type: (6) Bipolar disorder: (7) Need for rhogam due to Rh negative mother: (8) Tobacco abuse: (9) History of bleeding disorder: (10) Crohns disease: Supervising Physician Co-Signing Physician Notes Resident Physician Supervision Note: I was present with Dr. Tom during the history and exam. I discussed the case with the resident and agree with the findings and plan as documented in the note. Any exceptions or clarifications are listed here: Social Service consult pending Documented By: Bubba Levine Jr, MD, FACOG Subjective No complaints this morning. laying comfortably in bed. Review of Systems Constitutional: + fatigue; no fever and no chills Respiratory: no cough and no dyspnea Cardiovascular: no chest pain, no syncope, no edema and no calf pain Gastrointestinal: no abdominal pain, no nausea, no vomiting, no cramping, no constipation and no diarrhea/loose stools Genitourinary: no dysuria and no difficulty urinating Neurologic: no headache(s) Physical Exam Constitutional: well developed and well nourished Respiratory: normal respiratory effort; no respiratory distress, no labored breathing and no cough Auscultation: no crackles, no rales, no rhonchi and no wheezes Cardiovascular: Rate/Rhythm: regular rate and regular rhythm Heart Sounds: no gallop, no murmur and no cardiac rub Extremities: no pedal edema Gastrointestinal (Abdomen): Inspection/Auscultation: normal bowel sounds; abdomen not distended Percussion/Palpation: abdomen soft; no guarding Musculoskeletal: no tenderness to palpation of calves bilaterally Genitourinary: Uterus small and firm, palpable in midline at level of umbilicus, some tenderness to palpation. Results & Data Vital Signs (Past 12 Hours) Vital Signs Temp Pulse Pulse Resp BP BP Pulse Ox 05/10/19 04:30 36.6 C 76 18 108/71 05/10/19 01:00 36.6 C 81 18 108/67 05/09/19 23:30 36.8 C 18 05/09/19 23:18 82 113/58 L 05/09/19 23:15 83 111/57 L 05/09/19 23:00 85 109/57 L 05/09/19 22:45 93 H 20 107/54 L 05/09/19 22:30 94 H 114/59 L 05/09/19 22:15 100 H 20 109/55 L 05/09/19 22:00 89 20 122/79 05/09/19 21:45 89 18 121/80 05/09/19 21:32 85 113/61 05/09/19 21:30 85 20 113/61 05/09/19 21:16 93 H 110/55 L 05/09/19 21:15 36.9 C 93 H 20 110/55 L 05/09/19 21:10 78 97 05/09/19 21:05 100 H 98 05/09/19 21:00 100 H 100 05/09/19 20:58 86 111/67 05/09/19 20:55 97 H 100 05/09/19 20:50 86 20 100 05/09/19 20:45 86 98 05/09/19 20:43 84 101/55 L 05/09/19 20:40 88 97 05/09/19 20:35 95 H 97 05/09/19 20:30 92 H 20 97 05/09/19 20:28 83 116/55 L 05/09/19 20:25 96 H 98 05/09/19 20:20 97 H 98 05/09/19 20:15 93 H 96 Resident Activity Tracking Resident Involvement: Resident Care Provided Care Provided: Adult Hospital Medicine and OB Delivery
[2019-05-10] MEDS: FERROUS SULFATE 325 MG TAB PO SCH (08:38)
[2019-05-10] MEDS: DOCUSATE SODIUM 100 MG CAP PO SCH ×2 (08:38→20:22)
[2019-05-10] MEDS: PRENATAL VITAMIN 1 TAB PO SCH (08:38)
[2019-05-10] MEDS: ACETAMINOPHEN 325 MG TAB PO PRN (15:47)
[2019-05-10] MEDS: AZITHROMYCIN 500 MG in DEXTROSE 5% 250 ML IV SCH (16:30)
[2019-05-10] MEDS ORDERED: bisacodyL 5 MG TABEC PO SCH (20:00)
[2019-05-11] MEDS: IBUPROFEN 600 MG TAB PO PRN ×2 (00:42→06:28)
[2019-05-11] MEDS: ACETAMINOPHEN 325 MG TAB PO PRN (01:22)
[2019-05-11 06:40] LABS: Hematocrit (blood only) 35.1 % (37-47); Hemoglobin 11.8 g/dL (12.0-16.0)
[2019-05-11] MEDS: FERROUS SULFATE 325 MG TAB PO SCH (07:56)
[2019-05-11] MEDS: PRENATAL VITAMIN 1 TAB PO SCH (07:56)
[2019-05-11] MEDS: DOCUSATE SODIUM 100 MG CAP PO SCH (07:56)
--- NOTE | 2019-05-11 08:28 | Obstetrical Progress Note ---
Date of Service May 11, 2019 Assessment & Plan (1) Encounter for care and examination after delivery: Recovered well. Informed today that will not be discharged due to peds concerns. Mom is aware she will be offered nesting status. She expresses happiness at being able to leave hospital; she is aware the baby cannot leave the power and this is not concerning to her. (2) History of drug abuse: - UDS negative Baby now showing signs of withdrawal per Dr. Nava and will be kept for another day of observation. (3) Chlamydial infection: -Peds aware of the positive chlamydia status -S/P Azithromycin IV Continues to have male sexual partner who she admits was never treated. Counseled. (4) ADHD, predominantly inattentive type: airfield services officer consult. (5) Bipolar disorder: -Social service consult (6) Need for rhogam due to Rh negative mother: (7) Tobacco abuse: Subjective Ambulation: ambulating normally Voiding: no voiding problems Passing Gas:: Yes Diet Tolerance:: regular diet Lochia:: Small Feeding Type:: bottle feeding Current Pain Level(1-10): 0 Physical Exam Constitutional WD/WN, vitals as above Eyes PERRL, conjunctivae normal, anicteric sclerae ENMT external ear and nose normal, oropharynx normal Neck trachea midline, no thyromegaly Respiratory normal respiratory effort and able to speak in complete sentences; no respiratory distress, no labored breathing and does not use accessory muscles Cardiovascular Rate/Rhythm: regular rate and regular rhythm Extremities: no calf tenderness and no pedal edema Chest (Breasts) Breast: normal inspection of breasts Gastrointestinal (Abdomen) Inspection/Auscultation: abdomen normal to inspection; abdomen not distended Musculoskeletal no cyanosis or clubbing, extremities motor strength 5/5 Skin no rashes, warm and dry Neurologic patellar DTR's 2+ bilat, sensation intact Psychiatric A+Ox3, euthymic affect Genitourinary Speculum/Bimanual Exam: uterus nontender OB Exam Abdomen: + fundal height (at umbilicus) Fundus: + firm Results & Data Vital Signs (Past 12 Hours) Vital Signs Temp Pulse Resp BP Pulse Ox 05/11/19 00:30 97.9 F 81 20 108/71 97
[2019-05-13 14:05] LABS: Chlamydia Trach RNA NOT DETECTED (NOT DETECTED); GC (Neis gonorrhoeae) RNA NOT DETECTED (NOT DETECTED); Trichomonas vaginalis RNA NOT DETECTED (NOT DETECTED)
== END 2019-05-11 12:20 | disposition home or self-care (01) | DRG 806 ==
LOC: OPB 16:38 → 4S1 16:41 → 4S2 23:52

== ENCOUNTER 2022-11-08 10:14 | Inpatient (IN) ==
[2022-11-08] MEDS ORDERED: SODIUM CHLORIDE 0.9% 1000ML 1,000 ML IV STA (10:49)
[2022-11-08] MEDS ORDERED: MoRPHine SULFATE 4 MG/ML 1 ML CARP\\VIAL IV STA ×2 (10:49→12:23)
[2022-11-08] MEDS ORDERED: FAMOTIDINE 20MG IV PUSH 20 MG/5 ML SYR IV STA (10:49)
[2022-11-08] MEDS ORDERED: ONDANSETRON INJ 2 MG/ML 2 ML VIAL IV STA (10:49)
[2022-11-08] MEDS ORDERED: KETOROLAC TROMETHAMINE 15 MG/ML VIAL IV STA (10:49)
[2022-11-08 11:27] LABS: Appearance Urine Clear (Clear); Bilirubin Urine Negative (Negative); Blood Urine Negative (Negative); Color Urine Dark Yellow; Glucose Urine UA Negative (Negative); Ketones Urine Trace (Negative); Leukocyte Esterase Urine Negative (Negative); Nitrite Urine Negative (Negative); Protein Urine Negative (Negative); Specific Gravity Urine 1.022 (1.000-1.030); Urobilinogen Urine Negative (Negative); pH Urine 5.5 (4.5-7.5)
--- NOTE | 2022-11-08 11:40 | Emergency Department Note ---
ED Provider Note History of Present Illness Chief Complaint: Flank Pain Stated Complaint: POSSIBLE KIDNEY INFECTION,FLANK PAIN Time Seen by Provider: 11/08/22 10:34 31-year-old female who presents to the emergency department with concern for possible kidney infection. The patient reports a 2-1/2-day history of lower back pain radiating around both flanks. The patient reports epigastric pain as well that she attributes to ibuprofen use. Patient denies any significant urinary complaints at this time. She denies any prior history of kidney stones. Patient has had vomiting, again that she attributes to ibuprofen use. Patient denies . Home Medications Medication Instructions Recorded Confirmed Type melatonin 10 mg tablet 30 mg PO HS 11/08/22 11/08/22 History Allergies Allergy/AdvReac Type Severity Reaction Status Date / Time albuterol Allergy Severe THROAT Verified 11/08/22 14:44 SWELLS ipratropium Allergy Severe THROAT Verified 11/08/22 14:44 SWELLS amoxicillin Allergy Mild Rash Verified 11/08/22 14:44 Penicillins Allergy Mild Rash Verified 11/08/22 14:44 quetiapine [From Seroquel] AdvReac Severe self harm Verified 11/08/22 14:44 Past Med/Surg History Medical History Bipolar disorder current episode depressed Chronic migraine History of pelvic inflammatory disease Lymphocytic colitis Migraine Ovarian cyst hx of Pelvic inflammatory disease PTSD (post-traumatic stress disorder) Ruptured ovarian cyst no sx Tobacco smoking affecting , antepartum Surgical History History of tubal ligation Hx of colonoscopy S/P wisdom tooth extraction Family History Father Attention deficit hyperactivity disorder Family/Other Breast cancer Attention deficit hyperactivity disorder paternal cousin Grandfather (Paternal) Attention deficit hyperactivity disorder Family history of diabetes mellitus Aunt Breast cancer paternal Family history of diabetes mellitus Brother Trisomy 21, Down syndrome Family history of diabetes mellitus Mother Family history of diabetes mellitus Uncle Family history of diabetes mellitus Grandfather (Maternal) Family history of diabetes mellitus Grandmother (Paternal) Family history of diabetes mellitus Grandmother (Maternal) Family history of diabetes mellitus Other COPD (chronic obstructive pulmonary disease) Crohn's disease Diabetes Emphysema of lung No family history of adverse response to anesthesia Denies family history of Ovarian cancer Prostate cancer Colorectal cancer Social History Smoking Status: Current every day smoker Tobacco Type: Cigarettes Cigarettes Per Day: 10 a day; Second Hand Exposure: Yes (family members smoke); Do You Dip or Chew Tobacco: No; Hx Alcohol Use: No Hx Substance Use: Yes (smokes marijuana once every 2 months) Last Used Substance: Unknown Last Used Substance Other:: a month ago was last time Preferred Language: Vietnamese Communication Ability: Effective Director Radio News Required: No Beliefs That Will Affect Care: None marital status: Single Current Living Situation: Parent, Family and Significant Other Current Living Situation Comment: Lives with father, boyfriend and 3 kids Feels Safe at Home: Yes Assistive Devices: None Physical Exam Vital Signs Vital Signs - 24 hr 11/08/22 10:31 11/08/22 11:00 11/08/22 13:09 Temperature 36.8 C Temperature Source Temporal Artery Scan Pulse Rate 126 H Pulse Rate [Finger] 107 H 109 H Pulse Rhythm [Finger] Pulse Strength [Finger] Respiratory Rate 20 18 18 Respiratory Effort / Characteristics Non-Labored Spontaneous Non-Labored Spontaneous Non-Labored Spontaneous Respiratory Depth Normal Normal Normal Respiratory Pattern Blood Pressure 138/96 Blood Pressure [Right Arm] 145/94 H 114/75 Blood Pressure Mean 110 Blood Pressure Mean [Right Arm] 111 88 Blood Pressure Position [Right Arm] Pulse Oximetry 98 98 Oxygen Delivery Method Room Air Room Air Sepsis Recent Fever Within 48 Hours No Sepsis New/Unexplained Change in Mental Status N/A Sepsis Action Taken by Nursing No Action Required 11/08/22 15:00 Temperature Temperature Source Pulse Rate Pulse Rate [Finger] 99 H Pulse Rhythm [Finger] Regular Pulse Strength [Finger] Normal Respiratory Rate 18 Respiratory Effort / Characteristics Non-Labored Respiratory Depth Normal Respiratory Pattern Regular Blood Pressure Blood Pressure [Right Arm] 114/76 Blood Pressure Mean Blood Pressure Mean [Right Arm] 88 Blood Pressure Position [Right Arm] Lying Pulse Oximetry 98 Oxygen Delivery Method Room Air Sepsis Recent Fever Within 48 Hours Sepsis New/Unexplained Change in Mental Status Sepsis Action Taken by Nursing CONSTITUTIONAL: Healthy and well nourished. HEENT: No scleral icterus or conjunctival injection/pallor. RESPIRATORY: Clear to auscultation bilaterally with no wheezing, crackles, rhon chi or stridor. CARDIOVASCULAR: Regular rate and rhythm with no murmurs, rubs or gallops. GASTROINTESTINAL: Bowel sounds present in all quadrants. Patient has a bilateral CVA tenderness and mild epigastric tenderness to palpation. No abdominal rigidity, guarding or rebound. MUSCULOSKELETAL: Full range of motion of all joints without discomfort. INTEGUMENTARY: No rash or other significant dermatologic conditions noted. HEMATOLOGIC: No ecchymosis or petechiae. PSYCHIATRIC: Positive affect. NEUROLOGIC: No focal neurologic deficits noted. Course Course Patient history and physical exam were performed. Nurses notes were reviewed. Vital signs were reviewed, showing a mild tachycardia and hypertension. IV access was established, and labs were drawn. The patient was hydrated with a liter normal saline, and administered IV Toradol, Zofran and morphine for pain. Review of labs shows elevated LFTs and lipase within normal total bilirubin. Patient is hyponatremic at 132. CBC was otherwise unremarkable. Urinalysis shows trace ketonuria without evidence for hematuria or signs of infection. Urine was negative. Prior to CT imaging, the patient did request additional pain medication, and was administered IV morphine. Noncontrast CT of the abdomen and pelvis did not show any obvious evidence for gallstones or pericholecystic fluid. Evidence for pancreatitis is noted. After returning from CT scan, the patient requested additional pain medication, and was administered IV Dilaudid. Findings were discussed with the patient. Upon further questioning, the patient denies any significant overuse of Tylenol, NSAIDs or alcohol. I explained certain possibilities, including pancreatitis, hepatitis, blocked, bile duct or other concerning and similar etiologies. I did recommend admission for further work-up and pain management, and the patient was in agreement. The case was then further discussed with the [facility] service. Please see their dictation for further treatment and final disposition. Administered Medications Discontinued Medications Hydromorphone HCl (Hydromorphone Inj 0.5 Mg/0.5 Ml Syr) 0.5 mg IV NOW STA Stop: 11/08/22 14:08 Last Admin: 11/08/22 14:48 Dose: 0.5 mg Documented By: EVELYN Sodium Chloride (Nss 1000ml) 1,000 mls @ 999 mls/hr IV .Q1H1M STA Stop: 11/08/22 11:49 Last Infusion: 11/08/22 12:06 Dose: 0 mls/hr Documented By: Admin: 11/08/22 11:01 Dose: 999 mls/hr Documented By: EDY Famotidine (Pepcid 20mg Iv Push) 20 mg in 5 mls @ 2.5 mls/min IV NOW STA Stop: 11/08/22 10:50 Last Admin: 11/08/22 11:02 Dose: 2.5 mls/min Documented By: EDY Ioversol (Optiray 320 100ml) 95 ml IV ONCE ONE Stop: 11/08/22 14:16 Last Admin: 11/08/22 14:15 Dose: 95 ml Documented By: RENEE Ketorolac Tromethamine (Ketorolac Tromethamine 15 Mg/Ml Vial) 10 mg IV NOW STA Stop: 11/08/22 10:50 Last Admin: 11/08/22 11:03 Dose: 10 mg Documented By: EDY Morphine Sulfate (Morphine Sulfate 4 Mg/Ml 1 Ml Carp\Vial) 4 mg IV NOW STA Stop: 11/08/22 10:50 Last Admin: 11/08/22 11:06 Dose: 4 mg Documented By: EDY Morphine Sulfate (Morphine Sulfate 4 Mg/Ml 1 Ml Carp\Vial) 4 mg IV NOW STA Stop: 11/08/22 12:24 Last Admin: 11/08/22 13:07 Dose: 4 mg Documented By: EDY Ondansetron HCl (Ondansetron Inj 2 Mg/Ml 2 Ml Vial) 4 mg IV NOW STA Stop: 11/08/22 10:50 Last Admin: 11/08/22 11:00 Dose: 4 mg Documented By: EDY Medical Decision Making Medical Records Attestation: I reviewed the patient's medical records. Home Medications was personally reviewed by [facility] Laboratory Data Attestation: I reviewed the patient's lab results. 11/08/22 10:54 11/08/22 10:54 Lab Results 11/08/22 11/08/22 11/08/22 Range/Units 10:54 10:54 14:52 WBC 8.63 (4.8-10.8) K/ul RBC 4.47 (4.20-5.40) M/uL Hgb 14.8 (12.0-16.0) g/dl Hct 41.4 (37.0-47.0) % MCV 92.6 (80.0-100.0) fL MCH 33.1 (25.0-34.0) pg MCHC 35.7 (32.0-36.0) g/dL RDW Std Deviation 41.6 (36.4-46.3) fL RDW Coeff of Tatiana 12.3 (11.5-14.5) % Plt Count 165 (130-400) K/uL MPV 10.3 (9.4-12.4) fL Immature Gran % (Auto) 0.5 % Neut % (Auto) 74.2 % Lymph % (Auto) 15.2 % [place] % (Auto) 9.3 % Eos % (Auto) 0.3 % Baso % (Auto) 0.5 % Neut # (Auto) 6.41 (1.40-6.50) K/uL Lymph # (Auto) 1.31 (1.2-3.4) K/uL [place] # (Auto) 0.80 H (0.11-0.59) K/uL Eos # (Auto) 0.03 (0-0.50) K/uL Baso # (Auto) 0.04 (0-0.2) K/uL Immature Gran # (Auto) 0.04 (0.01-0.20) K/uL Sodium 132 L (136-145) mmol/L Potassium 4.3 (3.5-5.1) mmol/L Chloride 101 (98-107) mmol/L Carbon Dioxide TNP Anion Gap TNP BUN 9 (6-23) mg/dl Creatinine 0.72 (0.6-1.2) mg/dl Est Cr Clr Drug Dosing 117.0 ml/min Est GFR ( Amer) 131.2 ml/min Est GFR (Non-Af Amer) 113.2 ml/min BUN/Creatinine Ratio 12.5 (10-20) Glucose 91 (70-99(Fasting)) mg/dl Calcium 8.2 L (8.6-10.3) mg/dl Total Bilirubin 0.9 (0.2-1.0) mg/dl AST 263 H (13-39) U/L ALT 194 H (7-52) U/L Alkaline Phosphatase 207 H (34-104) U/L Total Protein 7.2 (6.0-8.3) gm/dl Albumin 3.5 (3.4-5.0) gm/dl Globulin 3.7 (2.5-4.0) gm/dl Albumin/Globulin Ratio 0.9 (0.9-2) Lipase 788 H (11-82) U/L Urine Color Urine Appearance (Clear) Urine pH (4.5-7.5) Ur Specific [place] (1.000-1.030) Urine Protein (Negative) Urine Glucose (UA) (Negative) Urine Ketones (Negative) Urine Blood (Negative) Urine Nitrite (Negative) Urine Bilirubin (Negative) Urine Urobilinogen (Negative) Ur Leukocyte Esterase (Negative) Urine Test (Negative) SARS-CoV-2, RNA, NAAT NEGATIVE (NEGATIVE) 11/08/22 11/08/22 Range/Units Unknown Unknown WBC (4.8-10.8) K/ul RBC (4.20-5.40) M/uL Hgb (12.0-16.0) g/dl Hct (37.0-47.0) % MCV (80.0-100.0) fL MCH (25.0-34.0) pg MCHC (32.0-36.0) g/dL RDW Std Deviation (36.4-46.3) fL RDW Coeff of Tatiana (11.5-14.5) % Plt Count (130-400) K/uL MPV (9.4-12.4) fL Immature Gran % (Auto) % Neut % (Auto) % Lymph % (Auto) % [place] % (Auto) % Eos % (Auto) % Baso % (Auto) % Neut # (Auto) (1.40-6.50) K/uL Lymph # (Auto) (1.2-3.4) K/uL [place] # (Auto) (0.11-0.59) K/uL Eos # (Auto) (0-0.50) K/uL Baso # (Auto) (0-0.2) K/uL Immature Gran # (Auto) (0.01-0.20) K/uL Sodium (136-145) mmol/L Potassium (3.5-5.1) mmol/L Chloride (98-107) mmol/L Carbon Dioxide Anion Gap BUN (6-23) mg/dl Creatinine (0.6-1.2) mg/dl Est Cr Clr Drug Dosing ml/min Est GFR ( Amer) ml/min Est GFR (Non-Af Amer) ml/min BUN/Creatinine Ratio (10-20) Glucose (70-99(Fasting)) mg/dl Calcium (8.6-10.3) mg/dl Total Bilirubin (0.2-1.0) mg/dl AST (13-39) U/L ALT (7-52) U/L Alkaline Phosphatase (34-104) U/L Total Protein (6.0-8.3) gm/dl Albumin (3.4-5.0) gm/dl Globulin (2.5-4.0) gm/dl Albumin/Globulin Ratio (0.9-2) Lipase (11-82) U/L Urine Color Dark Yellow Urine Appearance Clear (Clear) Urine pH 5.5 (4.5-7.5) Ur Specific [place] 1.022 (1.000-1.030) Urine Protein Negative (Negative) Urine Glucose (UA) Negative (Negative) Urine Ketones Trace H (Negative) Urine Blood Negative (Negative) Urine Nitrite Negative (Negative) Urine Bilirubin Negative (Negative) Urine Urobilinogen Negative (Negative) Ur Leukocyte Esterase Negative (Negative) Urine Test Negative (Negative) SARS-CoV-2, RNA, NAAT (NEGATIVE) Imaging Data Attestation: I personally reviewed and interpreted this imaging study as follows: My Impression: My interpretation of a noncontrast CT of the abdomen and pelvis shows evidence for pancreatitis, without evidence for gallstones or other acute intra-abdominal findings. Radiologist's Impression: Abdomen/Pelvis CT 11/08/22 10:49 CT abd pelvis IV con only CLINICAL HISTORY: Bilat flank pain, +CVA tenderness TECHNIQUE: Helical axial images of the abdomen and pelvis were obtained and displayed. Automated dose lowering techniques and/or adjustment according to patient size were utilized for this exam. This exam was performed with intravenous contrast. CT DOSE: 1376.25 mGy.cm COMPARISON: Comparison is made to CT abdomen pelvis 12/04/2019 FINDINGS: Lower chest: Bibasilar atelectasis versus scarring is seen. Liver: Hepatic steatosis is noted. Gallbladder and biliary tree: No calcified gallstones. Normal caliber wall. No intra- or extrahepatic biliary ductal dilation. Pancreas: Pancreatic head edema is seen with peripancreatic stranding. No hydronephrosis or drainable fluid collection. Spleen: Unremarkable. Adrenals: Unremarkable. Kidneys and ureters: Unremarkable. Bladder: Unremarkable. Reproductive organs: Unremarkable. Bowel: There is wall thickening and stranding about the duodenum. The appendix is normal. Lymph nodes Retroperitoneal: Unremarkable. Pelvic: Unremarkable. Mesenteric: Unremarkable. Peritoneum: Soft tissue swelling is seen about the pancreatic head and duodenum. No drainable fluid collections. No pneumoperitoneum. Vessels: Atherosclerotic calcifications are seen. Abdominal wall: Unremarkable. Bones: Unremarkable. IMPRESSION: Findings compatible with pancreatitis, with surrounding soft tissue swelling and reactive duodenal inflammation. Primary duodenitis is also possible but considered less likely. No acute peripancreatic collections or pancreatic necrosis. ACT 112: Negative or not required by law. Electronically signed by: Aj England M.D. 11/08/2022 2:31 PM MDM Narrative See ED Course section for further details of today's visit. The patient presents with complaint of bilateral flank plain and epigastric pain. The patient reports that symptoms are similar to prior episodes of pyelonephritis. Today's work-up does show a normal urinalysis and negative urine . Noncontrast CT of the abdomen and pelvis shows evidence for pancreatitis without any abnormal findings of the gallbladder, liver or biliary tree. Patient had very poor pain control while in the emergency department. Given her current findings and symptoms, I do feel that observation is warranted. The patient will be evaluated by the [facility] service with appropriate GI consultation. Impression Acute pancreatitis, Elevated LFTs Discharge Plan Visit Data Chief Complaint: Flank Pain Stated Complaint: POSSIBLE KIDNEY INFECTION,FLANK PAIN ED Provider: Abrahan Lorenzo ED Midlevel Provider: Doni Roy Discharge Problem: Acute pancreatitis, Elevated LFTs Forms Stand Alone Forms: My Frank[employer] Prescriptions Prescriptions: No Action melatonin 10 mg Tablet 30 mg PO HS Referrals Referrals: Navdeep Olson MD [Primary Care Provider] -
[2022-11-08 12:06] LABS: Hematocrit (blood only) 41.4 % (37.0-47.0); Hemoglobin 14.8 g/dl (12.0-16.0); Mean Corpuscular Hemoglobin 33.1 pg (25.0-34.0); Mean Corpuscular Hgb Conc 35.7 g/dL (32.0-36.0); Mean Corpuscular Volume 92.6 fL (80.0-100.0); Mean Platelet Volume 10.3 fL (9.4-12.4); Platelet Count 165 K/uL (130-400); RDW Coefficient of Variation 12.3 % (11.5-14.5); RDW Standard Deviation 41.6 fL (36.4-46.3); Red Blood Count 4.47 M/uL (4.20-5.40); White Blood Count 8.63 K/ul (4.8-10.8)
[2022-11-08 12:12] LABS: Basophils # (auto) 0.04 K/uL (0-0.2); Basophils % (auto) 0.5 %; Eosinophils # (auto) 0.03 K/uL (0-0.50); Eosinophils % (auto) 0.3 %; Immature Granulocytes # (auto) 0.04 K/uL (0.01-0.20); Immature Granulocytes % (auto) 0.5 %; Lymphocytes # (auto) 1.31 K/uL (1.2-3.4); Lymphocytes % (auto) 15.2 %; Monocytes % (auto) 9.3 %; Neutrophils # (auto) 6.41 K/uL (1.40-6.50); Neutrophils % (auto) 74.2 %
[2022-11-08 12:32] LABS: Albumin Level 3.5 gm/dl (3.4-5.0); Bilirubin,Total 0.9 mg/dl (0.2-1.0); Calcium 8.2 mg/dl (8.6-10.3); Chloride 101 mmol/L (98-107); Potassium 4.3 mmol/L (3.5-5.1); Sodium 132 mmol/L (136-145)
[2022-11-08 12:40] LABS: Alanine Aminotransferase 194 U/L (7-52); Albumin Globulin Ratio 0.9 (0.9-2); Alkaline Phosphatase 207 U/L (34-104); Aspartate Aminotransferase 263 U/L (13-39); BUN Creatinine Ratio 12.5 (10-20); Blood Urea Nitrogen 9 mg/dl (6-23); Est GFR (African American) 131.2 ml/min; Est GFR (Non-African American) 113.2 ml/min; Globulin 3.7 gm/dl (2.5-4.0); Glucose 91 mg/dl (70-99(Fasting)); Total Protein 7.2 gm/dl (6.0-8.3)
[2022-11-08 12:58] LABS: Lipase 788 U/L (11-82)
[2022-11-08 13:17] LABS: Pregnancy Test, Urine Negative (Negative)
[2022-11-08] MEDS ORDERED: HYDROmorphone INJ 0.5 MG/0.5 ML SYR IV STA (14:07)
[2022-11-08] MEDS ORDERED: OPTIRAY 320 100ml IV ONE (14:15)
--- NOTE | 2022-11-08 14:32 | CT Scan Report ---
CT abd pelvis IV con only CLINICAL HISTORY: Bilat flank pain, +CVA tenderness TECHNIQUE: Helical axial images of the abdomen and pelvis were obtained and displayed. Automated dose lowering techniques and/or adjustment according to patient size were utilized for this exam. This e xam was performed with intravenous contrast. CT DOSE: 1376.25 mGy.cm COMPARISON: Comparison is made to CT abdomen pelvis 12/04/2019 FINDINGS: Lower chest: Bibasilar atelectasis versus scarring is seen. Liver: Hepatic steatosis is noted. Gallbladder and biliary tree: No calcified gallstones. Normal caliber wall. No intra- or extrahepatic biliary ductal dilation. Pancreas: Pancreatic head edema is seen with peripancreatic stranding. No hydronephrosis or drainable fluid collection. Spleen: Unremarkable. Adrenals: Unremarkable. Kidneys and ureters: Unremarkable. Bladder: Unremarkable. Reproductive organs: Unremarkable. Bowel: There is wall thickening and stranding about the duodenum. The appendix is normal. Lymph nodes Retroperitoneal: Unremarkable. Pelvic: Unremarkable. Mesenteric: Unremarkable. Peritoneum: Soft tissue swelling is seen about the pancreatic head and duodenum. No drainable fluid c ollections. No pneumoperitoneum. Vessels: Atherosclerotic calcifications are seen. Abdominal wall: Unremarkable. Bones: Unremarkable. IMPRESSION: Findings compatible with pancreatitis, with surrounding soft tissue swelling and reactive duodenal in flammation. Primary duodenitis is also possible but considered less likely. No acute peripancreatic c ollections or pancreatic necrosis. ACT 112: Negative or not required by law. Electronically signed by: Aj England M.D. 11/08/2022 2:31 PM
--- NOTE | 2022-11-08 15:19 | History & Physical Report ---
Date of Service November 08, 2022 Assessment & Plan (1) Acute pancreatitis: (2) Elevated LFTs: Plan: Patient is a 31-year-old female with PMH bipolar, PTSD, tobacco use presented to ER with complaint of abdominal pain x3 days In ER initially sinus tachycardia, other vitals stable. No leukocytosis. Lipase: 788. AST: 263, ALT: 194, alk phos: 207, T. bili: 0.9 CT abdomen pelvis: Findings compatible with pancreatitis, with surrounding soft tissue swelling and reactive duodenal inflammation. Primary duodenitis is also possible but considered less likely. No acute peripancreatic collections or pancreatic necrosis. In ER given 1L NSS, Zofran, total 8 mg morphine IV, 10 mg Toradol IV, 0.5 mg Dilaudid IV, 20 mg IV Pepcid NPO Lactated Ringer's at 200 ml/hr PPI IV MRCP pending CBC, CMP, lipase in a.m. GI consult, spoke to JAGDEEP Aquino who recommends MRCP (3) Tobacco use: Plan: Nicotine patch Smoking cessation encouraged (4) Bipolar disorder: Plan: Not currently on medication DVT Prophylaxis SCDs Follows with Dr Olson for routine care Pt was seen and care coordinated with Dr Aguiar. See addendum I spent a total of 75 minutes reviewing notes, outpatient records, labs, medication, coordinating, documenting and providing care for this patient excluding time spent in the performance of separately billed services. History of Present Illness Chief Complaint: abdominal pain Primary Care Provider: Navdeep Olson MD Patient is a 31-year-old female with PMH bipolar, PTSD, tobacco use presented to ER with complaint of abdominal pain x3 days. Patient states 3 days ago started with upper abdominal pain and back pain. Patient also complains of nausea and reports vomiting after taking ibuprofen. Patient reports has been taking 400 mg of ibuprofen every 6 hours for the past 2.5 days secondary to abdominal pain. Reports episode of loose stool this morning. States drinks 1 can of beer daily. Last drink was last night. Denies fever/chills, diaphoresis, MCKEON, dizziness, syncope, hematemesis, melena, hematochezia, CP, SOB, palpitations, cough, sore throat, rhinorrhea, paresthesias, weakness, extremity edema, rashes, urinary symptoms. Denies Tylenol use. Allergies Allergy/AdvReac Type Severity Reaction Status Date / Time albuterol Allergy Severe THROAT Verified 11/08/22 14:44 SWELLS ipratropium Allergy Severe THROAT Verified 11/08/22 14:44 SWELLS amoxicillin Allergy Mild Rash Verified 11/08/22 14:44 Penicillins Allergy Mild Rash Verified 11/08/22 14:44 quetiapine [From Seroquel] AdvReac Severe self harm Verified 11/08/22 14:44 Home Medications Medication Instructions Recorded Confirmed Type melatonin 10 mg tablet 30 mg PO HS 11/08/22 11/08/22 History Past Med/Surg History Medical History Bipolar disorder current episode depressed Chronic migraine History of pelvic inflammatory disease Lymphocytic colitis Migraine Ovarian cyst hx of Pelvic inflammatory disease PTSD (post-traumatic stress disorder) Ruptured ovarian cyst no sx Tobacco smoking affecting , antepartum Surgical History History of tubal ligation Hx of colonoscopy S/P wisdom tooth extraction Family History Father Attention deficit hyperactivity disorder Family/Other Breast cancer Attention deficit hyperactivity disorder paternal cousin Grandfather (Paternal) Attention deficit hyperactivity disorder Family history of diabetes mellitus Aunt Breast cancer paternal Family history of diabetes mellitus Brother Trisomy 21, Down syndrome Family history of diabetes mellitus Mother Family history of diabetes mellitus Uncle Family history of diabetes mellitus Grandfather (Maternal) Family history of diabetes mellitus Grandmother (Paternal) Family history of diabetes mellitus Grandmother (Maternal) Family history of diabetes mellitus Other COPD (chronic obstructive pulmonary disease) Crohn's disease Diabetes Emphysema of lung No family history of adverse response to anesthesia Denies family history of Ovarian cancer Prostate cancer Colorectal cancer Social History Smoking Status: Current every day smoker Tobacco Type: Cigarettes Cigarettes Per Day: 10 a day; Second Hand Exposure: Yes (family members smoke); Do You Dip or Chew Tobacco: No; Hx Alcohol Use: No Hx Substance Use: Yes (smokes marijuana once every 2 months) Last Used Substance: Unknown Last Used Substance Other:: a month ago was last time Preferred Language: Belizean Communication Ability: Effective Mandrel Press Hand Required: No Beliefs That Will Affect Care: None marital status: Single Current Living Situation: Parent, Family and Significant Other Current Living Situation Comment: Lives with father, boyfriend and 3 kids Feels Safe at Home: Yes Assistive Devices: None Review of Systems Review of Systems: All systems reviewed & are unremarkable except as noted in HPI & below Physical Exam Physical Exam: General: no acute distress, overweight Head: normocephalic, atraumatic Eyes: conjunctiva non-injected, anicteric ENT: normal inspection external ears, nose, mucous membranes moist Neck: supple, trachea midline Lungs: clear, no respiratory distress, no wheezing/rhonchi/rales CV: RRR, no murmur, no pretibial edema Abd: normal BS, soft, +tender to palpation RUQ, epigastric, LUQ without rebound or guarding Ext: no cyanosis, no calf tenderness Neuro: A&O x 3, no focal deficits noted, normal affect Skin: warm, dry Results & Data Results & Data Vital Signs (Past 12 Hours) Vital Signs Temp Pulse Pulse Resp BP BP Pulse Ox 11/08/22 15:00 99 H 18 114/76 98 11/08/22 13:09 109 H 18 114/75 98 11/08/22 11:00 107 H 18 145/94 H 11/08/22 10:31 36.8 C 126 H 20 138/96 98 O2 Del Method 11/08/22 15:00 Room Air 11/08/22 13:09 Room Air 11/08/22 11:00 11/08/22 10:31 Room Air Laboratory Results Short CBC 11/08/22 Range/Units 10:54 WBC 8.63 (4.8-10.8) K/ul Hgb 14.8 (12.0-16.0) g/dl Hct 41.4 (37.0-47.0) % Plt Count 165 (130-400) K/uL BMP 11/08/22 10:54 Sodium 132 L Potassium 4.3 Chloride 101 Carbon Dioxide TNP BUN 9 Creatinine 0.72 Glucose 91 Calcium 8.2 L Liver Function 11/08/22 Range/Units 10:54 Total Bilirubin 0.9 (0.2-1.0) mg/dl AST 263 H (13-39) U/L ALT 194 H (7-52) U/L Alkaline Phosphatase 207 H (34-104) U/L Albumin 3.5 (3.4-5.0) gm/dl Urine 11/08/22 Range/Units Unknown Urine Color Dark Yellow Urine Appearance Clear (Clear) Urine pH 5.5 (4.5-7.5) Ur Specific [place] 1.022 (1.000-1.030) Urine Protein Negative (Negative) Urine Glucose (UA) Negative (Negative) Diagnostic Findings Abdomen/Pelvis CT 11/08/22 10:49 CT abd pelvis IV con only CLINICAL HISTORY: Bilat flank pain, +CVA tenderness TECHNIQUE: Helical axial images of the abdomen and pelvis were obtained and displayed. Automated dose lowering techniques and/or adjustment according to patient size were utilized for this exam. This exam was performed with intravenous contrast. CT DOSE: 1376.25 mGy.cm COMPARISON: Comparison is made to CT abdomen pelvis 12/04/2019 FINDINGS: Lower chest: Bibasilar atelectasis versus scarring is seen. Liver: Hepatic steatosis is noted. Gallbladder and biliary tree: No calcified gallstones. Normal caliber wall. No intra- or extrahepatic biliary ductal dilation. Pancreas: Pancreatic head edema is seen with peripancreatic stranding. No hydronephrosis or drainable fluid collection. Spleen: Unremarkable. Adrenals: Unremarkable. Kidneys and ureters: Unremarkable. Bladder: Unremarkable. Reproductive organs: Unremarkable. Bowel: There is wall thickening and stranding about the duodenum. The appendix is normal. Lymph nodes Retroperitoneal: Unremarkable. Pelvic: Unremarkable. Mesenteric: Unremarkable. Peritoneum: Soft tissue swelling is seen about the pancreatic head and duodenum. No drainable fluid collections. No pneumoperitoneum. Vessels: Atherosclerotic calcifications are seen. Abdominal wall: Unremarkable. Bones: Unremarkable. IMPRESSION: Findings compatible with pancreatitis, with surrounding soft tissue swelling and reactive duodenal inflammation. Primary duodenitis is also possible but considered less likely. No acute peripancreatic collections or pancreatic necrosis. ACT 112: Negative or not required by law. Electronically signed by: Aj England M.D. 11/08/2022 2:31 PM
[2022-11-08] MEDS: LACTATED RINGER'S 1,000 ML IV SCH ×2 (18:56→23:09)
[2022-11-08] MEDS: HYDROmorphone INJ 0.5 MG/0.5 ML SYR IV PRN ×2 (18:56→23:09)
[2022-11-08] MEDS: ONDANSETRON INJ 2 MG/ML 2 ML VIAL IV PRN (18:56)
[2022-11-08] MEDS: PANTOprazole 40 MG in SYRINGE 0 ML IV SCH (20:43)
[2022-11-08] MEDS: MELATONIN 3 MG TAB PO SCH (20:44)
[2022-11-08] MEDS: NICOTINE 14 MG/24 HR PATCH TD SCH (20:44)
[2022-11-08] MEDS: oxyCODONE HCL IR 5 MG TAB (IMMEDIATE RELEASE) PO PRN (22:01)
--- NOTE | 2022-11-08 22:22 | Magnetic Resonance Report ---
Exam(s): MRI MRCP EXAM: MR Abdomen Without Intravenous Contrast, MRCP Protocol CLINICAL HISTORY: Reason for exam: pancreatitis. TECHNIQUE: Multiplanar magnetic resonance images of the abdomen without intravenous contrast using MRCP protocol. COMPARISON: CT abdomen and pelvis from December 04, 2019 FINDINGS: Bile ducts: The biliary tree is nondilated. The common bile duct is nondilated measuring 5 mm. No choledocholithiasis is identified. Gallbladder: The gallbladder is partially distended and unremarkable. No cholelithiasis is seen. Liver: The liver is enlarged measuring 22 cm craniocaudad. No focal liver lesion is seen. Pancreas: Unremarkable. No ductal dilation. Spleen: The spleen is unremarkable. Adrenals: The adrenal glands are unremarkable. Kidneys and ureters: The kidneys are unremarkable. No hydronephrosis. Stomach and bowel: Unremarkable. No obstruction. Intraperitoneal space: There is edema throughout the pancreas and small amount of free fluid surrounding the pancreas and extending down over the anterior aspect of the retroperitoneum. There is a trace amount of fluid in the proximal right paracolic gutter. Vasculature: The abdominal aorta is nondilated. IMPRESSION: 1. The liver is enlarged measuring 22 cm craniocaudad. No focal liver lesion is seen. 2. The biliary tree is nondilated. The common bile duct is nondilated measuring 5 mm. No choledocholithiasis is identified. 3. Edema in and surrounding the pancreas consistent with acute pancreatitis. No pseudocyst is identified. Electronically signed by: Eren Del Rosario MD 11/08/22 22:20 PM
[2022-11-09] MEDS: HYDROmorphone INJ 0.5 MG/0.5 ML SYR IV PRN (03:21)
[2022-11-09] MEDS: ONDANSETRON INJ 2 MG/ML 2 ML VIAL IV PRN (03:21)
[2022-11-09] MEDS: oxyCODONE HCL IR 5 MG TAB (IMMEDIATE RELEASE) PO PRN ×2 (05:02→23:54)
[2022-11-09] MEDS: LACTATED RINGER'S 1,000 ML IV SCH ×4 (05:03→22:15)
[2022-11-09] MEDS ORDERED: HYDROmorphone INJ 0.5 MG/0.5 ML SYR IV STA (05:31)
[2022-11-09 06:29] LABS: Hemoglobin 13.7 g/dl (12.0-16.0); Mean Corpuscular Hemoglobin 35.8 pg (25.0-34.0); Mean Corpuscular Volume 96.6 fL (80.0-100.0); Mean Platelet Volume 10.1 fL (9.4-12.4); Platelet Count 140 K/uL (130-400); RDW Coefficient of Variation 12.6 % (11.5-14.5); Red Blood Count 3.83 M/uL (4.20-5.40); White Blood Count 13.62 K/ul (4.8-10.8)
[2022-11-09 08:02] LABS: Albumin Level 2.8 gm/dl (3.4-5.0); Bilirubin,Total 0.9 mg/dl (0.2-1.0); Calcium 6.5 mg/dl (8.6-10.3); Potassium 3.7 mmol/L (3.5-5.1)
[2022-11-09 08:08] LABS: Albumin Globulin Ratio 0.9 (0.9-2); BUN Creatinine Ratio 9.2 (10-20); Creatinine Clr Calc Pharmacy 112.2 ml/min; Est GFR (African American) 122.9 ml/min; Globulin 3.2 gm/dl (2.5-4.0)
--- NOTE | 2022-11-09 08:24 | Gastrointestinal Consultation ---
Date of Consultation November 09, 2022 Assessment & Plan (1) Acute pancreatitis: 31 year old female admitted with abd pain, nausea/vomiting, imaging concerning for duodenitis vs pancreatitis, elevated LFTs and lipase. CT, MRCP with unremarkable biliary system. Given persistent LFTs elevation, plan for EUS evalu ation NPO EUS +/- ERCP LR 200 mL/hr Antiemetics PRN Analgesia PRN Alcohol cessation was recommended We appreciate assistance in the management of any serological abnormality and corrections to include: hemoglobin >7, INR <2, platelets >50,000, potassium levels >3.5 but <5.3, and sodium levels within 5 points of the reference range prior to endoscopic evaluation. Thank you for allowing us to participate in the care of this patient. Please call with any acute changes, questions or concerns. Please see addendum below with additional recommendation from my supervising physician. Supervising Physician Co-Signing Physician Notes I saw and evaluated the patient. We were asked to see her with regard to abdominal discomfort and elevated liver tests. Of note the patient does drink quite a bit of beer on a daily basis. Imaging is somewhat inconclusive therefore we will proceed with upper endoscopy and endoscopic ultrasound today. If positive for choledocholithiasis then ERCP can be performed in the same setting. Physical examination Mild right upper quadrant tenderness No scleral icterus today No spider nevi noted Impression: Patient presenting with acute pancreatitis and elevated transaminases. Based on the patient's history I wonder if this is most likely alcohol induced pancreatitis. I think it would be prudent to proceed with upper endoscopy and endoscopic ultrasound to ensure that were not missing choledocholithiasis as an alternate cause to her symptoms. We discussed risks and benefits of the procedures to include bleeding infection perforation pain pancreatitis and need for follow-up studies. With regard to treatment I would recommend continued IV hydration for the present time. History of Present Illness Reason for Consultation: pancreatitis Requesting Physician: Eufemia Attending Physician: Ramiro Fall MD History of Present Illness 31 year old female with history of migraines, bipolar, ADHD and others below admitted through the ED w/ abd pain, nausea/vomiting, imaging concerning for duodentitis vs pancreatits. Pt was seen and evaluated, chart reviewed. She notes she developed pain Sunday. Upper abd. Severe. Associated nausea/vomiting. No appetite, inability to tolerate PO. Denies change in bowel habits. No black or bloody stools. No fever, chills, CP, SOB. She denies drug use to me Reports 1, 64 ounce beer every night Tbili 0.9 AST 263-->115 ALT 194 -->115 207-->144 Lipase 788-->472 MRCP 2022: The liver is enlarged measuring 22 cm craniocaudad. No focal liver lesion is seen. The biliary tree is nondilated. The common bile duct is nondilated measuring 5 mm. No choledocholithiasis is identified. Edema in and surrounding the pancreas consistent with acute pancreatitis. No pseudocyst is identified. CTAP 2022: Findings compatible with pancreatitis, with surrounding soft tissue swelling and reactive duodenal inflammation. Primary duodenitis is also possible but considered less likely. No acute peripancreatic collections or pancreatic necrosis. KUB 11/24/16: No acute cardiopulmonary disease. No radiographic evidence of acute intra-abdominal pathology. CT ABD 10/19/16: There are no acute infectious or inflammatory findings in the abdomen or pelvis.Moderate constipation. No bowel obstruction is identified. There is fecalization of the distal ileum, likely related to constipation/stasis. No abnormally thick walled or hyperemic bowel loops are seen.There is a small volume of free fluid in the cul-de-sac, likely within physiologic limits. The bladder is decompressed around a Elliott catheter and not well evaluated CT ABD 10/17/16: Mild nonspecific enteritis. Several ovarian follicular cysts bilaterally. Otherwise negative study KUB 10/15/16: No acute cardiopulmonary process. No evidence for bowel obstruction. Small fluid levels seen throughout the colon. This is consistent with the patient's history of a diarrheal illness. GB US 06/26/16: Normal gallbladder. Color wall to millimeters. Common bile duct 2 mm. Liver is uniform. Right kidney is negative for hydronephrosis. Pancreas is nonvisualized due to overlying bowel content. Colonoscopy 10/20/16: non-bleeding internal hemorrhoids, otherwise normal, random biopsies without significant pathology Colonoscopy 07/26/14: scattered stool, procedure aborted Colonoscopy 04/07/13: normal in appearance with random biopsies consistent with lymphocytic colitis Allergies Allergy/AdvReac Type Severity Reaction Status Date / Time albuterol Allergy Severe THROAT Verified 11/08/22 14:44 SWELLS ipratropium Allergy Severe THROAT Verified 11/08/22 14:44 SWELLS amoxicillin Allergy Mild Rash Verified 11/08/22 14:44 Penicillins Allergy Mild Rash Verified 11/08/22 14:44 quetiapine [From Seroquel] AdvReac Severe self harm Verified 11/08/22 14:44 Home Medications Medication Instructions Recorded Confirmed Type melatonin 10 mg tablet 30 mg PO HS 11/08/22 11/08/22 History Patient History Medical History Bipolar disorder current episode depressed Chronic migraine History of pelvic inflammatory disease Lymphocytic colitis Migraine Ovarian cyst hx of Pelvic inflammatory disease PTSD (post-traumatic stress disorder) Ruptured ovarian cyst no sx Tobacco smoking affecting , antepartum Surgical History History of tubal ligation Hx of colonoscopy S/P wisdom tooth extraction Family History Father Attention deficit hyperactivity disorder Family/Other Breast cancer Attention deficit hyperactivity disorder paternal cousin Grandfather (Paternal) Attention deficit hyperactivity disorder Family history of diabetes mellitus Aunt Breast cancer paternal Family history of diabetes mellitus Brother Trisomy 21, Down syndrome Family history of diabetes mellitus Mother Family history of diabetes mellitus Uncle Family history of diabetes mellitus Grandfather (Maternal) Family history of diabetes mellitus Grandmother (Paternal) Family history of diabetes mellitus Grandmother (Maternal) Family history of diabetes mellitus Other COPD (chronic obstructive pulmonary disease) Crohn's disease Diabetes Emphysema of lung No family history of adverse response to anesthesia Denies family history of Ovarian cancer Prostate cancer Colorectal cancer Social History Smoking Status: Current every day smoker Tobacco Type: Cigarettes Cigarettes Per Day: 1/2 pack a day; Second Hand Exposure: Yes (family members smoke); Do You Dip or Chew Tobacco: No; Hx Alcohol Use: Yes Alcohol type: beer Hx Substance Use: No Preferred Language: Romanian Communication Ability: Effective Flask Fitter Required: No Beliefs That Will Affect Care: None marital status: Single Current Living Situation: Spouse and Family Current Living Situation Comment: Lives with father, boyfriend and 3 kids Other Information That Helps Us Care for You: No Feels Safe at Home: Yes Safety Concerns: Feels Safe At This Time Assistive Devices: None Review of Systems Review of Systems: All systems reviewed & are unremarkable except as noted in HPI & below Physical Exam Constitutional: well developed and well nourished Respiratory: normal respiratory effort, lungs clear to auscultation Gastrointestinal (Abdomen): Inspection/Auscultation: abdomen normal to inspection Percussion/Palpation: + abdomen tender and abdomen soft; no guarding and abdomen not rigid Skin: no rashes, warm and dry Results & Data Vital Signs (Past 12 Hours) Vital Signs Temp Pulse Pulse Resp BP Pulse Ox O2 Del Method 11/09/22 07:47 37 C 106 H 18 109/76 93 Room Air 11/09/22 07:13 115 H 11/09/22 05:29 37.2 C 88 18 123/70 97 Room Air 11/09/22 04:00 37.0 C 106 H 18 122/83 95 Room Air 11/08/22 23:22 103 H 11/08/22 23:00 36.8 C 105 H 16 117/80 98 Room Air Laboratory Results 11/09/22 11/09/22 11/08/22 Range/Units 05:56 05:56 Unknown WBC 13.62 H (4.8-10.8) K/ul RBC 3.83 L (4.20-5.40) M/uL Hgb 13.7 (12.0-16.0) g/dl Hct 37.0 (37.0-47.0) % MCV 96.6 (80.0-100.0) fL MCH 35.8 H (25.0-34.0) pg MCHC 37.0 H (32.0-36.0) g/dL RDW Std Deviation 45.0 (36.4-46.3) fL RDW Coeff of Tatiana 12.6 (11.5-14.5) % Plt Count 140 (130-400) K/uL MPV 10.1 (9.4-12.4) fL Immature Gran % (Auto) % Neut % (Auto) % Lymph % (Auto) % Miller % (Auto) % Eos % (Auto) % Baso % (Auto) % Neut # (Auto) (1.40-6.50) K/uL Lymph # (Auto) (1.2-3.4) K/uL Miller # (Auto) (0.11-0.59) K/uL Eos # (Auto) (0-0.50) K/uL Baso # (Auto) (0-0.2) K/uL Immature Gran # (Auto) (0.01-0.20) K/uL Sodium 133 L (136-145) mmol/L Potassium 3.7 (3.5-5.1) mmol/L Chloride 102 (98-107) mmol/L Carbon Dioxide 21 Anion Gap 10 BUN 7 (6-23) mg/dl Creatinine 0.76 (0.6-1.2) mg/dl Est Cr Clr Drug Dosing 112.2 ml/min Est GFR ( Amer) 122.9 ml/min Est GFR (Non-Af Amer) 106.0 ml/min BUN/Creatinine Ratio 9.2 L (10-20) Glucose 99 (70-99(Fasting)) mg/dl Calcium 6.5 L (8.6-10.3) mg/dl Total Bilirubin 0.9 (0.2-1.0) mg/dl AST 115 H (13-39) U/L ALT 115 H (7-52) U/L Alkaline Phosphatase 144 H (34-104) U/L Total Protein 6.0 (6.0-8.3) gm/dl Albumin 2.8 L (3.4-5.0) gm/dl Globulin 3.2 (2.5-4.0) gm/dl Albumin/Globulin Ratio 0.9 (0.9-2) Lipase 472 H (11-82) U/L Urine Color Urine Appearance (Clear) Urine pH (4.5-7.5) Ur Specific [place] (1.000-1.030) Urine Protein (Negative) Urine Glucose (UA) (Negative) Urine Ketones (Negative) Urine Blood (Negative) Urine Nitrite (Negative) Urine Bilirubin (Negative) Urine Urobilinogen (Negative) Ur Leukocyte Esterase (Negative) Urine Test Negative (Negative) SARS-CoV-2, RNA, NAAT (NEGATIVE) 11/08/22 11/08/22 11/08/22 Range/Units Unknown 14:52 10:54 WBC (4.8-10.8) K/ul RBC (4.20-5.40) M/uL Hgb (12.0-16.0) g/dl Hct (37.0-47.0) % MCV (80.0-100.0) fL MCH (25.0-34.0) pg MCHC (32.0-36.0) g/dL RDW Std Deviation (36.4-46.3) fL RDW Coeff of Tatiana (11.5-14.5) % Plt Count (130-400) K/uL MPV (9.4-12.4) fL Immature Gran % (Auto) % Neut % (Auto) % Lymph % (Auto) % Miller % (Auto) % Eos % (Auto) % Baso % (Auto) % Neut # (Auto) (1.40-6.50) K/uL Lymph # (Auto) (1.2-3.4) K/uL Miller # (Auto) (0.11-0.59) K/uL Eos # (Auto) (0-0.50) K/uL Baso # (Auto) (0-0.2) K/uL Immature Gran # (Auto) (0.01-0.20) K/uL Sodium 132 L (136-145) mmol/L Potassium 4.3 (3.5-5.1) mmol/L Chloride 101 (98-107) mmol/L Carbon Dioxide TNP Anion Gap TNP BUN 9 (6-23) mg/dl Creatinine 0.72 (0.6-1.2) mg/dl Est Cr Clr Drug Dosing 117.0 ml/min Est GFR ( Amer) 131.2 ml/min Est GFR (Non-Af Amer) 113.2 ml/min BUN/Creatinine Ratio 12.5 (10-20) Glucose 91 (70-99(Fasting)) mg/dl Calcium 8.2 L (8.6-10.3) mg/dl Total Bilirubin 0.9 (0.2-1.0) mg/dl AST 263 H (13-39) U/L ALT 194 H (7-52) U/L Alkaline Phosphatase 207 H (34-104) U/L Total Protein 7.2 (6.0-8.3) gm/dl Albumin 3.5 (3.4-5.0) gm/dl Globulin 3.7 (2.5-4.0) gm/dl Albumin/Globulin Ratio 0.9 (0.9-2) Lipase 788 H (11-82) U/L Urine Color Dark Yellow Urine Appearance Clear (Clear) Urine pH 5.5 (4.5-7.5) Ur Specific [place] 1.022 (1.000-1.030) Urine Protein Negative (Negative) Urine Glucose (UA) Negative (Negative) Urine Ketones Trace H (Negative) Urine Blood Negative (Negative) Urine Nitrite Negative (Negative) Urine Bilirubin Negative (Negative) Urine Urobilinogen Negative (Negative) Ur Leukocyte Esterase Negative (Negative) Urine Test (Negative) SARS-CoV-2, RNA, NAAT NEGATIVE (NEGATIVE) 11/08/22 Range/Units 10:54 WBC 8.63 (4.8-10.8) K/ul RBC 4.47 (4.20-5.40) M/uL Hgb 14.8 (12.0-16.0) g/dl Hct 41.4 (37.0-47.0) % MCV 92.6 (80.0-100.0) fL MCH 33.1 (25.0-34.0) pg MCHC 35.7 (32.0-36.0) g/dL RDW Std Deviation 41.6 (36.4-46.3) fL RDW Coeff of Tatiana 12.3 (11.5-14.5) % Plt Count 165 (130-400) K/uL MPV 10.3 (9.4-12.4) fL Immature Gran % (Auto) 0.5 % Neut % (Auto) 74.2 % Lymph % (Auto) 15.2 % Miller % (Auto) 9.3 % Eos % (Auto) 0.3 % Baso % (Auto) 0.5 % Neut # (Auto) 6.41 (1.40-6.50) K/uL Lymph # (Auto) 1.31 (1.2-3.4) K/uL Miller # (Auto) 0.80 H (0.11-0.59) K/uL Eos # (Auto) 0.03 (0-0.50) K/uL Baso # (Auto) 0.04 (0-0.2) K/uL Immature Gran # (Auto) 0.04 (0.01-0.20) K/uL Sodium (136-145) mmol/L Potassium (3.5-5.1) mmol/L Chloride (98-107) mmol/L Carbon Dioxide Anion Gap BUN (6-23) mg/dl Creatinine (0.6-1.2) mg/dl Est Cr Clr Drug Dosing ml/min Est GFR ( Amer) ml/min Est GFR (Non-Af Amer) ml/min BUN/Creatinine Ratio (10-20) Glucose (70-99(Fasting)) mg/dl Calcium (8.6-10.3) mg/dl Total Bilirubin (0.2-1.0) mg/dl AST (13-39) U/L ALT (7-52) U/L Alkaline Phosphatase (34-104) U/L Total Protein (6.0-8.3) gm/dl Albumin (3.4-5.0) gm/dl Globulin (2.5-4.0) gm/dl Albumin/Globulin Ratio (0.9-2) Lipase (11-82) U/L Urine Color Urine Appearance (Clear) Urine pH (4.5-7.5) Ur Specific [place] (1.000-1.030) Urine Protein (Negative) Urine Glucose (UA) (Negative) Urine Ketones (Negative) Urine Blood (Negative) Urine Nitrite (Negative) Urine Bilirubin (Negative) Urine Urobilinogen (Negative) Ur Leukocyte Esterase (Negative) Urine Test (Negative) SARS-CoV-2, RNA, NAAT (NEGATIVE)
[2022-11-09] MEDS: NICOTINE 14 MG/24 HR PATCH TD SCH (08:42)
[2022-11-09] MEDS: PANTOprazole 40 MG in SYRINGE 0 ML IV SCH ×2 (08:42→19:40)
[2022-11-09] MEDS: HYDROmorphone INJ 1 MG/ML SYRINGE IV PRN ×4 (09:41→22:16)
[2022-11-09] MEDS ORDERED: MIDAZOLAM HCL 1 MG/ML 2ML VIAL ONE (10:59)
[2022-11-09] MEDS ORDERED: fentaNYL citrate PF 100 MCG/2 ML VIAL ONE (10:59)
--- NOTE | 2022-11-09 11:11 | History & Physical Bridge Note ---
Date of Service November 09, 2022 History & Physical Bridge Note I have examined the patient, reviewed the History & Physical and in the interval since the performance of the History & Physical I have noted the following changes of clinical significance: no changes noted
[2022-11-09] MEDS ORDERED: ePHEDrine sulfate 50 MG/ML AMP IV PRN (11:35)
[2022-11-09] MEDS ORDERED: PROMETHAZINE HCL 6.25 MG in SODIUM CHLORIDE 0.9% 50 ML IV PRN (11:35)
[2022-11-09] MEDS ORDERED: ONDANSETRON INJ 2 MG/ML 2 ML VIAL IV PRN (11:35)
[2022-11-09] MEDS ORDERED: ATROPINE SULFATE 0.1 MG/ML 10ML SYR IV PRN (11:35)
[2022-11-09] MEDS ORDERED: fentaNYL citrate PF 100 MCG/2 ML VIAL IV PRN (11:35)
--- NOTE | 2022-11-09 11:35 | Anesthesiology Consultation ---
Date of Service November 09, 2022 Assessment & Plan Chart Review Chart Review: Acceptable Risk for Surgery and Patient NOT seen in Pre Admission Testing Consults Requested none ASA ASA2 Proposed Anesthesia Anesthesia Type: General Risk / Benefits Reviewed With: PT / POA / Parent / Guardian, Accepts Plan and Informed Consent Obtained History Surgery Operation Date: 11/09/22 08:00 Proposed Procedures p Endoscopic Retrograde Cholangiopancreatogram - Lacy Srinivasan DO s Endoscopic Ultrasonography Upper - Lacy Srinivasan DO Height/Weight Height: 5 ft 1 in Weight: 91 kg Allergies Allergy/AdvReac Type Severity Reaction Status Date / Time albuterol Allergy Severe THROAT Verified 11/08/22 14:44 SWELLS ipratropium Allergy Severe THROAT Verified 11/08/22 14:44 SWELLS amoxicillin Allergy Mild Rash Verified 11/08/22 14:44 Penicillins Allergy Mild Rash Verified 11/08/22 14:44 quetiapine [From Seroquel] AdvReac Severe self harm Verified 11/08/22 14:44 Medications Home Medications Medication Instructions Recorded Confirmed Last Taken melatonin 10 mg tablet 30 mg PO HS 11/08/22 11/08/22 11/07/22 Active Medications Generic Name Dose Route Start Last Admin Trade Name Freq PRN Reason Stop Dose Admin Hydromorphone HCl 1 mg 11/09/22 05:30 11/09/22 09:41 Hydromorphone Inj 1 Mg/Ml Syringe IV 11/23/22 05:29 1 mg Q4H PRN Administration Pain Pantoprazole Sodium 40 mg/ 10 mls @ 5 mls/min 11/08/22 21:00 11/09/22 08:42 Syringe IV 12/08/22 20:59 5 mls/min BID JOYCE Administration Lactated Ringer's 1,000 mls @ 200 mls/hr 11/08/22 18:42 11/09/22 10:56 Lr IV 12/08/22 18:41 0 mls/hr .Q5H JOYCE Infusion Melatonin 9 mg 11/08/22 21:00 11/08/22 20:44 Melatonin 3 Mg Tab PO 12/08/22 20:59 9 mg HS JOYCE Administration Miscellaneous 1 each 11/09/22 08:59 11/09/22 08:42 Remove Nicoderm Patch N/A 07/29/23 08:58 1 each [id number] JOYCE Administration Nicotine 14 mg 11/08/22 18:42 11/09/22 08:42 Nicotine 14 Mg/24 Hr Patch TD 12/08/22 18:41 14 mg QAM JOYCE Administration Ondansetron HCl 4 mg 11/08/22 18:42 11/09/22 03:21 Ondansetron Inj 2 Mg/Ml 2 Ml Vial IV 12/08/22 18:41 4 mg Q6H PRN Administration Nausea NPO Date Last Intake of Fluids: 11/08/22 Time Last Intake of Fluids: 23:59 Date Last Intake of Solids: 11/07/22 Past Medical History Medical History Bipolar disorder current episode depressed Chronic migraine History of pelvic inflammatory disease Lymphocytic colitis Migraine Ovarian cyst hx of Pelvic inflammatory disease PTSD (post-traumatic stress disorder) Ruptured ovarian cyst no sx Tobacco smoking affecting , antepartum Exercise / Class Metabolic Activity II 4-5 Yardwork/Stairs/Walk up hill Past Family History Family History Father Attention deficit hyperactivity disorder Family/Other Breast cancer Attention deficit hyperactivity disorder paternal cousin Grandfather (Paternal) Attention deficit hyperactivity disorder Family history of diabetes mellitus Aunt Breast cancer paternal Family history of diabetes mellitus Brother Trisomy 21, Down syndrome Family history of diabetes mellitus Mother Family history of diabetes mellitus Uncle Family history of diabetes mellitus Grandfather (Maternal) Family history of diabetes mellitus Grandmother (Paternal) Family history of diabetes mellitus Grandmother (Maternal) Family history of diabetes mellitus Other COPD (chronic obstructive pulmonary disease) Crohn's disease Diabetes Emphysema of lung No family history of adverse response to anesthesia Denies family history of Ovarian cancer Prostate cancer Colorectal cancer Past Surgical History Surgical History History of tubal ligation Hx of colonoscopy S/P wisdom tooth extraction Past Anesthesia History No Hx of Anesthesia Complications and No Family Hx of Anesthesia Complications History of PONV No Hx of PONV and No Hx of Motion Sickness Social History Smoking Status: Current every day smoker tobacco type: cigarettes Smoking cigarettes per day: 1/2 pack a day Do You Dip or Chew Tobacco: No Hx Alcohol Use: Yes Alcohol type: beer alcohol intake frequency: 0-2 drinks per day Hx Substance Use: No substance use type: marijuana Last Used Substance: Unknown Last Used Substance Other:: a month ago was last time Physical Exam Vital Signs Last Vital Signs Temp 37.5 C 11/09/22 11:19 Pulse 118 H 11/09/22 11:19 Resp 20 11/09/22 11:19 BP 114/79 11/09/22 11:19 Pulse Ox 95 11/09/22 11:19 O2 Del Method Room Air 11/09/22 11:19 ENMT Mouth: no dentition abnormality Thyromental Distance: > or= 3.5 Finger Breadths Mallampati Class: II Neck normal visual inspection Respiratory normal respiratory effort Auscultation: lungs clear to auscultation bilaterally Cardiovascular Rate/Rhythm: regular rate and regular rhythm Psychiatric Orientation: alert Testing Laboratory Results 11/09/22 05:56 11/09/22 05:56 Urine Color Dark Yellow 11/08/22 Unknown Urine Appearance Clear (Clear) 11/08/22 Unknown Urine pH 5.5 (4.5-7.5) 11/08/22 Unknown Ur Specific [place] 1.022 (1.000-1.030) 11/08/22 Unknown Urine Protein Negative (Negative) 11/08/22 Unknown Urine Glucose (UA) Negative (Negative) 11/08/22 Unknown Urine Ketones Trace (Negative) H 11/08/22 Unknown Urine Nitrite Negative (Negative) 11/08/22 Unknown Ur Leukocyte Esterase Negative (Negative) 11/08/22 Unknown Urine Test Negative (Negative) 11/08/22 Unknown 11/08/22 Unknown Urine Test Negative
[2022-11-09] MEDS ORDERED: PROPOFOL IV EMULSION 10 MG/ML 20 ML VIAL IV ONE (11:48)
[2022-11-09] MEDS ORDERED: ONDANSETRON INJ 2 MG/ML 2 ML VIAL ONE (11:49)
[2022-11-09] MEDS ORDERED: LIDOCAINE 2% 2 ML VIAL/AMP(20MG/ML) INFIL ONE (11:49)
[2022-11-09] MEDS ORDERED: SUCCINYLCHOLINE CHLORIDE 20 MG/ML 10 ML VIAL IV ONE (11:49)
--- NOTE | 2022-11-09 12:09 | GI REPORT ---
Patient Name: Tatiana Keen Procedure Date: 11/09/2022 11:56 AM Date of : 1990 Admit Type: Inpatient Age: 31 Gender: Female Attending MD: Lacy Srinivasan DO, Procedure: Upper GI endoscopy Providers: Lacy Srinivasan DO Referring MD: Ramiro Fall Indications: Epigastric abdominal pain, Abdominal pain in the right upper quadrant, Abnormal CT of the GI tract Medicines: General Anesthesia Complications: No immediate complications. Estimated blood loss: Minimal. Estimated Blood Loss: Estimated blood loss was minimal. Procedure: Pre-Anesthesia Assessment: - Prior to the procedure, a History and Physical was performed, and patient medications, allergies and sensitivities were reviewed. The patient's tolerance of previous anesthesia was reviewed. - The risks and benefits of the procedure and the sedation options and risks were discussed with the patient. All questions were answered and informed consent was obtained. - Patient identification and proposed procedure were verified prior to the procedure by the physician, the nurse and the converting supervisor. The procedure was verified in the procedure room. - Pre-procedure physical examination revealed no contraindications to sedation. - ASA Grade Assessment: II - A patient with mild systemic disease. - After reviewing the risks and benefits, the patient was deemed in satisfactory condition to undergo the procedure. - The anesthesia plan was to use general anesthesia. - Immediately prior to administration of medications, the patient was re-assessed for adequacy to receive sedatives. - The heart rate, respiratory rate, oxygen saturations, blood pressure, adequacy of pulmonary ventilation, and response to care were monitored throughout the procedure. - The physical status of the patient was re-assessed after the procedure. After obtaining informed consent, the endoscope was passed under direct vision. Throughout the procedure, the patient's blood pressure, pulse, and oxygen saturations were monitored continuously. The Endoscope was introduced through the mouth, and advanced to the third part of duodenum. The upper GI endoscopy was accomplished without difficulty. The patient tolerated the procedure well. Findings: The examined esophagus was normal. The entire examined stomach was normal. The duodenal bulb and third portion of the duodenum were normal. Diffuse moderate inflammation characterized by congestion (edema), erythema and granularity was found in the second portion of the duodenum. Biopsies were taken with a cold forceps for histology. The pathology specimen was placed into Bottle A. Estimated blood loss was minimal. Impression: - Normal esophagus. - Normal stomach. - Normal duodenal bulb and third portion of the duodenum. - Duodenitis. Biopsied. Recommendation: - Perform an upper endoscopic ultrasound (UEUS) today. - Await pathology results. Lacy Srinivasan D.O. Lacy Srinivasan, 11/09/2022 12:09:29 PM This report has been signed electronically. Note Initiated On: 11/09/2022 11:56 AM Number of Addenda: 0 I attest to the content of the Intraoperative Record and orders documented therein, exceptions below {[id number]}
--- NOTE | 2022-11-09 12:25 | Communication Note ---
Date of Service: November 09, 2022 The patient underwent upper endoscopy and endoscopic ultrasound for further evaluation of her acute pancreatitis. There was no evidence of biliary patholog y today. The patient's pancreatitis is likely related to ongoing alcohol abuse. The patient did have mild inflammatory changes in the second portion of the duodenum, biopsies were obtained. Recommendations Continue IV hydration Advance to a clear diet once patient is pain-free Would continue low-dose PPI of omeprazole 20 mg 1 time daily for total of 6 weeks for treatment of the duodenitis Would suggest screening for drugs of abuse, this was positive in the past Please call with any questions or concerns GI to sign off
--- NOTE | 2022-11-09 12:26 | Post Operative Brief Note ---
Immediate Post Op Note v1 Date of Surgery November 09, 2022 Pre & Post Diagnosis Operation Date: 11/09/22 08:00 Pre-Op Diagnosis: PANCREATITIS Post-Op Diagnosis: duodenitis. acute pancreatitis. No gallstones or biliary sludge seen today I identified the patient and participated in the time-out.: Yes Procedure Operation Date: 11/09/22 08:00 Actual Procedures p Esophagogastroduodenoscopy with biopsy.(Not Applicable) - Lacy Srinivasan DO s Endoscopic Ultrasonography Upper(Not Applicable) - Lacy Srinivasan DO Surgeon Lacy Srinivasan, Engineering Manager [employer] none Estimated Blood Loss 0 Findings Consistent with Post-Op Diagnosis
[2022-11-09] MEDS ORDERED: LARYING-O-JET KIT (LTA) ONE (12:31)
--- NOTE | 2022-11-09 12:31 | GI REPORT ---
Patient Name: Tatiana Keen Procedure Date: 11/09/2022 11:58 AM Date of : 1990 Admit Type: Inpatient Age: 31 Gender: Female Attending MD: Lacy Srinivasan DO, Procedure: Upper EUS Providers: Lacy Srinivasan DO Referring MD: Ramiro Fall Indications: Abnormal abdominal/pelvic CT scan, Elevated liver enzymes, Suspected choledocholithiasis Medicines: General Anesthesia Complications: No immediate complications. Estimated blood loss: Minimal. Estimated Blood Loss: Estimated blood loss was minimal. Procedure: Pre-Anesthesia Assessment: - Prior to the procedure, a History and Physical was performed, and patient medications, allergies and sensitivities were reviewed. The patient's tolerance of previous anesthesia was reviewed. - The risks and benefits of the procedure and the sedation options and risks were discussed with the patient. All questions were answered and informed consent was obtained. - Patient identification and proposed procedure were verified prior to the procedure by the physician, the nurse and the maintenance aide. The procedure was verified in the procedure room. - Pre-procedure physical examination revealed no contraindications to sedation. - ASA Grade Assessment: III - A patient with severe systemic disease. - After reviewing the risks and benefits, the patient was deemed in satisfactory condition to undergo the procedure. - The anesthesia plan was to use general anesthesia. - Immediately prior to administration of medications, the patient was re-assessed for adequacy to receive sedatives. - The heart rate, respiratory rate, oxygen saturations, blood pressure, adequacy of pulmonary ventilation, and response to care were monitored throughout the procedure. - The physical status of the patient was re-assessed after the procedure. After obtaining informed consent, the endoscope was passed under direct vision. Throughout the procedure, the patient's blood pressure, pulse, and oxygen saturations were monitored continuously. The Scope was introduced through the mouth, and advanced to the third part of duodenum. The upper EUS was accomplished without difficulty. The patient tolerated the procedure well. Findings: ENDOSONOGRAPHIC FINDING: : There was no sign of significant endosonographic abnormality in the common bile duct. The maximum diameter of the duct was 5 mm. No stones, no biliary sludge and ducts of normal caliber were identified. There was no sign of significant endosonographic abnormality in the gallbladder. An unremarkable gallbladder was identified. There was abnormal echogenicity in the visualized portion of the liver. This area was hyperechoic. Pancreatic parenchymal abnormalities were noted in the entire pancreas. These consisted of hyperechoic foci without shadowing and lobularity without honeycombing. No lymphadenopathy seen. Impression: - There was no sign of significant pathology in the common bile duct. - There was no sign of significant pathology in the gallbladder. - There was abnormal echogenicity in the visualized portion of the liver. This was hyperechoic. Tissue has not been obtained. However, the endosonographic appearance is consistent with fatty infiltration. - Pancreatic parenchymal abnormalities consisting of hyperechoic foci without shadowing and lobularity were noted in the entire pancreas. - No specimens collected. Recommendation: - Return patient to [facility] for ongoing care. - Pancreatitis appears to be related to ongoing alcohol abuse - Continue IV hydration for the next 24 hours, once pain-free would advance to a clear liquid diet then as tolerated thereafter - Please call with any additional questions or concerns. Lacy Srinivasan D.O. Lacy Srinivasan, DO 11/09/2022 12:30:47 PM This report has been signed electronically. Note Initiated On: 11/09/2022 11:58 AM Number of Addenda: 0 I attest to the content of the Intraoperative Record and orders documented therein, exceptions below {[id number]}
--- NOTE | 2022-11-09 13:06 | Anesthesiology Progress Note ---
Date of Service November 09, 2022 Anesthesia Post Procedure Vital Signs Vital Signs: Temp Pulse Pulse Pulse Resp BP BP 11/09/22 13:00 111 H 16 11/09/22 12:50 118 H 18 11/09/22 12:40 120 H 20 11/09/22 12:30 118 H 20 11/09/22 12:26 36.0 C L 120 H 20 11/09/22 11:19 37.5 C 118 H 20 114/79 11/09/22 09:09 11/09/22 07:47 37 C 106 H 18 109/76 11/09/22 07:13 115 H 11/09/22 05:29 37.2 C 88 18 123/70 11/09/22 04:00 37.0 C 106 H 18 122/83 11/08/22 23:22 103 H 11/08/22 23:00 36.8 C 105 H 16 117/80 11/08/22 19:00 37.0 C 102 H 18 112/75 11/08/22 19:40 113 H 11/08/22 18:44 37.1 C 108 H 18 11/08/22 18:44 11/08/22 18:07 36.8 C 101 H 18 121/83 11/08/22 17:00 108 H 18 11/08/22 15:00 99 H 18 11/08/22 13:09 109 H 18 BP Pulse Ox Pulse Ox O2 Del Method O2 Del Method O2 Flow Rate 11/09/22 13:00 120/84 96 Nasal Cannula 2 11/09/22 12:50 116/78 97 Nasal Cannula 2 11/09/22 12:40 122/83 94 Room Air 11/09/22 12:30 109/81 94 Room Air 11/09/22 12:26 104/84 95 Room Air 11/09/22 11:19 95 Room Air 11/09/22 09:09 Room Air 11/09/22 07:47 93 Room Air 11/09/22 07:13 11/09/22 05:29 97 Room Air 11/09/22 04:00 95 Room Air 11/08/22 23:22 11/08/22 23:00 98 Room Air 11/08/22 19:00 94 Room Air 11/08/22 19:40 11/08/22 18:44 121/84 95 Room Air 11/08/22 18:44 95 Room Air 11/08/22 18:07 95 Room Air 11/08/22 17:00 118/81 95 Room Air 11/08/22 15:00 114/76 98 Room Air 11/08/22 13:09 114/75 98 Room Air Pain Intensity Bilateral Back: Pain Intensity: 8 Abdomen: Pain Intensity: 4 Transfer of Care Handoff Completed per policy Notes Mental Status: alert / awake / arousable Patient Amnestic to Procedure: Yes Nausea / Vomiting: adequately controlled Pain: adequately controlled Airway Patency, RR, SpO2: stable & adequate BP & HR: stable & adequate Hydration State: stable & adequate Anesthetic Complications: no major complications apparent
[2022-11-09] MEDS ORDERED: LORazepam 2 MG/1 ML VIAL IV PRN ×2 (18:09)
[2022-11-09] MEDS ORDERED: Ativan IV Alcohol Withdrawal--Active Protocol IV PRN (18:09)
[2022-11-09] MEDS ORDERED: chlordiazePOXIDE ALCOHOL WITHDRAWL 25MG PO STA (18:09)
--- NOTE | 2022-11-09 18:11 | Hospitalist Progress Note ---
Date of Service November 09, 2022 Assessment & Plan (1) Acute pancreatitis: (2) Elevated LFTs: Plan: Patient is a 31-year-old female with PMH bipolar, PTSD, tobacco use presented to ER with complaint of abdominal pain x3 days In ER initially sinus tachycardia, other vitals stable. No leukocytosis. Lipase: 788. AST: 263, ALT: 194, alk phos: 207, T. bili: 0.9 CT abdomen pelvis: Findings compatible with pancreatitis, with surrounding soft tissue swelling and reactive duodenal inflammation. Primary duodenitis is also possible but considered less likely. No acute peripancreatic collections or pancreatic necrosis. In ER given 1L NSS, Zofran, total 8 mg morphine IV, 10 mg Toradol IV, 0.5 mg Dilaudid IV, 20 mg IV Pepcid NPO Lactated Ringer's at 200 ml/hr PPI IV MRCP pending CBC, CMP, lipase in a.m. GI consult, spoke to JAGDEEP Aquino who recommends MRCP (3) Tobacco use: Plan: Nicotine patch Smoking cessation encouraged (4) Bipolar disorder: Plan: Not currently on medication DVT Prophylaxis SCDs Follows with Dr Olson for routine care Pt was seen and care coordinated with Dr Aguiar. See addendum I spent a total of 75 minutes reviewing notes, outpatient records, labs, medication, coordinating, documenting and providing care for this patient excluding time spent in the performance of separately billed services. Admission and Anticipated Discharge Date Admission Date: November 08, 2022 Results & Data Results & Data Vital Signs (Past 12 Hours) Vital Signs Temp Pulse Pulse Pulse Resp BP BP 11/09/22 15:00 121 H 11/09/22 15:19 37.6 C H 121 H 17 117/80 117/80 11/09/22 13:40 37 C 109 H 18 103/67 11/09/22 13:24 37.2 C 125 H 18 115/74 11/09/22 13:10 36.6 C 112 H 18 114/79 11/09/22 13:00 111 H 16 120/84 11/09/22 12:50 118 H 18 116/78 11/09/22 12:40 120 H 20 122/83 11/09/22 12:30 118 H 20 109/81 11/09/22 12:26 36.0 C L 120 H 20 104/84 11/09/22 11:19 37.5 C 118 H 20 114/79 11/09/22 09:09 11/09/22 07:47 37 C 106 H 18 109/76 11/09/22 07:13 115 H Pulse Ox O2 Del Method O2 Flow Rate 11/09/22 15:00 11/09/22 15:19 94 Nasal Cannula 1 11/09/22 13:40 95 Nasal Cannula 2 11/09/22 13:24 97 Nasal Cannula 2 11/09/22 13:10 97 Nasal Cannula 2 11/09/22 13:00 96 Nasal Cannula 2 11/09/22 12:50 97 Nasal Cannula 2 11/09/22 12:40 94 Room Air 11/09/22 12:30 94 Room Air 11/09/22 12:26 95 Room Air 11/09/22 11:19 95 Room Air 11/09/22 09:09 Room Air 11/09/22 07:47 93 Room Air 11/09/22 07:13
[2022-11-09] MEDS: chlordiazePOXIDE HCl 25 MG CAP PO SCH ×2 (18:39→23:54)
[2022-11-09 19:13] LABS: Amphetamines+Metham, Urine Neg (Neg); Barbiturates, Urine Neg (Neg); Benzodiazepine, Urine Pos (Neg); Cocaine, Urine Neg (Neg); MDMA (Ecstacy), Urine Neg (Neg); Methadone, Urine Neg (Neg); Opiate, Urine Pos (Neg); Phencyclidine, Urine Neg (Neg)
[2022-11-09] MEDS: THIAMINE HCL 100 MG in SYRINGE 9 ML IV SCH (19:40)
[2022-11-09] MEDS: MELATONIN 3 MG TAB PO SCH (19:44)
[2022-11-09] MEDS: LORazepam 2 MG/1 ML VIAL IV PRN (20:44)
[2022-11-10] MEDS: LACTATED RINGER'S 1,000 ML IV SCH ×4 (03:05→15:51)
[2022-11-10] MEDS: HYDROmorphone INJ 1 MG/ML SYRINGE IV PRN ×5 (03:07→22:26)
[2022-11-10] MEDS: chlordiazePOXIDE HCl 25 MG CAP PO SCH ×3 (06:06→20:51)
[2022-11-10] MEDS: NICOTINE 14 MG/24 HR PATCH TD SCH (08:12)
[2022-11-10] MEDS: THIAMINE HCL 100 MG in SYRINGE 9 ML IV SCH (08:13)
[2022-11-10] MEDS: PANTOprazole 40 MG in SYRINGE 0 ML IV SCH ×2 (08:13→20:42)
[2022-11-10] MEDS: FOLIC ACID 1 MG in SYRINGE 9.8 ML IV SCH (08:13)
[2022-11-10] MEDS: LORazepam 2 MG/1 ML VIAL IV PRN ×4 (09:40→18:55)
[2022-11-10] MEDS: oxyCODONE HCL IR 5 MG TAB (IMMEDIATE RELEASE) PO PRN (16:05)
--- NOTE | 2022-11-10 17:48 | Hospitalist Progress Note ---
Date of Service November 10, 2022 Assessment & Plan (1) Acute pancreatitis: (2) Elevated LFTs: Plan: Per admitting service notes with addendum: Patient is a 31-year-old female with PMH bipolar, PTSD, tobacco use presented to ER with complaint of abdominal pain x3 days In ER initially sinus tachycardia, other vitals stable. No leukocytosis. Lipase: 788. AST: 263, ALT: 194, alk phos: 207, T. bili: 0.9 CT abdomen pelvis: Findings compatible with pancreatitis, with surrounding soft tissue swelling and reactive duodenal inflammation. Primary duodenitis is also possible but considered less likely. No acute peripancreatic collections or pancreatic necrosis. In ER given 1L NSS, Zofran, total 8 mg morphine IV, 10 mg Toradol IV, 0.5 mg Dilaudid IV, 20 mg IV Pepcid NPO Lactated Ringer's at 200 ml/hr PPI IV MRCP pending CBC, CMP, lipase in a.m. GI consult, spoke to JAGDEEP Aquino who recommends MRCP 11/10 Clinically improving Status post EGD yesterday, unrevealing We will start clear liquid diet today Continue LR Continue pain control Alcohol withdrawal Last drink day of admission ERIC score 3-6 Continue with Librium protocol, Ativan as needed Monitor closely (3) Tobacco use: Plan: Nicotine patch Smoking cessation encouraged (4) Bipolar disorder: Plan: Not currently on medication DVT Prophylaxis SCDs Encouraged to ambulate in the room plan of care discussed with patient in detail and at length all questions answered she is understanding, agreeable, comfortable with the plan of care Admission and Anticipated Discharge Date Admission Date: November 08, 2022 Subjective Follow-up for acute pancreatitis, etc. Seen with JACQUARD CARD LACER by the bedside throughout whole encounter States she feels improved compared to yesterday Abdominal pain seems to be improving, no nausea No shortness of breath, chest pain, palpitations, dizziness No fevers or chills Requesting to advance diet today Denies tremors, anxiety, but did have some bad dreams overnight No other new symptoms Review of Systems Review of Systems: all noted and negative except for above Physical Exam Physical Exam: General- oriented x 3, not in distress, speaks in sentences with no effort or accessory muscle use Eyes- anicteric Neck- no JVD Lungs- clear breath sounds bilaterally, no rales/wheezes Heart- normal rate, regular rhythm; no murmurs Abdomen- normal bowel sounds, nondistended, soft, no tenderness Extremities- no pretibial edema, no calf tenderness Neuro- alert, oriented x 3; no gross focal neurologic deficits Skin- warm & dry Results & Data Results & Data Vital Signs (Past 12 Hours) Vital Signs Temp Pulse Pulse Resp BP Pulse Ox O2 Del Method 11/10/22 16:20 116 H 11/10/22 16:17 37.5 C 120 H 16 113/70 90 Room Air 11/10/22 12:01 36.8 C 129 H 20 110/77 94 Room Air 11/10/22 10:00 Room Air 11/10/22 08:29 37.6 C H 100 H 20 127/80 78 L Room Air 11/10/22 07:12 113 H all noted and reviewed including below
[2022-11-10 19:35] LABS: Basophils # (auto) 0.05 K/uL (0-0.2); Basophils % (auto) 0.5 %; Eosinophils % (auto) 0.9 %; Hematocrit (blood only) 34.2 % (37.0-47.0); Hemoglobin 11.7 g/dl (12.0-16.0); Immature Granulocytes # (auto) 0.18 K/uL (0.01-0.20); Immature Granulocytes % (auto) 1.6 %; Lymphocytes # (auto) 1.08 K/uL (1.2-3.4); Lymphocytes % (auto) 9.9 %; Mean Corpuscular Hgb Conc 34.2 g/dL (32.0-36.0); Mean Corpuscular Volume 96.3 fL (80.0-100.0); Monocytes # (auto) 0.94 K/uL (0.11-0.59); Monocytes % (auto) 8.6 %; Neutrophils # (auto) 8.59 K/uL (1.40-6.50); Neutrophils % (auto) 78.5 %; Platelet Count 142 K/uL (130-400); RDW Coefficient of Variation 12.4 % (11.5-14.5); RDW Standard Deviation 44.1 fL (36.4-46.3); Red Blood Count 3.55 M/uL (4.20-5.40); White Blood Count 10.94 K/ul (4.8-10.8)
[2022-11-10 20:24] LABS: Magnesium 1.4 mg/dl (1.7-2.4); Potassium 3.1 mmol/L (3.5-5.1)
[2022-11-10 20:30] LABS: Albumin Globulin Ratio 0.8 (0.9-2); Albumin Level 2.5 gm/dl (3.4-5.0); BUN Creatinine Ratio 4.3 (10-20); Bilirubin,Total 0.9 mg/dl (0.2-1.0); Calcium 6.2 mg/dl (8.6-10.3); Creatinine Clr Calc Pharmacy 123.6 ml/min; Est GFR (African American) 136.3 ml/min; Est GFR (Non-African American) 117.6 ml/min; Globulin 3.2 gm/dl (2.5-4.0); Total Protein 5.7 gm/dl (6.0-8.3)
[2022-11-10] MEDS: ENOXAPARIN INJ 40 MG/0.4 ML SYR SQ SCH (20:42)
[2022-11-10] MEDS: MELATONIN 3 MG TAB PO SCH (20:43)
[2022-11-10] MEDS ORDERED: POTASSIUM CHLORIDE CRTAB 20 MEQ TABCR PO STA (22:21)
[2022-11-10] MEDS ORDERED: STAT IV STA (22:21)
[2022-11-10] MEDS: ONDANSETRON INJ 2 MG/ML 2 ML VIAL IV PRN (22:27)
[2022-11-10] MEDS: MAGNESIUM SULFATE / D5W 1 GM/100 ML BAG IV SCH (22:42)
[2022-11-10] MEDS: POTASSIUM CHLORIDE / WTR 10 MEQ/100 ML PLCT IV SCH ×2 (22:42→23:43)
[2022-11-10] MEDS ORDERED: CALCIUM GLUCONATE IV ONE (22:45)
[2022-11-10] MEDS ORDERED: DEXTROSE 5% IV ONE (22:45)
[2022-11-10] MEDS ORDERED: ACETAMINOPHEN 1,000 MG/100 ML VIAL IV STA (23:20)
--- NOTE | 2022-11-10 23:34 | Communication Note ---
Date of Service: November 10, 2022 Patient worsening ERIC S score necessitating 3 mg of IV Ativan administration. PCU transfer
[2022-11-10] MEDS ORDERED: LACTATED RINGER'S 1,000 ML IV ONE (23:57)
[2022-11-11 00:32] LABS: Base Excess ABG 1.7 mEq/L (-9-1.8); HCO3 ABG 27 mmol/L (19-24); Oxygen Saturation ABG 97.9 % (90-95); PCO2 ABG 45 mmHg (35-46); PO2 ABG 78 mmHg (80-95); pH ABG 7.39 (7.35-7.45)
[2022-11-11] MEDS: MAGNESIUM SULFATE / D5W 1 GM/100 ML BAG IV SCH (00:46)
[2022-11-11] MEDS: POTASSIUM CHLORIDE / WTR 10 MEQ/100 ML PLCT IV SCH ×8 (00:49→15:16)
[2022-11-11 00:54] LABS: BUN Creatinine Ratio 3.2 (10-20); Calcium 7.2 mg/dl (8.6-10.3); Creatinine Clr Calc Pharmacy 137.6 ml/min; Est GFR (African American) 141.2 ml/min; Est GFR (Non-African American) 121.9 ml/min; Potassium 3.2 mmol/L (3.5-5.1)
[2022-11-11 00:58] LABS: Allen Test Pos (Pos)
[2022-11-11] MEDS: LACTATED RINGER'S 1,000 ML IV SCH ×4 (01:06→13:23)
[2022-11-11 01:25] LABS: INR 1.1 (0.9-1.1); Partial Thromboplastin Ratio 1.1; Partial Thromboplastin Time 30.5 Seconds (21.0-31.0); Prothrombin Time 12.1 Seconds (9.0-12.0)
[2022-11-11] MEDS ORDERED: OLANZapine 10 MG/2.1 ML SDV IM STA (01:41)
[2022-11-11] MEDS ORDERED: POTASSIUM CHLORIDE CRTAB 20 MEQ TABCR PO STA (01:42)
[2022-11-11] MEDS ORDERED: MAGNESIUM SULFATE / D5W 1 GM/100 ML BAG IV ONE (01:44)
[2022-11-11 01:52] LABS: Thyroid Stimulating Hormone 7.578 uIu/ml (0.300-4.500)
[2022-11-11] MEDS: oxyCODONE HCL IR 5 MG TAB (IMMEDIATE RELEASE) PO PRN (02:13)
[2022-11-11 02:25] LABS: T4 Free Thyroxine 1.21 ng/dl (0.61-1.60)
[2022-11-11 02:32] LABS: Appearance Urine Clear (Clear); Bacteria Urine Automated Negative (Negative); Bilirubin Urine Negative (Negative); Blood Urine 2+ (Negative); Cast Urine Automated 0 /lpf (0-5); Color Urine Yellow; Glucose Urine UA Negative (Negative); Ketones Urine Negative (Negative); Leukocyte Esterase Urine Negative (Negative); Nitrite Urine Negative (Negative); Protein Urine Negative (Negative); Specific Gravity Urine 1.005 (1.000-1.030); Urobilinogen Urine Negative (Negative)
[2022-11-11] MEDS ORDERED: LACTATED RINGER'S 1,000 ML IV ONE (03:00)
[2022-11-11 05:06] LABS: Basophils # (auto) 0.04 K/uL (0-0.2); Basophils % (auto) 0.4 %; Eosinophils # (auto) 0.14 K/uL (0-0.50); Eosinophils % (auto) 1.3 %; Hematocrit (blood only) 32.7 % (37.0-47.0); Hemoglobin 11.7 g/dl (12.0-16.0); Immature Granulocytes # (auto) 0.13 K/uL (0.01-0.20); Immature Granulocytes % (auto) 1.2 %; Lymphocytes # (auto) 1.44 K/uL (1.2-3.4); Lymphocytes % (auto) 13.6 %; Mean Corpuscular Hemoglobin 33.2 pg (25.0-34.0); Mean Corpuscular Hgb Conc 35.8 g/dL (32.0-36.0); Mean Corpuscular Volume 92.9 fL (80.0-100.0); Mean Platelet Volume 10.2 fL (9.4-12.4); Monocytes # (auto) 1.01 K/uL (0.11-0.59); Monocytes % (auto) 9.5 %; Neutrophils # (auto) 7.85 K/uL (1.40-6.50); Platelet Count 145 K/uL (130-400); RDW Coefficient of Variation 12.3 % (11.5-14.5); RDW Standard Deviation 42.2 fL (36.4-46.3); Red Blood Count 3.52 M/uL (4.20-5.40); White Blood Count 10.61 K/ul (4.8-10.8)
[2022-11-11] MEDS: chlordiazePOXIDE HCl 25 MG CAP PO SCH ×2 (05:21→11:14)
[2022-11-11 05:43] LABS: Alanine Aminotransferase 78 U/L (7-52); Albumin Globulin Ratio 0.8 (0.9-2); Albumin Level 2.6 gm/dl (3.4-5.0); Alkaline Phosphatase 146 U/L (34-104); Anion Gap 5 (3-11); BUN Creatinine Ratio 3.6 (10-20); Bilirubin,Total 1.3 mg/dl (0.2-1.0); Blood Urea Nitrogen 2 mg/dl (6-23); Calcium 7.1 mg/dl (8.6-10.3); Carbon Dioxide 26 mmol/L (21-32); Chloride 101 mmol/L (98-107); Creatinine Clr Calc Pharmacy 152.3 ml/min; Globulin 3.3 gm/dl (2.5-4.0); Glucose 105 mg/dl (70-99(Fasting)); Magnesium 2.4 mg/dl (1.7-2.4); Phosphorus 1.2 mg/dl (2.5-4.9); Sodium 132 mmol/L (136-145); Total Protein 5.9 gm/dl (6.0-8.3)
[2022-11-11] MEDS ORDERED: POTASSIUM PHOS 3 MMOL/1 ML INFUSION IV STA (05:45)
[2022-11-11] MEDS ORDERED: POTASSIUM PHOSPHATE 40 MMOL in SODIUM CHLORIDE 0.9% 1000ML 1,000 ML IV ONE (06:15)
[2022-11-11 06:37] LABS: Potassium 3.4 mmol/L (3.5-5.1)
--- NOTE | 2022-11-11 08:03 | XRay Report ---
XR chest 1V portable HISTORY: Hypoxia. COMPARISON: Chest 06/14/2018. FINDINGS: The lungs are clear. Cardiac silhouette is normal in size. No pleural effusions. No pneumot horax. Low lung volumes. IMPRESSION: No acute process. ACT 112: Negative or not required by law. Electronically signed by: Travis Ferrara M.D. 11/11/2022 8:02 AM
[2022-11-11] MEDS: MoRPHine SULFATE 4 MG/ML 1 ML CARP\\VIAL IV PRN ×3 (09:06→17:26)
[2022-11-11] MEDS: LORazepam 2 MG/1 ML VIAL IV PRN ×4 (09:08→15:45)
[2022-11-11] MEDS: PANTOprazole 40 MG in SYRINGE 0 ML IV SCH ×2 (09:09→20:22)
[2022-11-11] MEDS: THIAMINE HCL 100 MG in SYRINGE 9 ML IV SCH ×2 (09:09→20:24)
--- NOTE | 2022-11-11 09:18 | Critical Care Consultation ---
Date of Consultation November 11, 2022 Assessment & Plan (1) Acute pancreatitis: (2) Bipolar disorder: (3) Alcohol withdrawal: Plan Impression: 31-year-old female with extensive history of alcohol abuse admitted with alcoholic pancreatitis. She was agitated and disruptive this morning and required ICU level care for nursing issues. She does not appear to be experiencing significant delirium tremens currently. Recommendations: 1. Acute pancreatitis: Continue supportive care. GI consultation reviewed. No indication for antimicrobial agents currently. LFTs are downtrending. 2. Alcohol abuse: Continue high-dose thiamine and folate. Will place on low- dose clonidine. No indication for Precedex or phenobarb currently. Continue benzodiazepines. 3. Mild anemia: No evidence of acute blood loss. No indication for transfusion currently. Continue to trend. Bipolar disorder: Continue outpatient medications. 5. Hyponatremia and hypokalemia: Patient will be initiated on ICU electrolyte replacement protocols. Calcium and phosphorus will also be repleted. 6. DVT and GI prophylaxis will be initiated. Anticipate the patient should be able to return to the floor later today or tomorrow depending on her clinical response. History of Present Illness Attending Physician: Ramiro Fall MD History of Present Illness Asked by overnight hospitalist to assist in evaluation of this management with agitation and inappropriate behavior on the floor. There was concern about alcohol withdrawal which prompted transfer to the intensive care unit. History is obtained from discussion with the patient as well as review the electronic medical record. Patient is a 31-year-old female with extensive history of alcohol abuse. She has had alcohol withdrawal previously. She was admitted a few days ago with pancreatitis felt to be secondary to alcohol use. She is undergone EGD and evaluated by GI. This morning the patient apparently became agitated and was pulling out IVs and being disruptive to nurses. The nursing staff felt that they could no longer take care of her and requested her to be transferred to the intensive care unit. I assessed the patient on arrival to the ICU. She just received some Ativan and morphine. She states she is no longer having pain. She is not having hallucinations. No tremors. She is tachycardic but is not demonstrating any other hemodynamic instability. She has not demonstrated any seizure activity. Allergies Allergy/AdvReac Type Severity Reaction Status Date / Time albuterol Allergy Severe THROAT Verified 11/08/22 14:44 SWELLS ipratropium Allergy Severe THROAT Verified 11/08/22 14:44 SWELLS amoxicillin Allergy Mild Rash Verified 11/08/22 14:44 Penicillins Allergy Mild Rash Verified 11/08/22 14:44 quetiapine [From Seroquel] AdvReac Severe self harm Verified 11/08/22 14:44 Home Medications Medication Instructions Recorded Confirmed Type melatonin 10 mg tablet 30 mg PO HS 11/08/22 11/08/22 History Patient History Medical History Bipolar disorder current episode depressed Chronic migraine History of pelvic inflammatory disease Lymphocytic colitis Migraine Ovarian cyst hx of Pelvic inflammatory disease PTSD (post-traumatic stress disorder) Ruptured ovarian cyst no sx Tobacco smoking affecting , antepartum Surgical History History of tubal ligation Hx of colonoscopy S/P wisdom tooth extraction Family History Father Attention deficit hyperactivity disorder Family/Other Breast cancer Attention deficit hyperactivity disorder paternal cousin Grandfather (Paternal) Attention deficit hyperactivity disorder Family history of diabetes mellitus Aunt Breast cancer paternal Family history of diabetes mellitus Brother Trisomy 21, Down syndrome Family history of diabetes mellitus Mother Family history of diabetes mellitus Uncle Family history of diabetes mellitus Grandfather (Maternal) Family history of diabetes mellitus Grandmother (Paternal) Family history of diabetes mellitus Grandmother (Maternal) Family history of diabetes mellitus Other COPD (chronic obstructive pulmonary disease) Crohn's disease Diabetes Emphysema of lung No family history of adverse response to anesthesia Denies family history of Ovarian cancer Prostate cancer Colorectal cancer Social History Smoking Status: Current every day smoker Tobacco Type: Cigarettes Cigarettes Per Day: 1/2 pack a day; Second Hand Exposure: Yes (family members smoke); Do You Dip or Chew Tobacco: No; Hx Alcohol Use: Yes Alcohol type: beer Hx Substance Use: No Preferred Language: [place] Communication Ability: Effective Lump Inspector Required: No Beliefs That Will Affect Care: None marital status: Single Current Living Situation: Spouse and Family Current Living Situation Comment: Lives with father, boyfriend and 3 kids Other Information That Helps Us Care for You: No Feels Safe at Home: Yes Safety Concerns: Feels Safe At This Time Assistive Devices: None Review of Systems Review of Systems: All systems reviewed & are unremarkable except as noted in Subjective Physical Exam Constitutional: WD/WN, vitals as above Neck: trachea midline, no thyromegaly Respiratory: normal respiratory effort, lungs clear to auscultation Cardiovascular: RRR, no murmur, no edema Gastrointestinal (Abdomen): normal bowel sounds, soft, nontender, no hepatosplenomegaly Musculoskeletal: Extremities: extremities normal to inspection Skin: no rashes, warm and dry Neurologic: Nonfocal exam Lymphatic: no cervical lymphadenopathy Results & Data Results & Data Vital Signs (Past 12 Hours) Vital Signs Temp Pulse Pulse Pulse Resp BP BP 11/11/22 08:30 113 H 21 11/11/22 08:30 112/73 11/11/22 08:20 111 H 20 11/11/22 08:19 37.2 C 115 H 15 124/8 L 11/11/22 07:30 11/11/22 07:32 36.9 C 122 H 22 11/11/22 03:58 126 H 11/11/22 00:51 37.1 C 129 H 20 107/76 11/11/22 02:35 11/11/22 00:00 37.3 C 135 H 18 120/86 11/10/22 23:32 11/10/22 23:30 38.3 C H 127 H 18 115/77 11/10/22 22:00 38.4 C H 129 H 20 119/82 BP Pulse Ox O2 Del Method O2 Flow Rate 11/11/22 08:30 95 Nasal Cannula 2 11/11/22 08:30 11/11/22 08:20 94 11/11/22 08:19 94 Oxymask 2 11/11/22 07:30 Nasal Cannula 2 11/11/22 07:32 108/71 91 Nasal Cannula 2 11/11/22 03:58 11/11/22 00:51 95 Nasal Cannula 3 11/11/22 02:35 Nasal Cannula 3 11/11/22 00:00 95 Nasal Cannula 3 11/10/22 23:32 97 Nasal Cannula 3 11/10/22 23:30 84 L Room Air 11/10/22 22:00 92 Room Air Critical Care Results & Data Vital Signs (Past 12 Hours) Vital Signs Temp Pulse Pulse Pulse Resp BP BP 11/11/22 08:30 113 H 21 11/11/22 08:30 112/73 11/11/22 08:20 111 H 20 11/11/22 08:19 37.2 C 115 H 15 124/8 L 11/11/22 07:30 11/11/22 07:32 36.9 C 122 H 22 11/11/22 03:58 126 H 11/11/22 00:51 37.1 C 129 H 20 107/76 11/11/22 02:35 11/11/22 00:00 37.3 C 135 H 18 120/86 11/10/22 23:32 11/10/22 23:30 38.3 C H 127 H 18 115/77 11/10/22 22:00 38.4 C H 129 H 20 119/82 BP Pulse Ox O2 Del Method O2 Flow Rate 11/11/22 08:30 95 Nasal Cannula 2 11/11/22 08:30 11/11/22 08:20 94 11/11/22 08:19 94 Oxymask 2 11/11/22 07:30 Nasal Cannula 2 11/11/22 07:32 108/71 91 Nasal Cannula 2 11/11/22 03:58 11/11/22 00:51 95 Nasal Cannula 3 11/11/22 02:35 Nasal Cannula 3 11/11/22 00:00 95 Nasal Cannula 3 11/10/22 23:32 97 Nasal Cannula 3 11/10/22 23:30 84 L Room Air 11/10/22 22:00 92 Room Air Lab & Micro Results (Past 24 Hours) RBC 3.52 M/uL (4.20-5.40) L 11/11/22 WBC 10.61 K/ul (4.8-10.8) 11/11/22 Hgb 11.7 g/dl (12.0-16.0) L 11/11/22 Hct 32.7 % (37.0-47.0) L 11/11/22 MCV 92.9 fL (80.0-100.0) 11/11/22 MCH 33.2 pg (25.0-34.0) 11/11/22 MCHC 35.8 g/dL (32.0-36.0) 11/11/22 RDW Standard Deviation 42.2 fL (36.4-46.3) 11/11/22 RDW Coefficient of Variation 12.3 % (11.5-14.5) 11/11/22 Plt Count 145 K/uL (130-400) 11/11/22 MPV 10.2 fL (9.4-12.4) 11/11/22 Neutrophils (%) (Auto) 74.0 % 11/11/22 Lymphocytes (%) (Auto) 13.6 % 11/11/22 Monocytes # (Auto) 1.01 K/uL (0.11-0.59) H 11/11/22 Eosinophils # (Auto) 0.14 K/uL (0-0.50) 11/11/22 Immature Granulocyte % (Auto) 1.2 % 11/11/22 Neutrophils # (Auto) 7.85 K/uL (1.40-6.50) H 11/11/22 Lymphocytes # (Auto) 1.44 K/uL (1.2-3.4) 11/11/22 Monocytes # (Auto) 1.01 K/uL (0.11-0.59) H 11/11/22 Eosinophils # (Auto) 0.14 K/uL (0-0.50) 11/11/22 Basophils # (Auto) 0.04 K/uL (0-0.2) 11/11/22 Immature Granulocyte # (Auto) 0.13 K/uL (0.01-0.20) 3 Na 132 mmol/L (136-145) L 11/11/22 K 3.4 mmol/L (3.5-5.1) L 11/11/22 Cl 101 mmol/L (98-107) 11/11/22 CO2 26 mmol/L (21-32) 11/11/22 Anion Gap 5 (3-11) 11/11/22 BUN 2 mg/dl (6-23) L 11/11/22 Creatinine 0.56 mg/dl (0.6-1.2) L 11/11/22 Estimated GFR ( Amer) 146.0 ml/min 11/11/22 Estimated GFR (Non-Af Amer) 126.0 ml/min 11/11/22 BUN/Creatinine Ratio 3.6 (10-20) L 11/11/22 Glu 105 mg/dl (70-99(Fasting)) H 11/11/22 Ca 7.1 mg/dl (8.6-10.3) L 11/11/22 Phosphorus Level 1.2 mg/dl (2.5-4.9) L* 11/11/22 Total Bilirubin 1.3 mg/dl (0.2-1.0) H 11/11/22 AST 83 U/L (13-39) H 11/11/22 ALT 78 U/L (7-52) H 11/11/22 Alkaline Phosphatase 146 U/L (34-104) H 11/11/22 TP 5.9 gm/dl (6.0-8.3) L 11/11/22 Albumin 2.6 gm/dl (3.4-5.0) L 11/11/22 Globulin 3.3 gm/dl (2.5-4.0) 11/11/22 Albumin/Globulin Ratio 0.8 (0.9-2) L 11/11/22 Mg 2.4 mg/dl (1.7-2.4) 11/11/22 04:44 Calcium Level 7.1 mg/dl (8.6-10.3) L 11/11/22 04:44 Prothromb Time International Ratio 1.1 (0.9-1.1) 11/11/22 00:1 7 Arterial Blood pH 7.39 (7.35-7.45) 11/11/22 00:17 Arterial Blood Partial Pressure CO2 45 mmHg (35-46) 11/11/22 00 :17 Arterial Blood Partial Pressure O2 78 mmHg (80-95) L 11/11/22 0 0:17 Arterial Blood HCO3 27 mmol/L (19-24) H 11/11/22 00:17 Arterial Blood Base Excess 1.7 mEq/L (-9-1.8) 11/11/22 00:17 Arterial Blood Oxygen Saturation 97.9 % (90-95) H 11/11/22 00:1 7 Blood Gas Oxygen Given 3 L 11/11/22 00:17 Bob Test Pos (Pos) 11/11/22 00:17 Diagnostic Findings (Past 24 Hours) Chest X-Ray 11/10/22 23:33 XR chest 1V portable HISTORY: Hypoxia. COMPARISON: Chest 06/14/2018. FINDINGS: The lungs are clear. Cardiac silhouette is normal in size. No pleural effusions. No pneumothorax. Low lung volumes. IMPRESSION: No acute process. ACT 112: Negative or not required by law. Electronically signed by: Travis Ferrara M.D. 11/11/2022 8:02 AM I & O Totals 24 Hours 11/10/22 11/11/22 11/12/22 06:59 06:59 06:59 Intake Total 4383.334 / 4383.334 5460.833 / 5460.833 Output Total 0 / 0 Balance 4383.334 / 4383.334 5460.833 / 5460.833 Cumulative 11/08/22 10:14 thru 11/11/22 08:33 Intake Total 05481.167 Output Total 0 Balance 55637.167 RT Ventilator Mngmt (Last Documented) Ventilator Ordered Settings Respiratory Rate 21 11/11/22 08:30 Ventilator - PT Measurements Respiratory Rate 21 Coding Level of Care Code 68614 IN/OBS CONSULT LVL 4,60M Diagnoses Acute pancreatitis K85.90 Bipolar disorder F31.9 Alcohol withdrawal F10.939
[2022-11-11] MEDS: NICOTINE 14 MG/24 HR PATCH TD SCH (09:38)
[2022-11-11] MEDS: ICU Protocol for HYPERglycemia SCH ×4 (10:13→20:22)
[2022-11-11] MEDS: FOLIC ACID 1 MG in SYRINGE 9.8 ML IV SCH (10:14)
[2022-11-11] MEDS: cloNIDine HCL 0.1 MG TAB PO SCH (10:15)
[2022-11-11] MEDS ORDERED: LORazepam 2 MG/1 ML VIAL IV PRN ×2 (10:44→11:33)
[2022-11-11] MEDS ORDERED: Ativan IV Alcohol Withdrawal--Active Protocol IV PRN (10:44)
--- NOTE | 2022-11-11 16:03 | Hospitalist Progress Note ---
Date of Service November 11, 2022 Assessment & Plan (1) Acute pancreatitis: (2) Elevated LFTs: Plan: Per admitting service notes with addendum: Patient is a 31-year-old female with PMH bipolar, PTSD, tobacco use presented to ER with complaint of abdominal pain x3 days In ER initially sinus tachycardia, other vitals stable. No leukocytosis. Lipase: 788. AST: 263, ALT: 194, alk phos: 207, T. bili: 0.9 CT abdomen pelvis: Findings compatible with pancreatitis, with surrounding soft tissue swelling and reactive duodenal inflammation. Primary duodenitis is also possible but considered less likely. No acute peripancreatic collections or pancreatic necrosis. In ER given 1L NSS, Zofran, total 8 mg morphine IV, 10 mg Toradol IV, 0.5 mg Dilaudid IV, 20 mg IV Pepcid NPO Lactated Ringer's at 200 ml/hr PPI IV MRCP pending CBC, CMP, lipase in a.m. GI consult, spoke to JAGDEEP Aquino who recommends MRCP 11/11 Minimal to no abdominal pain Status post EGD unrevealing We will start clear liquid diet today Continue LR Continue pain control Hypokalemia, hypocalcemia, hypomagnesemia, hypophosphatemia Repletion ordered Delirium Tremens Alcohol withdrawal Last drink day of admission ERIC score 15 Transferred to ICU Continue with Librium protocol, Ativan as needed Clonidine AM Monitor closely (3) Tobacco use: Plan: Nicotine patch Smoking cessation encouraged (4) Bipolar disorder: Plan: Not currently on medication DVT Prophylaxis Lovenox Admission and Anticipated Discharge Date Admission Date: November 08, 2022 Subjective Follow-up for acute pancreatitis, alcohol withdrawal, etc. Events of last night noted Patient transferred to intensive care unit secondary to delirium tremens Informed by RN that patient is expressing desire to leave AMA Seen at the bedside with FILING AND POLISHING SUPERVISOR at the bedside throughout all encounter States she feels okay, denies shortness of breath, chest pain, palpitations, headache, dizziness Denies abdominal pain, nausea or vomiting Patient seems to be confused, not oriented to place, oriented to month, not oriented to person States she needs to go home because it is her dad's birthday Explained in detail and at length that she cannot leave the hospital as this is not safe, can lead to worsening of medical condition including seizures, organ failure, including Review of Systems Review of Systems: all noted and negative except for above Physical Exam Physical Exam: General- oriented x 1, not in distress, speaks in sentences with no effort or accessory muscle use Eyes- anicteric Neck- no JVD Lungs- clear breath sounds bilaterally, no rales/wheezes Heart- normal rate, regular rhythm; no murmurs Abdomen- normal bowel sounds, nondistended, soft, mild epigastric tenderness Extremities- no pretibial edema, no calf tenderness Neuro- alert, oriented x 3; no gross focal neurologic deficits Skin- warm & dry Results & Data Results & Data Vital Signs (Past 12 Hours) Vital Signs Temp Pulse Pulse Pulse Resp BP BP 11/11/22 14:37 108/67 11/11/22 14:37 103 H 15 11/11/22 14:00 113 H 23 11/11/22 14:00 95/54 L 11/11/22 13:30 106 H 21 11/11/22 13:30 106/54 L 11/11/22 13:00 116 H 23 11/11/22 13:00 115/83 11/11/22 12:30 108 H 20 11/11/22 12:30 111/82 11/11/22 12:03 107 H 23 11/11/22 12:03 122/80 11/11/22 12:00 129 H 20 11/11/22 11:00 121 H 24 11/11/22 11:00 127/93 11/11/22 10:31 129/86 11/11/22 10:31 119 H 25 H 11/11/22 10:22 117 H 20 11/11/22 10:22 134/91 11/11/22 10:00 115 H 16 11/11/22 10:00 132/88 11/11/22 09:53 115 H 18 11/11/22 09:53 129/91 11/11/22 09:30 124/94 11/11/22 09:30 116 H 20 11/11/22 09:00 114 H 21 11/11/22 09:00 133/94 11/11/22 08:30 113 H 21 11/11/22 08:30 112/73 11/11/22 08:20 111 H 20 11/11/22 08:19 37.2 C 115 H 15 124/8 L 11/11/22 07:30 11/11/22 07:32 36.9 C 122 H 22 BP Pulse Ox O2 Del Method O2 Flow Rate 11/11/22 14:37 11/11/22 14:37 11/11/22 14:00 11/11/22 14:00 11/11/22 13:30 11/11/22 13:30 11/11/22 13:00 11/11/22 13:00 11/11/22 12:30 11/11/22 12:30 11/11/22 12:03 11/11/22 12:03 11/11/22 12:00 11/11/22 11:00 11/11/22 11:00 11/11/22 10:31 11/11/22 10:31 97 11/11/22 10:22 98 11/11/22 10:22 11/11/22 10:00 85 L 11/11/22 10:00 11/11/22 09:53 88 L 11/11/22 09:53 11/11/22 09:30 11/11/22 09:30 89 L 11/11/22 09:00 95 11/11/22 09:00 11/11/22 08:30 95 Nasal Cannula 2 11/11/22 08:30 11/11/22 08:20 94 11/11/22 08:19 94 Oxymask 2 11/11/22 07:30 Nasal Cannula 2 11/11/22 07:32 108/71 91 Nasal Cannula 2 all noted and reviewed including below
[2022-11-11] MEDS ORDERED: LORazepam 2 MG/1 ML VIAL IV STA ×3 (17:11→22:24)
[2022-11-11] MEDS: ENOXAPARIN INJ 40 MG/0.4 ML SYR SQ SCH (20:20)
[2022-11-11] MEDS: MELATONIN 3 MG TAB PO SCH (20:22)
--- NOTE | 2022-11-11 21:19 | Electrocardiogram Report ---
Test Reason : Blood Pressure : / mmHG Vent. Rate : 115 BPM Atrial Rate : 115 BPM P-R Int : 132 ms QRS Dur : 100 ms QT Int : 320 ms P-R-T Axes : 035 024 010 degrees QTc Int : 442 ms Sinus tachycardia Nonspecific T wave abnormality Abnormal ECG When compared with ECG of 14-MAY-2018 12:12, Nonspecific T wave abnormality, worse in Inferior leads T wave inversion now evident in Anterior leads Confirmed by John Taveras ([id number]) on 11/11/2022 9:19:14 PM Referred By: REFERRED SELF Confirmed By:John Taveras
[2022-11-12] MEDS ORDERED: LORazepam 2 MG/1 ML VIAL IV STA (00:49)
[2022-11-12] MEDS: LACTATED RINGER'S 1,000 ML IV SCH ×2 (01:05→12:06)
[2022-11-12 05:11] LABS: Basophils # (auto) 0.05 K/uL (0-0.2); Basophils % (auto) 0.6 %; Eosinophils # (auto) 0.17 K/uL (0-0.50); Hematocrit (blood only) 32.6 % (37.0-47.0); Hemoglobin 11.1 g/dl (12.0-16.0); Immature Granulocytes # (auto) 0.07 K/uL (0.01-0.20); Immature Granulocytes % (auto) 0.8 %; Lymphocytes # (auto) 1.14 K/uL (1.2-3.4); Lymphocytes % (auto) 13.5 %; Mean Corpuscular Hemoglobin 32.9 pg (25.0-34.0); Mean Corpuscular Volume 96.7 fL (80.0-100.0); Mean Platelet Volume 9.6 fL (9.4-12.4); Monocytes # (auto) 0.99 K/uL (0.11-0.59); Monocytes % (auto) 11.7 %; Neutrophils # (auto) 6.05 K/uL (1.40-6.50); Neutrophils % (auto) 71.4 %; Platelet Count 152 K/uL (130-400); RDW Coefficient of Variation 13.1 % (11.5-14.5); RDW Standard Deviation 46.7 fL (36.4-46.3); Red Blood Count 3.37 M/uL (4.20-5.40); White Blood Count 8.47 K/ul (4.8-10.8)
[2022-11-12 05:39] LABS: Alanine Aminotransferase 66 U/L (7-52); Albumin Globulin Ratio 0.7 (0.9-2); Albumin Level 2.4 gm/dl (3.4-5.0); Alkaline Phosphatase 151 U/L (34-104); Anion Gap 6 (3-11); Aspartate Aminotransferase 63 U/L (13-39); Bilirubin,Total 1.1 mg/dl (0.2-1.0); Blood Urea Nitrogen < 2 mg/dl (6-23); Calcium 7.5 mg/dl (8.6-10.3); Carbon Dioxide 28 mmol/L (21-32); Chloride 103 mmol/L (98-107); Creatinine Clr Calc Pharmacy 145.3 ml/min; Est GFR (Non-African American) 122.5 ml/min; Globulin 3.3 gm/dl (2.5-4.0); Glucose 115 mg/dl (70-99(Fasting)); Magnesium 1.8 mg/dl (1.7-2.4); Potassium 3.4 mmol/L (3.5-5.1); Sodium 137 mmol/L (136-145); Total Protein 5.7 gm/dl (6.0-8.3)
[2022-11-12] MEDS ORDERED: POTASSIUM CHLORIDE CRTAB 20 MEQ TABCR PO STA (05:42)
[2022-11-12] MEDS: MAGNESIUM SULFATE / D5W 1 GM/100 ML BAG IV SCH ×2 (05:53→07:42)
[2022-11-12] MEDS: THIAMINE HCL 100 MG in SYRINGE 9 ML IV SCH ×2 (07:29→21:24)
[2022-11-12] MEDS: PANTOprazole 40 MG in SYRINGE 0 ML IV SCH ×2 (07:29→21:24)
[2022-11-12] MEDS: cloNIDine HCL 0.1 MG TAB PO SCH ×2 (07:30→10:02)
[2022-11-12] MEDS: NICOTINE 14 MG/24 HR PATCH TD SCH (07:30)
[2022-11-12] MEDS: FOLIC ACID 1 MG in SYRINGE 9.8 ML IV SCH (07:30)
[2022-11-12] MEDS: ICU Protocol for HYPERglycemia SCH ×4 (07:40→21:19)
--- NOTE | 2022-11-12 08:48 | Critical Care Progress Note ---
Date of Service November 12, 2022 Assessment & Plan (1) Acute pancreatitis: (2) Bipolar disorder: (3) Alcohol withdrawal: Plan Impression: 31-year-old female with extensive history of alcohol abuse admitted with alcoholic pancreatitis. She was agitated and disruptive this morning and required ICU level care for nursing issues. She does not appear to be experiencing significant delirium tremens currently. Recommendations: 1. Acute pancreatitis: Continue supportive care. GI consultation reviewed. No indication for antimicrobial agents currently. LFTs are downtrending. Tolerating diet 2. Alcohol abuse: Continue high-dose thiamine and folate. Continue p.o. clonidine. Continue scheduled and as needed/symptom dose of benzodiazepines. Failed gabapentin on arrival. If escalates, could consider Precedex or phenobarbital. 3. Mild anemia: No evidence of acute blood loss. No indication for transfusion currently. Continue to trend. 4. Bipolar disorder: Suspect this is significantly contributing to the patient's issues. 5. Hyponatremia and hypokalemia: Continue ICU replacement protocols 6. DVT and GI prophylaxis will be initiated. Given her agitation and increasing benzodiazepine use, will observe in the ICU today. Admission and Anticipated Discharge Date Admission Date: November 08, 2022 Subjective Patient seen and examined. EMR reviewed. Discussed with bedside critical care nurse. The patient continues to require frequent doses of Ativan due to agitation. Its unclear how much of her behavior is alcohol withdrawal and how much might be related to her underlying bipolar. She has been hemodynamically stable. She is complaining of some increased abdominal pain today. Review of Systems Review of Systems: All systems reviewed & are unremarkable except as noted in Subjective Physical Exam Constitutional: WD/WN, vitals as above Neck: trachea midline, no thyromegaly Respiratory: normal respiratory effort, lungs clear to auscultation Cardiovascular: RRR, no murmur, no edema Gastrointestinal (Abdomen): Inspection/Auscultation: abdomen normal to inspection; abdomen not distended Percussion/Palpation: abdomen soft; abdomen nontender Musculoskeletal: Extremities: extremities normal to inspection Skin: no rashes, warm and dry Lymphatic: no cervical lymphadenopathy Results & Data Results & Data Vital Signs (Past 12 Hours) Vital Signs Temp Pulse Resp BP Pulse Ox O2 Del Method O2 Flow Rate 11/12/22 07:00 37.0 C 11/12/22 07:00 95 11/12/22 07:00 122/76 11/12/22 06:45 96 H 98 11/12/22 06:30 102 H 98 11/12/22 06:15 98 H 97 11/12/22 06:00 103 H 93 11/12/22 06:00 134/82 11/12/22 05:45 107 H 97 11/12/22 05:30 102 H 97 11/12/22 05:15 107 H 99 11/12/22 05:00 106 H 98 11/12/22 05:00 131/95 11/12/22 04:45 100 H 15 99 11/12/22 04:30 98 H 25 H 99 11/12/22 04:15 103 H 22 99 11/12/22 04:00 109 H 27 H 11/12/22 04:00 146/96 H 11/12/22 03:45 103 H 19 99 11/12/22 03:31 110 H 20 99 11/12/22 03:15 103 H 27 H 97 11/12/22 03:00 103 H 26 H 98 11/12/22 03:00 136/88 11/12/22 02:17 140/110 H 11/12/22 02:17 110 H 27 H 99 11/12/22 02:00 102 H 17 98 11/12/22 01:35 104 H 25 H 99 11/12/22 01:35 137/89 11/12/22 01:00 96 H 24 99 11/12/22 00:12 115 H 24 95 11/12/22 00:12 153/130 H 11/12/22 00:00 100 H 18 100 11/11/22 23:30 103 H 16 93 11/11/22 23:03 102 H 21 11/11/22 23:03 131/89 11/11/22 23:00 105 H 29 H 11/11/22 22:30 109 H 17 11/11/22 22:01 101 H 23 11/11/22 22:01 130/65 11/11/22 22:00 98 H 21 11/12/22 00:00 Nasal Cannula 2 11/11/22 21:30 95 H 16 11/11/22 21:00 97 H 21 97 11/11/22 21:00 138/100 Critical Care Results & Data Vital Signs (Past 12 Hours) Vital Signs Temp Pulse Resp BP Pulse Ox O2 Del Method O2 Flow Rate 11/12/22 07:00 37.0 C 11/12/22 07:00 95 11/12/22 07:00 122/76 11/12/22 06:45 96 H 98 11/12/22 06:30 102 H 98 11/12/22 06:15 98 H 97 11/12/22 06:00 103 H 93 11/12/22 06:00 134/82 11/12/22 05:45 107 H 97 11/12/22 05:30 102 H 97 11/12/22 05:15 107 H 99 11/12/22 05:00 106 H 98 11/12/22 05:00 131/95 11/12/22 04:45 100 H 15 99 11/12/22 04:30 98 H 25 H 99 11/12/22 04:15 103 H 22 99 11/12/22 04:00 109 H 27 H 11/12/22 04:00 146/96 H 11/12/22 03:45 103 H 19 99 11/12/22 03:31 110 H 20 99 11/12/22 03:15 103 H 27 H 97 11/12/22 03:00 103 H 26 H 98 11/12/22 03:00 136/88 11/12/22 02:17 140/110 H 11/12/22 02:17 110 H 27 H 99 11/12/22 02:00 102 H 17 98 11/12/22 01:35 104 H 25 H 99 11/12/22 01:35 137/89 11/12/22 01:00 96 H 24 99 11/12/22 00:12 115 H 24 95 11/12/22 00:12 153/130 H 11/12/22 00:00 100 H 18 100 11/11/22 23:30 103 H 16 93 11/11/22 23:03 102 H 21 11/11/22 23:03 131/89 11/11/22 23:00 105 H 29 H 11/11/22 22:30 109 H 17 11/11/22 22:01 101 H 23 11/11/22 22:01 130/65 11/11/22 22:00 98 H 21 11/12/22 00:00 Nasal Cannula 2 11/11/22 21:30 95 H 16 11/11/22 21:00 97 H 21 97 11/11/22 21:00 138/100 Lab & Micro Results (Past 24 Hours) RBC 3.37 M/uL (4.20-5.40) L 11/12/22 WBC 8.47 K/ul (4.8-10.8) 11/12/22 Hgb 11.1 g/dl (12.0-16.0) L 11/12/22 Hct 32.6 % (37.0-47.0) L 11/12/22 MCV 96.7 fL (80.0-100.0) 11/12/22 MCH 32.9 pg (25.0-34.0) 11/12/22 MCHC 34.0 g/dL (32.0-36.0) 11/12/22 RDW Standard Deviation 46.7 fL (36.4-46.3) H 11/12/22 RDW Coefficient of Variation 13.1 % (11.5-14.5) 11/12/22 Plt Count 152 K/uL (130-400) 11/12/22 MPV 9.6 fL (9.4-12.4) 11/12/22 Neutrophils (%) (Auto) 71.4 % 11/12/22 Lymphocytes (%) (Auto) 13.5 % 11/12/22 Monocytes # (Auto) 0.99 K/uL (0.11-0.59) H 11/12/22 Eosinophils # (Auto) 0.17 K/uL (0-0.50) 11/12/22 Immature Granulocyte % (Auto) 0.8 % 11/12/22 Neutrophils # (Auto) 6.05 K/uL (1.40-6.50) 11/12/22 Lymphocytes # (Auto) 1.14 K/uL (1.2-3.4) L 11/12/22 Monocytes # (Auto) 0.99 K/uL (0.11-0.59) H 11/12/22 Eosinophils # (Auto) 0.17 K/uL (0-0.50) 11/12/22 Basophils # (Auto) 0.05 K/uL (0-0.2) 11/12/22 Immature Granulocyte # (Auto) 0.07 K/uL (0.01-0.20) 3 Na 137 mmol/L (136-145) 11/12/22 K 3.4 mmol/L (3.5-5.1) L 11/12/22 Cl 103 mmol/L (98-107) 11/12/22 CO2 28 mmol/L (21-32) 11/12/22 Anion Gap 6 (3-11) 11/12/22 BUN < 2 mg/dl (6-23) L 11/12/22 Creatinine 0.61 mg/dl (0.6-1.2) 11/12/22 Estimated GFR ( Amer) 142.0 ml/min 11/12/22 Estimated GFR (Non-Af Amer) 122.5 ml/min 11/12/22 BUN/Creatinine Ratio TNP 11/12/22 Glu 115 mg/dl (70-99(Fasting)) H 11/12/22 Ca 7.5 mg/dl (8.6-10.3) L 11/12/22 Total Bilirubin 1.1 mg/dl (0.2-1.0) H 11/12/22 AST 63 U/L (13-39) H 11/12/22 ALT 66 U/L (7-52) H 11/12/22 Alkaline Phosphatase 151 U/L (34-104) H 11/12/22 TP 5.7 gm/dl (6.0-8.3) L 11/12/22 Albumin 2.4 gm/dl (3.4-5.0) L 11/12/22 Globulin 3.3 gm/dl (2.5-4.0) 11/12/22 Albumin/Globulin Ratio 0.7 (0.9-2) L 11/12/22 Mg 1.8 mg/dl (1.7-2.4) 11/12/22 04:47 Calcium Level 7.5 mg/dl (8.6-10.3) L 11/12/22 04:47 Microbiology 11/11/22 00:17 Aerobic Blood Culture - Preliminary Blood No growth in Aerobic bottle after 24 hours. Anaerobic Blood Culture - Preliminary No growth in Anaerobic bottle after 24 hours. 11/11/22 00:01 Aerobic Blood Culture - Preliminary Blood No growth in Aerobic bottle after 24 hours. Anaerobic Blood Culture - Preliminary No growth in Anaerobic bottle after 24 hours. I & O Totals 24 Hours 11/11/22 11/12/22 11/13/22 06:59 06:59 06:59 Intake Total 5460.833 / 5460.833 3986.0003 / 3986.0003 90.833 / 90.833 Output Total 525 / 525 250 / 250 Balance 5460.833 / 5460.833 3461.0003 / 3461.0003 -159.167 / -159.167 Cumulative 11/08/22 10:14 thru 11/12/22 07:42 Intake Total 02037.0003 Output Total 775 Balance 91668.0003 RT Ventilator Mngmt (Last Documented) Ventilator Ordered Settings Respiratory Rate 15 11/12/22 0 4:45 Ventilator - PT Measurements Respiratory Rate 15 Coding Level of Care Code 67701 SUB INP/OBS CARE 2/35MIN Diagnoses Acute pancreatitis K85.90 Bipolar disorder F31.9 Alcohol withdrawal F10.939
--- NOTE | 2022-11-12 09:48 | Hospitalist Progress Note ---
Date of Service November 12, 2022 Delayed entry Date of service as above Assessment & Plan (1) Acute pancreatitis: (2) Elevated LFTs: Plan: Per admitting service notes with addendum: Patient is a 31-year-old female with PMH bipolar, PTSD, tobacco use presented to ER with complaint of abdominal pain x3 days In ER initially sinus tachycardia, other vitals stable. No leukocytosis. Lipase: 788. AST: 263, ALT: 194, alk phos: 207, T. bili: 0.9 CT abdomen pelvis: Findings compatible with pancreatitis, with surrounding soft tissue swelling and reactive duodenal inflammation. Primary duodenitis is also possible but considered less likely. No acute peripancreatic collections or pancreatic necrosis. In ER given 1L NSS, Zofran, total 8 mg morphine IV, 10 mg Toradol IV, 0.5 mg Dilaudid IV, 20 mg IV Pepcid NPO Lactated Ringer's at 200 ml/hr PPI IV MRCP pending CBC, CMP, lipase in a.m. GI consult, spoke to JAGDEEP Aquino who recommends MRCP / Minimal to no abdominal pain Status post EGD unrevealing We will start clear liquid diet today Continue LR Continue pain control 7/2 Patient is abdominal pain Advance diet as tolerated Given IV LR Continue pain control Hypokalemia, hypocalcemia, hypomagnesemia, hypophosphatemia Repletion ordered Delirium Tremens Alcohol withdrawal Last drink day of admission ERIC score 15 Transferred to ICU --Seems to be improving clinically this morning Continue to monitor closely Continue with Librium protocol, Ativan as needed Clonidine AM (3) Tobacco use: Plan: Nicotine patch Smoking cessation encouraged (4) Bipolar disorder: Plan: Not currently on medication Body mass index 40.6 kg/m*m, morbid obesity Counseling to be performed DVT Prophylaxis Lovenox Admission and Anticipated Discharge Date Admission Date: November 08, 2022 Subjective Follow-up for acute pancreatitis, alcohol withdrawal/DTs, etc. Seen resting in bed with MELE Schulz and seen at the bedside throughout whole encounter Patient seen resting in bed, on 2 L of oxygen Patient oriented x1, still mostly confused, but calm, cooperative States she feels fine overall Denies shortness of breath, chest pain, abdominal pain No any other new symptom Review of Systems Review of Systems: all noted and negative except for above Physical Exam Physical Exam: General- oriented x 1-2, not in distress, speaks in sentences with no effort or accessory muscle use Eyes- anicteric Neck- no JVD Lungs- clear breath sounds bilaterally, no crackles or wheezing Heart- normal rate, regular rhythm; no murmurs Abdomen- normal bowel sounds, nondistended, soft, no tenderness Extremities- no pretibial edema, no calf tenderness Neuro- alert, oriented x 3; no gross focal neurologic deficits Skin- warm & dry Results & Data Results & Data Vital Signs (Past 12 Hours) Vital Signs Temp Pulse Resp BP Pulse Ox O2 Del Method O2 Flow Rate 11/12/22 09:00 94 H 24 94 11/12/22 09:00 104/87 11/12/22 08:30 96 H 23 95 11/12/22 08:01 125/76 11/12/22 08:01 91 H 25 H 98 11/12/22 08:00 92 H 22 98 11/12/22 07:30 117 H 17 95 11/12/22 07:00 37.0 C 11/12/22 07:00 95 11/12/22 07:00 122/76 11/12/22 06:45 96 H 98 11/12/22 06:30 102 H 98 11/12/22 06:15 98 H 97 11/12/22 06:00 103 H 93 11/12/22 06:00 134/82 11/12/22 05:45 107 H 97 11/12/22 05:30 102 H 97 11/12/22 05:15 107 H 99 11/12/22 05:00 106 H 98 11/12/22 05:00 131/95 11/12/22 04:45 100 H 15 99 11/12/22 04:30 98 H 25 H 99 11/12/22 04:15 103 H 22 99 11/12/22 04:00 109 H 27 H 11/12/22 04:00 146/96 H 11/12/22 03:45 103 H 19 99 11/12/22 03:31 110 H 20 99 11/12/22 03:15 103 H 27 H 97 11/12/22 03:00 103 H 26 H 98 11/12/22 03:00 136/88 11/12/22 02:17 140/110 H 11/12/22 02:17 110 H 27 H 99 11/12/22 02:00 102 H 17 98 11/12/22 01:35 104 H 25 H 99 11/12/22 01:35 137/89 11/12/22 01:00 96 H 24 99 11/12/22 00:12 115 H 24 95 11/12/22 00:12 153/130 H 11/12/22 00:00 100 H 18 100 11/11/22 23:30 103 H 16 93 11/11/22 23:03 102 H 21 11/11/22 23:03 131/89 11/11/22 23:00 105 H 29 H 11/11/22 22:30 109 H 17 11/11/22 22:01 101 H 23 11/11/22 22:01 130/65 11/11/22 22:00 98 H 21 11/12/22 00:00 Nasal Cannula 2 all noted and reviewed including below
[2022-11-12 13:03] LABS: 7-Aminoclonaz, Confirm NEGATIVE ng/mL (<25); Codeine Urine NEGATIVE ng/mL (<50); Hydro-Alp Ur, GC/MS NEGATIVE ng/mL (<25); Hydrocodone Urine NEGATIVE ng/mL (<50); Hydromor Urine 8820 ng/mL (<50); Hydroxyethylflurazepam, Conf NEGATIVE ng/mL (<50); Hydroxymidazolam Ur, GC/MS >2000 ng/mL (<50); Hydroxytriazolam NEGATIVE ng/mL (<50); Lorazepam, Ur GC/MS NEGATIVE ng/mL (<50); Morphine Urine 348 ng/mL (<50); Nordiazepam, Confirm NEGATIVE ng/mL (<50); Norhydrocodone Conf Ur NEGATIVE ng/mL (<50); Noroxycodone Urine 7540 ng/mL (<50); Oxazepam Ur, GC/MS NEGATIVE ng/mL (<50); Oxycodone Urine 3280 ng/mL (<50); Oxymorph Urine 666 ng/mL (<50); Temazepam, Confirm NEGATIVE ng/mL (<50)
[2022-11-12] MEDS: LORazepam 2 MG/1 ML VIAL IV PRN ×2 (16:07→21:24)
[2022-11-12] MEDS: ICU ELECTROLYTE REPLACEMENT PROTOCOL SCH (21:18)
[2022-11-12] MEDS: ENOXAPARIN INJ 40 MG/0.4 ML SYR SQ SCH (21:23)
[2022-11-12] MEDS: MoRPHine SULFATE 4 MG/ML 1 ML CARP\\VIAL IV PRN (21:24)
[2022-11-12] MEDS: MELATONIN 3 MG TAB PO SCH (21:24)
[2022-11-13] MEDS: chlordiazePOXIDE HCl 5 MG CAP PO SCH ×2 (00:14→12:52)
[2022-11-13] MEDS: LORazepam 2 MG/1 ML VIAL IV PRN ×3 (02:47→22:14)
[2022-11-13] MEDS: LACTATED RINGER'S 1,000 ML IV SCH (04:53)
[2022-11-13 04:54] LABS: Basophils # (auto) 0.04 K/uL (0-0.2); Basophils % (auto) 0.6 %; Eosinophils # (auto) 0.18 K/uL (0-0.50); Eosinophils % (auto) 2.5 %; Hematocrit (blood only) 33.2 % (37.0-47.0); Immature Granulocytes # (auto) 0.16 K/uL (0.01-0.20); Immature Granulocytes % (auto) 2.2 %; Lymphocytes # (auto) 1.55 K/uL (1.2-3.4); Lymphocytes % (auto) 21.6 %; Mean Corpuscular Hemoglobin 32.8 pg (25.0-34.0); Mean Corpuscular Hgb Conc 33.1 g/dL (32.0-36.0); Mean Corpuscular Volume 99.1 fL (80.0-100.0); Mean Platelet Volume 9.7 fL (9.4-12.4); Monocytes # (auto) 1.25 K/uL (0.11-0.59); Monocytes % (auto) 17.5 %; Neutrophils # (auto) 3.98 K/uL (1.40-6.50); Neutrophils % (auto) 55.6 %; Platelet Count 161 K/uL (130-400); RDW Coefficient of Variation 13.2 % (11.5-14.5); RDW Standard Deviation 48.2 fL (36.4-46.3); Red Blood Count 3.35 M/uL (4.20-5.40); White Blood Count 7.16 K/ul (4.8-10.8)
[2022-11-13 05:06] LABS: Albumin Globulin Ratio 0.8 (0.9-2); Albumin Level 2.4 gm/dl (3.4-5.0); BUN Creatinine Ratio 3.3 (10-20); Bilirubin,Total 0.7 mg/dl (0.2-1.0); Calcium 7.8 mg/dl (8.6-10.3); Creatinine Clr Calc Pharmacy 145.3 ml/min; Est GFR (Non-African American) 122.5 ml/min; Globulin 3.1 gm/dl (2.5-4.0); Magnesium 1.6 mg/dl (1.7-2.4); Phosphorus 2.6 mg/dl (2.5-4.9); Potassium 3.8 mmol/L (3.5-5.1); Total Protein 5.5 gm/dl (6.0-8.3)
[2022-11-13] MEDS: POTASSIUM CHLORIDE / WTR 10 MEQ/100 ML PLCT IV SCH ×2 (05:51→08:49)
[2022-11-13] MEDS: ICU ELECTROLYTE REPLACEMENT PROTOCOL SCH (05:51)
[2022-11-13] MEDS: MAGNESIUM SULFATE / D5W 1 GM/100 ML BAG IV SCH ×2 (05:51→08:49)
--- NOTE | 2022-11-13 07:31 | Critical Care Progress Note ---
Date of Service November 13, 2022 Assessment & Plan (1) Acute pancreatitis: (2) Bipolar disorder: (3) Alcohol withdrawal: (4) Tobacco use: (5) Elevated LFTs: (6) Crohns disease: (7) Anxiety: (8) Gastritis: Plan Impression: 31-year-old female with extensive history of alcohol abuse admitted with alcoholic pancreatitis. She was agitated and disruptive this morning and required ICU level care for nursing issues. -- Acute pancreatitis Likely secondary to alcohol abuse Continue with supportive care Pain management S/p endoscopy 11/09/2022 with no evidence of biliary pathology --Ongoing alcohol abuse Continue high-dose thiamine and folate. Continue p.o. clonidine. Continue with alcohol withdrawal protocol with benzodiazepine as per CIWA protocol Worsening with Precedex --Normocytic anemia MCV 99, no evidence of acute blood loss Continue to trend -- Bipolar disorder Not on medications at home Would recommend psych eval --Mild gastritis on endoscopy Continue with omeprazole for 6 weeks as per GI recommendation --Prophylaxis VTE: Lovenox GI: Pantoprazole Lines: Peripheral Diet: Regular Plan: In/out: +579, urine output 1450, +16 L since coming to the hospital. There is no strict output measured Hypomagnesemia and hypokalemia being replaced DC IV fluids Continue with Ativan as per CIWA protocol. Would recommend consideration for anxiolytic medication Patient hemodynamically stable to be downgraded to a medical floor. Case was discussed with Dr. Fall Please note the above document was generated using voice recognition software. It may contain grammatical, syntax or spelling errors.Any formal questions or concerns about the content, text or information contained within the body of this dictation should be directly addressed to the provider for clarification. Admission and Anticipated Discharge Date Admission Date: November 10, 2022 Subjective Patient seen and examined at bedside. No acute distress, no adverse signs overnight Denies any chest pain, no shortness of breath Does complain of little bit of anxiety. No visual, tactile or auditory hallucinations Able to tolerate diet. Has mild epigastric discomfort but significantly improved compared to when she presented to the hospital. No headache. No bowel movement, positive flatulence Review of Systems Review of Systems: All systems reviewed & are unremarkable except as noted in Subjective Physical Exam Physical Exam: constitutional: No acute distress HEENT: EOMI, PERRLA Respiratory system: Good air entry bilaterally, no wheeze, no rhonchi, mild crackles bilateral lower lobes CVS: S1-S2 positive, no murmurs or gallops Abdomen: Soft, nondistended, positive bowel sounds x4, mild epigastric tenderness, no rebound Extremities: +2 pulses bilaterally radialis/ dorsalis pedis, no cyanosis, no edema Neuro: Awake alert oriented x3 Psych: Normal mood and affect G/U: No Elliott Skin: no rashes, warm and dry Lymphatic: no cervical or axillary lymphadenopathy Results & Data Results & Data Vital Signs (Past 12 Hours) Vital Signs Pulse Resp BP Pulse Ox O2 Del Method O2 Flow Rate 11/13/22 05:00 86 19 99 11/13/22 04:30 85 32 H 95 11/13/22 04:00 86 27 H 137/99 99 11/13/22 03:30 92 H 27 H 99 11/13/22 03:00 92 H 29 H 98 11/13/22 02:30 85 23 94 11/13/22 02:47 91 H 32 H 93 11/13/22 02:47 131/96 11/13/22 02:00 71 18 96 11/13/22 01:00 74 19 97 11/13/22 00:00 77 18 95 11/12/22 23:00 77 28 H 95 11/12/22 22:00 91 H 26 H 97 11/12/22 21:31 91 H 25 H 97 11/12/22 21:31 154/121 H 11/12/22 21:00 83 24 97 11/12/22 20:00 90 30 H 98 11/12/22 20:00 Nasal Cannula 2 Laboratory Results 11/13/22 04:29 11/13/22 04:29 Coding Level of Care Code 23325 SUB INP/OBS CARE 3/50MIN Diagnoses Acute pancreatitis K85.90 Bipolar disorder F31.9 Alcohol withdrawal F10.939 Tobacco use Z72.0 Elevated LFTs R79.89 Crohns disease K50.90 Anxiety F41.9 Gastritis K29.70
[2022-11-13] MEDS: PANTOprazole 40 MG in SYRINGE 0 ML IV SCH ×2 (08:39→21:06)
[2022-11-13] MEDS: NICOTINE 14 MG/24 HR PATCH TD SCH (08:39)
[2022-11-13] MEDS: FOLIC ACID 1 MG in SYRINGE 9.8 ML IV SCH (08:47)
[2022-11-13] MEDS: THIAMINE HCL 100 MG in SYRINGE 9 ML IV SCH ×2 (08:47→21:06)
[2022-11-13] MEDS: ICU Protocol for HYPERglycemia SCH (08:50)
[2022-11-13] MEDS: cloNIDine HCL 0.1 MG TAB PO SCH (08:57)
--- NOTE | 2022-11-13 17:18 | Hospitalist Progress Note ---
Date of Service November 13, 2022 Assessment & Plan (1) Acute pancreatitis: (2) Elevated LFTs: Plan: Per admitting service notes with addendum: Patient is a 31-year-old female with PMH bipolar, PTSD, tobacco use presented to ER with complaint of abdominal pain x3 days In ER initially sinus tachycardia, other vitals stable. No leukocytosis. Lipase: 788. AST: 263, ALT: 194, alk phos: 207, T. bili: 0.9 CT abdomen pelvis: Findings compatible with pancreatitis, with surrounding soft tissue swelling and reactive duodenal inflammation. Primary duodenitis is also possible but considered less likely. No acute peripancreatic collections or pancreatic necrosis. In ER given 1L NSS, Zofran, total 8 mg morphine IV, 10 mg Toradol IV, 0.5 mg Dilaudid IV, 20 mg IV Pepcid NPO Lactated Ringer's at 200 ml/hr PPI IV MRCP pending CBC, CMP, lipase in a.m. GI consult, spoke to JAGDEEP Aquino who recommends MRCP / Minimal to no abdominal pain Status post EGD unrevealing We will start clear liquid diet today Continue LR Continue pain control 7/2 Patient is abdominal pain Advance diet as tolerated Given IV LR Continue pain control 7/3 Abdominal pain, GI symptoms resolved Tolerating diet so far Hypokalemia, hypocalcemia, hypomagnesemia, hypophosphatemia Repletion ordered Delirium Tremens Alcohol withdrawal Last drink day of admission ERIC score 15 Transferred to ICU -- Much better Continue as needed Ativan, clonidine in the morning Continue to monitor closely Completed Librium protocol (3) Tobacco use: Plan: Nicotine patch Smoking cessation encouraged (4) Bipolar disorder: Plan: Not currently on medication Body mass index 40.6 kg/m*m, morbid obesity Patient needs counseling on proper nutrition, weight loss DVT Prophylaxis Lovenox Admission and Anticipated Discharge Date Admission Date: November 10, 2022 Subjective Follow-up for acute pancreatitis, alcohol withdrawal, etc. Transferred to [facility] today Seen with MELE Gasca for the whole encounter Awake, alert, not in distress, in good spirits States she feels better overall Has no recollection of recent events Recalls being in her last room at [facility] Denies abdominal pain, nausea or vomiting, fevers or chills States she feels somewhat anxious, has mild tremors, but no sweating, hallucinations Reports some mild dyspnea No other new symptoms Review of Systems Review of Systems: all noted and negative except for above Physical Exam Physical Exam: General- oriented x 2, not in distress, speaks in sentences with no effort or accessory muscle use Eyes- anicteric Neck- no JVD Lungs-positive mildly decreased breath sounds at the bases, no wheezing Heart- normal rate, regular rhythm; no murmurs Abdomen- normal bowel sounds, nondistended, soft, nontender Extremities- no pretibial edema, no calf tenderness Neuro- alert, oriented x 3; no gross focal neurologic deficits Skin- warm & dry Results & Data Results & Data Vital Signs (Past 12 Hours) Vital Signs Temp Pulse Pulse Resp BP BP BP 11/13/22 16:27 110 H 11/13/22 16:22 36.9 C 92 H 18 120/84 11/13/22 12:25 37.2 C 91 H 16 122/84 11/13/22 09:00 101 H 29 H 11/13/22 08:01 110/87 11/13/22 08:01 100 H 27 H 11/13/22 08:00 116 H 17 11/13/22 07:00 11/13/22 07:58 37.2 C 11/13/22 08:25 Pulse Ox O2 Del Method O2 Flow Rate 11/13/22 16:27 11/13/22 16:22 94 Nasal Cannula 2 11/13/22 12:25 92 Nasal Cannula 2 11/13/22 09:00 93 11/13/22 08:01 11/13/22 08:01 93 Nasal Cannula 4 11/13/22 08:00 93 11/13/22 07:00 95 11/13/22 07:58 11/13/22 08:25 Nasal Cannula 2 all noted and reviewed including below
--- NOTE | 2022-11-13 17:51 | XRay Report ---
XR chest 1V portable CLINICAL HISTORY: r/o pulmonary edema vs. pleural effusion TECHNIQUE: Single frontal radiograph of the chest was obtained. Comparison: Comparison is made to chest radiograph 11/10/2022 FINDINGS: No lines and tubes are seen. The cardiomediastinal silhouette is normal. Lungs are underinflated but clear. No evidence of pleural effusion or pneumothorax. IMPRESSION: No pulmonary edema or pleural effusion is seen. ACT 112: Negative or not required by law. Electronically signed by: Aj England M.D. 11/13/2022 5:50 PM
[2022-11-13] MEDS: ENOXAPARIN INJ 40 MG/0.4 ML SYR SQ SCH (18:12)
[2022-11-13] MEDS: MELATONIN 3 MG TAB PO SCH (21:06)
[2022-11-14 06:44] LABS: Hematocrit (blood only) 37.5 % (37.0-47.0); Hemoglobin 12.9 g/dl (12.0-16.0); Mean Corpuscular Hemoglobin 33.2 pg (25.0-34.0); Mean Corpuscular Hgb Conc 34.4 g/dL (32.0-36.0); Mean Corpuscular Volume 96.4 fL (80.0-100.0); Mean Platelet Volume 9.4 fL (9.4-12.4); Platelet Count 209 K/uL (130-400); RDW Coefficient of Variation 13.1 % (11.5-14.5); RDW Standard Deviation 46.3 fL (36.4-46.3); Red Blood Count 3.89 M/uL (4.20-5.40); White Blood Count 6.87 K/ul (4.8-10.8)
[2022-11-14 07:32] LABS: Basophils # (auto) 0.11 K/uL (0-0.2); Basophils % (auto) 1.6 %; Eosinophils # (auto) 0.19 K/uL (0-0.50); Eosinophils % (auto) 2.8 %; Immature Granulocytes # (auto) 0.48 K/uL (0.01-0.20); Lymphocytes # (auto) 1.76 K/uL (1.2-3.4); Lymphocytes % (auto) 25.6 %; Monocytes # (auto) 1.29 K/uL (0.11-0.59); Monocytes % (auto) 18.8 %; Neutrophils # (auto) 3.04 K/uL (1.40-6.50); Neutrophils % (auto) 44.2 %
[2022-11-14 08:10] LABS: Phosphorus 3.9 mg/dl (2.5-4.9)
[2022-11-14 08:11] LABS: Albumin Globulin Ratio 0.7 (0.9-2); Albumin Level 2.6 gm/dl (3.4-5.0); BUN Creatinine Ratio 6.8 (10-20); Bilirubin,Total 0.8 mg/dl (0.2-1.0); Calcium 8.3 mg/dl (8.6-10.3); Creatinine Clr Calc Pharmacy 150.2 ml/min; Est GFR (African American) 143.6 ml/min; Est GFR (Non-African American) 123.9 ml/min; Globulin 3.5 gm/dl (2.5-4.0); Magnesium 1.8 mg/dl (1.7-2.4); Potassium 3.8 mmol/L (3.5-5.1); Total Protein 6.1 gm/dl (6.0-8.3)
[2022-11-14] MEDS ORDERED: PANTOprazole 40 MG TAB PO SCH (09:00)
[2022-11-14] MEDS: NICOTINE 14 MG/24 HR PATCH TD SCH (09:10)
[2022-11-14] MEDS: cloNIDine HCL 0.1 MG TAB PO SCH (09:12)
[2022-11-14] MEDS: THIAMINE HCL 100 MG in SYRINGE 9 ML IV SCH (09:13)
[2022-11-14] MEDS: FOLIC ACID 1 MG in SYRINGE 9.8 ML IV SCH (09:13)
[2022-11-14] MEDS: LORazepam 2 MG/1 ML VIAL IV PRN (09:37)
--- NOTE | 2022-11-14 15:49 | Hospitalist Progress Note ---
Date of Service November 14, 2022 delayed entry date of service noted above Assessment & Plan (1) Acute pancreatitis: Plan: Acute pancreatitis secondary to alcoholism Duodenitis Fatty Liver CT abdomen pelvis: Findings compatible with pancreatitis, with surrounding soft tissue swelling and reactive duodenal inflammation. Primary duodenitis is also possible but considered less likely. No acute peripancreatic collections or pancreatic necrosis. Gastroenterology service consulted Status post EGD: Impression: - Normal esophagus. - Normal stomach. - Normal duodenal bulb and third portion of the duodenum. - Duodenitis. Biopsied. Duodenum, biopsy: - Duodenal mucosa with subepithelial congestion - Negative for histologic features of sprue - Negative for parasites - Negative for dysplasia and malignancy Status post endoscopic ultrasound: Impression: - There was no sign of significant pathology in the common bile duct. - There was no sign of significant pathology in the gallbladder. - There was abnormal echogenicity in the visualized portion of the liver. This was hyperechoic. Tissue has not been obtained. However, the endosonographic appearance is consistent with fatty infiltration. - Pancreatic parenchymal abnormalities consisting of hyperechoic foci without shadowing and lobularity were noted in the entire pancreas. - No specimens collected. 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 daily x2 weeks Follow-up fatty liver as an outpatient Follow-up with primary care physician in 1 week Hypokalemia, hypocalcemia, hypomagnesemia, hypophosphatemia Replaced Delirium Tremens Alcohol withdrawal -- Patient placed on alcohol withdrawal protocol including Librium protocol, Ativan as needed However patient developed alcohol withdrawal and eventually delirium tremens-confused, agitated, tachycardic Transfer to ICU, given multiple doses of Ativan IV and placed on clonidine daily --Currently, patient's symptoms improved Transferred back to [facility] [place] with telemetry --Patient's mental status returned back to baseline Management of alcoholism per above Tobacco use: Plan: Nicotine patch Smoking cessation encouraged Bipolar disorder: Plan: Not currently on medication Psychiatrist was consulted Evaluated the patient Does not recommend inpatient psych treatment Provided with outpatient resources for mental health providers Patient strongly encouraged to participate with outpatient psychiatry service and alcohol cessation programs Patient verbalized understanding, in agreement Body mass index 40.6 kg/m*m, morbid obesity Patient counseled on proper nutrition, weight loss Disposition Discharge to home Follow-up with primary care physician in 1 week plan of care discussed with patient and her mother over the phone with patient's permission in detail and at length all questions answered She is understanding, agreeable, comfortable with the plan of care Admission and Anticipated Discharge Date Admission Date: November 10, 2022 Subjective Follow-up for acute diverticulitis, delirium tremens etc. Seen with TERELL Rodriguez throughout whole encounter Patient is sitting up in bed, comfortable, not in distress, in good spirits Calm, cooperative, oriented x3 States she feels much better overall Denies abdominal pain, nausea vomiting, fevers or chills, tolerating diet well Denies anxiety, tremors, hallucinations, confusion Denies active depression symptoms, suicidal ideations No other new symptoms Ambulated in the hallway with no problems or symptoms States that she is ready and would like to be discharged so she can watch fireworks with her family and kids Review of Systems Review of Systems: all noted and negative except for above Physical Exam Physical Exam: General- oriented x 3, not in distress, speaks in sentences with no effort or accessory muscle use Eyes- anicteric Neck- no JVD Lungs- clear breath sounds bilaterally, no rales/wheezes Heart- normal rate, regular rhythm; no murmurs Abdomen- normal bowel sounds, nondistended, soft, no tenderness Extremities- no pretibial edema, no calf tenderness No tremors Neuro- alert, oriented x 3; no gross focal neurologic deficits Skin- warm & dry Results & Data Results & Data Vital Signs (Past 12 Hours) Vital Signs Temp Pulse Pulse Resp BP Pulse Ox O2 Del Method 11/14/22 14:56 36.8 C 84 18 102/66 91 Room Air 11/14/22 11:11 37.1 C 78 16 113/71 92 Room Air 11/14/22 11:11 Nasal Cannula 11/14/22 10:43 75 11/14/22 07:23 36.8 C 89 18 109/79 93 Room Air O2 Flow Rate 11/14/22 14:56 11/14/22 11:11 11/14/22 11:11 2 11/14/22 10:43 11/14/22 07:23 all noted and reviewed including below
--- NOTE | 2022-11-15 16:28 | Discharge Summary ---
Discharge Summary Date of Service November 15, 2022 Notes For Next Care Provider Medication Changes From Visit Protonix 40 mg p.o. daily x30 days Multivitamins x30 days Folate, thiamine x1 week, Admission HPI Per Admitting Provider Patient is a 31-year-old female with PMH bipolar, PTSD, tobacco use presented to ER with complaint of abdominal pain x3 days. Patient states 3 days ago started with upper abdominal pain and back pain. Patient also complains of nausea and reports vomiting after taking ibuprofen. Patient reports has been taking 400 mg of ibuprofen every 6 hours for the past 2.5 days secondary to abdominal pain. Reports episode of loose stool this morning. States drinks 1 can of beer daily. Last drink was last night. Denies fever/chills, diaphoresis, MCKEON, dizziness, syncope, hematemesis, melena, hematochezia, CP, SOB, palpitations, cough, sore throat, rhinorrhea, paresthesias, weakness, extremity edema, rashes, urinary symptoms. Denies Tylenol use. Admission Exam Per Admitting Provider General: no acute distress, overweight Head: normocephalic, atraumatic Eyes: conjunctiva non-injected, anicteric ENT: normal inspection external ears, nose, mucous membranes moist Neck: supple, trachea midline Lungs: clear, no respiratory distress, no wheezing/rhonchi/rales CV: RRR, no murmur, no pretibial edema Abd: normal BS, soft, +tender to palpation RUQ, epigastric, LUQ without rebound or guarding Ext: no cyanosis, no calf tenderness Neuro: A&O x 3, no focal deficits noted, normal affect Skin: warm, dry Principal Dx & Hospital Course #1 = Principal Diagnosis (1) Acute pancreatitis: Acute pancreatitis secondary to alcoholism Duodenitis Fatty Liver CT abdomen pelvis: Findings compatible with pancreatitis, with surrounding soft tissue swelling and reactive duodenal inflammation. Primary duodenitis is also possible but considered less likely. No acute peripancreatic collections or pancreatic necrosis. Gastroenterology service consulted Status post EGD: Impression: - Normal esophagus. - Normal stomach. - Normal duodenal bulb and third portion of the duodenum. - Duodenitis. Biopsied. Duodenum, biopsy: - Duodenal mucosa with subepithelial congestion - Negative for histologic features of sprue - Negative for parasites - Negative for dysplasia and malignancy Status post endoscopic ultrasound: Impression: - There was no sign of significant pathology in the common bile duct. - There was no sign of significant pathology in the gallbladder. - There was abnormal echogenicity in the visualized portion of the liver. This was hyperechoic. Tissue has not been obtained. However, the endosonographic appearance is consistent with fatty infiltration. - Pancreatic parenchymal abnormalities consisting of hyperechoic foci without shadowing and lobularity were noted in the entire pancreas. - No specimens collected. 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 daily x2 weeks Follow-up fatty liver as an outpatient Follow-up with primary care physician in 1 week Hypokalemia, hypocalcemia, hypomagnesemia, hypophosphatemia Replaced Delirium Tremens Alcohol withdrawal -- Patient placed on alcohol withdrawal protocol including Librium protocol, Ativan as needed However patient developed alcohol withdrawal and eventually delirium tremens-confused, agitated, tachycardic Transfer to ICU, given multiple doses of Ativan IV and placed on clonidine daily --Currently, patient's symptoms improved Transferred back to [facility] with telemetry --Patient's mental status returned back to baseline Management of alcoholism per above Tobacco use: Plan: Nicotine patch Smoking cessation encouraged Bipolar disorder: Plan: Not currently on medication Psychiatrist was consulted Evaluated the patient Does not recommend inpatient psych treatment Provided with outpatient resources for mental health providers Patient strongly encouraged to participate with outpatient psychiatry service and alcohol cessation programs Patient verbalized understanding, in agreement Body mass index 40.6 kg/m*m, morbid obesity Patient counseled on proper nutrition, weight loss Disposition Discharge to home Follow-up with primary care physician in 1 week plan of care discussed with patient and her mother over the phone with patient's permission in detail and at length all questions answered She is understanding, agreeable, comfortable with the plan of care Discharge Exam General: no acute distress, overweight Head: normocephalic, atraumatic Eyes: conjunctiva non-injected, anicteric ENT: normal inspection external ears, nose, mucous membranes moist Neck: supple, trachea midline Lungs: clear, no respiratory distress, no wheezing/rhonchi/rales CV: RRR, no murmur, no pretibial edema Abd: normal BS, soft, +tender to palpation RUQ, epigastric, LUQ without rebound or guarding Ext: no cyanosis, no calf tenderness Neuro: A&O x 3, no focal deficits noted, normal affect Skin: warm, dry Updated Medication List Medication Instructions Recorded Confirmed Type melatonin 10 mg tablet 30 mg PO HS 11/08/22 11/08/22 History folic acid 1 mg tablet 1 mg PO DAILY #14 tabs 11/14/22 Rx multivitamin 1 tab PO DAILY #30 tabs 11/14/22 Rx thiamine HCl (vitamin B1) 100 mg 100 mg PO DAILY #14 tabs 11/14/22 Rx tablet pantoprazole 40 mg tablet,delayed 40 mg PO DAILY #30 tabs 11/15/22 Rx release (Protonix) Hospital Stay Data Consultations 11/08/22 15:00 ED Decision to Admit Stat 11/08/22 18:42 Consult Gastroenterology Routine 11/11/22 08:18 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 Liver: Hepatic steatosis is noted. Gallbladder and biliary tree: No calcified gallstones. Normal caliber wall. No intra- or extrahepatic biliary ductal dilation. Pancreas: Pancreatic head edema is seen with peripancreatic stranding. No hydronephrosis or drainable fluid collection. Spleen: Unremarkable. Adrenals: Unremarkable. Kidneys and ureters: Unremarkable. Bladder: Unremarkable. Reproductive organs: Unremarkable. Bowel: There is wall thickening and stranding about the duodenum. The appendix is normal. Lymph nodes Retroperitoneal: Unremarkable. Pelvic: Unremarkable. Mesenteric: Unremarkable. Peritoneum: Soft tissue swelling is seen about the pancreatic head and duodenum. No drainable fluid collections. No pneumoperitoneum. Vessels: Atherosclerotic calcifications are seen. Abdominal wall: Unremarkable. Bones: Unremarkable. IMPRESSION: Findings compatible with pancreatitis, with surrounding soft tissue swelling and reactive duodenal inflammation. Primary duodenitis is also possible but considered less likely. No acute peripancreatic collections or pancreatic necrosis. ACT 112: Negative or not required by law. 11/08/22 16:19 MR MRCP Urgent FINDINGS: Bile ducts: The biliary tree is nondilated. The common bile duct is nondilated measuring 5 mm. No choledocholithiasis is identified. Gallbladder: The gallbladder is partially distended and unremarkable. No cholelithiasis is seen. Liver: The liver is enlarged measuring 22 cm craniocaudad. No focal liver lesion is seen. Pancreas: Unremarkable. No ductal dilation. Spleen: The spleen is unremarkable. Adrenals: The adrenal glands are unremarkable. Kidneys and ureters: The kidneys are unremarkable. No hydronephrosis. Stomach and bowel: Unremarkable. No obstruction. Intraperitoneal space: There is edema throughout the pancreas and small amount of free fluid surrounding the pancreas and extending down over the anterior aspect of the retroperitoneum. There is a trace amount of fluid in the proximal right paracolic gutter. Vasculature: The abdominal aorta is nondilated. IMPRESSION: 1. The liver is enlarged measuring 22 cm craniocaudad. No focal liver lesion is seen. 2. The biliary tree is nondilated. The common bile duct is nondilated measuring 5 mm. No choledocholithiasis is identified. 3. Edema in and surrounding the pancreas consistent with acute pancreatitis. No pseudocyst is identified. Electronically signed by: Eren Del Rosario MD 11/08/22 22:20 PM 11/09/22 11:48 US upper EUS PACS images Routine Pending Results Patient Have Any Pending Studies at Discharge: No Discharge Instructions Given to Patient (Per Discharging Provider) New medications include: Protonix Multivitamins Thiamine, folate-supplements for alcohol withdrawal No alcohol and smoking. Going back to drinking alcohol and smoking can lead to worsening of medical condition, recurrence of acute pancreatitis and severe alcohol withdrawal, Which can lead to life-threatening medical conditions. Please drink plenty of water and stay well-hydrated always. PLEASE CALL YOUR PRIMARY CARE PHYSICIAN OR RETURN TO THE ER IF WITH WORSENING OF SYMPTOMS, INCLUDING Abdominal pain, nausea or vomiting, fevers or chills, shortness of breath, chest pain, palpitations, dizziness, Depression or anxiety symptoms, etc. FOLLOW UP WITH PRIMARY CARE PHYSICIAN IN 1 WEEK. THE CLINIC WILL BE CALLING YOU SOON FOR THE APPOINTMENT SCHEDULE. PLEASE FOLLOW-UP WITH OUTPATIENT PSYCHIATRIC PROVIDER IN 1 TO 2 WEEKS. Total Time Total Time Spent Total Time Spent (In Minutes): > 30 minutes
== END 2022-11-14 18:10 | disposition home or self-care (01) | DRG 439 ==
LOC: ED 10:14 → 2W 10:14 → SUATTDRO 15:46 → 2W 18:07 → 2S 11-11 00:40 → 1E 11-11 07:22 → 2N 11-13 16:14